=== PATIENT | male | born 1995 | race Caucasian/White ===

== ENCOUNTER 2019-12-04 11:54 | Emergency (ER) | payer SELFPAY ==
[2019-12-04 12:32] VITALS: BP 135/92; PULSE 61; RESP 14; TEMP 36.7; O2SAT 99; BMI 18.8
--- NOTE | 2019-12-04 12:38 | XR_ITS ---
WS: [id number] Portable AP upright chest, 12/04/2019 Clinical Data: chest pain Comparison: Orbital chest, 12/12/2018. Findings: No nodules, masses or effusions are seen. The heart is normal. The pulmonary vascularity is not increased. No pneumonia or pneumothorax is seen. XR/XR chest 1V portable [id number] Impression: Negative chest.
--- NOTE | 2019-12-04 12:38 | ECG_ITS ---
Measurements Intervals [place] Rate: 60 P: 56 NH: 132 QRS: 81 QRSD: 103 T: 43 QT: 386 QTc: 388 SINUS RHYTHM WITH MARKED SINUS ARRHYTHMIA POSSIBLE RIGHT VENTRICULAR CONDUCTION DELAY [RSR (QR) IN V1/V2] Compared to ECG 01/07/2019 17:39:39 No significant changes Electronically Signed On 12-04-2019 21:02:09 CDT by Jason Gregory M.D. [email or web address]
[2019-12-04 15:01] LABS: Basophils % 0.2 %; Eosinophils % 0.2 %; Hematocrit 40.4 % (42.0-52.0); Hemoglobin 13.3 g/dL (11.7-16.6); Lymphocytes # 1.8 10^3/uL (0.8-4.8); Lymphocytes % 16.1 %; Mean Corpuscular HGB Conc 32.9 g/dL (30.0-36.0); Mean Corpuscular Hemoglobin 30.2 pg (28.0-34.0); Mean Corpuscular Volume 91.8 fL (80-94); Mean Platelet Volume 9.6 fL (7.4-10.4); Monocytes % 9.3 %; Neutrophils # 8.1 10^3/uL (1.8-7.7); Neutrophils % 73.8 %; Nucleated Red Blood Cells % 0 %; Platelet Count 287 10^3/cmm (130-400); Red Cell Distribution Width 13.4 % (12.1-15.1); White Blood Count 10.9 10^3/uL (4.0-10.0)
--- NOTE | 2019-12-04 16:07 | W.ED.SOB ---
HPI - SOB/Dyspnea General: Chief Complaint: Shortness of Breath/Dyspnea Stated Complaint: SOB CP DIZZY Time Seen by Provider: 12/04/19 15:47 Source: patient Mode of arrival: ambulatory Limitations: no limitations History of Present Illness: HPI Narrative: Patient is a 24-year-old male who presents to ED today with a complaint of nasal congestion that he states he woke up with as well as shortness of breath and chest pain with deep inhalation. Patient tells me has been having a productive cough since yesterday as well. He cannot think of any specific exposures he might have been around but states he was riding his bike outside a lot yesterday. He has not been running fevers. Chest pain is not positional or exertional. MD elicited complaint: shortness of breath, cough and anxiety (nasal congestion) Associated symptoms: Reports chest congestion and chest pain (with deep inhalation); Deny abdominal pain, fever(s), hemoptysis, lightheadedness, nausea, orthopnea, palpitations, syncope or vomiting Review of Systems Const: Denies: fever(s), chills, body aches, fatigue or malaise Eyes: Denies: change in vision, blurry vision, photophobia, floaters or seeing flashes ENMT: Reports: nasal discharge, nasal congestion and sinus pain; Denies: throat pain, enlarged tonsils, odynophagia, mouth pain, swelling of lips/tongue, oral sores, dental pain, ear or mastoid pain, ear discharge, change in hearing, tinnitus or nasal obstruction Card: Reports: chest pain (with deep inhalation); Denies: palpitations, irregular heart rhythm, edema, swelling of feet/ankles, lightheadedness, syncope, pre-syncope, dyspnea on exertion, orthopnea, leg pain with exertion or acrocyanosis Resp: Reports: dyspnea, productive cough, pain on inspiration and chest congestion; Denies: wheezing, stridor or hemoptysis GI: Denies: abdominal pain, nausea or vomiting Musc: Denies: neck pain or back pain Skin/Breast: Denies: rash Neuro: Denies: headache(s), numbness in extremities, weakness in extremities or sensory changes PFS ED PFSH: Medical History (Updated 12/04/19 @ 16:20 by IVETH Le) Alcoholism Depression GERD (gastroesophageal reflux disease) Hepatitis C Insomnia Family History Grandmother Cancer Mother Diabetes Heart disease Social History Smoking and tobacco status: current every day smoker cigarettes [ Other cigarette details: actively trying to quit ] Alcohol intake: current Alcohol intake frequency: few times a month Alcohol type: beer History of recent travel: No Physical Exam Const: COMMON NORMALS: no acute distress, average body habitus, patient oriented x3, no limitations, healthy appearing, alert and well nourished HENMT: COMMON NORMALS: normocephalic, atraumatic, external ears normal, EAC's normal, TM's normal bilaterally and Normal external nose present HEAD & SCALP: normal to inspection, normocephalic and atraumatic FACE & SINUS: sinus tenderness frontal and maxillary NOSE: Normal external nose present EXTERNAL EAR: Yes external ears normal EXTERNAL AUDITORY CANAL: EAC's normal TYMPANIC MEMBRANE: TM's normal bilaterally MOUTH: Normal oral and palatal mucosa present, lip normal and tongue normal THROAT: posterior oropharynx normal, tonsils normal and uvula midline OTHER: nasal congestion Eye: COMMON NORMALS: Equal, round and reactive pupils present and EOMs intact bilaterally PUPIL: Yes Equal, round and reactive pupils present Neck/C-Spine: COMMON NORMALS: no lymphadenopathy Resp: COMMON NORMALS: normal respiratory effort and clear to auscultation bilaterally AUSCULTATION: clear to auscultation bilaterally Cardio: COMMON NORMALS: regular rate and regular rhythm RATE: regular rate RHYTHM: regular rhythm Neuro: COMMON NORMALS: patient oriented x3 SENSORIUM/ORIENTATION: Yes alert Skin: COMMON NORMALS: no rashes or lesions noted GENERAL SKIN EXAM: no rashes or lesions noted Course Vital Signs: Vital signs: Vital Signs Temperature 98.1 F 12/04/19 12:32 Pulse Rate 61 12/04/19 12:32 Respiratory Rate 14 12/04/19 12:32 Blood Pressure 135/92 12/04/19 12:32 Pulse Oximetry 99 12/04/19 12:32 MDM - SOB/Dyspnea MDM Narrative: Medical decision making narrative: Patient is seated in his room comfortably in no acute distress. His vital signs are completely stable. Labs including CBC, CMP are normal. EKG without ischemic changes. CXR is normal. Given patient's nasal congestion, productive cough, and other symptoms he most likely has allergic rhinitis versus URI like symptoms. Will treat with oral and intranasal steroids. Recommend he follow-up with PCP in a week for continued symptoms. Return to ED precautions given. Lab Data: Labs: Lab Results 12/04/19 12/04/19 Range/Units 14:44 15:30 WBC 10.9 H (4.0-10.0) 10^3/ uL RBC 4.40 (4.1-5.3) 10^6/u L Hgb 13.3 (11.7-16.6) g/dL Hct 40.4 L (42.0-52.0) % MCV 91.8 (80-94) fL MCH 30.2 (28.0-34.0) pg MCHC 32.9 (30.0-36.0) g/dL RDW 13.4 (12.1-15.1) % Plt Count 287 (130-400) 10^3/c mm MPV 9.6 (7.4-10.4) fL Neut % (Auto) 73.8 % Lymph % (Auto) 16.1 % [place] % (Auto) 9.3 % Eos % (Auto) 0.2 % Baso % (Auto) 0.2 % Neut # (Auto) 8.1 H (1.8-7.7) 10^3/u L Lymph # (Auto) 1.8 (0.8-4.8) 10^3/u L [place] # (Auto) 1.0 H (0.2-0.9) 10^3/u L Eos # (Auto) 0.0 (0.0-0.8) 10^3/u L Baso # (Auto) 0.0 (0.0-0.1) 10^3/u L Nucleated RBC % (a uto) 0 % Nucleated RBCs # 0.0 /100WBC Sodium 142 (136-145) mmol/L Potassium 3.9 (3.5-5.1) mmol/L Chloride 102 (98-107) mmol/L Carbon Dioxide 26 (22-29) mmol/L Anion Gap 17.9 (5-19) BUN 7 (6-20) mg/dL Creatinine 0.8 (0.7-1.2) mg/dL GFR Calculation 116.9 (90-130) mL/min Glucose 96 (65-115) mg/dL Calculated Osmolal ity 290 (285-295) mOsm/k g Calcium 9.7 (8.5-10.5) mg/dL Total Bilirubin 0.6 (0.15-1.2) mg/dL AST 29 (0-40) U/L ALT 15 (0-41) U/L Alkaline Phosphata se 96 (40-130) IU/L Total Protein 7.9 (6.6-8.7) g/dL Albumin 5.0 (3.5-5.2) g/dL Globulin 2.9 (1.3-4.6) g/dL Imaging Data^: CXR: Radiologist's impression: [address] [address] XRay Report Signed Patient: Tyree Alvarez Unit #: [id number] : 1995 Age/Sex: 24 / M ADM Date: 12/04/19 Loc: ER Room/Bed: Attending Dr: Ordering Provider/Ordering MD: Ashley Lr Date of Service: 12/04/19 Procedure(s): XR chest 1V portable [id number] Accession Number(s): [id number] Report Number: [id number] WS: [id number] Portable AP upright chest, 12/04/2019 Clinical Data: chest pain Comparison: Orbital chest, 12/12/2018. Findings: No nodules, masses or effusions are seen. The heart is normal. The pulmonary vascularity is not increased. No pneumonia or pneumothorax is seen. XR/XR chest 1V portable [id number] Impression: Negative chest. Dictated By: Amie Sevilla MD Signed By: Amie Sevilla MD Signed Date/Time: 12/04/19 1327 DD/ 1326 EKG Data^: EKG 1: EKG Interpretation Date: 12/04/19 EKG interpretation time: 12:39 Interpretation: Sinus rhythm with sinus arrhythmia Rate [address] elevation or depression changes noted Discharge Plan Discharge Patient Disposition: Home, Self-Care Clinical Impression: URI with cough and congestion Condition: Stable Prescriptions: New Flonase Allergy Relief 50 mcg/actuation spray,suspension 2 spray INTRANASAL DAILY PRN (Reason: nasal congestion) Qty: 16 RF: 0 prednisone 10 mg tablet 60 mg PO DAILY 5 Days Qty: 30 RF: 0 Discharge Orders: Discharge Order (Routine); Ordered 12/04/19 Ordered By: Ahsley Lr Referrals: Otilia Medina MD [Primary Care Provider] - Activity Restrictions/Additional Instructions: Please follow up with primary care in 1 week for continued symptoms. May return to ED for any concerns you may have. Coding Level of Care Code ED Fiber Worker for Chg Fwd Exam Detailed
[2019-12-04 16:24] LABS: Alanine Aminotransferase 15 U/L (0-41); Alkaline Phosphatase 96 IU/L (40-130); Anion Gap 17.9 (5-19); Aspartate Amino Transferase 29 U/L (0-40); Blood Urea Nitrogen 7 mg/dL (6-20); Calcium 9.7 mg/dL (8.5-10.5); Carbon Dioxide 26 mmol/L (22-29); Chloride 102 mmol/L (98-107); Globulin 2.9 g/dL (1.3-4.6); Glomerular Filtration Rate 116.9 mL/min (90-130); Glucose 96 mg/dL (65-115); Osmolality Calculated 290 mOsm/kg (285-295); Potassium 3.9 mmol/L (3.5-5.1); Sodium 142 mmol/L (136-145); Total Bilirubin 0.6 mg/dL (0.15-1.2); Total Protein 7.9 g/dL (6.6-8.7)
[2019-12-04 16:57] VITALS: BP 140/82; PULSE 68; RESP 18; O2SAT 97
== END 2019-12-04 16:57 | disposition home or self-care (01) ==
PROVIDERS: Emergency Provider Physician Assistant; PCP Family Medicine
DX: J06.9 Acute upper respiratory infection, unspecified (principal); Z86.19 Personal history of other infectious and parasitic diseases; F17.210 Nicotine dependence, cigarettes, uncomplicated
CPT/HCPCS: 12345; 36415; 71045; 80053; 85025; 93005; 99281; 99283

== ENCOUNTER 2019-12-13 00:04 | Emergency (ER) | payer SELFPAY ==
[2019-12-13] VITALS (46 sets, daily range): BP systolic 106–126; BP diastolic 57–74; PULSE 76; RESP 16; TEMP 36.7; O2SAT 96–100; BMI 20.2
--- NOTE | 2019-12-13 00:36 | XRR_ITS ---
PROCEDURE INFORMATION: Exam: XR Chest, 1 View Exam date and time: 12/13/2019 12:39 AM Age: 24 years old Clinical indication: Shortness of breath; Patient HX: Sudden onset of chest pain with SOB this a. M. PT had left knee surgery five days ago. TECHNIQUE: Imaging protocol: XR of the chest Views: 1 view. COMPARISON: No relevant prior studies available. FINDINGS: Lungs: Unremarkable. No consolidation. Pleural space: Unremarkable. No pleural effusion. No pneumothorax. Heart/Mediastinum: Unremarkable. No cardiomegaly. Bones/joints: No emergent findings identified. XR/XR chest 1V portable [id number] IMPRESSION: 1. No radiographic findings of acute cardiopulmonary disease.
[2019-12-13 01:26] LABS: Hematocrit 28.4 % (42.0-52.0); Hemoglobin 9.2 g/dL (11.7-16.6); Mean Corpuscular HGB Conc 32.4 g/dL (30.0-36.0); Mean Corpuscular Hemoglobin 29.8 pg (28.0-34.0); Mean Corpuscular Volume 91.9 fL (80-94); Nucleated Red Blood Cells % 0 %; Platelet Count 408 10^3/cmm (130-400); Red Blood Count 3.09 10^6/uL (4.1-5.3); White Blood Count 13.4 10^3/uL (4.0-10.0)
--- NOTE | 2019-12-13 01:28 | CTR_ITS ---
PROCEDURE INFORMATION: Exam: CT Angiography Chest With Contrast Exam date and time: 12/13/2019 1:48 AM Age: 24 years old Clinical indication: Shortness of breath; Pleuordynia; Patient HX: Chest pain with SOB this AM Surgery to left knee five days ago. Additional info: Pleuritic chest pain, recent surgery TECHNIQUE: Imaging protocol: Computed tomographic angiography of the chest with intravenous contrast. 3D rendering: MIP and/or 3D reconstructed images were created by the technologist. Radiation optimization: All CT scans at this facility use at least one of these dose optimization techniques: automated exposure control; mA and/or kV adjustment per patient size (includes targeted exams where dose is matched to clinical indication); or iterative reconstruction. Contrast material: OMNI 350; Contrast volume: 66 ml; Contrast route: INTRAVENOUS (IV); COMPARISON: CR XR chest 1V portable [id number] 12/13/2019 1:14 AM RADIATION DOSE METRICS: Total DLP (mGy-cm): 471.2 FINDINGS: Pulmonary arteries: No pulmonary emboli identified. Aorta: No thoracic aortic aneurysm identified. Lungs: Mild patchy atelectasis at the periphery of both lungs. Pleural space: No pneumothorax or pleural effusion. Heart: Heart size within normal limits. Lymph nodes: No enlarged or abnormal appearing mediastinal/hilar lymph nodes identified. Bones/joints: Visualized bones are unremarkable. Soft tissues: Unremarkable. Other findings: Images of the upper abdomen were reviewed. Partially visualized hydronephrosis of the left kidney. CT/CT angio chest PE protcl [id number] IMPRESSION: 1. No pulmonary emboli identified. 2. Partially visualized hydronephrosis of the left kidney. Radiation Dose CTDIVOL = (mGy): DLP = 471.2 (mGy-cm)
[2019-12-13 01:29] LABS: D Dimer 2.31 ug/mIFEU (0-0.59)
[2019-12-13] MEDS: aspirin 325 mg Tablet PO (01:31)
--- NOTE | 2019-12-13 01:34 | ED_ITS ---
HPI - Chest Pain General: Chief Complaint: Chest Pain Stated Complaint: CP Time Seen by Provider: 12/13/19 01:16 Source: patient Mode of arrival: ambulatory Limitations: no limitations History of Present Illness: HPI narrative: Tyree is a nice 24-year-old male who comes in complaining of pleuritic chest pain. Patient states he had surgery 5 days ago at [facility] for failure for his bone to heal. He is not had any problem until tonight when he woke up feeling clammy, short of breath and pain made worse by taking a deep breath or coughing. He denies any fevers or c hills. Patient states that his pain is moderate when taking a deep breath. He denies any other complaints or concerns. Associated symptoms: Reports dyspnea; Deny abdominal pain, diaphoresis, fever(s), nausea, palpitations, syncope or vomiting Review of Systems Const: Denies: fever(s), chills, body aches, fatigue, malaise or diaphoresis Eyes: Denies: change in vision, blurry vision, blind spots, photophobia, eye discharge or eye redness ENMT: Denies: throat pain, odynophagia, hoarseness, swelling of lips/tongue, oral sores, ear or mastoid pain, ear discharge, change in hearing or nasal discharge Card: Reports: chest pain; Denies: palpitations, irregular heart rhythm, edema, lightheadedness, syncope, pre-syncope, dyspnea on exertion or orthopnea Resp: Reports: dyspnea; Denies: productive cough, non-productive cough, wheezing, hemoptysis or chest congestion GI: Denies: abdominal pain, nausea, vomiting, hematemesis, coffee ground emesis, heartburn, diarrhea, constipation, GI cramping, hematochezia or melena : Denies: flank pain, dysuria, urinary frequency, urinary urgency or hematuria Musc: Denies: neck pain, back pain, extremity pain, extremity swelling, joint pain, joint swelling, joint redness, joint warmth or joint stiffness Skin/Breast: Denies: rash, pruritus, erythema, skin tenderness or jaundice Neuro: Denies: headache(s), numbness in extremities, weakness in extremities, sensory changes, lack of coordination, difficulty walking, dizziness, vertigo, confusion, Slurred speech present or seizure-like activity Abe/Lymph: Denies: easy bruising, easy bleeding, petechiae, purpura or enla rged lymph nodes All/Imm: Denies: urticaria, throat swelling, tongue swelling, facial swelling or acute wheezing PFSH ED PFSH: Medical History Alcoholism Depression GERD (gastroesophageal reflux disease) Hepatitis C Insomnia Family History Grandmother Cancer Mother Diabetes Heart disease Social History Smoking and tobacco status: former smoker Alcohol intake: current Alcohol intake frequency: few times a month Alcohol type: beer History of recent travel: No Physical Exam Const: COMMON NORMALS: no acute distress, patient oriented x3, no limitations, healthy appearing and well nourished GENERAL APPEARANCE: cooperative, well kempt and well developed HENMT: COMMON NORMALS: normocephalic, atraumatic, external ears normal, EAC's normal and Normal external nose present HEAD & SCALP: normal to inspection, normocephalic and atraumatic FACE & SINUS: normal facial exam and face symmetric NOSE: Normal external nose present and Normal nares present EXTERNAL EAR: Yes external ears normal EXTERNAL AUDITORY CANAL: EAC's normal MOUTH: Normal oral and palatal mucosa present, lip normal and tongue normal Eye: COMMON NORMALS: Equal, round and reactive pupils present and conjunctivae normal GENERAL EYE: appearance normal, both eyes and all related structures ALIGNMENT: Yes alignment normal PERIORBITAL: periorbital findings normal EYELID: eyelids normal CONJUNCTIVA: Yes conjunctivae normal SCLERA: sclerae normal PUPIL: Yes Equal, round and reactive pupils present Neck/C-Spine: COMMON NORMALS: full ROM, no lymphadenopathy, supple, no meningeal signs and no JVD GENERAL: Yes normal visual inspection and Yes trachea midline Chest: COMMONS NORMALS: normal inspection of the chest and normal palpation of entire chest wall Resp: COMMON NORMALS: normal respiratory effort, No retractions and No use of accessory muscles EFFORT & INSPECTION: Yes able to speak in complete sentences and Yes symmetric chest movement AUSCULTATION: no crackles, no rales, no rhonchi and no wheezes Cardio: COMMON NORMALS: no JVD, regular rate, regular rhythm, S1 normal heart sound present and S2 normal heart sound present RATE: regular rate RHYTHM: regular rhythm HEART SOUNDS: S1 normal heart sound present, S2 normal heart sound present, no click, no gallops, no murmurs, no rubs and abnormal split S2 GI: COMMON NORMALS: Soft to palpation and No hepatosplenomegaly present PALPATION: Yes Soft to palpation, No Tenderness to palpation present (GI), No Guarding due to palpation present (GI), No Rigid due to palpation, Yes No hepatosplenomegaly present, No Hernia present, No Palpable mass present and No Pulsatile mass present : COMMON NORMALS: Yes no CVA tenderness BLADDER/KIDNEY EXAM: Yes no CVA tenderness Back/Pelvis: COMMON NORMALS: no CVA tenderness, thoracic and lumbar spine normal to inspection, no thoracic nor lumbar tenderness and thoraco-lumbar ROM normal Extremity: COMMON NORMALS: normal to inspection, full ROM, capillary refill normal, no joint enlargement, no clubbing, cyanosis or edema and no calf tenderness Neuro: COMMON NORMALS: patient oriented x3, CN's II-XII intact bilaterally, moves all extremities, no focal motor deficits and no sensory deficits noted MENINGEAL SIGNS: Yes no meningeal signs SPEECH: speech normal Psych: COMMON NORMALS: mental status grossly normal, Normal thought process present, cooperative, normal affect, speech normal and activity/motor behavior normal APPEARANCE: Yes well kempt SPEECH: Yes normal speech THOUGHT PROCESS: Normal thought process present Skin: COMMON NORMALS: no rashes or lesions noted, turgor normal, no jaundice, no petechiae and no mottling GENERAL SKIN EXAM: no rashes or lesions noted and turgor normal Course Vital Signs: Vital signs: Vital Signs Temperature 98.1 F 12/13/19 00:13 Pulse Rate 76 12/13/19 00:13 Respiratory Rate 16 12/13/19 00:13 Blood Pressure 111/63 12/13/19 03:30 Pulse Oximetry 97 12/13/19 03:30 MDM - Chest Pain MDM Narrative: Medical decision making narrative: Patient had positive d-dimer but ultrasound of his left lower extremity is negative and there is no sign of PE on his CAT scan. Incidentally a left hydronephrosis was noted. 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 Patient's kidney function is good and there is no sign of UTI. I reviewed the findings of the CT with Dr. Long who thinks this is likely a congenital issue and we did get a ultrasound of the bladder which showed good ureteral jets. Knowing that his left kidney is secreting urine Dr. Long felt he was safe for discharge and the patient can follow-up with him in the office. I reviewed all this with the patient he is in agreement. In regards to his anemia he refused a rectal exam and it is possible that some of this blood loss is from surgery but he would not allow any further work-up to be done here and wanted to be discharged to follow-up with Dr. Medina in regards to his anemia. Lab Data: Labs: Lab Results 12/13/19 12/13/19 12/13/19 Range/Units 00:45 00:45 00:45 WBC 13.4 H (4.0-10.0) 10^3/ uL RBC 3.09 L (4.1-5.3) 10^6/u L Hgb 9.2 L (11.7-16.6) g/dL Hct 28.4 L (42.0-52.0) % MCV 91.9 (80-94) fL MCH 29.8 (28.0-34.0) pg MCHC 32.4 (30.0-36.0) g/dL RDW 13.0 (12.1-15.1) % Plt Count 408 H (130-400) 10^3/c mm MPV 9.0 (7.4-10.4) fL Nucleated RBC % (a uto) 0 % Total Counted 100 (0-100) Absolute Neutrophi ls 7.6 H (1.4-6.5) 10^3/c mm Segmented Neutroph ils 53 % Abs Segm Neuts (Ma n) 7.1 (1.6-7.1) 10/cmm Band Neutrophils 4.0 % Abs Band Neuts (Ma n) 0.5 (0.0-1.2) 10^3/c mm Lymphocytes (Manua l) 31 % Monocytes (Manual) 2.0 % Absolute Monocytes 0.3 (0.1-0.6) 10^3/c mm Eosinophils (Manua l) 2 % Absolute Eosinophi ls 0.2 (0.0-0.7) 10^3/c mm Metamyelocytes 6.0 % Myelocytes 2.0 % Nucleated RBCs # 0.0 /100WBC Platelet Estimate Increased (Normal) PT (10.5-13.3) SECO NDS INR (0.8-1.2) APTT (23.9-36.7) SECO NDS D-Dimer 2.31 H (0-0.59) ug/mIFE U Sodium 139 (136-145) mmol/L Potassium 4.1 (3.5-5.1) mmol/L Chloride 102 (98-107) mmol/L Carbon Dioxide 26 (22-29) mmol/L Anion Gap 15.1 (5-19) BUN 17 (6-20) mg/dL Creatinine 0.8 (0.7-1.2) mg/dL GFR Calculation 116.9 (90-130) mL/min Glucose 96 (65-115) mg/dL Calculated Osmolal ity 284 L (285-295) mOsm/k g Calcium 9.0 (8.5-10.5) mg/dL Magnesium 2.2 (1.7-2.3) mg/dL Total Bilirubin 0.3 (0.15-1.2) mg/dL AST 16 (0-40) U/L ALT 10 (0-41) U/L Alkaline Phosphata se 69 (40-130) IU/L Troponin T Baselin e (0-15) ng/L Troponin T 120 Min king salmon (0-15) ng/L Delta Troponin T (0-10) ABS# NT-Pro-B Natriuret Pep (0-125) pg/mL Total Protein 6.6 (6.6-8.7) g/dL Albumin 3.8 (3.5-5.2) g/dL Globulin 2.8 (1.3-4.6) g/dL Lipase 17 (13-60) U/L Urine Color (Yellow) Urine Appearance (CLEAR) Urine pH (5-7) Ur Specific Gravit y (1.005-1.030) Urine Protein (Negative) Urine Glucose (UA) (Normal) Urine Ketones (Negative) Urine Blood (Negative) Urine Nitrate (Negative) Urine Bilirubin (NEGATIVE) Urine Urobilinogen (Negative) mg/dL Ur Leukocyte Basia ase (Negative) Urine RBC (0-2) /hpf Urine WBC (0-5) /hpf Ur Squamous Epith Cells (0-5) Urine Bacteria (NONE) Urine Mucus Urine Opiates Scre en (Negative) ng/mL Ur Barbiturates Sc reen (Negative) ng/mL Ur Phencyclidine S crn (Negative) ng/mL Ur Amphetamines Sc reen (Negative) ng/mL U Benzodiazepines Scrn (Negative) ng/mL Urine Cocaine Scre en (Negative) ng/mL U Marijuana (THC) Screen (Negative) ng/mL 12/13/19 12/13/19 12/13/19 Range/Units 00:45 00:45 00:45 WBC (4.0-10.0) 10^3/ uL RBC (4.1-5.3) 10^6/u L Hgb (11.7-16.6) g/dL Hct (42.0-52.0) % MCV (80-94) fL MCH (28.0-34.0) pg MCHC (30.0-36.0) g/dL RDW (12.1-15.1) % Plt Count (130-400) 10^3/c mm MPV (7.4-10.4) fL Nucleated RBC % (a uto) % Total Counted (0-100) Absolute Neutrophi ls (1.4-6.5) 10^3/c mm Segmented Neutroph ils % Abs Segm Neuts (Ma n) (1.6-7.1) 10/cmm Band Neutrophils % Abs Band Neuts (Ma n) (0.0-1.2) 10^3/c mm Lymphocytes (Manua l) % Monocytes (Manual) % Absolute Monocytes (0.1-0.6) 10^3/c mm Eosinophils (Manua l) % Absolute Eosinophi ls (0.0-0.7) 10^3/c mm Metamyelocytes % Myelocytes % Nucleated RBCs # /100WBC Platelet Estimate (Normal) PT 12.50 (10.5-13.3) SECO NDS INR 0.91 (0.8-1.2) APTT 27.3 (23.9-36.7) SECO NDS D-Dimer (0-0.59) ug/mIFE U Sodium (136-145) mmol/L Potassium (3.5-5.1) mmol/L Chloride (98-107) mmol/L Carbon Dioxide (22-29) mmol/L Anion Gap (5-19) BUN (6-20) mg/dL Creatinine (0.7-1.2) mg/dL GFR Calculation (90-130) mL/min Glucose (65-115) mg/dL Calculated Osmolal ity (285-295) mOsm/k g Calcium (8.5-10.5) mg/dL Magnesium (1.7-2.3) mg/dL Total Bilirubin (0.15-1.2) mg/dL AST (0-40) U/L ALT (0-41) U/L Alkaline Phosphata se (40-130) IU/L Troponin T Baselin e 6 (0-15) ng/L Troponin T 120 Min king salmon (0-15) ng/L Delta Troponin T (0-10) ABS# NT-Pro-B Natriuret Pep 92 (0-125) pg/mL Total Protein (6.6-8.7) g/dL Albumin (3.5-5.2) g/dL Globulin (1.3-4.6) g/dL Lipase (13-60) U/L Urine Color (Yellow) Urine Appearance (CLEAR) Urine pH (5-7) Ur Specific Gravit y (1.005-1.030) Urine Protein (Negative) Urine Glucose (UA) (Normal) Urine Ketones (Negative) Urine Blood (Negative) Urine Nitrate (Negative) Urine Bilirubin (NEGATIVE) Urine Urobilinogen (Negative) mg/dL Ur Leukocyte Basia ase (Negative) Urine RBC (0-2) /hpf Urine WBC (0-5) /hpf Ur Squamous Epith Cells (0-5) Urine Bacteria (NONE) Urine Mucus Urine Opiates Scre en (Negative) ng/mL Ur Barbiturates Sc reen (Negative) ng/mL Ur Phencyclidine S crn (Negative) ng/mL Ur Amphetamines Sc reen (Negative) ng/mL U Benzodiazepines Scrn (Negative) ng/mL Urine Cocaine Scre en (Negative) ng/mL U Marijuana (THC) Screen (Negative) ng/mL 12/13/19 12/13/19 12/13/19 Range/Units 02:50 03:00 03:00 WBC (4.0-10.0) 10^3/ uL RBC (4.1-5.3) 10^6/u L Hgb (11.7-16.6) g/dL Hct (42.0-52.0) % MCV (80-94) fL MCH (28.0-34.0) pg MCHC (30.0-36.0) g/dL RDW (12.1-15.1) % Plt Count (130-400) 10^3/c mm MPV (7.4-10.4) fL Nucleated RBC % (a uto) % Total Counted (0-100) Absolute Neutrophi ls (1.4-6.5) 10^3/c mm Segmented Neutroph ils % Abs Segm Neuts (Ma n) (1.6-7.1) 10/cmm Band Neutrophils % Abs Band Neuts (Ma n) (0.0-1.2) 10^3/c mm Lymphocytes (Manua l) % Monocytes (Manual) % Absolute Monocytes (0.1-0.6) 10^3/c mm Eosinophils (Manua l) % Absolute Eosinophi ls (0.0-0.7) 10^3/c mm Metamyelocytes % Myelocytes % Nucleated RBCs # /100WBC Platelet Estimate (Normal) PT (10.5-13.3) SECO NDS INR (0.8-1.2) APTT (23.9-36.7) SECO NDS D-Dimer (0-0.59) ug/mIFE U Sodium (136-145) mmol/L Potassium (3.5-5.1) mmol/L Chloride (98-107) mmol/L Carbon Dioxide (22-29) mmol/L Anion Gap (5-19) BUN (6-20) mg/dL Creatinine (0.7-1.2) mg/dL GFR Calculation (90-130) mL/min Glucose (65-115) mg/dL Calculated Osmolal ity (285-295) mOsm/k g Calcium (8.5-10.5) mg/dL Magnesium (1.7-2.3) mg/dL Total Bilirubin (0.15-1.2) mg/dL AST (0-40) U/L ALT (0-41) U/L Alkaline Phosphata se (40-130) IU/L Troponin T Baselin e (0-15) ng/L Troponin T 120 Min king salmon 6.00 (0-15) ng/L Delta Troponin T 0 (0-10) ABS# NT-Pro-B Natriuret Pep (0-125) pg/mL Total Protein (6.6-8.7) g/dL Albumin (3.5-5.2) g/dL Globulin (1.3-4.6) g/dL Lipase (13-60) U/L Urine Color Yellow (Yellow) Urine Appearance Clear (CLEAR) Urine pH 5 (5-7) Ur Specific Gravit y 1.015 (1.005-1.030) Urine Protein Neg (Negative) Urine Glucose (UA) Norm (Normal) Urine Ketones Negative (Negative) Urine Blood Neg (Negative) Urine Nitrate Negative (Negative) Urine Bilirubin Neg (NEGATIVE) Urine Urobilinogen Norm (Negative) mg/dL Ur Leukocyte Basia ase Negative (Negative) Urine RBC 0-4 H (0-2) /hpf Urine WBC 0-4 H (0-5) /hpf Ur Squamous Epith Cells 0-4 H (0-5) Urine Bacteria 1+ H (NONE) Urine Mucus 1+ Urine Opiates Scre en Negative (Negative) ng/mL Ur Barbiturates Sc reen Negative (Negative) ng/mL Ur Phencyclidine S crn Negative (Negative) ng/mL Ur Amphetamines Sc reen Negative (Negative) ng/mL U Benzodiazepines Scrn Positive H (Negative) ng/mL Urine Cocaine Scre en Negative (Negative) ng/mL U Marijuana (THC) Screen Negative (Negative) ng/mL Imaging Data^: CXR: Attestation: I personally reviewed and interpreted this imaging study as follows: My impression: No acute cardiopulmonary findings. CTA Chest: Radiologist's impression: [address] [address] [address] Scan Report Signed Patient: Tyree Alvarez Unit #: [id number] : 1995 Age/Sex: 24 / M ADM Date: 12/13/19 Loc: ER Room/Bed: Attending Dr: Ordering Provider/Ordering MD: Sara Henriquez DO Date of Service: 12/13/19 Procedure(s): CT angio chest PE protcl [id number] Accession Number(s): [id number] Report Number: [id number] PROCEDURE INFORMATION: Exam: CT Angiography Chest With Contrast Exam date and time: 12/13/2019 1:48 AM Age: 24 years old Clinical indication: Shortness of breath; Pleuordynia; Patient HX: Chest pain with SOB this AM Surgery to left knee five days ago. Additional info: Pleuritic chest pain, recent surgery TECHNIQUE: Imaging protocol: Computed tomographic angiography of the chest with intravenous contrast. 3D rendering: MIP and/or 3D reconstructed images were created by the technologist. Radiation optimization: All CT scans at this facility use at least one of these dose optimization techniques: automated exposure control; mA and/or kV adjustment per patient size (includes targeted exams where dose is matched to clinical indication); or iterative reconstruction. Contrast material: OMNI 350; Contrast volume: 66 ml; Contrast route: INTRAVENOUS (IV); COMPARISON: CR XR chest 1V portable [id number] 12/13/2019 1:14 AM RADIATION DOSE METRICS: Total DLP (mGy-cm): 471.2 FINDINGS: Pulmonary arteries: No pulmonary emboli identified. Aorta: No thoracic aortic aneurysm identified. Lungs: Mild patchy atelectasis at the periphery of both lungs. Pleural space: No pneumothorax or pleural effusion. Heart: Heart size within normal limits. Lymph nodes: No enlarged or abnormal appearing mediastinal/hilar lymph nodes identified. Bones/joints: Visualized bones are unremarkable. Soft tissues: Unremarkable. Other findings: Images of the upper abdomen were reviewed. Partially visualized hydronephrosis of the left kidney. CT/CT angio chest PE protcl [id number] IMPRESSION: 1. No pulmonary emboli identified. 2. Partially visualized hydronephrosis of the left kidney. Radiation Dose CTDIVOL = (mGy): DLP = 471.2 (mGy-cm) Dictated By: Panfilo Bagley MD Signed By: Panfilo Bagley MD Signed Date/Time: 12/13/19225 DD/ 4 CT Abd/Pel: Radiologist's impression: [address] [address] [address] Scan Report Signed Patient: Tyree Alvarez Unit #: [id number] : 1995 Age/Sex: 24 / M ADM Date: 12/13/19 Loc: ER Room/Bed: Attending Dr: Ordering Provider/Ordering MD: Sara Henriquez DO Date of Service: 12/13/19 Procedure(s): CT kidney stone [id number] Accession Number(s): [id number] Report Number: [id number] PROCEDURE INFORMATION: Exam: CT Abdomen And Pelvis Without Contrast Exam date and time: 12/13/2019 3:09 AM Age: 24 years old Clinical indication: Patient HX: Partial hydronephrosis seen on chest cta; Additional info: Flank/abdominal pain TECHNIQUE: Imaging protocol: Computed tomography of the abdomen and pelvis without contrast. Radiation optimization: All CT scans at this facility use at least one of these dose optimization techniques: automated exposure control; mA and/or kV adjustment per patient size (includes targeted exams where dose is matched to clinical indication); or iterative reconstruction. COMPARISON: No relevant prior studies available. RADIATION DOSE METRICS: Total DLP (mGy-cm): 450.68 FINDINGS: Limitations: Examinations performed without intravenous contrast have limited ability to detect many conditions. Lungs: Minimal atelectasis at the left lung base. Liver: Unremarkable. Gallbladder and bile ducts: Unremarkable. Pancreas: Unremarkable. Spleen: Unremarkable. Adrenals: Unremarkable. Kidneys and ureters: Contrast is noted in the renal excretory systems bilaterally. Moderate left hydronephrosis. The left ureter is not dilated. This pattern suggests ureteropelvic junction obstruction (likely congenital/developmental). Stomach and bowel: No bowel obstruction identified. No diverticulitis identified. Appendix: A normal-appearing appendix is seen in the right lower quadrant. Intraperitoneal space: No free intraperitoneal air identified. No free intraperitoneal fluid identified. Vasculature: No abdominal aortic aneurysm. Lymph nodes: Unremarkable. Bladder: The bladder is filled with contrast (otherwise unremarkable). Reproductive: Unremarkable as visualized. Bones/joints: No emergent findings identified. Soft tissues: Unremarkable. CT/CT kidney stone [id number] IMPRESSION: 1. Moderate left hydronephrosis. Pattern suggests ureteropelvic junction obstruction (likely congenital/developmental). Radiation Dose CTDIVOL = (mGy): DLP = 450.68 (mGy-cm) Dictated By: Panfilo Bagley MD Signed By: Panfilo Bagley MD Signed Date/Time: 12/13/19414 DD/ 2 Ultrasound bladder: My impression: Ultrasound bladder, tech interpretation -bilateral ureteral jets present. Ultrasound Left Lower Extremity Venous Doppler: My impression: Ultrasound venous Doppler, tech interpretation left lower extremity -negative for DVT EKG Data^: EKG 1: Attestation: I personally reviewed and interpreted this EKG as follows: EKG interpretation date: 12/13/19 Interpretation: Normal sinus rhythm at 83 beats a minute, incomplete right bundle branch block, benign early repolarization, otherwise no acute ST or T wave changes. EKG 2: Attestation: I personally reviewed and interpreted this EKG as follows: EKG interpretation date: 12/13/19 EKG interpretation time: 03:03 Interpretation: Normal sinus rhythm at 64 beats a minute, incomplete right bundle branch block, benign early repolarization, unchanged from previous. Discharge Plan Discharge Patient Disposition: Home, Self-Care Clinical Impression: Chest pain Qualifiers: Chest pain type: unspecified Qualified Code(s): R07.9 - Chest pain, unspecified Hydronephrosis Qualifiers: Hydronephrosis type: unspecified Qualified Code(s): N13.30 - Unspecified hydronephrosis Anemia Qualifiers: Anemia type: unspecified type Qualified Code(s): D64.9 - Anemia, unspecified Condition: Stable Discharge Orders: Discharge Order (Routine); Ordered 12/13/19 Ordered By: Sara Henriquez Referrals: Otilia Medina MD [Primary Care Provider] - 1-3 days Evert Long MD [Physician] - 7-10 days Discharge Diet: Advance as tolerated Discharge Activity: Use walker/crutches as instructed Patient Instructions: Chest Pain (ED), Hydronephrosis (ED), Anemia (ED) Activity Restrictions/Additional Instructions: Please return to the ER immediately for any of the signs or symptoms listed on your discharge instruction sheets, worsening/changing of your symptoms, you are not getting better as quickly as expected, or for ANY other cause or concerns. Be certain to follow-up with Dr. Medina as soon as possible for recheck of your anemia. This needs to be worked up more definitively and followed to be certain there is not a serious cause for your anemia. Follow-up with Dr. Long as an outpatient to further evaluate your hydronephrosis of your left kidney. It is important you follow-up with him to definitively rule out a serious even life-threatening cause for this. Return to the ER for any of the symptoms listed under chest pain discharge instruction sheets or for any other cause for concern. Coding Level of Care Code ED Java Software Engineer for Sunita Fwmaria teresa Exam Comprehensive
[2019-12-13 01:35] LABS: Alanine Aminotransferase 10 U/L (0-41); Albumin Level 3.8 g/dL (3.5-5.2); Alkaline Phosphatase 69 IU/L (40-130); Anion Gap 15.1 (5-19); Aspartate Amino Transferase 16 U/L (0-40); Blood Urea Nitrogen 17 mg/dL (6-20); Carbon Dioxide 26 mmol/L (22-29); Chloride 102 mmol/L (98-107); Globulin 2.8 g/dL (1.3-4.6); Glomerular Filtration Rate 116.9 mL/min (90-130); Glucose 96 mg/dL (65-115); Lipase 17 U/L (13-60); Magnesium 2.2 mg/dL (1.7-2.3); Osmolality Calculated 284 mOsm/kg (285-295); Potassium 4.1 mmol/L (3.5-5.1); Sodium 139 mmol/L (136-145); Total Bilirubin 0.3 mg/dL (0.15-1.2); Total Protein 6.6 g/dL (6.6-8.7)
[2019-12-13 01:37] LABS: Troponin(5th) Baseline 6 ng/L (0-15)
[2019-12-13 01:46] LABS: Absolute Eosinophils 0.2 10^3/cmm (0.0-0.7); Absolute Segmented Neutrophil 7.1 10/cmm (1.6-7.1); Band Neutrophils Absolute 0.5 10^3/cmm (0.0-1.2); Eosinophils 2 %; Lymphocytes 31 %; Monocytes Absolute 0.3 10^3/cmm (0.1-0.6); Segmented Neutrophils 53 %; Slide Review Slide Review Perform; Total Cells Counted 100 (0-100)
[2019-12-13 01:47] LABS: Absolute Neutrophil 7.6 10^3/cmm (1.4-6.5); Platelet Estimate Increased (Normal)
[2019-12-13 01:55] LABS: INR 0.91 (0.8-1.2)
[2019-12-13 01:56] LABS: Partial Thromboplastin Time 27.3 SECONDS (23.9-36.7)
[2019-12-13] MEDS: iohexol 350 mg/mL 100 mL Btl IV (02:01)
[2019-12-13 02:13] LABS: NT Pro B Type Natriuretic Pept 92 pg/mL (0-125)
--- NOTE | 2019-12-13 03:08 | CTR_ITS ---
PROCEDURE INFORMATION: Exam: CT Abdomen And Pelvis Without Contrast Exam date and time: 12/13/2019 3:09 AM Age: 24 years old Clinical indication: Patient HX: Partial hydronephrosis seen on chest cta; Additional info: Flank/abdominal pain TECHNIQUE: Imaging protocol: Computed tomography of the abdomen and pelvis without contrast. Radiation optimization: All CT scans at this facility use at least one of these dose optimization techniques: automated exposure control; mA and/or kV adjustment per patient size (includes targeted exams where dose is matched to clinical indication); or iterative reconstruction. COMPARISON: No relevant prior studies available. RADIATION DOSE METRICS: Total DLP (mGy-cm): 450.68 FINDINGS: Limitations: Examinations performed without intravenous contrast have limited ability to detect many conditions. Lungs: Minimal atelectasis at the left lung base. Liver: Unremarkable. Gallbladder and bile ducts: Unremarkable. Pancreas: Unremarkable. Spleen: Unremarkable. Adrenals: Unremarkable. Kidneys and ureters: Contrast is noted in the renal excretory systems bilaterally. Moderate left hydronephrosis. The left ureter is not dilated. This pattern suggests ureteropelvic junction obstruction (likely congenital/developmental). Stomach and bowel: No bowel obstruction identified. No diverticulitis identified. Appendix: A normal-appearing appendix is seen in the right lower quadrant. Intraperitoneal space: No free intraperitoneal air identified. No free intraperitoneal fluid identified. Vasculature: No abdominal aortic aneurysm. Lymph nodes: Unremarkable. Bladder: The bladder is filled with contrast (otherwise unremarkable). Reproductive: Unremarkable as visualized. Bones/joints: No emergent findings identified. Soft tissues: Unremarkable. CT/CT kidney stone [id number] IMPRESSION: 1. Moderate left hydronephrosis. Pattern suggests ureteropelvic junction obstruction (likely congenital/developmental). Radiation Dose CTDIVOL = (mGy): DLP = 450.68 (mGy-cm)
[2019-12-13 03:40] LABS: Troponin 5 2HR Delta 0 ABS# (0-10)
--- NOTE | 2019-12-13 03:43 | USCV_ITS ---
Antonio Tyree Age: 24 Gender: M : 1995 Exam Date: 12/13/2019 04:00 Ordering Phys: Sara Henriquez DO Technologist: Theodore Muniz Exam Location: [facility] [place]_ Indication: LT LEG PAIN AND SWELLING HISTORY: Lower extremity swelling. PROCEDURES: Venous duplex imaging was performed in only the left lower extremity. The following venous structures were evaluated: common femoral vein, profunda vein, proximal portion of the greater saphenous vein, superficial femoral vein, and the popliteal vein. In addition, the posterior tibial and peroneal trunk were evaluated. On the left side, the common femoral, superficial femoral, profunda femoral, popliteal, posterior tibial, greater saphenous veins, and the peroneal trunk were identified and interrogated in the standard fashion. These veins were found to be easily compressible with spontaneous blood flow. No evidence of insufficiency or thrombus noted. FINDINGS: Normal 2-D Doppler and augmentation and compressibility throughout the lower extremity venous structures. Additional imaging through the proximal calf veins also reveals no thrombus. Limited evaluation of the greater saphenous vein is patent with no thrombus.. The veins were found to be easily compressible with spontaneous blood flow. Non pulsatile flow pattern. CONCLUSIONS No evidence of DVT in the above-mentioned identifiable veins. Dr Jason Gregory MD [facility] (Electronically Signed) Final Date: 15 December 2019 08:23 S
[2019-12-13 03:44] LABS: Amphetamines Screen Urine Negative (Negative); Bacteria Urine 1+; Barbiturates Screen Urine Negative (Negative); Benzodiazepines Screen Urine Positive (Negative); Bilirubin Urine Neg (NEGATIVE); Blood Urine Neg (Negative); Cocaine Screen Urine Negative (Negative); Glucose Urine UA Norm (Normal); Ketones Urine Negative (Negative); Leukocyte Esterase Urine Negative (Negative); Mucus Urine 1+; Nitrate Urine Negative (Negative); Opiate Screen Urine Negative (Negative); PCP Screen Urine Negative (Negative); Protein Urine Neg (Negative); RBC Urine 0-4 /hpf (0-2); Specific Gravity, Urine 1.015 (1.005-1.030); Squamous Epithelial Cell Urine 0-4 (0-5); THC Screen Urine Negative (Negative); Urine Appearance Clear (CLEAR); Urine Color Yellow (Yellow); Urobilinogen Urine Norm (Negative); WBC Urine 0-4 /hpf (0-5); pH Urine 5 (5-7)
--- NOTE | 2019-12-13 04:06 | USR_ITS ---
PROCEDURE INFORMATION: Exam: US Abdomen Limited, Other. Exam date and time: 12/13/2019 4:23 AM Age: 24 years old Clinical indication: Other: On pain meds check for distention TECHNIQUE: Imaging protocol: Real-time ultrasound of the abdomen with image documentation. Examination is focused on the region of clinical interest. COMPARISON: CT kidney stone [id number] 12/13/2019 3:29 AM FINDINGS: The bladder measures 7.3 cm x 5.3 cm x 6.1 cm. Bladder volume is 124 mL. Bilateral ureteral jets observed. US/US bladder [id number] IMPRESSION: 1. The bladder is sonographically unremarkable.
--- NOTE | 2019-12-15 11:05 | DCPLANNER ---
manager technical support had message to schedule a follow up appointment for patient with Dr. Long. manager technical support called the office of Dr. Long, spoke with Steffi, gave clinic patients information. manager technical support was told that patients information would be printed and reviewed. Clinic will call patient with appointment information.
--- NOTE | 2019-12-22 15:19 | DCPLANNER ---
brand development manager called the office of Dr. Long, to confirm that an appointment had been scheduled for patient. brand development manager spoke with Marleny, was told that the clinic was unable to reach patient to schedule appointment. brand development manager called patient and was unable to speak with patient at this time.
== END 2019-12-13 05:41 | disposition home or self-care (01) ==
PROVIDERS: Emergency Provider Emergency Medicine; PCP Family Medicine
DX: R07.9 Chest pain, unspecified (principal); N13.30 Unspecified hydronephrosis; D64.9 Anemia, unspecified; Z86.19 Personal history of other infectious and parasitic diseases; Z87.891 Personal history of nicotine dependence
CPT/HCPCS: 12345; 71045; 71275; 74176; 76857; 80053; 80306; 81001; 83690; 83735; 83880; 84484; 85007; 85025; 85378; 85610; 85730; 93971; 99284; Q9967

== ENCOUNTER 2020-01-21 13:15 | Emergency (ER) | payer SELFPAY ==
[2020-01-21 13:16] VITALS: BMI 18.8
[2020-01-21 13:22] VITALS: BP 144/80; PULSE 77; RESP 16; TEMP 36.7; O2SAT 100
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
[2020-01-21 14:00] VITALS: BP 120/68; PULSE 91; RESP 18; O2SAT 96
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
[2020-01-21 14:18] VITALS: RESP 18; O2SAT 99
[2020-01-21] MEDS: ondansetron 2 mg/ML SDV 2 mL 4 MG IVP (14:18)
[2020-01-21] MEDS: morphine 4 mg/mL SDV 1 mL IVP ×2 (14:18→15:47)
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
[2020-01-21 15:00] VITALS: BP 131/98; PULSE 81; RESP 18; O2SAT 97
[2020-01-21 15:47] VITALS: RESP 16; O2SAT 97
[2020-01-21 16:21] VITALS: BP 131/98; PULSE 84; RESP 16; O2SAT 100
== END 2020-01-21 16:05 | disposition home or self-care (01) ==
PROVIDERS: Emergency Provider Nurse Practitioner Family; PCP Family Medicine
DX: S02.2XXA Fracture of nasal bones, initial encounter for closed fracture (principal); S92.322A Displaced fracture of second metatarsal bone, left foot, initial encounter for closed fracture; S92.332A Displaced fracture of third metatarsal bone, left foot, initial encounter for closed fracture; S92.342A Displaced fracture of fourth metatarsal bone, left foot, initial encounter for closed fracture; S92.352A Displaced fracture of fifth metatarsal bone, left foot, initial encounter for closed fracture; Z86.19 Personal history of other infectious and parasitic diseases; Z87.891 Personal history of nicotine dependence; V23.4XXA Motorcycle driver injured in collision with car, pick-up truck or van in traffic accident, initial encounter
CPT/HCPCS: 12345; 70450; 70486; 72125; 73590; 73630; 96374; 96375; 96376; 99282; 99284; E0114; J2270; J2405

== ENCOUNTER 2020-02-02 11:08 | Outpatient (CLI) | payer SELFPAY ==
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
== END 2020-02-02 11:09 | disposition home or self-care (01) ==
LOC: RADWPI 11:11
PROVIDERS: PCP Family Medicine; Visit Provider Podiatrist Foot & Ankle Surgery
DX: S92.325A Nondisplaced fracture of second metatarsal bone, left foot, initial encounter for closed fracture (principal); S92.335A Nondisplaced fracture of third metatarsal bone, left foot, initial encounter for closed fracture; S92.345A Nondisplaced fracture of fourth metatarsal bone, left foot, initial encounter for closed fracture; S92.355A Nondisplaced fracture of fifth metatarsal bone, left foot, initial encounter for closed fracture; X58.XXXA Exposure to other specified factors, initial encounter
CPT/HCPCS: 73630

== ENCOUNTER 2020-12-04 08:18 | Emergency (ER) | payer SELFPAY ==
[2020-12-04] VITALS (11 sets, daily range): BP systolic 109–149; BP diastolic 70–99; PULSE 8–106; RESP 13–22; TEMP 36.5; O2SAT 97–100; BMI 21.5
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
--- NOTE | 2020-12-04 08:30 | ECG_ITS ---
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 Measurements Intervals [place] Rate: 110 P: 70 OR: 137 QRS: 81 QRSD: 103 T: 34 QT: 340 QTc: 461 Interpretive Statements SINUS TACHYCARDIA INCOMPLETE RIGHT BUNDLE BRANCH BLOCK [90+ ms QRS DURATION, TERMINAL R IN V1/V2, 40+ ms S IN I/aVL/V4/V5/V6] ABNORMAL RHYTHM ECG WARNING: DATA QUALITY MAY AFFECT INTERPRETATION INTERPRETATION BASED ON A DEFAULT AGE OF 40 YEARS Compared to ECG 12/04/2019 12:39:36 Incomplete right bundle-branch block now present Sinus rhythm no longer present Sinus arrhythmia no longer present Electronically Signed On 12-04-2020 22:55:11 CDT by Nadya Reddy M.D. [id number]
[2020-12-04 08:34] LABS: ABG PCO2 36.5 mmHg (35-45); ABG PH Result 7.44 (7.35-7.45); Alveolar-Arterial Oxygen Gradi 12.5 mmHg (5-10); Arterial Blood Gas Hematocrit 43.2 % (42-52); Base Excess ABG 1.1 mmol/L (-2.0-2.0); Blood Gas Operator Identificat glc; Blood Gas Sample Site Brachial, right; Blood Gas Sample Type Arterial; Carboxyhemoglobin 2.1 %THgb (0.4-20.1); HGB O2 Sat 97.1 % (95-100); Ionized Calcium Level - ABG 1.1 mmol/L (1.1-1.4); Methemoglobin 1.2 % (0.4-1.5); Oxygen Device VENT; Oxygen Saturation ABG > 100.0; Potassium Level - ABG 3.2 mmol/L (3.5-5.0); Total Hemoglobin 14.1 g/dL (14-18)
[2020-12-04] MEDS: naloxone 0.4 mg/ml SDV (08:36)
[2020-12-04 08:41] LABS: Basophils % 0.1 %; Eosinophils % 0.1 %; Hematocrit 39.6 % (42.0-52.0); Hemoglobin 13.3 g/dL (11.7-16.6); Lymphocytes # 2.3 10^3/uL (0.8-4.8); Lymphocytes % 26.6 %; Mean Corpuscular HGB Conc 33.6 g/dL (30.0-36.0); Mean Corpuscular Hemoglobin 29.5 pg (28.0-34.0); Mean Corpuscular Volume 87.8 fL (80-94); Mean Platelet Volume 9.1 fL (7.4-10.4); Monocytes # 0.7 10^3/uL (0.2-0.9); Neutrophils # 5.51 10^3/uL (1.8-7.7); Neutrophils % 64.5 %; Nucleated Red Blood Cells % 0 %; Platelet Count 228 10^3/cmm (130-400); Red Blood Count 4.51 10^6/uL (4.1-5.3); Red Cell Distribution Width 13.4 % (12.1-15.1); White Blood Count 8.5 10^3/uL (4.0-10.0)
[2020-12-04 08:43] LABS: Add Urine Microscopic? NO; Charge for UA Resulting for Rev
--- NOTE | 2020-12-04 08:43 | PC.NURSE ---
patient extubated with [place]stman and RT at bedside, patient is alert however continues to be altered at this time.
[2020-12-04 08:46] LABS: Bilirubin Urine Neg (Negative); Blood Urine Neg (Negative); Glucose Urine UA Norm (Normal); Ketones Urine Negative (Negative); Leukocyte Esterase Urine Negative (Negative); Nitrate Urine Negative (Negative); Protein Urine Neg (Negative); Urine Appearance Clear (CLEAR); Urine Color Straw (Yellow); Urobilinogen Urine Norm (Negative); pH Urine 6 (5-7)
[2020-12-04 08:55] LABS: Amphetamines Screen Urine Positive (Negative); Barbiturates Screen Urine Negative (Negative); Benzodiazepines Screen Urine Negative (Negative); Cocaine Screen Urine Negative (Negative); Opiate Screen Urine Negative (Negative); PCP Screen Urine Negative (Negative); THC Screen Urine Negative (Negative)
[2020-12-04 08:56] LABS: Alanine Aminotransferase 9 U/L (0-41); Albumin Level 4.8 g/dL (3.5-5.2); Alkaline Phosphatase 127 IU/L (40-130); Anion Gap 16.3 (5-19); Aspartate Amino Transferase 25 U/L (0-40); Blood Urea Nitrogen 7 mg/dL (6-20); Calcium 8.2 mg/dL (8.5-10.5); Carbon Dioxide 25 mmol/L (22-29); Chloride 107 mmol/L (98-107); Globulin 2.4 g/dL (1.3-4.6); Glomerular Filtration Rate 135.3 mL/min (90-130); Glucose 99 mg/dL (65-115); Magnesium 2.3 mg/dL (1.7-2.3); Osmolality Calculated 298 mOsm/kg (285-295); Potassium 3.3 mmol/L (3.5-5.1); Sodium 145 mmol/L (136-145); Total Bilirubin 0.3 mg/dL (0.15-1.2); Total Protein 7.2 g/dL (6.6-8.7)
[2020-12-04] MEDS: piperacillin-tazobactam 3.375 GM in sodium chloride 0.9% (plus) 50 ML IV (08:56)
[2020-12-04] MEDS: sodium chloride 0.9% 1,000 ML 999 ML IV ×2 (08:57→10:43)
[2020-12-04 09:01] LABS: Acetaminophen < 5.0 ug/mL (10-30); Salicylate < 0.3 mg/dL (3-10)
[2020-12-04 09:02] LABS: Alcohol Level 333 mg/dL (0-10); Creatine Phosphokinase 561 U/L (39-308)
[2020-12-04] MEDS: naloxone 0.4 mg/ml SDV 0.2 MG IVP (09:07)
--- NOTE | 2020-12-04 09:11 | PC.NURSE ---
railroad police officer here to talk to pt
--- NOTE | 2020-12-04 09:11 | PC.NURSE ---
extubated, patient is awake and alert, able to answer questions. c/o pain everywhere. no acute distress noted
--- NOTE | 2020-12-04 09:39 | PC.NURSE ---
patient denied any thoughts of harm self or others at this time
--- NOTE | 2020-12-04 10:45 | PC.NURSE ---
patient is resting. father here at bedside. spoke to family.
--- NOTE | 2020-12-04 12:00 | PC.NURSE ---
patient is sleeping, arousable easily. no acute distress noted at this time.
--- NOTE | 2020-12-04 12:14 | XRR_ITS ---
PROCEDURE INFORMATION: Exam: XR Left Foot Exam date and time: 12/04/2020 12:14 PM Age: 25 years old Clinical indication: Pain; Foot; Left; Prior surgery TECHNIQUE: Imaging protocol: XR Left foot. Views: 3 or more views. COMPARISON: No relevant prior studies available. FINDINGS: Bones/joints: Intramedullary tara in the distal tibial shaft. Chronic appearing deformity of the head and neck of the 5th metatarsus suggesting healed fracture versus postoperative deformity versus osteochondroma. Soft tissues: Normal. XR/XR foot LT min 3V* [id number] IMPRESSION: Chronic appearing deformity of the head and neck of the 5th metatarsus suggesting healed fracture versus postoperative deformity versus osteochondroma.
--- NOTE | 2020-12-04 12:14 | XRR_ITS ---
PROCEDURE INFORMATION: Exam: XR Left Knee Exam date and time: 12/04/2020 12:14 PM Age: 25 years old Clinical indication: Pain; Knee; Left; Additional info: Pain, PT found unresponsive TECHNIQUE: Imaging protocol: XR Left knee. Views: Frontal, lateral, and oblique, 3 views. COMPARISON: CR XR tibia fibula LT 2V [id number] 01/21/2020 1:35 PM FINDINGS: Bones/joints: Partially imaged tibial interlocking intramedullary oneyda. No acute bony abnormality identified. Soft tissues: Normal. XR/XR knee LT 3V* [id number] IMPRESSION: 1. Postoperative changes as above. 2. No acute bony or hardware abnormality identified.
--- NOTE | 2020-12-04 12:14 | XRR_ITS ---
PROCEDURE INFORMATION: Exam: XR Left Ankle Exam date and time: 12/04/2020 12:14 PM Age: 25 years old Clinical indication: Pain; Ankle; Left; Prior surgery; Surgery type: Tib/fib TECHNIQUE: Imaging protocol: XR Left ankle. Views: 3 or more views. COMPARISON: No relevant prior studies available. FINDINGS: Bones/joints: Intramedullary tara in the tibial shaft with healed tibial shaft fracture. Healed fibular shaft fracture. Chronic healed avulsion fracture and/or ununited accessory ossification center and/or chronic posttraumatic arthritis over the inferior tip of the medial malleolus. Soft tissues: Normal. XR/XR ankle LT min 3V* [id number] IMPRESSION: No acute findings.
--- NOTE | 2020-12-04 12:15 | PC.NURSE ---
assisted patient up to ambulate. patient c/o left foot hurt, unable to bear the weight. MD awared
== END 2020-12-04 14:53 | disposition home or self-care (01) ==
PROVIDERS: Emergency Provider Family Medicine; PCP Family Medicine
DX: R41.82 Altered mental status, unspecified (principal); F10.129 Alcohol abuse with intoxication, unspecified; F15.90 Other stimulant use, unspecified, uncomplicated; Z86.19 Personal history of other infectious and parasitic diseases; F17.210 Nicotine dependence, cigarettes, uncomplicated; Y90.8 Blood alcohol level of 240 mg/100 ml or more
CPT/HCPCS: 36415; 36600; 51702; 70450; 71045; 73562; 73610; 73630; 80051; 80053; 80306; 80307; 81003; 82330; 82550; 82805; 83735; 85025; 87040; 93005; 94002; 94799; 96361; 96365; 96375; 99285; J2310; J2543; J7030

== ENCOUNTER 2021-03-11 22:09 | Emergency (ER) | payer SELFPAY ==
[2021-03-11 22:13] VITALS: BP 93/62; PULSE 84; RESP 16; TEMP 36.4; O2SAT 95; BMI 22.3
--- NOTE | 2021-03-11 22:39 | CTR_ITS ---
PROCEDURE INFORMATION: Exam: CT Head Without Contrast Exam date and time: 03/11/2021 10:39 PM Age: 26 years old Clinical indication: Altered mental status/memory loss; Confusion or disorientation; Patient HX: AMS. ETOH and possible drug overdose. Lethargy. TECHNIQUE: Imaging protocol: Computed tomography of the head without contrast. Radiation optimization: All CT scans at this facility use at least one of these dose optimization techniques: automated exposure control; mA and/or kV adjustment per patient size (includes targeted exams where dose is matched to clinical indication); or iterative reconstruction. COMPARISON: CT head wo con* [id number] 12/04/2020 9:17 AM RADIATION DOSE METRICS: Total DLP (mGy-cm): 827.21 FINDINGS: Brain: Normal. No hemorrhage or evidence of acute infarction is seen. No mass effect. Cerebral ventricles: No ventriculomegaly. Paranasal sinuses: Visualized sinuses are unremarkable. No fluid levels. Mastoid air cells: Visualized mastoid air cells are well aerated. Bones/joints: Unremarkable. No acute fracture. Soft tissues: Unremarkable. CT/CT head wo con* [id number] IMPRESSION: No acute intracranial abnormality. Radiation Dose CTDIVOL = (mGy): DLP = 827.21 (mGy-cm)
[2021-03-11 22:45] LABS: Basophils % 0.3 %; Eosinophils % 0.2 %; Hematocrit 38.2 % (42.0-52.0); Hemoglobin 12.8 g/dL (11.7-16.6); Lymphocytes # 4.2 10^3/uL (0.8-4.8); Lymphocytes % 32.8 %; Mean Corpuscular HGB Conc 33.5 g/dL (30.0-36.0); Mean Corpuscular Hemoglobin 29.2 pg (28.0-34.0); Mean Platelet Volume 9.2 fL (7.4-10.4); Monocytes # 1.2 10^3/uL (0.2-0.9); Monocytes % 9.2 %; Neutrophils # 7.11 10^3/uL (1.8-7.7); Nucleated Red Blood Cells % 0 %; Platelet Count 341 10^3/cmm (130-400); Red Blood Count 4.39 10^6/uL (4.1-5.3); Red Cell Distribution Width 12.9 % (12.1-15.1); White Blood Count 12.7 10^3/uL (4.0-10.0)
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
[2021-03-11 22:59] LABS: Alanine Aminotransferase 7 U/L (0-41); Albumin Level 4.8 g/dL (3.5-5.2); Alcohol Level 190 mg/dL (0-10); Alkaline Phosphatase 119 IU/L (40-130); Anion Gap 18.4 (5-19); Aspartate Amino Transferase 20 U/L (0-40); Blood Urea Nitrogen 5 mg/dL (6-20); Calcium 8.8 mg/dL (8.5-10.5); Carbon Dioxide 21 mmol/L (22-29); Chloride 105 mmol/L (98-107); Globulin 2.4 g/dL (1.3-4.6); Glomerular Filtration Rate 115.1 mL/min (90-130); Glucose 111 mg/dL (65-115); Osmolality Calculated 290 mOsm/kg (285-295); Potassium 3.4 mmol/L (3.5-5.1); Sodium 141 mmol/L (136-145); Total Bilirubin 0.2 mg/dL (0.15-1.2); Total Protein 7.2 g/dL (6.6-8.7)
[2021-03-11 23:04] LABS: Acetaminophen < 5.0 ug/mL (10-30); Salicylate < 0.3 mg/dL (3-10)
[2021-03-11] MEDS: sodium chloride 0.9% 1,000 ML 999 ML IV (23:06)
[2021-03-11] MEDS: ondansetron 2 mg/ML SDV 2 mL 4 MG IVP (23:06)
[2021-03-12 00:30] VITALS: BP 89/51; PULSE 72; RESP 18; O2SAT 96
[2021-03-12 01:05] VITALS: BP 101/58; PULSE 66; RESP 18; O2SAT 97
[2021-03-12 03:34] VITALS: BP 102/55; PULSE 74; RESP 18; O2SAT 93
== END 2021-03-12 03:35 | disposition home or self-care (01) ==
PROVIDERS: Emergency Provider Emergency Medicine; PCP Family Medicine
DX: F10.920 Alcohol use, unspecified with intoxication, uncomplicated (principal); Y90.6 Blood alcohol level of 120-199 mg/100 ml; Z86.19 Personal history of other infectious and parasitic diseases; F17.210 Nicotine dependence, cigarettes, uncomplicated
CPT/HCPCS: 70450; 80053; 80307; 85025; 96361; 96374; 96375; 99284; J2405; J3411; J7030

== ENCOUNTER → 2021-05-02 14:00 | Outpatient (BNVA) | payer SELFPAY | PROVIDERS: PCP Family Medicine; Visit Provider Internal Medicine | DX: B19.20 Unspecified viral hepatitis C without hepatic coma (principal); R76.8 Other specified abnormal immunological findings in serum | CPT/HCPCS: 82105; 87522 ==

== ENCOUNTER 2021-05-06 17:18 | Emergency (ER) | payer SELFPAY ==
[2021-05-06 17:36] VITALS: BP 157/80; PULSE 70; RESP 20; TEMP 37.1; O2SAT 100; BMI 20.2
--- NOTE | 2021-05-06 17:42 | XRR_ITS ---
PROCEDURE INFORMATION: Exam: XR Abdomen Exam date and time: 05/06/2021 5:42 PM Age: 26 years old Clinical indication: Constipation TECHNIQUE: Imaging protocol: XR of the abdomen. Views: Frontal supine view of the abdomen. 1 View. COMPARISON: CT kidney stone [id number] 12/13/2019 3:29 AM FINDINGS: Gastrointestinal tract: Stool scattered throughout the colon with gas in the rectum. Intraperitoneal space: No pneumoperitoneum. Vasculature: Calcifications in the right and left pelvis are most likely phleboliths. Bones/joints: Unremarkable. Other findings: 8 mm calcification projects over the right kidney. 4 mm and 2 mm calcifications project over the left kidney. XR/XR KUB portable [id number] IMPRESSION: 1. Calcifications projecting over the bilateral kidneys could represent renal calculi. No definite ureteral calculus visualized. Radiation Dose CTDIVOL = (mGy): DLP = (mGy-cm)
--- NOTE | 2021-05-06 17:46 | ED_ITS ---
Documented by User: Nino Fontaine DO 05/07/21 11:46 HPI - General Adult General: Chief complaint: General Medical Stated complaint: Stomach Pains Time Seen by Provider: 05/06/21 17:37 History of Present Illness: HPI narrative: 26-year-old male presents emergency room complaining of abdominal discomfort. Is a lot of nausea today has not been vomiting at all he is also had constipation he is unable to have bowel movement for 3 days. He denies any medic easy melena hematemesis coffee-ground emesis he has had a tooth infection for which he is on Augmentin. He has only other medications of methadone he takes 30 mg daily. Denies any other significant past medical problems no previous past surgical history he did previously test positive for hepatitis C but does not have any ongoing issues with that as far as he is aware. He is complaining of some mild dysuria denies any penile drainage. Onset (ago): day(s) Location: abdomen Severity: moderate Quality: aching Pain Consistency: constant Relieving factors: none Exacerbating factors: none Associated symptoms: Reports decreased appetite, malaise and nausea; Deny chest pain, confusion, cough, diaphoresis, dyspnea, fevers/chills, headache(s), rash, palpitations, seizures, short of breath, syncope, vomiting or weakness Treatments prior to arrival: none Review of Systems Const: Reports: malaise; Denies: diaphoresis ENMT: Denies: throat pain, ear or mastoid pain, nasal discharge or nasal congestion Card: Denies: chest pain, palpitations or syncope Resp: Denies: dyspnea GI: Reports: nausea; Denies: vomiting : Denies: flank pain, dysuria, urinary frequency or urinary urgency Skin/Breast: Denies: rash Neuro: Denies: headache(s) or confusion PFSH ED PFSH: Medical History Depression GERD (gastroesophageal reflux disease) Hepatitis C History of lower leg fracture Insomnia Family History Grandmother Cancer Mother Diabetes Heart disease Social History Smoking and tobacco status: former smoker (chew) Alcohol intake: current Alcohol intake frequency: few times a month Alcohol type: beer Marital status: Single Number of children: 1 Current occupational status: employed History of recent travel: No Physical Exam Const: COMMON NORMALS: no acute distress GENERAL APPEARANCE: cooperative and comfortable ORIENTATION/CONSCIOUSNESS: Yes awake, Yes oriented to person, Yes oriented to place and Yes oriented to time HENMT: COMMON NORMALS: normocephalic, atraumatic and hearing grossly normal bilaterally HEAD & SCALP: normocephalic and atraumatic Neck/C-Spine: COMMON NORMALS: no JVD Resp: COMMON NORMALS: normal respiratory effort, No retractions, No use of accessory muscles and clear to auscultation bilaterally AUSCULTATION: clear to auscultation bilaterally Cardio: COMMON NORMALS: no JVD, regular rate, regular rhythm and No murmurs present (Cardio) RATE: regular rate RHYTHM: regular rhythm GI: COMMON NORMALS: Soft to palpation and No hepatosplenomegaly present AUSCULTATION: Yes normoactive bowel sounds PALPATION: Yes Soft to palpation, No Tenderness to palpation present (GI), No Guarding due to palpation present (GI) and Yes No hepatosplenomegaly present Extremity: COMMON NORMALS: normal to inspection, capillary refill normal, no clubbing, cyanosis or edema, no calf tenderness and no pedal edema Neuro: SENSORIUM/ORIENTATION: Yes oriented to person, Yes oriented to place and Yes oriented to time Skin: COMMON NORMALS: no rashes or lesions noted GENERAL SKIN EXAM: no rashes or lesions noted Course Vital Signs: Vital signs: Vital Signs Temperature 98.8 F 05/06/21 17:36 Pulse Rate 60 05/06/21 20:24 Respiratory Rate 16 05/06/21 20:24 Blood Pressure 112/63 05/06/21 20:24 Pulse Oximetry 96 05/06/21 20:24 MDM - General Adult MDM Narrative: Medical decision making narrative: Care turned over to Dr. Lemus at change of shift please see his notes for final diagnosis and disposition. Lab Data: Labs: Lab Results 05/06/21 05/06/21 05/06/21 18:08 18:08 18:08 WBC 6.8 10^3/uL 10^3/ uL (4.0-10.0) RBC 4.45 10^6/uL 10^6 /uL (4.1-5.3) Hgb 13.0 g/dL g/dL (11.7-16.6) Hct 37.9 % L % (42.0-52.0) MCV 85.2 fl fl (80-94) MCH 29.2 pg pg (28.0-34.0) MCHC 34.3 g/dL g/dL (30.0-36.0) RDW 12.3 % % (12.1-15.1) Plt Count 265 10^3/cmm 10^3 /cmm (130-400) MPV 9.5 fL fL (7.4-10.4) Neut % (Auto) 51.3 % % Lymph % (Auto) 36.3 % % [place] % (Auto) 11.4 % % Eos % (Auto) 0.6 % % Baso % (Auto) 0.1 % % Neut # (Auto) 3.46 10^3/uL 10^3 /uL (1.8-7.7) Lymph # (Auto) 2.5 10^3/uL 10^3/ uL (0.8-4.8) [place] # (Auto) 0.8 10^3/uL 10^3/ uL (0.2-0.9) Eos # (Auto) 0.0 10^3/uL 10^3/ uL (0.0-0.8) Baso # (Auto) 0.0 10^3/uL 10^3/ uL (0.0-0.1) Nucleated RBC % (a uto) 0 % % Nucleated RBCs # 0.0 /100WBC /100W BC Sodium 136 mmol/L mmol/L (136-145) Potassium 5.6 mmol/L H mmol /L (3.5-5.1) Chloride 99 mmol/L mmol/L (98-107) Carbon Dioxide 25 mmol/L mmol/L (22-29) Anion Gap 17.6 (5-19) BUN 9 mg/dL mg/dL (6-20) Creatinine 0.7 mg/dL mg/dL (0.7-1.2) GFR Calculation 134.3 mL/min H mL /min (90-130) Glucose 83 mg/dL mg/dL (65-115) Calculated Osmolal ity 280 mOsm/kg L mOs m/kg (285-295) Calcium 9.5 mg/dL mg/dL (8.5-10.5) Total Bilirubin 0.3 mg/dL mg/dL (0.15-1.2) AST 21 U/L U/L (0-40) ALT 9 U/L U/L (0-41) Alkaline Phosphata se 104 IU/L IU/L (40-130) Total Protein 7.3 g/dL g/dL (6.6-8.7) Albumin 4.9 g/dL g/dL (3.5-5.2) Globulin 2.4 g/dL g/dL (1.3-4.6) Lipase 18 U/L U/L (13-60) Urine Color Yellow (Yellow) Urine Appearance Clear (CLEAR) Urine pH 7 (5-7) Ur Specific Gravit y 1.005 (1.005-1.030) Urine Protein Neg (Negative) Urine Glucose (UA) Norm (Normal) Urine Ketones Negative (Negative) Urine Blood Neg (Negative) Urine Nitrate Negative (Negative) Urine Bilirubin Neg (Negative) Urine Urobilinogen Norm mg/dL mg/dL (Negative) Ur Leukocyte Basia ase Negative (Negative) Discharge Plan Discharge Patient Disposition: Home Clinical Impression: Constipation Qualifiers: Constipation type: drug induced constipation Qualified Code(s): K59.03 - Drug induced constipation Condition: Stable Prescriptions: New Gavilax 17 gram/dose powder 17 g PO DAILY Qty: 119 RF: 0 Zofran 4 mg tablet 4 mg PO Q6H PRN (Reason: nausea and vomiting) Qty: 10 RF: 0 No Action methadone 40 mg tablet,soluble 30 mg PO DAILY RF: 0 amoxicillin-pot clavulanate [Augmentin] 875-125 mg tablet 1 tab PO Q12H 7 Days Qty: 14 RF: 0 Discharge Orders: Discharge ED (Routine); Ordered 05/06/21 Ordered By: Dc Lemus Referrals: Mike Sherman MD [Primary Care Provider] - 4-7 days Patient Instructions: Constipation (ED), Opioid Safety Activity Restrictions/Additional Instructions: Monitor temperatures closely. Return for fever greater than 100. Return for vomiting liquids or medications despite treatment. Return for worsening pain despite treatment. Return for significant blood in the stool, or blood in the vomitus. Coding Level of Care Code ED Naturopathic Oncology Provider for Chg 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 Documented by User: Dc Lemus DO 05/07/21 00:02 HPI - General Adult General: Chief complaint: General Medical Stated complaint: Stomach Pains Time Seen by Provider: 05/06/21 17:37 PFSH ED PFSH: Medical History Depression GERD (gastroesophageal reflux disease) Hepatitis C History of lower leg fracture Insomnia Family History Grandmother Cancer Mother Diabetes Heart disease Social History Smoking and tobacco status: former smoker (chew) Alcohol intake: current Alcohol intake frequency: few times a month Alcohol type: beer Marital status: Single Number of children: 1 Current occupational status: employed History of recent travel: No Course Vital Signs: Vital signs: Vital Signs Temperature 98.8 F 05/06/21 17:36 Pulse Rate 60 05/06/21 20:24 Respiratory Rate 16 05/06/21 20:24 Blood Pressure 112/63 05/06/21 20:24 Pulse Oximetry 96 05/06/21 20:24 MDM - General Adult MDM Narrative: Medical decision making narrative: 6-year-old male checked out to me at shift change by Dr. Fontaine. This gentleman has been constipated for a couple of days. He has belly pain. His potassium is mildly elevated. His other laboratory is normal. His KUB shows a significant stool burden. No obstructive pattern. He will be allowed discharge with laxative. Lab Data: Labs: Lab Results 05/06/21 05/06/21 05/06/21 18:08 18:08 18:08 WBC 6.8 10^3/uL 10^3/ uL (4.0-10.0) RBC 4.45 10^6/uL 10^6 /uL (4.1-5.3) Hgb 13.0 g/dL g/dL (11.7-16.6) Hct 37.9 % L % (42.0-52.0) MCV 85.2 fl fl (80-94) MCH 29.2 pg pg (28.0-34.0) MCHC 34.3 g/dL g/dL (30.0-36.0) RDW 12.3 % % (12.1-15.1) Plt Count 265 10^3/cmm 10^3 /cmm (130-400) MPV 9.5 fL fL (7.4-10.4) Neut % (Auto) 51.3 % % Lymph % (Auto) 36.3 % % [place] % (Auto) 11.4 % % Eos % (Auto) 0.6 % % Baso % (Auto) 0.1 % % Neut # (Auto) 3.46 10^3/uL 10^3 /uL (1.8-7.7) Lymph # (Auto) 2.5 10^3/uL 10^3/ uL (0.8-4.8) [place] # (Auto) 0.8 10^3/uL 10^3/ uL (0.2-0.9) Eos # (Auto) 0.0 10^3/uL 10^3/ uL (0.0-0.8) Baso # (Auto) 0.0 10^3/uL 10^3/ uL (0.0-0.1) Nucleated RBC % (a uto) 0 % % Nucleated RBCs # 0.0 /100WBC /100W BC Sodium 136 mmol/L mmol/L (136-145) Potassium 5.6 mmol/L H mmol /L (3.5-5.1) Chloride 99 mmol/L mmol/L (98-107) Carbon Dioxide 25 mmol/L mmol/L (22-29) Anion Gap 17.6 (5-19) BUN 9 mg/dL mg/dL (6-20) Creatinine 0.7 mg/dL mg/dL (0.7-1.2) GFR Calculation 134.3 mL/min H mL /min (90-130) Glucose 83 mg/dL mg/dL (65-115) Calculated Osmolal ity 280 mOsm/kg L mOs m/kg (285-295) Calcium 9.5 mg/dL mg/dL (8.5-10.5) Total Bilirubin 0.3 mg/dL mg/dL (0.15-1.2) AST 21 U/L U/L (0-40) ALT 9 U/L U/L (0-41) Alkaline Phosphata se 104 IU/L IU/L (40-130) Total Protein 7.3 g/dL g/dL (6.6-8.7) Albumin 4.9 g/dL g/dL (3.5-5.2) Globulin 2.4 g/dL g/dL (1.3-4.6) Lipase 18 U/L U/L (13-60) Urine Color Yellow (Yellow) Urine Appearance Clear (CLEAR) Urine pH 7 (5-7) Ur Specific Gravit y 1.005 (1.005-1.030) Urine Protein Neg (Negative) Urine Glucose (UA) Norm (Normal) Urine Ketones Negative (Negative) Urine Blood Neg (Negative) Urine Nitrate Negative (Negative) Urine Bilirubin Neg (Negative) Urine Urobilinogen Norm mg/dL mg/dL (Negative) Ur Leukocyte Basia ase Negative (Negative) Discharge Plan Discharge Patient Disposition: Home Clinical Impression: Constipation Qualifiers: Constipation type: drug induced constipation Qualified Code(s): K59.03 - Drug induced constipation Condition: Stable Prescriptions: New Gavilax 17 gram/dose powder 17 g PO DAILY Qty: 119 RF: 0 Zofran 4 mg tablet 4 mg PO Q6H PRN (Reason: nausea and vomiting) Qty: 10 RF: 0 No Action methadone 40 mg tablet,soluble 30 mg PO DAILY RF: 0 amoxicillin-pot clavulanate [Augmentin] 875-125 mg tablet 1 tab PO Q12H 7 Days Qty: 14 RF: 0 Discharge Orders: Discharge ED (Routine); Ordered 05/06/21 Ordered By: Dc Lemus Referrals: Mike Sherman MD [Primary Care Provider] - 4-7 days Patient Instructions: Constipation (ED), Opioid Safety Activity Restrictions/Additional Instructions: Monitor temperatures closely. Return for fever greater than 100. Return for vomiting liquids or medications despite treatment. Return for worsening pain despite treatment. Return for significant blood in the stool, or blood in the vomitus. Coding Level of Care Code ED Naturopathic Oncology Provider for Chg 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
[2021-05-06 18:00] VITALS: BP 137/75; PULSE 64; RESP 16; O2SAT 99
[2021-05-06] MEDS: sodium chloride 0.9% 1,000 ML 999 ML IV (18:15)
[2021-05-06] MEDS: ondansetron 2 mg/ML SDV 2 mL 4 MG IVP (18:15)
[2021-05-06 18:24] LABS: Add Urine Microscopic? NO; Charge for UA Resulting for Rev
[2021-05-06 18:25] LABS: Basophils % 0.1 %; Bilirubin Urine Neg (Negative); Blood Urine Neg (Negative); Eosinophils % 0.6 %; Glucose Urine UA Norm (Normal); Hematocrit 37.9 % (42.0-52.0); Ketones Urine Negative (Negative); Leukocyte Esterase Urine Negative (Negative); Lymphocytes # 2.5 10^3/uL (0.8-4.8); Lymphocytes % 36.3 %; Mean Corpuscular HGB Conc 34.3 g/dL (30.0-36.0); Mean Corpuscular Hemoglobin 29.2 pg (28.0-34.0); Mean Corpuscular Volume 85.2 fl (80-94); Mean Platelet Volume 9.5 fL (7.4-10.4); Monocytes # 0.8 10^3/uL (0.2-0.9); Monocytes % 11.4 %; Neutrophils # 3.46 10^3/uL (1.8-7.7); Neutrophils % 51.3 %; Nitrate Urine Negative (Negative); Nucleated Red Blood Cells % 0 %; Platelet Count 265 10^3/cmm (130-400); Protein Urine Neg (Negative); Red Blood Count 4.45 10^6/uL (4.1-5.3); Red Cell Distribution Width 12.3 % (12.1-15.1); Specific Gravity, Urine 1.005 (1.005-1.030); Urine Appearance Clear (CLEAR); Urine Color Yellow (Yellow); Urobilinogen Urine Norm (Negative); White Blood Count 6.8 10^3/uL (4.0-10.0); pH Urine 7 (5-7)
[2021-05-06 18:49] LABS: Albumin Level 4.9 g/dL (3.5-5.2); Alkaline Phosphatase 104 IU/L (40-130); Blood Urea Nitrogen 9 mg/dL (6-20); Calcium 9.5 mg/dL (8.5-10.5); Carbon Dioxide 25 mmol/L (22-29); Chloride 99 mmol/L (98-107); Globulin 2.4 g/dL (1.3-4.6); Glomerular Filtration Rate 134.3 mL/min (90-130); Glucose 83 mg/dL (65-115); Lipase 18 U/L (13-60); Osmolality Calculated 280 mOsm/kg (285-295); Sodium 136 mmol/L (136-145); Total Bilirubin 0.3 mg/dL (0.15-1.2); Total Protein 7.3 g/dL (6.6-8.7)
[2021-05-06 18:55] LABS: Alanine Aminotransferase 9 U/L (0-41); Anion Gap 17.6 (5-19); Aspartate Amino Transferase 21 U/L (0-40); Potassium 5.6 mmol/L (3.5-5.1)
--- NOTE | 2021-05-06 19:05 | PC.NURSE ---
report given to eva dai assumed care.
[2021-05-06 20:24] VITALS: BP 112/63; PULSE 60; RESP 16; O2SAT 96
== END 2021-05-06 20:33 | disposition home or self-care (01) ==
PROVIDERS: Family Medicine; Emergency Provider Emergency Medicine; PCP Family Medicine Adult Medicine
DX: K59.03 Drug induced constipation (principal); Z86.19 Personal history of other infectious and parasitic diseases; Z87.891 Personal history of nicotine dependence
CPT/HCPCS: 74018; 80053; 81003; 83690; 85025; 96361; 96374; 99283; J2405; J7030

== ENCOUNTER 2021-05-13 12:20 | Emergency (ER) | payer SELFPAY ==
[2021-05-13 12:36] VITALS: BP 122/75; PULSE 72; RESP 16; TEMP 36.7; O2SAT 97
--- NOTE | 2021-05-13 14:21 | ECG_ITS ---
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 Measurements Intervals [place] Rate: 69 P: 51 CT: 132 QRS: 67 QRSD: 93 T: 37 QT: 400 QTc: 431 Interpretive Statements SINUS RHYTHM POSSIBLE RIGHT VENTRICULAR CONDUCTION DELAY [RSR (QR) IN V1/V2] Compared to ECG 12/04/2020 08:32:30 Sinus tachycardia no longer present Incomplete right bundle-branch block no longer present Electronically Signed On 05-14-2021 21:49:05 RODEO PERFORMER by Jason Gregory M.D. [id number]
--- NOTE | 2021-05-13 14:22 | XR_ITS ---
WS: [id number] Exam: XR chest 1V portable [id number] Date/Time of Exam: 05/13/2021 2:22 PM Reason For Exam: dyspnea/cough Comparison 12/04/2020. Findings: The lungs are clear and fully expanded. Costophrenic angles are sharp. No infiltrates. Bronchovascula r relief appears normal. Cardiac silhouette is unremarkable. Bony elements are intact. XR/XR chest 1V portable [id number] IMPRESSION: Unremarkable chest radiograph.
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
--- NOTE | 2021-05-13 19:04 | PC.NURSE ---
Eliot Guerrero RN took over care of this patient at 1900.
[2021-05-13 19:05] VITALS: BP 130/81; PULSE 75; RESP 15; TEMP 36.7; O2SAT 98
[2021-05-13 19:06] VITALS: BP 130/81; PULSE 75; RESP 15; TEMP 36.7; O2SAT 98
== END 2021-05-13 19:10 | disposition home or self-care (01) ==
PROVIDERS: Emergency Provider Family Medicine; PCP Family Medicine Adult Medicine
DX: R07.82 Intercostal pain (principal); Z86.19 Personal history of other infectious and parasitic diseases; F17.210 Nicotine dependence, cigarettes, uncomplicated
CPT/HCPCS: 71045; 93005; 99283

== ENCOUNTER 2021-05-19 17:07 | Emergency (ER) | payer SELFPAY ==
[2021-05-19 17:16] VITALS: BP 148/82; PULSE 79; RESP 16; TEMP 36.2; O2SAT 98; BMI 19.3
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
[2021-05-19] MEDS: HYDROcodone-acetaminophen 5-325 mg Tablet 1 TAB PO (17:54)
--- NOTE | 2021-05-19 19:15 | CTR_ITS ---
PROCEDURE INFORMATION: Exam: CT Abdomen And Pelvis Without Contrast Exam date and time: 05/19/2021 7:15 PM Age: 26 years old Clinical indication: Pain; Other: Back; Additional info: Back pain, CT thoracic noted left side stones TECHNIQUE: Imaging protocol: Computed tomography of the abdomen and pelvis without contrast. Radiation optimization: All CT scans at this facility use at least one of these dose optimization techniques: automated exposure control; mA and/or kV adjustment per patient size (includes targeted exams where dose is matched to clinical indication); or iterative reconstruction. COMPARISON: CT kidney stone [id number] 12/13/2019 3:29 AM RADIATION DOSE METRICS: Total DLP (mGy-cm): 502.13 FINDINGS: Liver: Normal. No mass. Gallbladder and bile ducts: Normal. No calcified stones. No ductal dilation. Pancreas: Normal. No ductal dilation. Spleen: Normal. No splenomegaly. Adrenal glands: Normal. No mass. Kidneys and ureters: Redemonstrated moderate left-sided hydronephrosis. The punctate nonobstructing stones seen within both kidneys on CT thoracic spine are less conspicuous on this exam, likely due to technical differences between exams. The does appear to be a punctate nonobstructing stone in the inferior aspect of the left kidney as best seen on series 2, image 66. There is no obstructing stones seen within the urinary collecting system. Given the lack of left-sided hydroureter, this likely relates to chronic UPJ obstruction given similar appearance on prior CT. Stomach and bowel: Unremarkable. No obstruction. No mucosal thickening. Appendix: No evidence of appendicitis. Intraperitoneal space: Unremarkable. No free air. No significant fluid collection. Vasculature: Unremarkable. No abdominal aortic aneurysm. Lymph nodes: Unremarkable. No enlarged lymph nodes. Urinary bladder: Unremarkable as visualized. Reproductive: Unremarkable as visualized. Bones/joints: No acute fracture. Soft tissues: Unremarkable. CT/CT kidney stone [id number] IMPRESSION: 1. Persistent moderate left-sided hydronephrosis without hydroureter or obstructing stone. Given similar findings on prior CT 12/13/2019 this likely relates to chronic UPJ obstruction. 2. Punctate nonobstructing nephrolithiasis, still present on current exam but better depicted on corresponding thoracic spine CT. Radiation Dose CTDIVOL = (mGy): DLP = 502.13 (mGy-cm)
[2021-05-19 20:38] LABS: Add Urine Microscopic? NO; Charge for UA Resulting for Rev
[2021-05-19 20:41] LABS: Bilirubin Urine Neg (Negative); Blood Urine Neg (Negative); Glucose Urine UA Norm (Normal); Ketones Urine Negative (Negative); Leukocyte Esterase Urine Negative (Negative); Nitrate Urine Negative (Negative); Protein Urine Neg (Negative); Urine Appearance Clear (CLEAR); Urine Color Yellow (Yellow); Urobilinogen Urine Norm (Negative); pH Urine 7 (5-7)
[2021-05-19 20:54] VITALS: PULSE 71; RESP 16; O2SAT 98
--- NOTE | 2021-05-24 05:34 | DCPLANNER ---
associate manager affiliate marketing had message to schedule a follow up appointment for patient with Dr. Long. associate manager affiliate marketing emailed patients information to Neil Kapadia and Julie in Dr. Harper office. Patients information will be printed and reviewed. Clinic will call patient with appointment information.
--- NOTE | 2021-05-25 08:12 | DCPLANNER ---
Patient had a follow up appointment scheduled for 05.24.[address] Long - patient did attend appointment.
== END 2021-05-19 20:55 | disposition home or self-care (01) ==
PROVIDERS: Emergency Provider Physician Assistant; PCP Family Medicine Adult Medicine
DX: N13.30 Unspecified hydronephrosis (principal); N20.0 Calculus of kidney; F17.210 Nicotine dependence, cigarettes, uncomplicated; M54.6 Pain in thoracic spine
CPT/HCPCS: 72125; 72128; 74176; 81003; 99283

== ENCOUNTER 2021-05-24 14:31 | Outpatient (CLI) | payer SELFPAY ==
--- NOTE | 2021-05-24 14:40 | XR_ITS ---
WS: [id number] KUB, AP view, 05/24/2021 Clinical Data: BILATERAL NEPHROLITHIASIS Comparison: KUB, 05/06/2021 Findings: No abnormal intraabdominal masses or calcifications are seen. There is no dilatated small bowel or ev idence of obstruction. The calcifications that were overlying both kidneys are not seen on this exam. There is a large amoun t of fecal material throughout the colon. There are phleboliths in the true pelvis. XR/XR KUB [id number] Impression: Negative KUB.
== END 2021-05-24 14:32 | disposition home or self-care (01) ==
LOC: RAD 14:32
PROVIDERS: PCP Family Medicine Adult Medicine; Visit Provider Nurse Practitioner Family
DX: N20.0 Calculus of kidney (principal)
CPT/HCPCS: 74018; 81003

== ENCOUNTER 2021-05-26 20:37 | Emergency (ER) | payer SELFPAY ==
--- NOTE | 2021-05-26 20:59 | ECG_ITS ---
[facility] Test Date: 2021-05-26 Pat Name: Tyree Alvarez Department: Room: Gender: Male Oncology Social Worker: : 1995 Requested By: Mimi Bailon Order Number: [id number] Conor MD: Nadya Reddy M.D. Measurements Intervals [place] Rate: 74 P: 44 GA: 160 QRS: 71 QRSD: 95 T: 41 QT: 387 QTc: 432 Interpretive Statements SINUS RHYTHM WITH SINUS ARRHYTHMIA POSSIBLE RIGHT VENTRICULAR CONDUCTION DELAY [RSR (QR) IN V1/V2] Compared to ECG 05/13/2021 12:34:51 No significant changes Electronically Signed On 05-27-2021 6:34:21 MECHANICAL SERVICE SPECIALIST by Nadya Reddy M.D. [email or web address]
--- NOTE | 2021-05-26 20:59 | XRR_ITS ---
PROCEDURE INFORMATION: Exam: XR Chest Exam date and time: 05/26/2021 8:59 PM Age: 26 years old Clinical indication: Angina; Additional info: Cp, feels like his throat is tight TECHNIQUE: Imaging protocol: XR of the chest. Views: 1 view. COMPARISON: CR XR chest 1V portable [id number] 05/13/2021 2:46 PM FINDINGS: Lungs: Unremarkable. No consolidation. Pleural spaces: Unremarkable. No pleural effusion. No pneumothorax. Heart/Mediastinum: Unremarkable. No cardiomegaly. Bones/joints: Unremarkable. XR/XR chest 1V portable [id number] IMPRESSION: No acute disease. Radiation Dose CTDIVOL = (mGy): DLP = (mGy-cm)
== END 2021-05-26 22:45 | disposition left against medical advice (07) ==
LOC: ER 20:43
PROVIDERS: PCP Family Medicine Adult Medicine
DX: Z53.21 Procedure and treatment not carried out due to patient leaving prior to being seen by health care provider (principal)
CPT/HCPCS: 71045; 93005

== ENCOUNTER 2021-05-28 13:27 | Emergency (ER) | payer SELFPAY ==
[2021-05-28 13:44] VITALS: BP 121/67; PULSE 83; RESP 16; TEMP 36.5; O2SAT 99
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
== END 2021-05-28 14:17 | disposition home or self-care (01) ==
PROVIDERS: Emergency Provider Physician Assistant; PCP Family Medicine Adult Medicine
DX: R07.89 Other chest pain (principal); Z86.19 Personal history of other infectious and parasitic diseases
CPT/HCPCS: 99283

== ENCOUNTER 2021-05-28 22:16 | Emergency (ER) | payer SELFPAY ==
[2021-05-28 22:26] VITALS: BP 158/91; PULSE 90; RESP 16; TEMP 36.6; O2SAT 97
--- NOTE | 2021-05-28 23:07 | XRR_ITS ---
PROCEDURE INFORMATION: Exam: XR Chest Exam date and time: 05/28/2021 11:07 PM Age: 26 years old Clinical indication: Pain; Left-sided; Additional info: Cp TECHNIQUE: Imaging protocol: XR of the chest. Views: 1 view. COMPARISON: CR XR chest 1V portable [id number] 05/26/2021 9:21 PM FINDINGS: Lungs: Hyperaerated lungs consistent with deep inspiratory effort vs mild moderate reactive airway disease. Pleural spaces: Unremarkable. No pleural effusion. No pneumothorax. Heart/Mediastinum: Unremarkable. No cardiomegaly. Bones/joints: Unremarkable. XR/XR chest 1V portable [id number] IMPRESSION: Hyperaerated lungs consistent with deep inspiratory effort vs mild moderate reactive airway disease. Radiation Dose CTDIVOL = (mGy): DLP = (mGy-cm)
--- NOTE | 2021-05-28 23:08 | ECG_ITS ---
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 Measurements Intervals [place] Rate: 85 P: 60 IA: 138 QRS: 83 QRSD: 98 T: 73 QT: 373 QTc: 444 Interpretive Statements SINUS RHYTHM INCOMPLETE RIGHT BUNDLE BRANCH BLOCK [90+ ms QRS DURATION, TERMINAL R IN V1/V2, 40+ ms S IN I/aVL/V4/V5/V6] Compared to ECG 05/26/2021 20:58:46 Incomplete right bundle-branch block now present Sinus arrhythmia no longer present Electronically Signed On 05-29-2021 13:16:53 WAREHOUSE GENERAL LABORER by Jaquan Abbasi M.D. [id number]
--- NOTE | 2021-05-28 23:17 | ED_ITS ---
HPI - Chest Pain General: Chief Complaint: Chest Pain Stated Complaint: Chest pain Time Seen by Provider: 05/28/21 23:07 History of Present Illness: HPI narrative: Patient is a 26-year-old male comes to the ED with chest pain. Patient said he has been having this chest pain on and off for the past 2 weeks. He says the pain starts in the left side of his chest and radiates up into his jaw and into his left shoulder and upper arm. Pain is described as mild. Says it does seem to get worse after he eats some foods. He reports having a history of anxiety and panic attacks. Denies any shortness of breath, diaphoresis, fevers, chills, abdominal pain, dorcas sea/vomiting, bladder or bowel symptoms. Associated symptoms: Deny abdominal pain, dyspnea, fever(s), nausea, palpitations or vomiting Review of Systems Const: Denies: fever(s), chills or fatigue Eyes: Denies: change in vision or eye discomfort ENMT: Denies: throat pain, odynophagia, nasal discharge or nasal congestion Card: Reports: chest pain; Denies: palpitations, edema, swelling of feet/ankles, dyspnea on exertion or orthopnea Resp: Denies: dyspnea, productive cough or non-productive cough GI: Denies: abdominal pain, nausea, vomiting, diarrhea, constipation or hematochezia : Denies: flank pain, difficulty urinating, dysuria or hematuria Musc: Denies: neck pain, back pain or extremity swelling Skin/Breast: Denies: rash or new lesions Neuro: Denies: headache(s), numbness in extremities or weakness in extremities PFS ED PFSH: Medical History Depression GERD (gastroesophageal reflux disease) Hepatitis C History of lower leg fracture Insomnia Kidney stone Positive hepatitis C antibody test Severe dental caries Family History Grandmother Cancer Mother Diabetes Heart disease Social History Alcohol intake: current Alcohol intake frequency: few times a month Alcohol type: beer Marital status: Single Number of children: 1 Current occupational status: employed History of recent travel: No Physical Exam Narrative: EXAM NARRATIVE: Patient was resting comfortably on exam bed running in the room. He was showing no signs of any acute distress or pain. Const: COMMON NORMALS: no acute distress, patient oriented x3, healthy a ppearing and alert GENERAL APPEARANCE: cooperative and comfortable HENMT: COMMON NORMALS: normocephalic HEAD & SCALP: normocephalic MOUTH: Normal oral and palatal mucosa present THROAT: posterior oropharynx normal and uvula midline Eye: COMMON NORMALS: Equal, round and reactive pupils present PUPIL: Yes Equal, round and reactive pupils present Neck/C-Spine: COMMON NORMALS: supple GENERAL: Yes normal visual inspection Resp: COMMON NORMALS: normal respiratory effort, No retractions, No use of accessory muscles and clear to auscultation bilaterally AUSCULTATION: clear to auscultation bilaterally Cardio: COMMON NORMALS: regular rate, regular rhythm, S1 normal heart sound present, S2 normal heart sound present, No gallops present (Cardio), No clicks present (Cardio), No murmurs present (Cardio) and Peripheral pulses 2+ throughout RATE: regular rate RHYTHM: regular rhythm HEART SOUNDS: S1 normal heart sound present and S2 normal heart sound present PERIPHERAL PULSES: Peripheral pulses 2+ throughout GI: COMMON NORMALS: Normal to inspection, nondistended, normoactive bowel sounds present, Soft to palpation, non-tender and no masses PALPATION: Yes Soft to palpation : COMMON NORMALS: Yes no CVA tenderness BLADDER/KIDNEY EXAM: Yes no CVA tenderness Back/Pelvis: COMMON NORMALS: no CVA tenderness Extremity: COMMON NORMALS: normal to inspection Neuro: COMMON NORMALS: patient oriented x3 and moves all extremities SENSORIUM/ORIENTATION: Yes alert Skin: GENERAL SKIN EXAM: dry skin Course Vital Signs: Vital signs: Vital Signs Temperature 97.9 F 05/29/21 00:44 Pulse Rate 81 05/29/21 00:44 Respiratory Rate 16 05/29/21 00:44 Blood Pressure 142/75 05/29/21 00:44 Pulse Oximetry 97 05/29/21 00:44 MDM - Chest Pain MDM Narrative: Medical decision making narrative: Patient is a 26-year-old male comes to the ED with chest pain. He has been having chest pain now for 2 weeks. Vitals stable. Exam is benign. CBC and CMP were unremarkable. Troponin negative and EKG showed normal sinus rhythm with no ST segment elevation depression seen. Chest x-ray showed no acute findings. Patient was diagnosed with noncardiac chest pain and discharged home. He was told to follow-up with his PCP in 7 to 10 days for reevaluation. Return to ED precautions given. Patient understood agree with plan. Lab Data: Attestation: I reviewed the patient's lab results. Labs: Lab Results 05/28/21 05/28/21 05/28/21 23:38 23:38 23:38 WBC 7.2 10^3/uL 10^3/ uL (4.0-10.0) RBC 3.86 10^6/uL L 10 ^6/uL (4.1-5.3) Hgb 11.5 g/dL L g/dL (11.7-16.6) Hct 33.9 % L % (42.0-52.0) MCV 87.8 fl fl (80-94) MCH 29.8 pg pg (28.0-34.0) MCHC 33.9 g/dL g/dL (30.0-36.0) RDW 12.8 % % (12.1-15.1) Plt Count 224 10^3/cmm 10^3 /cmm (130-400) MPV 9.0 fL fL (7.4-10.4) Neut % (Auto) 52.2 % % Lymph % (Auto) 29.1 % % [place] % (Auto) 17.0 % % Eos % (Auto) 1.1 % % Baso % (Auto) 0.3 % % Neut # (Auto) 3.74 10^3/uL 10^3 /uL (1.8-7.7) Lymph # (Auto) 2.1 10^3/uL 10^3/ uL (0.8-4.8) [place] # (Auto) 1.2 10^3/uL H 10^ 3/uL (0.2-0.9) Eos # (Auto) 0.1 10^3/uL 10^3/ uL (0.0-0.8) Baso # (Auto) 0.0 10^3/uL 10^3/ uL (0.0-0.1) Nucleated RBC % (a uto) 0 % % Nucleated RBCs # 0.0 /100WBC /100W BC Sodium 138 mmol/L mmol/L (136-145) Potassium 4.0 mmol/L mmol/L (3.5-5.1) Chloride 103 mmol/L mmol/L (98-107) Carbon Dioxide 22 mmol/L mmol/L (22-29) Anion Gap 17.0 (5-19) BUN 17 mg/dL mg/dL (6-20) Creatinine 0.8 mg/dL mg/dL (0.7-1.2) GFR Calculation 115.1 mL/min mL/m in (90-130) Glucose 88 mg/dL mg/dL (65-115) Calculated Osmolal ity 287 mOsm/kg mOsm/ kg (285-295) Calcium 8.8 mg/dL mg/dL (8.5-10.5) Total Bilirubin 0.2 mg/dL mg/dL (0.15-1.2) AST 16 U/L U/L (0-40) ALT 7 U/L U/L (0-41) Alkaline Phosphata se 99 IU/L IU/L (40-130) Troponin T Baselin e 6 ng/L ng/L (0-15) Total Protein 6.5 g/dL L g/dL (6.6-8.7) Albumin 4.4 g/dL g/dL (3.5-5.2) Globulin 2.1 g/dL g/dL (1.3-4.6) Imaging Data^: CXR: Attestation: I personally reviewed and interpreted this imaging study as follows: My impression: Chest x-ray showed no acute findings. EKG Data^: EKG 1: Attestation: I personally reviewed and interpreted this EKG as follows: EKG interpretation date: 05/28/21 Interpretation: Normal sinus rhythm, no ST segment elevation or depression seen, 85 bpm Discharge Plan Discharge Patient Disposition: Home Clinical Impression: Non-cardiac chest pain Condition: Stable Prescriptions: No Action amoxicillin 500 mg capsule 500 mg PO BID Qty: 20 RF: 0 methadone 40 mg tablet,soluble 30 mg PO DAILY RF: 0 Gavilax 17 gram/dose powder 17 g PO DAILY Qty: 119 RF: 0 tamsulosin 0.4 mg capsule 0.4 mg PO DAILY Qty: 20 RF: 0 cyclobenzaprine 10 mg tablet 10 mg PO BID PRN (Reason: muscle spasm) Qty: 20 RF: 0 naproxen 500 mg tablet,delayed release (DR/EC) 500 mg PO BID PRN (Reason: pain) Qty: 10 RF: 0 Discharge Orders: Discharge ED (Routine); Ordered 05/29/21 Ordered By: Elmer Forbes Referrals: Mike Sherman MD [Primary Care Provider] - Discharge Diet: Regular Discharge Activity: Resume usual activity Patient Instructions: Noncardiac Chest Pain (ED) Activity Restrictions/Additional Instructions: Follow-up with medical provider as directed in 5-7 days for reevaluation. Take medications as prescribed. Return to the ER or your medical provider if condition worsens. Please read and understand discharge instructions. Thank you for choosing [facility] for your healthcare needs today. Please realize this is an emergency room and that we are providing you with a medical screening exam and this may not be complete and all inclusive of all the testing and or work up that you may need to determine your ailment or severity of your illness. It is very important that you follow up as instructed or that you return to the Emergency Department should you have concerns or if your condition changes or worsens in any way. Coding Level of Care Code ED Analog Ic Design Engineer for Sunita 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
[2021-05-28 23:43] LABS: Basophils % 0.3 %; Eosinophils # 0.1 10^3/uL (0.0-0.8); Eosinophils % 1.1 %; Hematocrit 33.9 % (42.0-52.0); Hemoglobin 11.5 g/dL (11.7-16.6); Lymphocytes # 2.1 10^3/uL (0.8-4.8); Lymphocytes % 29.1 %; Mean Corpuscular HGB Conc 33.9 g/dL (30.0-36.0); Mean Corpuscular Hemoglobin 29.8 pg (28.0-34.0); Mean Corpuscular Volume 87.8 fl (80-94); Monocytes # 1.2 10^3/uL (0.2-0.9); Neutrophils # 3.74 10^3/uL (1.8-7.7); Neutrophils % 52.2 %; Nucleated Red Blood Cells % 0 %; Platelet Count 224 10^3/cmm (130-400); Red Blood Count 3.86 10^6/uL (4.1-5.3); Red Cell Distribution Width 12.8 % (12.1-15.1); White Blood Count 7.2 10^3/uL (4.0-10.0)
[2021-05-29] LABS: Troponin(5th) Baseline 6 ng/L (0-15)
[2021-05-29 00:03] LABS: Alanine Aminotransferase 7 U/L (0-41); Albumin Level 4.4 g/dL (3.5-5.2); Alkaline Phosphatase 99 IU/L (40-130); Aspartate Amino Transferase 16 U/L (0-40); Blood Urea Nitrogen 17 mg/dL (6-20); Calcium 8.8 mg/dL (8.5-10.5); Carbon Dioxide 22 mmol/L (22-29); Chloride 103 mmol/L (98-107); Globulin 2.1 g/dL (1.3-4.6); Glomerular Filtration Rate 115.1 mL/min (90-130); Glucose 88 mg/dL (65-115); Osmolality Calculated 287 mOsm/kg (285-295); Sodium 138 mmol/L (136-145); Total Bilirubin 0.2 mg/dL (0.15-1.2); Total Protein 6.5 g/dL (6.6-8.7)
[2021-05-29 00:43] VITALS: BP 142/75; PULSE 81; RESP 16; TEMP 36.6; O2SAT 97
[2021-05-29] MEDS: LORazepam 1 mg Tablet PO (00:43)
[2021-05-29 00:44] VITALS: BP 142/75; PULSE 81; RESP 16; TEMP 36.6; O2SAT 97
== END 2021-05-29 00:29 | disposition home or self-care (01) ==
PROVIDERS: Emergency Provider Physician Assistant; PCP Family Medicine Adult Medicine
DX: R07.89 Other chest pain (principal); Z79.891 Long term (current) use of opiate analgesic; Z86.19 Personal history of other infectious and parasitic diseases
CPT/HCPCS: 71045; 80053; 84484; 85025; 93005; 99283

== ENCOUNTER 2021-05-29 21:14 | Emergency (ER) | payer SELFPAY ==
[2021-05-29 21:18] VITALS: BP 119/81; PULSE 77; RESP 16; TEMP 36.9; O2SAT 98
--- NOTE | 2021-05-29 21:38 | W.ED.ANXIETY ---
HPI - Anxiety General: Chief Complaint: Anxiety Stated Complaint: Possible anxiety Time Seen by Provider: 05/29/21 21:37 History of Present Illness: HPI narrative: 26-year-old male patient comes in today with complaints of anxiety. [facility] to [facility] and he is just really uneasy. Patient appears well. Patient appears no acute distress. Patient is cooperative. Review of Systems General: Reports: 10 or more systems reviewed and unremarkable except in HPI and below Psych: Reports: anxiety PFSH ED PFSH: Medical History Depression GERD (gastroesophageal reflux disease) Hepatitis C History of lower leg fracture Insomnia Kidney stone Positive hepatitis C antibody test Severe dental caries Family History Grandmother Cancer Mother Diabetes Heart disease Social History Alcohol intake: current Alcohol intake frequency: few times a month Alcohol type: beer Marital status: Single Number of children: 1 Current occupational status: employed History of recent travel: No Physical Exam Const: COMMON NORMALS: no acute distress and patient oriented x3 GENERAL APPEARANCE: cooperative and well kempt HENMT: COMMON NORMALS: normocephalic HEAD & SCALP: normal to inspection and normocephalic Eye: GENERAL EYE: appearance normal, both eyes and all related structures Neck/C-Spine: COMMON NORMALS: full ROM Chest: COMMONS NORMALS: normal inspection of the chest Resp: COMMON NORMALS: normal respiratory effort EFFORT & INSPECTION: Yes able to speak in complete sentences Cardio: COMMON NORMALS: regular rate and regular rhythm RATE: regular rate RHYTHM: regular rhythm GI: COMMON NORMALS: non-tender Back/Pelvis: COMMON NORMALS: thoracic and lumbar spine normal to inspection Extremity: COMMON NORMALS: normal to inspection Neuro: COMMON NORMALS: patient oriented x3 and moves all extremities Psych: COMMON NORMALS: mental status grossly normal, Normal thought process present, cooperative and speech normal APPEARANCE: Yes well kempt ATTITUDE: Yes engaged ACTIVITY/MOTOR BEHAVIOR: Yes appropriate eye contact SPEECH: Yes normal speech MOOD & AFFECT: Yes depressed mood THOUGHT PROCESS: Normal thought process present Skin: COMMON NORMALS: no rashes or lesions noted GENERAL SKIN EXAM: no rashes or lesions noted Course Vital Signs: Vital signs: Vital Signs Temperature 98.4 F 05/29/21 21:18 Pulse Rate 77 05/29/21 21:18 Respiratory Rate 16 05/29/21 21:18 Blood Pressure 119/81 05/29/21 21:18 Pulse Oximetry 98 05/29/21 21:18 MDM - Anxiety MDM Narrative: Medical decision making narrative: Is beenPatient comes in today for complaints of anxiety. [facility] reports [facility]. They seem to stare at him all the time. Patient denies any suicidal or homicidal thoughts. Patient feels somewhat threatened by the [facility] of [facility]. On exam patient is alert oriented cooperative. Patient denies acute hearing or seeing any hallucinations. Differential diagnosis includes acute anxiety, depression, drug use. We will give the patient some hydroxyzine to use as needed for anxiety. Recommended follow-up with primary care for further instruction and treatment. Patient reported understanding and agreed to plan. Discharge Plan Discharge Patient Disposition: Home Clinical Impression: Acute anxiety Condition: Stable Prescriptions: New hydroxyzine HCl 25 mg tablet 25 mg PO BID PRN (Reason: anxiety) Qty: 20 RF: 0 No Action amoxicillin 500 mg capsule 500 mg PO BID Qty: 20 RF: 0 methadone 40 mg tablet,soluble 30 mg PO DAILY RF: 0 Gavilax 17 gram/dose powder 17 g PO DAILY Qty: 119 RF: 0 tamsulosin 0.4 mg capsule 0.4 mg PO DAILY Qty: 20 RF: 0 cyclobenzaprine 10 mg tablet 10 mg PO BID PRN (Reason: muscle spasm) Qty: 20 RF: 0 naproxen 500 mg tablet,delayed release (DR/EC) 500 mg PO BID PRN (Reason: pain) Qty: 10 RF: 0 Discharge Orders: Discharge ED (Routine); Ordered 05/29/21 Ordered By: Hugo Green Referrals: Mike Sherman MD [Primary Care Provider] - Discharge Diet: Usual diet Discharge Activity: Increase activity as tolerated Patient Instructions: Anxiety (ED), Opioid Safety Activity Restrictions/Additional Instructions: Home and rest. Activity as tolerated. Drink plenty of fluids with medication. Follow-up with primary care for further instruction. Return to the ER for new concerns. Coding Level of Care Code ED Nail Making Machine Tender for Chg 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
[2021-05-29] MEDS: hyDROXYzine 25 mg Capsule PO (22:07)
== END 2021-05-29 22:10 | disposition home or self-care (01) ==
PROVIDERS: Emergency Provider Nurse Practitioner Family; PCP Family Medicine Adult Medicine
DX: F41.9 Anxiety disorder, unspecified (principal); Z79.891 Long term (current) use of opiate analgesic; Z86.19 Personal history of other infectious and parasitic diseases
CPT/HCPCS: 99283

== ENCOUNTER 2021-09-26 20:38 | Inpatient (IN) | payer MEDICAID, SELFPAY ==
[2021-09-26 20:41] VITALS: BP 128/85; PULSE 96; RESP 16; TEMP 36.6; O2SAT 99; BMI 23.0
--- NOTE | 2021-09-26 20:50 | ECG_ITS ---
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 Measurements Intervals [place] Rate: 86 P: 49 GA: 125 QRS: 80 QRSD: 107 T: 59 QT: 348 QTc: 418 Interpretive Statements SINUS RHYTHM NONSPECIFIC ST & T-WAVE ABNORMALITY Compared to ECG 05/28/2021 22:25:32 T-wave abnormality now present Incomplete right bundle-branch block no longer present Electronically Signed On 09-27-2021 9:19:13 CDT by Tony Crenshaw M.D. [id number]
--- NOTE | 2021-09-26 20:54 | W.ED.PSYCHS ---
HPI - Psych General: Chief Complaint: Psychiatric Symptoms Stated Complaint: SI, CP Time Seen by Provider: 09/26/21 20:42 [facility] ED PFSH: Medical History (Updated 06/06/21 @ 00:00 by ) GERD (gastroesophageal reflux disease) Hepatitis C History of hepatitis C Treated with only one month of Epclusa. Despite that, he seems to have SVR. Recheck in one year History of lower leg fracture Insomnia Kidney stone Positive hepatitis C antibody test Severe dental caries Family History Grandmother Cancer Mother Diabetes Heart disease Social History Alcohol intake: current Alcohol intake frequency: few times a month Alcohol type: beer Marital status: Single Number of children: 1 Current occupational status: employed History of recent travel: No Course Vital Signs: Vital signs: Vital Signs Temperature 97.8 F 09/26/21 20:41 Pulse Rate 96 09/26/21 20:41 Respiratory Rate 16 09/26/21 20:41 Blood Pressure 128/85 09/26/21 20:41 Pulse Oximetry 99 09/26/21 20:41 MDM - Psych Lab Data : 09/26/21 20:45 09/26/21 20:45 Laboratory Results WBC 10.6 10^3/uL (4.0-10.0) H 09/26/21 20:45 RBC 4.94 10^6/uL (4.1-5.3) 09/26/21 20:45 Hgb 14.5 g/dL (11.7-16.6) 09/26/21 20:45 Hct 42.9 % (42.0-52.0) 09/26/21 20:45 MCV 86.8 fl (80-94) 09/26/21 20:45 MCH 29.4 pg (28.0-34.0) 09/26/21 20:45 MCHC 33.8 g/dL (30.0-36.0) 09/26/21 20:45 RDW 13.1 % (12.1-15.1) 09/26/21 20:45 Plt Count 350 10^3/cmm (130-400) 09/26/21 20:45 MPV 10.1 fL (7.4-10.4) 09/26/21 20:45 Neut % (Auto) 64.6 % 09/26/21 20:45 Lymph % (Auto) 27.3 % 09/26/21 20:45 [place] % (Auto) 6.4 % 09/26/21 20:45 Eos % (Auto) 1.0 % 09/26/21 20:45 Baso % (Auto) 0.2 % 09/26/21 20:45 Neut # (Auto) 6.87 10^3/uL (1.8-7.7) 09/26/21 20:45 Lymph # (Auto) 2.9 10^3/uL (0.8-4.8) 09/26/21 20:45 [place] # (Auto) 0.7 10^3/uL (0.2-0.9) 09/26/21 20:45 Eos # (Auto) 0.1 10^3/uL (0.0-0.8) 09/26/21 20:45 Baso # (Auto) 0.0 10^3/uL (0.0-0.1) 09/26/21 20:45 Nucleated RBC % (auto) 0 % 09/26/21 20:45 Nucleated RBCs # 0.0 /100WBC 09/26/21 20:45 Discharge Plan Discharge Condition: Stable Prescriptions: No Action hydroxyzine HCl 25 mg tablet 25 mg PO Q6H PRN (Reason: anxiety attacks) Qty: 60 3RF sertraline 50 mg tablet 50 mg PO DAILY Qty: 30 1RF Gavilax 17 gram/dose powder 17 g PO DAILY Qty: 119 0RF tamsulosin 0.4 mg capsule 0.4 mg PO DAILY Qty: 20 0RF cyclobenzaprine 10 mg tablet 10 mg PO BID PRN (Reason: muscle spasm) Qty: 20 0RF naproxen 500 mg tablet,delayed release (DR/EC) 500 mg PO BID PRN (Reason: pain) Qty: 10 0RF Referrals: Mike Sherman MD [Primary Care Provider] - Coding Level of Care Code ED 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
[2021-09-26 20:55] LABS: Basophils % 0.2 %; Eosinophils # 0.1 10^3/uL (0.0-0.8); Hematocrit 42.9 % (42.0-52.0); Hemoglobin 14.5 g/dL (11.7-16.6); Lymphocytes # 2.9 10^3/uL (0.8-4.8); Lymphocytes % 27.3 %; Mean Corpuscular HGB Conc 33.8 g/dL (30.0-36.0); Mean Corpuscular Hemoglobin 29.4 pg (28.0-34.0); Mean Corpuscular Volume 86.8 fl (80-94); Mean Platelet Volume 10.1 fL (7.4-10.4); Monocytes # 0.7 10^3/uL (0.2-0.9); Monocytes % 6.4 %; Neutrophils # 6.87 10^3/uL (1.8-7.7); Neutrophils % 64.6 %; Nucleated Red Blood Cells % 0 %; Platelet Count 350 10^3/cmm (130-400); Red Blood Count 4.94 10^6/uL (4.1-5.3); Red Cell Distribution Width 13.1 % (12.1-15.1); White Blood Count 10.6 10^3/uL (4.0-10.0)
--- NOTE | 2021-09-26 20:55 | XRR_ITS ---
PROCEDURE INFORMATION: Exam: XR Chest Exam date and time: 09/26/2021 9:14 PM Age: 26 years old Clinical indication: Pain; Chest pressure; Additional info: Chest pain TECHNIQUE: Imaging protocol: XR of the chest. Views: 1 view. COMPARISON: CR XR chest 1V portable [id number] 05/29/2021 12:07 AM FINDINGS: Lungs: Unremarkable. No consolidation. Pleural spaces: Unremarkable. No pleural effusion. No pneumothorax. Heart/Mediastinum: Unremarkable. No cardiomegaly. Bones/joints: Unremarkable. XR/XR chest 1V portable [id number] IMPRESSION: No acute findings.
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
[2021-09-26 21:19] LABS: Amphetamines Screen Urine Negative (Negative); Barbiturates Screen Urine Negative (Negative); Benzodiazepines Screen Urine Negative (Negative); Cocaine Screen Urine Negative (Negative); Opiate Screen Urine Negative (Negative); PCP Screen Urine Negative (Negative); THC Screen Urine Negative (Negative)
[2021-09-26 21:31] LABS: Troponin(5th) Baseline 6 ng/L (0-15)
[2021-09-26 21:32] LABS: Alanine Aminotransferase 8 U/L (0-41); Albumin Level 5.4 g/dL (3.5-5.2); Alkaline Phosphatase 154 IU/L (40-130); Anion Gap 17.1 (5-19); Aspartate Amino Transferase 14 U/L (0-40); Blood Urea Nitrogen 8 mg/dL (6-20); Calcium 10.3 mg/dL (8.5-10.5); Carbon Dioxide 27 mmol/L (22-29); Chloride 101 mmol/L (98-107); Creatinine Clr Calc Pharmacy 146.0612; Globulin 2.6 g/dL (1.3-4.6); Glomerular Filtration Rate 115.1 mL/min (90-130); Glucose 100 mg/dL (65-115); Osmolality Calculated 290 mOsm/kg (285-295); Potassium 4.1 mmol/L (3.5-5.1); Sodium 141 mmol/L (136-145); Total Bilirubin 0.3 mg/dL (0.15-1.2)
[2021-09-26 21:32] LABS: Add Urine Culture? No; Add Urine Microscopic? YES; Amorphous Sediment Urine 1+ /hpf; Bacteria Urine TRACE /hpf; Bilirubin Urine Neg (Negative); Blood Urine Neg (Negative); Glucose Urine UA Norm (Normal); Ketones Urine Negative (Negative); Leukocyte Esterase Urine Negative (Negative); Mucus Urine 1+ /hpf; Nitrate Urine Negative (Negative); Protein Urine Neg (Negative); RBC Urine 0-4 /hpf (0-2); Squamous Epithelial Cell Urine 0-4 /hpf (0-5); Urine Appearance Clear (CLEAR); Urine Color Yellow (Yellow); Urobilinogen Urine Norm (Negative); WBC Urine 0-4 /hpf (0-5); pH Urine 7 (5-7)
[2021-09-26 21:41] LABS: Acetaminophen < 5.0 ug/mL (10-30); Salicylate < 0.3 mg/dL (3-10)
[2021-09-26 23:00] VITALS: BP 130/87; PULSE 89; RESP 17; TEMP 36.6; O2SAT 99
[2021-09-27 00:30] VITALS: BP 134/79; PULSE 85; RESP 17; TEMP 36.6; O2SAT 99
[2021-09-27 00:43] VITALS: BP 134/79; PULSE 85; RESP 17; TEMP 36.6; O2SAT 99
[2021-09-27 01:07] VITALS: BP 129/86; PULSE 77; RESP 19; TEMP 36.7; O2SAT 100
[2021-09-27 06:00] VITALS: BP 96/57; PULSE 72; RESP 18; TEMP 36.5; O2SAT 99
[2021-09-27] MEDS: diphenhydrAMINE 50 mg/mL SDV 1mL IM (08:58)
[2021-09-27] MEDS: LORazepam 2 mg/mL INJ 1 mL IM (08:58)
[2021-09-27] MEDS: haloperidol inj 5 mg/mL INJ 1 mL IM (08:58)
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
--- NOTE | 2021-09-27 11:16 | PC.SOCIAL ---
Patient did not attend group.
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
--- NOTE | 2021-09-27 12:07 | PC.NURSE ---
PATIENT OVERHEARD ROOMMATE COMPLAINING, CAME OUT OF ROOM AND STATED YOU TALKING ABOUT ME? AND PROCEEDED TO SWING TO PUNCH OTHER PATIENT. PATIENT MADE CONTACT WITH OTHER PATIENT'S LEFT CHEEK, SECURITY HAD BEEN CALLED WHILE THESE PATIENTS WERE YELLING AT EACH OTHER AND APPROACHED PATIENTS TO REDIRECT TO BACK AWAY FROM ONE ANOTHER, WHILE THIS NURSE WAS ATTEMPTING TO VERBALLY DE-ESCALATE. PATIENTS CALMED AND WERE RE-DIRECTED AWAY FROM EACH OTHER. OTHER PATIENT MOVED TO OTHER SIDE. NO INJURIES NOTED. PHYSICIAN AND DIRECTOR AWARE OF SITUATION. PATIENT AGREED TO TAKE MEDICATIONS FOR ANXIETY AND AGITATION. MEDICATIONS GIVEN TO B/L DELTOIDS WITHOUT ISSUE NOTED. PATIENT HAS BEEN RESTING WITH EYES CLOSED IN ROOM SINCE BEING MOVED TO [facility] TO [facility].
--- NOTE | 2021-09-27 12:41 | DCPLANNER ---
manager product management had message to speak with patient about services at [facility]. Patient was admitted to hospital, to the NPU. manager product management will inform manager of case management in the NPU about getting follow up for patient when discharged from NPU.
[2021-09-27 14:00] VITALS: BP 84/44; PULSE 66; RESP 16; TEMP 36.3; O2SAT 98
[2021-09-27 20:40] VITALS: RESP 18
[2021-09-28 06:00] VITALS: RESP 16
--- NOTE | 2021-09-28 09:41 | PC.NURSE ---
0820 Attempted to complete assessment this AM and became very agitated and angry. Yells, I want a shower, I just shit and need to clean my ass. Informed he can take a shower. Patient rolls eyes. Informed this RN would give him a few minutes an be back to complete assessment. 0850 Back to room after earlier episode. Patient still does not want to talk until he gets my methadone. Informed patient I can not help him unless he is willing to complete assessment and provide information where he gets medications filled. States he receives his methadone at [facility]. Reassured that we would check and verify last refill and dose. Appears to be somewhat relieved but still angry regarding shower. Informed again he can take a shower. HEAT CURER notified of wishes. Denies SI/HI and AVH at this time. Easily annoyed and temperamental. Currently resting in bed in with eyes closed.
--- NOTE | 2021-09-28 12:24 | PC.NURSE ---
PT FRUSTRATED ABOUT BEING HERE. REQUESTING TO LEAVE AT THIS TIME. NOTIFIED OF PT'S DESIRE TO LEAVE AMA. PT EDUCATED ON STAFF'S DESIRE FOR PT TO STAY BUT PT DECLINED. PT COMPLETED AMA RISK ASSESSMENT AND SIGNED AMA PAPERWORK. EDUCATION PROVIDED TO PT ON SUICIDE PREVENTION WELL GIVEN THE MOCARS NUMBER. PT DENIES ANY SI/HI OR AVH AT THIS TIME. ALL BELONGINGS RETURNED TO PT UPON DISCHARGE.
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
== END 2021-09-28 12:30 | disposition left against medical advice (07) | DRG 881 ==
LOC: ER 22:49 → NP 23:57
PROVIDERS: Admitting Provider Psychiatry & Neurology Psychiatry; Emergency Provider Emergency Medicine; PCP Family Medicine Adult Medicine; Visit Provider Psychiatry & Neurology Psychiatry
DX: F32.A Depression, unspecified (principal); R45.851 Suicidal ideations; F15.20 Other stimulant dependence, uncomplicated; R07.9 Chest pain, unspecified; K02.9 Dental caries, unspecified; F43.12 Post-traumatic stress disorder, chronic; F10.20 Alcohol dependence, uncomplicated; Z53.29 Procedure and treatment not carried out because of patient's decision for other reasons
CPT/HCPCS: 71045; 80053; 80306; 80307; 81001; 84484; 85025; 93005; 96372; 97165; 99285; J1200; J1630; J2060

== ENCOUNTER 2021-10-01 19:23 | Emergency (ER) | payer MEDICAID, SELFPAY ==
[2021-10-01 19:22] VITALS: BP 121/84; PULSE 94; RESP 16; TEMP 36.8; O2SAT 100; BMI 17.4
--- NOTE | 2021-10-01 19:30 | XRR_ITS ---
PROCEDURE INFORMATION: Exam: XR Chest Exam date and time: 10/01/2021 7:41 PM Age: 26 years old Clinical indication: Pain; On breathing; Additional info: Cp TECHNIQUE: Imaging protocol: XR of the chest. Views: 1 view. COMPARISON: CR (CHEST, ) 09/26/2021 9:14 PM FINDINGS: Lungs: Mildly hyperaerated lungs consistent with deep inspiratory effort vs reactive airway disease vs mild COPD . Pleural spaces: Unremarkable. No pleural effusion. No pneumothorax. Heart/Mediastinum: Unremarkable. No cardiomegaly. Bones/joints: Idiopathic S-shaped scoliosis. XR/XR chest 1V portable [id number] IMPRESSION: Mildly hyperaerated lungs consistent with deep inspiratory effort vs reactive airway disease vs mild COPD .
--- NOTE | 2021-10-01 19:30 | ECG_ITS ---
[facility] Test Date: 2021-10-01 Pat Name: Tyree Alvarez Department: Room: Gender: Male Media Reconciliation Specialist: : 1995 Requested By: Mimi Bailon Order Number: [id number] Conor MD: Jason Gregory M.D. Measurements Intervals [place] Rate: 78 P: 59 DE: 128 QRS: 87 QRSD: 94 T: 52 QT: 373 QTc: 427 Interpretive Statements SINUS RHYTHM POSSIBLE RIGHT VENTRICULAR CONDUCTION DELAY [RSR (QR) IN V1/V2] NONSPECIFIC ST ELEVATION [0.05+ mV ST ELEVATION] Compared to ECG 09/26/2021 21:01:28 ST (T wave) deviation now present T-wave abnormality no longer present Electronically Signed On 10-02-2021 21:59:00 CDT by Jason Gregory M.D. [id number]
--- NOTE | 2021-10-01 19:32 | W.ED.CHESTPA ---
HPI - Chest Pain General: Chief Complaint: Chest Pain Stated Complaint: cp Time Seen by Provider: 10/01/21 19:30 Source: patient and EMS Mode of arrival: EMS Limitations: no limitations History of Present Illness: 26-year-old male who is very well-known to the ER has a history of methamphetamine abuse along with alcohol use. He is currently on methadone states that he has not refilled his prescription because he has not had a ride. He comes in by EMS because he states has been having some anxiety because he has not had his methadone. He is having some slight chest pain but states it is from his anxiety denies any worsening improving factors. He has no signs of withdrawal here. No vomiting Associated symptoms: Deny abdominal pain, dyspnea, fever(s), nausea or vomiting Review of Systems Const: Denies: fever(s), chills, body aches or change in appetite Eyes: Denies: blurry vision or eye discomfort ENMT: Denies: throat pain or dental pain Card: Reports: chest pain Resp: Denies: dyspnea GI: Denies: abdominal pain, nausea, vomiting or diarrhea : Denies: dysuria Musc: Denies: neck pain or back pain Skin/Breast: Denies: rash Neuro: Denies: headache(s) Psych: Reports: anxiety Abe/Lymph: Denies: easy bruising All/Imm: Denies: urticaria PFSH ED PFSH: Medical History GERD (gastroesophageal reflux disease) Hepatitis C History of hepatitis C Treated with only one month of Epclusa. Despite that, he seems to have SVR. Recheck in one year History of lower leg fracture Insomnia Kidney stone Positive hepatitis C antibody test Severe dental caries Family History Grandmother Cancer Mother Diabetes Heart disease Social History Alcohol intake: current Alcohol intake frequency: few times a month Alcohol type: beer Marital status: Single Number of children: 1 Current occupational status: employed History of recent travel: No Physical Exam Const: COMMON NORMALS: no acute distress, patient oriented x3 and healthy appearing HENMT: COMMON NORMALS: normocephalic and atraumatic HEAD & SCALP: normocephalic and atraumatic Eye: COMMON NORMALS: Equal, round and reactive pupils present and EOMs intact bilaterally PUPIL: Yes Equal, round and reactive pupils present Neck/C-Spine: COMMON NORMALS: full ROM and supple Chest: COMMONS NORMALS: normal inspection of the chest and normal palpation of entire chest wall Resp: COMMON NORMALS: normal respiratory effort, No retractions, No use of accessory muscles and clear to auscultation bilaterally AUSCULTATION: clear to auscultation bilaterally Cardio: COMMON NORMALS: regular rate, regular rhythm and No murmurs present (Cardio) RATE: regular rate RHYTHM: regular rhythm GI: COMMON NORMALS: Normal to inspection, nondistended, normoactive bowel sounds present, Soft to palpation, non-tender and no masses PALPATION: Yes Soft to palpation Extremity: COMMON NORMALS: normal to inspection and full ROM Neuro: COMMON NORMALS: patient oriented x3, moves all extremities and no focal motor deficits Psych: COMMON NORMALS: mental status grossly normal, Normal thought process present and cooperative THOUGHT PROCESS: Normal thought process present Skin: COMMON NORMALS: no rashes or lesions noted and no wounds GENERAL SKIN EXAM: no rashes or lesions noted Course Vital Signs: Vital signs: Vital Signs Temperature 98.2 F 10/01/21 19:22 Pulse Rate 94 10/01/21 19:22 Respiratory Rate 18 10/01/21 19:41 Blood Pressure 132/79 10/01/21 19:41 Pulse Oximetry 100 10/01/21 19:22 MDM - Chest Pain Medical Decision Making Patient presents here with anxiety he is well-appearing here EKG and x-ray are normal informed him I cannot give him methadone here he has to fill his prescription he feels improved after Ativan will write him some Vistaril at home for anxiety. EKG Data EKG 1: I personally reviewed and interpreted this EKG as follows: EKG interpretation date: 10/01/21 EKG interpretation time: 19:36 Interpretation: nsr hr [address] or t wave abnormalities qrs 94 qtc 407 Discharge Plan Discharge Patient Disposition: Home Clinical Impression: Anxiety Condition: Stable Prescriptions: New hydroxyzine HCl 25 mg tablet 25 mg PO Q8H PRN (Reason: anxiety) Qty: 20 0RF Discharge Orders: Discharge ED (Routine); Ordered 10/01/21 Ordered By: Mimi Bailon Referrals: Mike Sherman MD [Primary Care Provider] - 1-3 days Discharge Diet: Advance as tolerated Discharge Activity: Resume usual activity Patient Instructions: Anxiety (ED) Coding Level of Care Code ED Hot Dip Plating Supervisor for Chg 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
[2021-10-01] MEDS: LORazepam 2 mg/mL INJ 1 mL 1 MG IVP (19:37)
[2021-10-01 19:41] VITALS: BP 132/79; RESP 18
[2021-10-01 19:50] VITALS: BP 115/76; PULSE 90; RESP 18
== END 2021-10-01 19:52 | disposition home or self-care (01) ==
PROVIDERS: Emergency Provider Emergency Medicine; PCP Family Medicine Adult Medicine
DX: F41.9 Anxiety disorder, unspecified (principal); Z79.891 Long term (current) use of opiate analgesic; Z86.59 Personal history of other mental and behavioral disorders
CPT/HCPCS: 71045; 93005; 96374; 99284; J2060

== ENCOUNTER 2021-10-01 21:00 | Emergency (ER) | payer MEDICAID, SELFPAY ==
[2021-10-01 21:19] VITALS: BP 127/80; PULSE 92; RESP 18; TEMP 36.6; O2SAT 93; BMI 16.0
[2021-10-01 21:29] VITALS: BP 127/80; PULSE 92; RESP 18; TEMP 36.6; O2SAT 93
--- NOTE | 2021-10-01 21:29 | W.ED.EXTPRO ---
HPI - Extremity Problem General: Chief complaint: Extremity Problem,Nontraumatic Stated complaint: Pain in R arm Time Seen by Provider: 10/01/21 21:06 Source: patient Mode of arrival: ambulatory Limitations: no limitations History of Present Illness: 18-year-old male states he was without the waiting room he started having some dental pain. He has chronic dental caries has been told he needs to have teeth removed he has not. He states pain is on both lower molars rates today 5 out of 10. Denies any worsening proving factors he has no trismus no difficulty speaking no difficulty swallowing. Associated symptoms: Deny chest pain, fever(s) or rash Review of Systems Const: Denies: fever(s), chills, body aches or change in appetite Eyes: Denies: blurry vision or eye discomfort ENMT: Reports: mouth pain Card: Denies: chest pain Resp: Denies: dyspnea GI: Denies: abdominal pain, nausea, vomiting or diarrhea : Denies: dysuria Musc: Denies: neck pain or back pain Skin/Breast: Denies: rash Neuro: Denies: headache(s) Psych: Denies: depression Abe/Lymph: Denies: easy bruising All/Imm: Denies: urticaria PFSH ED PFSH: Medical History GERD (gastroesophageal reflux disease) Hepatitis C History of hepatitis C Treated with only one month of Epclusa. Despite that, he seems to have SVR. Recheck in one year History of lower leg fracture Insomnia Kidney stone Positive hepatitis C antibody test Severe dental caries Family History Grandmother Cancer Mother Diabetes Heart disease Social History Alcohol intake: current Alcohol intake frequency: few times a month Alcohol type: beer Marital status: Single Number of children: 1 Current occupational status: employed History of recent travel: No Physical Exam Const: COMMON NORMALS: no acute distress, patient oriented x3 and healthy appearing HENMT: COMMON NORMALS: normocephalic and atraumatic HEAD & SCALP: normocephalic and atraumatic OTHER: Poor dentition no abscess or trismus Eye: COMMON NORMALS: Equal, round and reactive pupils present and EOMs intact bilaterally PUPIL: Yes Equal, round and reactive pupils present Neck/C-Spine: COMMON NORMALS: full ROM and supple Chest: COMMONS NORMALS: normal inspection of the chest and normal palpation of entire chest wall Resp: COMMON NORMALS: normal respiratory effort, No retractions, No use of accessory muscles and clear to auscultation bilaterally AUSCULTATION: clear to auscultation bilaterally Cardio: COMMON NORMALS: regular rate, regular rhythm and No murmurs present (Cardio) RATE: regular rate RHYTHM: regular rhythm GI: COMMON NORMALS: Normal to inspection, nondistended, normoactive bowel sounds present, Soft to palpation, non-tender and no masses PALPATION: Yes Soft to palpation Extremity: COMMON NORMALS: normal to inspection and full ROM Neuro: COMMON NORMALS: patient oriented x3, moves all extremities and no focal motor deficits Psych: COMMON NORMALS: mental status grossly normal, Normal thought process present and cooperative THOUGHT PROCESS: Normal thought process present Skin: COMMON NORMALS: no rashes or lesions noted and no wounds GENERAL SKIN EXAM: no rashes or lesions noted Course Vital Signs: Vital signs: Vital Signs Temperature 97.8 F 10/01/21 21:35 Pulse Rate 92 10/01/21 21:35 Respiratory Rate 18 10/01/21 21:35 Blood Pressure 127/80 10/01/21 21:35 Pulse Oximetry 93 10/01/21 21:35 MDM - Extremity (Nontraumatic) Medical Decision Making Patient presents with bilateral lower molar dental pain he is requesting hydrocodone's I informed him he is not going to get hydrocodone's he is chewing gum wine excessively he does have poor dentition we will place him on Naprosyn he is to follow-up with a dentist. Discharge Plan Discharge Patient Disposition: Home Clinical Impression: Pain, dental Condition: Stable Prescriptions: New cephalexin 500 mg capsule 500 mg PO TID 7 Days Qty: 21 0RF Naprosyn 500 mg tablet 500 mg PO BID PRN (Reason: pain) Qty: 20 0RF No Action hydroxyzine HCl 25 mg tablet 25 mg PO Q8H PRN (Reason: anxiety) Qty: 20 0RF Discharge Orders: Discharge ED (Routine); Ordered 10/01/21 Ordered By: Mimi Bailon Referrals: Mike Sherman MD [Primary Care Provider] - 1-3 days Discharge Diet: Advance as tolerated Discharge Activity: Resume usual activity Patient Instructions: Toothache (ED) Coding Level of Care Code ED Sustainability Officer for Sunita 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
[2021-10-01 21:35] VITALS: BP 127/80; PULSE 92; RESP 18; TEMP 36.6; O2SAT 93
[2021-10-01] MEDS: naproxen 500 mg Tablet PO (21:35)
== END 2021-10-01 21:36 | disposition home or self-care (01) ==
PROVIDERS: Emergency Provider Emergency Medicine; PCP Family Medicine Adult Medicine
DX: K08.89 Other specified disorders of teeth and supporting structures (principal); K02.9 Dental caries, unspecified
CPT/HCPCS: 99283

== ENCOUNTER 2021-10-03 19:46 | Inpatient (IN) | payer MEDICAID, SELFPAY ==
[2021-10-03 19:48] VITALS: RESP 18; TEMP 36.7; BMI 18.1
--- NOTE | 2021-10-03 19:50 | W.ED.GENADLT ---
HPI - General Adult General: Stated complaint: SI Time Seen by Provider: 10/03/21 19:48 History of Present Illness: HPI: [26]yo patient w/ hx of depression BIBA for suicidal ideation and multiple suicid attempts throughout the day. Patient reports plans to hang himself today. for On arrival, the patient is AAOx3 and cooperative with my evaluation. No focal complaints of chest pain, shortness of breath, palpitations, N/V, focal GI/ complaints. Currently denies HI. No complaints of hallucinations. Onset: acute Duration: ongoing Location: home Severity: severe Associated symptoms: Deny chest pain, dyspnea, nausea, rash, palpitations or vomiting Review of Systems Const: Denies: fever(s) or chills Eyes: Denies: change in vision ENMT: Denies: mouth pain Card: Denies: chest pain or palpitations Resp: Denies: dyspnea or non-productive cough GI: Denies: abdominal pain, nausea, vomiting or diarrhea : Denies: dysuria Musc: Denies: extremity pain Skin/Breast: Denies: rash or new lesions Neuro: Denies: weakness in extremities Psych: Reports: depression, suicidal ideation and other Abe/Lymph: Denies: easy bruising PFSH ED PFSH: Medical History GERD (gastroesophageal reflux disease) Hepatitis C History of hepatitis C Treated with only one month of Epclusa. Despite that, he seems to have SVR. Recheck in one year History of lower leg fracture Insomnia Kidney stone Positive hepatitis C antibody test Severe dental caries Family History Grandmother Cancer Mother Diabetes Heart disease Social History Alcohol intake: current Alcohol intake frequency: few times a month Alcohol type: beer Marital status: Single Number of children: 1 Current occupational status: employed History of recent travel: No Physical Exam Const: COMMON NORMALS: alert HENMT: COMMON NORMALS: atraumatic HEAD & SCALP: atraumatic MOUTH: moist mucous membranes not abnormal Eye: COMMON NORMALS: EOMs intact bilaterally and conjunctivae normal CONJUNCTIVA: Yes conjunctivae normal Neck/C-Spine: COMMON NORMALS: full ROM and supple Resp: COMMON NORMALS: normal respiratory effort and clear to auscultation bilaterally AUSCULTATION: clear to auscultation bilaterally Cardio: COMMON NORMALS: regular rate RATE: regular rate GI: COMMON NORMALS: Soft to palpation and non-tender PALPATION: Yes Soft to palpation Extremity: COMMON NORMALS: full ROM Neuro: SENSORIUM/ORIENTATION: Yes alert MOTOR EXAM: No Abnormal motor strength present and Other motor observations present (no focal motor deficits) Psych: COMMON NORMALS: speech normal SPEECH: Yes normal speech MOOD & AFFECT: Yes depressed mood MDM - General Adult Medical Decision Making [26]yo patient w/ hx of depression presenting for SI with plan. HDS, exam within normal limit Thoughts are linear and organized, and the patient has no AH/VH, or HI. Clinically the patient displays no overt toxidrome; they are well appearing, with low suspicion for toxic ingestion given history and exam. Symptoms unlikely 2/2 anemia, hypothyroidism, infection, or ICH. Workup: CBC, CMP, Lipase, salicylate/tylenol, UDS Lab findings: wnl [9:00pm] On reassessment, labs and workup wnl. Patient is hemodynamically stable with no acute medical complaints. Case discussed with psychiatric provider Dr. Jackson at [facility] psych inpatient with recommendation for admission Disposition: Psych Discharge Plan Discharge Condition: Stable Prescriptions: No Action hydroxyzine HCl 25 mg tablet 25 mg PO Q8H PRN (Reason: anxiety) Qty: 20 0RF cephalexin 500 mg capsule 500 mg PO TID 7 Days Qty: 21 0RF Naprosyn 500 mg tablet 500 mg PO BID PRN (Reason: pain) Qty: 20 0RF Referrals: Mike Sherman MD [Primary Care Provider] - Coding Level of Care Code ED Spindle Plumber for Chg Terrell
[2021-10-03 19:58] VITALS: BP 105/68; PULSE 93; RESP 20; O2SAT 99
[2021-10-03 20:04] LABS: Basophils % 0.2 %; Eosinophils # 0.1 10^3/uL (0.0-0.8); Hematocrit 36.4 % (42.0-52.0); Lymphocytes # 2.4 10^3/uL (0.8-4.8); Lymphocytes % 25.6 %; Mean Corpuscular Hemoglobin 29.3 pg (28.0-34.0); Mean Corpuscular Volume 88.8 fl (80-94); Monocytes # 0.9 10^3/uL (0.2-0.9); Monocytes % 9.9 %; Neutrophils # 5.77 10^3/uL (1.8-7.7); Neutrophils % 62.9 %; Nucleated Red Blood Cells % 0 %; Platelet Count 254 10^3/cmm (130-400); Red Cell Distribution Width 13.5 % (12.1-15.1); White Blood Count 9.2 10^3/uL (4.0-10.0)
--- NOTE | 2021-10-03 20:07 | PC.NURSE ---
Patient in bed, belongings placed in bag and put in cabinet outside patient room. Door open sitter at bedside, paper scrubs on patient, blanket on patient, he states he is cold. Patient reports bilateral foot pain. Patient states he has been having suicidal ideation for a long time. Patient states he hears and sees things other don't. Patient states he hears voices in languages, these voices tell him to hurt himself and others. Patient states he is supposed to be taking methadone but has not in over a month. Patient states he drinks alcohol, smokes cigarettes. Patient states he wants to get his mind right. Patient states he has not slept, eaten or had any fluids in several days. Patient vitals stable at this time, breathing even and non-labored. Patient states when he sleeps his heart stops.
--- NOTE | 2021-10-03 20:10 | PC.NURSE ---
Patient unable to urinate at this time.
[2021-10-03 20:28] LABS: Alanine Aminotransferase 12 U/L (0-41); Albumin Level 4.3 g/dL (3.5-5.2); Alkaline Phosphatase 107 IU/L (40-130); Anion Gap 13.1 (5-19); Aspartate Amino Transferase 20 U/L (0-40); Blood Urea Nitrogen 11 mg/dL (6-20); Calcium 9.3 mg/dL (8.5-10.5); Carbon Dioxide 26 mmol/L (22-29); Chloride 107 mmol/L (98-107); Globulin 2.6 g/dL (1.3-4.6); Glomerular Filtration Rate 160.4 mL/min (90-130); Glucose 74 mg/dL (65-115); Lipase 28 U/L (13-60); Osmolality Calculated 292 mOsm/kg (285-295); Potassium 4.1 mmol/L (3.5-5.1); Salicylate 1.1 mg/dL (3-10); Sodium 142 mmol/L (136-145); Total Bilirubin 0.3 mg/dL (0.15-1.2); Total Protein 6.9 g/dL (6.6-8.7)
[2021-10-03 20:30] LABS: Acetaminophen < 5.0 ug/mL (10-30)
--- NOTE | 2021-10-03 20:58 | PC.NURSE ---
Report given to Gabino DUMONT.
[2021-10-03 21:11] VITALS: BP 125/75; PULSE 75; RESP 14; TEMP 36.8; O2SAT 98
[2021-10-03] MEDS: hyDROXYzine 25 mg Capsule 50 MG PO (21:38)
[2021-10-03] MEDS: acetaminophen 325 mg Tablet 650 MG PO (21:38)
[2021-10-03] MEDS: trazodone 50 mg Tablet PO (21:38)
[2021-10-03 21:54] VITALS: BP 125/75; PULSE 75; RESP 14; TEMP 36.8; O2SAT 98
[2021-10-03 22:00] VITALS: BP 125/75; PULSE 75; RESP 14; TEMP 36.8; O2SAT 98
[2021-10-04 06:00] VITALS: BP 115/68; PULSE 77; RESP 16; TEMP 36.9; O2SAT 97
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
[2021-10-04 13:37] VITALS: BP 109/65; PULSE 96; RESP 17; TEMP 36.8; O2SAT 95
[2021-10-04] MEDS: ibuprofen 800 mg tablet PO (17:23)
[2021-10-04] MEDS: hyDROXYzine 25 mg Capsule 50 MG PO (17:23)
[2021-10-04] MEDS: fluoxetine 20 mg Capsule PO (17:23)
--- NOTE | 2021-10-04 17:49 | PC.NURSE ---
Pt complained about the medications that he took and requested to take, saying it's not really what I need, they aren't going to work. Pt is looking for Methadone. Pt doesn't have current script for said med.
[2021-10-04 19:57] VITALS: RESP 16
[2021-10-05 06:00] VITALS: RESP 17
[2021-10-05] MEDS: fluoxetine 20 mg Capsule PO (08:54)
[2021-10-05 09:49] VITALS: O2SAT 95
[2021-10-05] MEDS: methadone 10 mg Tablet 20 MG PO (09:49)
--- NOTE | 2021-10-05 10:33 | PC.NURSE ---
New Order Patient very agitated this AM due to not having his Methadone ordered. Notified Dr. Jackson at 0930 regarding behavior, increased anxiety and demanding his methadone 40 mg. This RN called [facility] and spoke to Jude regarding patients dosing. She does verify that patient does dose there and his dose is currently 20mg of methadone daily. Informed Dr. Jackson and new orders received for Methadone 20 MG Daily. Informed patient of new order and he is very happy. First dose administered as ordered see MAR for details.
[2021-10-05 11:09] LABS: Amphetamines Screen Urine Positive (Negative); Barbiturates Screen Urine Negative (Negative); Benzodiazepines Screen Urine Negative (Negative); Cocaine Screen Urine Negative (Negative); Opiate Screen Urine Negative (Negative); PCP Screen Urine Negative (Negative); THC Screen Urine Negative (Negative)
[2021-10-05] MEDS: benzocaine 20% 7 gm 1 APPLIC MUCOUS MEM (11:19)
--- NOTE | 2021-10-05 12:12 | W.PM.NPUPNS ---
Subjective NPU Subjective: He is doing better today. He is up walking around although his feet still hurt. He said that his calves are locking up and hurting from all the walking that he did a few days ago. When asked why he did that he said it was because his mind was free. Early in the conversation he said he had nightmares every night. When I asked later if he wanted them treated he said no because that is all I have . He said that he cannot tolerate people talking bad about him and calling him names. He said that he feels like everybody wants to kill him. When asked about voices he said that he can hear whoever he wants to talk to. He later said that the voices talk a bunch of BS. He did not like them and he wanted to take something to help them. He says methadone and Xanax and marijuana are all that really helped him. He says methamphetamine also helps him. Mental Status Exam MSE Comments: This is a 26-year-old thin male who appears approximately his stated age and is in no acute distress. He is found in bed at in the day room at 12 PM. He was generally pleasant and cooperative. He made some eye contact. psychomotor activity d normal Speech is at a regular rate and rhythm, normal volume, good articulation, not pressured. Alert, oriented X3 Attention and concentration possibly diminished. Memory is intact Mood is depressed. Affect is moderately dysphoric. Thought process is logical and goal-directed. Thought content: He admits to auditory hallucinations as described above. When asked about seeing things he said Everybody see what ever they want to see?. He said that he did not think that he ever saw things that were not really there but he did not want to. He describes some paranoia saying that many people want to kill him and they mess with his head. No current suicidal ideation, and no homicidal ideation. Fund of knowledge is possibly diminished. Insight and judgment appear to be poor. Impulse control is very poor. Cognition: Level of Consciousness: Awake and Alert Patient Cognition Impaired: Yes Ability to Follow Directions: Fair Patient Orientation (long list): Person, Place and Name Comprehension Ability: No Impairment Hallucination Type: Auditory and Visual Delusion Description: Paranoid Ideation Thought Process: Blocking and Disorganized Affect: Affect Description: Anxious and Elated Depressive Symptoms: Changes in Appetite and Difficulty Sleeping Behavior: Patient Behavior: Impulsive and Irritable Speech Pattern: Clear Vitals/I&O/Wt Last Vital Signs Temp 98.2 F 10/04/21 13:37 Pulse 96 10/04/21 13:37 Resp 17 10/05/21 06:00 BP 109/65 10/04/21 13:37 Pulse Ox 95 10/05/21 09:49 Weight last 48 hrs Weight 58.967 kg Data NPU : 10/03/21 19:55 10/03/21 19:55 A&P Assessment and plan (1) Anxiety: Status: Acute (2) Suicidal ideation: Status: Acute (3) Depression: Status: Acute (4) Amphetamine use disorder, severe: Status: Acute (5) Alcohol use disorder, severe, dependence: Status: Acute (6) Post-traumatic stress disorder, chronic: Status: Acute (7) Schizophrenia: Status: Acute Plan This is a 26-year old male with a long history of anxiety depression and drug abuse. He was brought in by ambulance reporting multiple suicide attempts yesterday and a plan to hang himself. Today describes symptoms of schizophrenia. Plan: 1. Continue current medication. Start Prozac 20 mg daily. Add risperidone 2 mg at bedtime 2. Continue every 15 minute checks for safety. 3. Encourage individual, group and milieu therapies. 4. Encourage sober living treatment after discharge at the highest level of care to which he is willing to commit. 5. We will monitor for safety for himself in the community prior to discharge. Involuntary Hold Information 96 Hour Hold: 96 Hour Involuntary Admission: Yes 96 Hour Hold Ending Date: 10/07/21 96 Hour Hold Ending Time: 20:05 Attestations NPU Medical Necessity Statement*: Inpatient hospitalization is medically necessary and the clinically appropriate intervention at this time. We will initiate medications and make changes as indicated. Coding Level of Care Code Acute Casual Shoe Inspector for [facility] Diagnoses Anxiety F41.9 Suicidal ideation R45.851 Depression F32.A Amphetamine use disorder, severe F15.20 Alcohol use disorder, severe, dependence F10.20 Post-traumatic stress disorder, chronic F43.12 Schizophrenia F20.9
[2021-10-05] MEDS: OLANZapine 5 mg ODT PO (12:38)
--- NOTE | 2021-10-05 12:45 | PC.NURSE ---
PRN MED PT GIVEN 5MG ZYPREXA FOR MANIC MOOD, WILL CONTINUE TO MONITOR.
[2021-10-05] MEDS: haloperidol 5 mg Tablet PO (13:19)
--- NOTE | 2021-10-05 13:30 | PC.NURSE ---
PRN Medication and Behavior Patient continues to get worked up and agitated. Asked nurse if he could have some marijuana. Nurse reported this RN what patient had said. This RN asked patient if he would like something else for his anxiety and he is agreeable at this time. While RN was getting medication yelling and screaming was heard in the day area. This RN and other staff went to intervene, patient was standing closely to another patient yelling, I'm going to kick your ass bro, come on. This RN went towards patient and informed him I had his medication. The other patient then began telling staff what happened, patient then proceeded to run back towards patient yelling, i am going to kick your ass, you don't think I can cause I will. Several staff present and patient was verbally redirected. Decision was made to place on the acute side of NPU. Patient went without incidence. This RN then went over and gave Haldol 5 mg at 1319 with no issue.
[2021-10-05] MEDS: nicotine 21 mg Patch 1 PATCH TRANSDERMA (13:43)
[2021-10-05 14:00] VITALS: BP 159/112; PULSE 79; RESP 20; TEMP 36.7; O2SAT 97
[2021-10-05] MEDS: diphenhydrAMINE 50 mg/mL SDV 1mL IM (14:09)
[2021-10-05] MEDS: LORazepam 2 mg/mL INJ 1 mL IM (14:09)
[2021-10-05] MEDS: haloperidol inj 5 mg/mL INJ 1 mL IM (14:09)
[2021-10-05 21:11] VITALS: RESP 17
[2021-10-05] MEDS: risperiDONE 2 mg Tablet PO (21:16)
[2021-10-05] MEDS: trazodone 50 mg Tablet PO (21:16)
[2021-10-06 06:00] VITALS: RESP 18
[2021-10-06 08:32] VITALS: RESP 16; O2SAT 98
[2021-10-06] MEDS: methadone 10 mg Tablet 20 MG PO (08:32)
[2021-10-06] MEDS: nicotine 21 mg Patch 1 PATCH TRANSDERMA (08:32)
[2021-10-06] MEDS: fluoxetine 20 mg Capsule PO (08:32)
[2021-10-06] MEDS: OLANZapine 5 mg ODT PO (12:11)
[2021-10-06] MEDS: ibuprofen 800 mg tablet PO (12:50)
[2021-10-06] MEDS: benzocaine 20% 7 gm 1 APPLIC MUCOUS MEM (12:50)
--- NOTE | 2021-10-06 12:57 | PM.CONSULT ---
Providers/Reason For Consult Consulting Physician/Specialty*: Psychiatry Reason for Consult*: Redness and swelling of hand at IV site. Requesting Physician: Dr. Roca Attending Physician: Kapil Jackson MD Primary Care Provider: Mike Sherman MD History of Present Illness History of Present Illness Tyree Alvarez is a 26 year old male with past medical history of GERD, hepatitis C, lower leg fracture, insomnia, kidney stone and PTSD, anxiety, depression, suicidal ideation, alcohol abuse, amphetamine abuse is being currently managed for depression and multiple suicide attempts and plans to hang himself. He is admitted to the n.p.o. under Dr. Jackson's care. Patient had an IV placed in his hand which is now hurting and red. Hospitalist was consulted for evaluation and management. Patient states his arm has been itching and is red. He feels it is one of the veins going from his wrist all the way up to his shoulder. He does complain of pain in his right leg for previous fracture he had long time ago. Review of systems negative except noted in HPI. Medications/Allergies Home Medications Medication Instructions Recorded Confirmed Last Taken Type methadone 40 mg soluble tablet 40 mg PO DAILY 10/07/21 10/07/21 6 Days Ago History ~10/01/21 Allergies Allergy/AdvReac Type Severity Reaction Status Date / Time No Known Allergies Allergy Verified 10/07/21 14:54 Current Medications Generic Name Dose Route Start Last Admin Trade Name Freq PRN Reason Stop Dose Admin Acetaminophen 650 mg 10/03/21 21:23 10/03/21 21:38 Acetaminophen 325 Mg Tablet PO 650 mg Q4H PRN Administration MILD PAIN Benzocaine 1 applic 10/05/21 11:07 10/06/21 12:50 Benzocaine 20% 7 Gm MUCOUS MEM 1 applic PRN PRN Administration PAIN Diphenhydramine HCl 50 mg 10/03/21 21:23 10/05/21 14:09 Diphenhydramine 50 Mg/Ml Sdv 1ml IM 50 mg Q4H PRN Administration Severe Aggression Fluoxetine HCl 20 mg 10/04/21 17:30 10/06/21 08:32 Fluoxetine 20 Mg Capsule PO 20 mg DAILY ZHEN Administration Haloperidol 5 mg 10/03/21 21:23 10/05/21 13:19 Haloperidol 5 Mg Tablet PO 5 mg Q4H PRN Administration AGITATION Haloperidol Lactate 5 mg 10/03/21 21:23 10/05/21 14:09 Haloperidol Inj 5 Mg/Ml Inj 1 Ml IM 5 mg Q4H PRN Administration Severe Aggression Hydroxyzine Pamoate 50 mg 10/03/21 21:23 10/04/21 17:23 Hydroxyzine 25 Mg Capsule PO 50 mg Q6H PRN Administration ANXIETY Ibuprofen 800 mg 10/04/21 11:17 10/06/21 12:50 Ibuprofen 800 Mg Tablet PO 800 mg Q8H PRN Administration PAIN Lorazepam 2 mg 10/03/21 21:23 10/05/21 14:09 Lorazepam 2 Mg/Ml Inj 1 Ml IM 2 mg Q4H PRN Administration Severe Aggression Methadone HCl 20 mg 10/05/21 09:40 10/06/21 08:32 Methadone 10 Mg Tablet PO 20 mg DAILY ZHEN Administration Nicotine 1 patch 10/03/21 21:23 10/06/21 08:32 Nicotine 21 Mg Patch TRANSDERMA 1 patch DAILY PRN Administration NICOTINE WITHDRAWAL Olanzapine 5 mg 10/03/21 21:23 10/06/21 12:11 Olanzapine 5 Mg Odt PO 5 mg Q4H PRN Administration Agitation/Psychosis Risperidone 2 mg 10/05/21 21:00 10/05/21 21:16 Risperidone 2 Mg Tablet PO 2 mg BEDTIME ZHEN Administration PFSH Acute PFSH: Medical History GERD (gastroesophageal reflux disease) Hepatitis C History of hepatitis C Treated with only one month of Epclusa. Despite that, he seems to have SVR. Recheck in one year History of lower leg fracture Insomnia Kidney stone Positive hepatitis C antibody test Severe dental caries Family History Grandmother Cancer Mother Diabetes Heart disease Social History Alcohol intake: current Alcohol intake frequency: few times a month Alcohol type: beer Marital status: Single Number of children: 1 Current occupational status: employed History of recent travel: No Vitals/I&O/Wt Last Vital Signs Temp 98.0 F 10/05/21 14:00 Pulse 79 10/05/21 14:00 Resp 16 10/06/21 08:32 BP 159/112 10/05/21 14:00 Pulse Ox 98 10/06/21 08:32 Physical Exam Narrative: General: Alert oriented x3, patient seen today. HEENT: Normocephalic, atraumatic, EOMI, normal respiratory effort. Cardio: Regular rate rhythm, normal S1-S2, no murmurs rubs gallops Respiratory: Good bilateral air entry, no wheezes no rhonchi appreciated GI: Abdomen soft, nontender, nondistended, bowel sounds + Behavior: Appropriate and cooperative Extremities: No edema, no cyanosis. Bony protuberance at right mauricio due to previous fracture. Data : 10/03/21 19:55 10/03/21 19:55 A&P Assessment and plan (1) Skin irritation: Status: Acute Plan 26-year-old male currently admitted to the n.p.o. for management of suicidal attempts, depression, anxiety has redness around IV site. Hospitalist was consulted for further management. #Skin irritation on left arm. ? Prescribed Benadryl 25 mg p.o. x1 ? Warm compress on the area to soothe the skin. ? Medicine will sign off. Recall if needed. Full code Consult Attestations Medical Necessity Statement: As per primary medical team. Coding Level of Care Code Acute Bonding And Composite Fabricator for [facility] Tejada Diagnoses Skin irritation R23.8
[2021-10-06 14:00] VITALS: BP 140/82; PULSE 92; RESP 18; TEMP 36.8; O2SAT 98
[2021-10-06] MEDS: haloperidol 5 mg Tablet PO (15:43)
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
--- NOTE | 2021-10-06 16:15 | PC.SOCIAL ---
Patient did not attend group.
[2021-10-06] MEDS: diphenhydrAMINE 25 mg Capsule PO (16:30)
[2021-10-06] MEDS: acetaminophen 325 mg Tablet 650 MG PO (16:30)
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
--- NOTE | 2021-10-06 18:14 | PC.NURSE ---
PT C/O PAIN IN LEFT ARM ALONG VEINS. VEIN PATHWAY NOTED TO BE PINK COLORED. STATES THAT IT LOWRY AND HAS SOME ITCHING. INITIALLY REPORTED THIS STARTED AFTER RECEIVING IV MEDICATIONS PRIOR TO COMING TO UNIT. DR RAE GAVE ORDER TO PLACE CONSULT TO HOSPITALIST. HOSPITAIST CONSULTED WITH ER DR TO CLARIFY THAT NO IV MEDS WERE GIVEN IN ER. PT REPORTED TO HOSPITALIST THAT HE WOKE UP WITH ARM FEELING THIS WAY THIS MORNING. DENIES INJECTING ANYTHING PRIOR TO ADMISSION TO HOSPITAL. NEW ORDERS GIVEN TO APPLY HOT COMPRESS, GIVE ONE TIME BENADRYL, CONTINUE TO MONITOR AND EVALUATE AGAIN TOMORROW. NO FURTHER C/O VOICED.
[2021-10-06 20:40] VITALS: BP 124/76; PULSE 82; RESP 16; TEMP 36.7; O2SAT 94
[2021-10-06] MEDS: risperiDONE 2 mg Tablet PO (21:05)
[2021-10-06] MEDS: trazodone 50 mg Tablet PO (21:21)
--- NOTE | 2021-10-06 21:52 | PC.NURSE ---
PRN Patient requested Trazadone to help him sleep
[2021-10-07 06:00] VITALS: RESP 18
[2021-10-07 08:36] VITALS: RESP 18; O2SAT 94
[2021-10-07] MEDS: methadone 10 mg Tablet 20 MG PO (08:36)
[2021-10-07] MEDS: fluoxetine 20 mg Capsule PO (08:36)
[2021-10-07] MEDS: nicotine 2 mg Gum BUCCAL ×2 (10:53→13:10)
--- NOTE | 2021-10-07 11:04 | P.NPUPN_ITS ---
Subjective NPU Subjective: AuditoryHe says that he is getting better. His auditory hallucinations have decreased. He says that he would stay longer until we can find him a place to go. Social work will work on finding him a intermediate. Mental Status Exam MSE Comments: This is a 26-year-old thin male who appears deshawn roximately his stated age and is in no acute distress. He is found awake in his room laying on the bed but eating some peanuts. He was generally pleasant and cooperative. He made some eye contact. psychomotor activity d normal Speech is at a regular rate and rhythm, normal volume, good articulation, not pressured. Alert, oriented X3 Attention and concentration possibly diminished. Memory is intact Mood is depressed but better Affect is mildly dysphoric. Thought process is logical and goal-directed. Thought content: He admits to auditory hallucinations but says they are better. He describes some paranoia saying that many people want to kill him and they mess with his head. No current suicidal ideation, and no homicidal ideation. Fund of knowledge is possibly diminished. Insight and judgment appear to be poor. Impulse control is very poor. Cognition: Patient Appearance: Disheveled/Poor Hygiene Level of Consciousness: Awake and Alert Patient Cognition Impaired: Yes Ability to Follow Directions: Fair Patient Orientation (long list): Person, Place and Name Comprehension Ability: No Impairment Hallucination Type: None Delusion Description: Paranoid Ideation Thought Process: Blocking and Disorganized Affect: Affect Description: Appropriate Depressive Symptoms: Changes in Appetite and Difficulty Sleeping Behavior: Patient Behavior: Appropriate Speech Pattern: Appropriate Vitals/I&O/Wt Last Vital Signs Temp 98.0 F 10/06/21 20:40 Pulse 82 10/06/21 20:40 Resp 18 10/07/21 08:36 BP 124/76 10/06/21 20:40 Pulse Ox 94 10/07/21 08:36 Data NPU : 10/03/21 19:55 10/03/21 19:55 A&P Assessment and plan (1) Anxiety: Status: Acute (2) Suicidal ideation: Status: Acute (3) Depression: Status: Acute (4) Amphetamine use disorder, severe: Status: Acute (5) Alcohol use disorder, severe, dependence: Status: Acute (6) Post-traumatic stress disorder, chronic: Status: Acute (7) Schizophrenia: Status: Acute Plan This is a 26-year old male with a long history of anxiety depression and drug abuse. He was brought in by ambulance reporting multiple suicide attempts yesterday and a plan to hang himself. Today describes symptoms of schizophrenia. Plan: 1. Continue current medication. Prozac 20 mg daily. Increase risperidone 3 mg at bedtime 2. Continue every 15 minute checks for safety. 3. Encourage individual, group and milieu therapies. 4. Encourage sober living treatment after discharge at the highest level of care to which he is willing to commit. 5. We will monitor for safety for himself in the community prior to discharge. Involuntary Hold Information 96 Hour Hold: 96 Hour Involuntary Admission: Yes 96 Hour Hold Ending Date: 10/07/21 96 Hour Hold Ending Time: 20:05 Attestations U Medical Necessity Statement*: Inpatient hospitalization is medically necessary and the clinically appropriate intervention at this time. We will initiate medications and make changes as indicated. Coding Level of Care Code Acute Youth Specialist for [facility] Diagnoses Anxiety F41.9 Suicidal ideation R45.851 Depression F32.A Amphetamine use disorder, severe F15.20 Alcohol use disorder, severe, dependence F10.20 Post-traumatic stress disorder, chronic F43.12 Schizophrenia F20.9
[2021-10-07] MEDS: OLANZapine 5 mg ODT PO (13:10)
--- NOTE | 2021-10-07 13:19 | PC.NURSE ---
PT SIGNED IN TO HOSPITAL [facility] 96 HOUR HOLD IS ENDING TODAY. PT CAME TO NURSES STATION STATING THAT HE CHANGED HIS MIND AND IS LEAVING AMA NOW. PT AGITATED AT THAT TIME. STAFF GAVE PRN MEDICATIONS TO PT TO HELP CALM. STAFF ADVISED PT OF BENEFITS TO STAYING AND STAFFS PLAN TO ASSIST PT WITH STABLE DC PLAN WITH PRISON PLACEMENT. PT CONTINUED TP DECLINE AND STATING HE WANTS TO LEAVE RIGHT NOW. PT FILLED OUT RISK ASSESSMENT FORM AND SIGNED AMA PAPERS. NOTIFIED. PT DISCHARGING WITH ALL PERSONAL BELONGING AND [facility] NUMBERS.
[2021-10-07 13:35] VITALS: BP 124/76; PULSE 82; RESP 18; TEMP 36.7; O2SAT 94
--- NOTE | 2021-10-11 08:37 | W.PM.NPUDCS ---
Diagnoses at Discharge Discharge Diagnosis (1) Skin irritation: Status: Acute Reason for Visit Reason for Visit: SI Brief History: History of Present Illness Tyree Alvarez is a 26 year old male admitted through our emergency department with the following report: HPI: [26]yo patient w/ hx of depression BIBA for suicidal ideation and multiple suicide attempts throughout the day. Patient reports plans to hang himself today. for On arrival, the patient is AAOx3 and cooperative with my evaluation. No focal complaints of chest pain, shortness of breath, palpitations, N/V, focal GI/ complaints. Currently denies HI. No complaints of hallucinations. He was admitted to the neuropsychiatry unit for definitive treatment of these issues.? He admitted to multiple suicide attempts yesterday.? He is not sure why.? He also ran barefoot on the pavement yesterday and has blisters on his feet.? He remembers doing that but does not know why.? He says that he cannot stand up.? He has not urinated since he has been here because he cannot stand up. He says that he has been depressed for a long time.? He has been on many medications before but he does not know the names of them other than Risperdal.? None of them work except for Xanax, Percocet and marijuana.? He says that he has been on methadone and taken it consistently for the last 2 years.? He says he gets it from [facility] [place].? He came to the emergency room recently saying that he had not been able to get his Suboxone because of transportation issues.? He says anxiety and depression are equally prominent and problematic.? He is currently unemployed.? 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 He said he quit that because he was tired of people talking about him and getting into his business.? He wanted to change his life.? He is tried working for [employer] but quit after 1 day because he could not tolerate their shit .? He said that his childhood was okay.? He did not have any friends as a teenager.? He was generally by himself.? He does not know why know why he wanted to hang out with him.? He did graduate from high school and took some college but did not finish.? He does not know why. 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 Hospital Course Hospital Course He slowly acclimated to the individual, group and milieu therapies provided. He was started on some Risperdal 2 mg which he said initially helped. He tolerated these doses and showed steady improvement during his stay. He was able to contract for safety outside hospital prior to discharge. During the hospitalization, patient had routine laboratory studies which were within normal limits except for few outliers. Additionally there was a general medical evaluation which was also within normal limits and revealed no new acute processes. Discharge Summary: At the time of discharge, lethality was denied and psychosis was resolving. Mood and anxiety were well managed. He suddenly insisted on leaving AGAINST MEDICAL ADVICE. Patient endorsed a plan to follow-up with the aftercare recommendations of the treatment team. Patient was evaluated and deemed to be absent credible lethality, and had achieved the maximum benefit from an inpatient hospitalization, so was discharged. Involuntary Hold Information 96 Hour Hold: 96 Hour Involuntary Admission: Yes 96 Hour Hold Ending Date: 10/07/21 96 Hour Hold Ending Time: 20:05 Mental Status Exam MSE Comments: This is a 26-year-old thin male who appears approximately his stated age and is in no acute distress. He is found awake in his room laying on the bed but eating some peanuts. He was generally pleasant and cooperative. He made some eye contact. psychomotor activity d normal Speech is at a regular rate and rhythm, normal volume, good articulation, not pressured. Alert, oriented X3 Attention and concentration possibly diminished. Memory is intact Mood is depressed but better Affect is mildly dysphoric. Thought process is logical and goal-directed. Thought content: He admits to auditory hallucinations but says they are better. He describes some paranoia saying that many people want to kill him and they mess with his head. No current suicidal ideation, and no homicidal ideation. Fund of knowledge is possibly diminished. Insight and judgment appear to be poor. Impulse control is very poor. Cognition: Patient Appearance: Disheveled/Poor Hygiene Level of Consciousness: Awake, Alert, Appropriate and Follows Commands Patient Cognition Impaired: Yes Ability to Follow Directions: Fair Patient Orientation (long list): Person, Place and Name Comprehension Ability: No Impairment Hallucination Type: None Delusion Description: Paranoid Ideation Thought Process: Blocking and Disorganized Affect: Affect Description: Flat Depressive Symptoms: Changes in Appetite and Difficulty Sleeping Behavior: Patient Behavior: Appropriate Speech Pattern: Appropriate Discharge Data Studies Completed and Pending: Laboratory Results WBC 9.2 10^3/uL (4.0- 10.0) 10/03/21 19:55 RBC 4.10 10^6/uL (4.1 -5.3) 10/03/21 19:55 Hgb 12.0 g/dL (11.7-1 6.6) 10/03/21 19:55 Hct 36.4 % (42.0-52.0 ) L 10/03/21 19:55 MCV 88.8 fl (80-94) 10/03/21 19:55 MCH 29.3 pg (28.0-34. 0) 10/03/21 19:55 MCHC 33.0 g/dL (30.0-3 6.0) 10/03/21 19:55 RDW 13.5 % (12.1-15.1 ) 10/03/21 19:55 Plt Count 254 10^3/cmm (130 -400) 10/03/21 19:55 MPV 9.0 fL (7.4-10.4) 10/03/21 19:55 Neut % (Auto) 62.9 % 10/03/21 19:55 Lymph % (Auto) 25.6 % 10/03/21 19:55 Cotton % (Auto) 9.9 % 10/03/21 19:55 Eos % (Auto) 1.0 % 10/03/21 19:55 Baso % (Auto) 0.2 % 10/03/21 19:55 Neut # (Auto) 5.77 10^3/uL (1.8 -7.7) 10/03/21 19:55 Lymph # (Auto) 2.4 10^3/uL (0.8- 4.8) 10/03/21 19:55 Cotton # (Auto) 0.9 10^3/uL (0.2- 0.9) 10/03/21 19:55 Eos # (Auto) 0.1 10^3/uL (0.0- 0.8) 10/03/21 19:55 Baso # (Auto) 0.0 10^3/uL (0.0- 0.1) 10/03/21 19:55 Nucleated RBC % (a uto) 0 % 10/03/21 19:55 Nucleated RBCs # 0.0 /100WBC 10/03/21 19:55 Sodium 142 mmol/L (136-1 45) 10/03/21 19:55 Potassium 4.1 mmol/L (3.5-5 .1) 10/03/21 19:55 Chloride 107 mmol/L (98-10 7) 10/03/21 19:55 Carbon Dioxide 26 mmol/L (22-29) 10/03/21 19:55 Anion Gap 13.1 (5-19) 10/03/21 19:55 BUN 11 mg/dL (6-20) 10/03/21 19:55 Creatinine 0.6 mg/dL (0.7-1. 2) L 10/03/21 19:55 GFR Calculation 160.4 mL/min (90- 130) H 10/03/21 19:55 Glucose 74 mg/dL (65-115) 10/03/21 19:55 Calculated Osmolal ity 292 mOsm/kg (285- 295) 10/03/21 19:55 Calcium 9.3 mg/dL (8.5-10 .5) 10/03/21 19:55 Total Bilirubin 0.3 mg/dL (0.15-1 .2) 10/03/21 19:55 AST 20 U/L (0-40) 10/03/21 19:55 ALT 12 U/L (0-41) 10/03/21 19:55 Alkaline Phosphata se 107 IU/L (40-130) 10/03/21 19:55 Total Protein 6.9 g/dL (6.6-8.7 ) 10/03/21 19:55 Albumin 4.3 g/dL (3.5-5.2 ) 10/03/21 19:55 Globulin 2.6 g/dL (1.3-4.6 ) 10/03/21 19:55 Lipase 28 U/L (13-60) 10/03/21 19:55 Salicylates 1.1 mg/dL (3-10) L 10/03/21 19:55 Urine Opiates Scre en Negative ng/mL (N egative) 10/05/21 07:30 Acetaminophen < 5.0 ug/mL (10-3 0) L 10/03/21 19:55 Ur Barbiturates Sc reen Negative ng/mL (N egative) 10/05/21 07:30 Ur Phencyclidine S crn Negative ng/mL (N egative) 10/05/21 07:30 Ur Amphetamines Sc reen Positive ng/mL (N egative) H 10/05/21 07:30 U Benzodiazepines Scrn Negative ng/mL (N egative) 10/05/21 07:30 Urine Cocaine Scre en Negative ng/mL (N egative) 10/05/21 07:30 U Marijuana (THC) Screen Negative ng/mL (N egative) 10/05/21 07:30 Vitals: Last Vital Signs Temp 98.0 F 10/07/21 13:35 Pulse 82 10/07/21 13:35 Resp 18 10/07/21 13:35 BP 124/76 10/07/21 13:35 Pulse Ox 94 10/07/21 13:35 Discharge Plan Discharge Patient Disposition: Home Condition: Stable Prescriptions: Continued methadone 40 mg Tablet,Soluble 40 mg PO DAILY 0RF Label Comments: pt states he gets this medication from [facility] [phone] called fluoxetine [Prozac] 20 mg capsule 20 mg PO DAILY Qty: 30 0RF risperidone 3 mg tablet 3 mg PO DAILY Qty: 30 0RF Discharge Orders: Discharge Order (Routine); Ordered 10/11/21 Ordered By: Kapil Jackson Referrals: [facility] [Other] [facility] [Outside] Mike Sherman MD [Primary Care Provider] - Patient Instructions: Depression, Suicide Prevention (GEN), Opioid Safety Discharge Attestations NPU Time Spent in Discharge Care*: less than 30 min Specific Discharge Activities: Specific discharge activities: discussing with lining caser/social workers/dc planners, documenting/other paperwork and evaluating patient/reviewing data Coding Level of Care Code Acute Chg FW DC note Diagnoses Skin irritation R23.8
== END 2021-10-07 13:37 | disposition home or self-care (01) | DRG 885 ==
LOC: ER 19:54 → NP 20:28
PROVIDERS: Admitting Provider Psychiatry & Neurology Psychiatry; Emergency Provider Emergency Medicine; PCP Family Medicine Adult Medicine; Visit Provider Psychiatry & Neurology Psychiatry
DX: F20.9 Schizophrenia, unspecified (principal); R45.851 Suicidal ideations; F41.9 Anxiety disorder, unspecified; F15.10 Other stimulant abuse, uncomplicated; F10.20 Alcohol dependence, uncomplicated; F43.12 Post-traumatic stress disorder, chronic; K21.9 Gastro-esophageal reflux disease without esophagitis; B19.20 Unspecified viral hepatitis C without hepatic coma; G47.00 Insomnia, unspecified; Z87.442 Personal history of urinary calculi; R23.8 Other skin changes
CPT/HCPCS: 80053; 80306; 80307; 83690; 85025; 96372; 97165; 99285; J1200; J1630; J2060

== ENCOUNTER 2021-10-07 14:25 | Emergency (ER) | payer MEDICAID, SELFPAY ==
[2021-10-07 14:36] VITALS: BP 145/81; PULSE 87; RESP 16; TEMP 36.1; O2SAT 98; BMI 18.8
--- NOTE | 2021-10-07 15:12 | W.ED.PSYCHS ---
HPI - Psych General: Chief Complaint: Psychiatric Symptoms Stated Complaint: Phys Eval Time Seen by Provider: 10/07/21 15:02 History of Present Illness: Patient comes in stating he is suicidal. The patient just left the Neuropsych Unit AMA. In the waiting room he told them that he was suicidal still and wanted to sleep himself to . Back here the patient states he does not remember what is going on. He states that he is suicidal and just crazy . Review of Systems Const: Denies: fever(s) or body aches Eyes: Denies: change in vision or blurry vision ENMT: Denies: throat pain or odynophagia Card: Denies: chest pain or palpitations Resp: Denies: dyspnea or productive cough GI: Denies: abdominal pain, nausea or vomiting : Denies: flank pain or dysuria Musc: Denies: neck pain or back pain Skin/Breast: Denies: rash or pruritus Neuro: Denies: headache(s) or numbness in extremities Psych: Denies: anxiety or change in appetite Endo: Denies: polyuria or excessive sweating PFSH ED PFSH: Medical History GERD (gastroesophageal reflux disease) Hepatitis C History of hepatitis C Treated with only one month of Epclusa. Despite that, he seems to have SVR. Recheck in one year History of lower leg fracture Insomnia Kidney stone Positive hepatitis C antibody test Severe dental caries Family History Grandmother Cancer Mother Diabetes Heart disease Social History Alcohol intake: current Alcohol intake frequency: few times a month Alcohol type: beer Marital status: Single Number of children: 1 Current occupational status: employed History of recent travel: No Physical Exam Const: COMMON NORMALS: no acute distress, patient oriented x3, healthy appearing and alert HENMT: COMMON NORMALS: normocephalic and atraumatic HEAD & SCALP: normocephalic and atraumatic Eye: COMMON NORMALS: Equal, round and reactive pupils present and EOMs intact bilaterally PUPIL: Yes Equal, round and reactive pupils present Neck/C-Spine: COMMON NORMALS: full ROM and supple Resp: COMMON NORMALS: normal respiratory effort, No retractions and No use of accessory muscles Cardio: COMMON NORMALS: regular rate and regular rhythm RATE: regular rate RHYTHM: regular rhythm GI: COMMON NORMALS: Normal to inspection, nondistended, normoactive bowel sounds present, Soft to palpation and non-tender PALPATION: Yes Soft to palpation Back/Pelvis: COMMON NORMALS: thoracic and lumbar spine normal to inspection and no thoracic nor lumbar tenderness Extremity: COMMON NORMALS: normal to inspection and full ROM Neuro: COMMON NORMALS: patient oriented x3 SENSORIUM/ORIENTATION: Yes alert Psych: COMMON NORMALS: mental status grossly normal OTHER: Sleeping throughout exam but awakens to voice and answers questions. Skin: COMMON NORMALS: no rashes or lesions noted and no wounds GENERAL SKIN EXAM: no rashes or lesions noted Course Vital Signs: Vital signs: Vital Signs Temperature 97.0 F L 10/07/21 14:36 Pulse Rate 87 10/07/21 14:36 Respiratory Rate 16 10/07/21 14:36 Blood Pressure 145/81 10/07/21 14:36 Pulse Oximetry 98 10/07/21 14:36 MDM - Psych Medical Decision Making Patient comes in stating he is suicidal. The patient just left the Neuropsych Unit AMA. In the waiting room he told them that he was suicidal still and wanted to sleep himself to . Back here the patient states he does not remember what is going on. He states that he is suicidal and just crazy . Throughout the exam the patient is trying to sleep, however he awakens to voice and will cooperate somewhat. I discussed the case with the psychiatrist on-call who states that the patient is stable from their standpoint to be discharged from the emergency department. Will discharge at this time. Discharge Plan Discharge Patient Disposition: Home Clinical Impression: Encounter for psychiatric assessment Condition: Stable Prescriptions: No Action methadone 40 mg Tablet,Soluble 40 mg PO DAILY 0RF Label Comments: pt states he gets this medication from [facility] [phone] called Discharge Orders: Discharge ED (Routine); Ordered 10/07/21 Ordered By: Donell Rincon Referrals: Mike Sherman MD [Primary Care Provider] - Coding Level of Care Code ED Perioperative Manager for [facility] 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
== END 2021-10-07 15:23 | disposition home or self-care (01) ==
PROVIDERS: Emergency Provider Emergency Medicine; PCP Family Medicine Adult Medicine
DX: R45.851 Suicidal ideations (principal)
CPT/HCPCS: 99283

== ENCOUNTER 2021-10-07 20:06 | Emergency (ER) | payer MEDICAID, SELFPAY ==
[2021-10-07 20:10] VITALS: BP 129/68; PULSE 87; RESP 16; TEMP 36.6; O2SAT 98; BMI 19.5
--- NOTE | 2021-10-07 20:13 | ED.C_ITS ---
HPI - Psych General: Chief Complaint: Psychiatric Symptoms Stated Complaint: MHE Time Seen by Provider: 10/07/21 20:07 Source: EMS Mode of arrival: EMS Limitations: no limitations History of Present Illness: 26-year-old male he is very well-known to the ER he is homeless has been seen here multiple times. Patient had just had a stay in the psych unit and was discharged today he has been seen here twice since being discharged. He states that he is homeless and it is raining and is causing increased depression. He denies any suicidal plan. Associated symptoms: Reports depression Review of Systems Const: Denies: fever(s), chills, body aches or change in appetite Eyes: Denies: blurry vision or eye discomfort ENMT: Denies: throat pain or dental pain Card: Denies: chest pain Resp: Denies: dyspnea GI: Denies: abdominal pain, nausea, vomiting or diarrhea : Denies: dysuria Musc: Denies: neck pain or back pain Skin/Breast: Denies: rash Neuro: Denies: headache(s) Psych: Reports: depression Abe/Lymph: Denies: easy bruising All/Imm: Denies: urticaria PFSH ED PFSH: Medical History GERD (gastroesophageal reflux disease) Hepatitis C History of hepatitis C Treated with only one month of Epclusa. Despite that, he seems to have SVR. Recheck in one year History of lower leg fracture Insomnia Kidney stone Positive hepatitis C antibody test Severe dental caries Family History Grandmother Cancer Mother Diabetes Heart disease Social History Alcohol intake: current Alcohol intake frequency: few times a month Alcohol type: beer Marital status: Single Number of children: 1 Current occupational status: employed History of recent travel: No Physical Exam Const: COMMON NORMALS: no acute distress, patient oriented x3 and healthy appearing HENMT: COMMON NORMALS: normocephalic and atraumatic HEAD & SCALP: normocephalic and atraumatic Eye: COMMON NORMALS: Equal, round and reactive pupils present and EOMs intact bilaterally PUPIL: Yes Equal, round and reactive pupils present Neck/C-Spine: COMMON NORMALS: full ROM and supple Chest: COMMONS NORMALS: normal inspection of the chest and normal palpation of entire chest wall Resp: COMMON NORMALS: normal respiratory effort, No retractions, No use of accessory muscles and clear to auscultation bilaterally AUSCULTATION: clear to auscultation bilaterally Cardio: COMMON NORMALS: regular rate, regular rhythm and No murmurs present (Cardio) RATE: regular rate RHYTHM: regular rhythm GI: COMMON NORMALS: Normal to inspection, nondistended, normoactive bowel sounds present, Soft to palpation, non-tender and no masses PALPATION: Yes Soft to palpation Extremity: COMMON NORMALS: normal to inspection and full ROM Neuro: COMMON NORMALS: patient oriented x3, moves all extremities and no focal motor deficits Psych: COMMON NORMALS: mental status grossly normal, Normal thought process present and cooperative THOUGHT PROCESS: Normal thought process present Skin: COMMON NORMALS: no rashes or lesions noted and no wounds GENERAL SKIN EXAM: no rashes or lesions noted Course Vital Signs: Vital signs: Vital Signs Temperature 97.8 F 10/07/21 20:10 Pulse Rate 70 10/07/21 21:07 Respiratory Rate 20 H 10/07/21 21:07 Blood Pressure 149/87 10/07/21 21:07 Pulse Oximetry 99 10/07/21 21:07 [facility] - Psych Medical Decision Making Patient presents here with depression. Patient's been seen here multiple times and has a history of malingering due to homelessness. Patient was discharged from our psych unit today. Spoke to the physician who would take care of him today and also had patient reevaluated by Dr. Carpenter through telepsych. Dr. Carpenter does not believe that he is actively a threat to himself or others feels that he is stable for discharge timing to grandson as well patient's discharge at this time. He states he did not fill his meds from when he is discharged I gave him his doses here and we wrote his prescription as he states he lost them. Discharge Plan Discharge Patient Disposition: Home Clinical Impression: Homelessness, Depression Condition: Stable Prescriptions: New Prozac 20 mg capsule 20 mg PO DAILY Qty: 30 0RF risperidone 3 mg tablet 3 mg PO DAILY Qty: 30 0RF No Action methadone 40 mg Tablet,Soluble 40 mg PO DAILY 0RF Label Comments: pt states he gets this medication from [facility] [phone] called Discharge Orders: Discharge ED (Routine); Ordered 10/07/21 Ordered By: Mimi Bailon Referrals: Mike Sherman MD [Primary Care Provider] - 1-3 days Discharge Diet: Advance as tolerated Discharge Activity: Resume usual activity Patient Instructions: Depression (ED) Coding Level of Care Code ED Globe Mounter for Chg 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
--- NOTE | 2021-10-07 20:52 | PC.NURSE ---
pt reports that if we discharge he is going to kill himself, Dr Bailon talked to patient giving medications and then discharging patient
[2021-10-07] MEDS: fluoxetine 20 mg Capsule PO (20:58)
--- NOTE | 2021-10-07 21:02 | PC.NURSE ---
pt refused to sign discharge papers and refused the respiradol. Dr Bailon notified that pt continues to say, Im going to kill myself pt has been evaulated x 2 today
[2021-10-07 21:07] VITALS: BP 149/87; PULSE 70; RESP 20; O2SAT 99
== END 2021-10-07 21:09 | disposition home or self-care (01) ==
PROVIDERS: Emergency Provider Emergency Medicine; PCP Family Medicine Adult Medicine
DX: F32.A Depression, unspecified (principal); Z59.00 Homelessness unspecified
CPT/HCPCS: 99283; Q3014

== ENCOUNTER 2021-10-08 03:44 | Emergency (ER) | payer MEDICAID, SELFPAY ==
--- NOTE | 2021-10-08 03:46 | XRR_ITS ---
PROCEDURE INFORMATION: Exam: XR Chest Exam date and time: 10/08/2021 4:20 AM Age: 26 years old Clinical indication: Chest pressure; Patient HX: C/O chest pain. ; Additional info: Cp TECHNIQUE: Imaging protocol: XR of the chest. Views: 1 view. COMPARISON: CR (CHEST, ) 10/01/2021 7:41 PM FINDINGS: Lungs: Unremarkable. No consolidation. Pleural spaces: Unremarkable. No pleural effusion. No pneumothorax. Heart/Mediastinum: Unremarkable. No cardiomegaly. Bones/joints: Unremarkable. XR/XR chest 1V portable [id number] IMPRESSION: No acute findings.
--- NOTE | 2021-10-08 03:46 | ECG_ITS ---
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 Measurements Intervals [place] Rate: 80 P: 42 WA: 131 QRS: 76 QRSD: 84 T: 30 QT: 383 QTc: 444 Interpretive Statements SINUS RHYTHM POSSIBLE RIGHT VENTRICULAR CONDUCTION DELAY [RSR (QR) IN V1/V2] Compared to ECG 10/01/2021 19:36:14 ST (T wave) deviation no longer present Electronically Signed On 10-08-2021 15:00:49 CDT by Nadya Reddy M.D. [id number]
[2021-10-08 04:05] VITALS: BP 143/81; PULSE 96; RESP 16; TEMP 36.6; O2SAT 96; BMI 18.8
--- NOTE | 2021-10-08 04:12 | ED_ITS ---
HPI - Chest Pain General: Chief Complaint: Chest Pain Stated Complaint: Chest Pain Time Seen by Provider: 10/08/21 03:47 Source: patient Mode of arrival: ambulatory Limitations: no limitations History of Present Illness: 26-year-old male who is very well-known to the ER states he has been having chest pain for little over a month. He states that its been a sharp pain in the center of his chest that comes and goes states that he has been having pain since he was discharged from here earlier. Denies any worsening proving factors denies any shortness of breath denies any fever cough. Associated symptoms: Deny abdominal pain, dyspnea, fever(s), nausea or vomiting Review of Systems Const: Denies: fever(s), chills, body aches or change in appetite Eyes: Denies: blurry vision or eye discomfort ENMT: Denies: throat pain or dental pain Card: Reports: chest pain Resp: Denies: dyspnea GI: Denies: abdominal pain, nausea, vomiting or diarrhea : Denies: dysuria Musc: Denies: neck pain or back pain Skin/Breast: Denies: rash Neuro: Denies: headache(s) Psych: Denies: depression Abe/Lymph: Denies: easy bruising All/Imm: Denies: urticaria PFSH ED PFSH: Medical History Alcohol use disorder, severe, dependence Amphetamine use disorder, severe GERD (gastroesophageal reflux disease) Hepatitis C History of hepatitis C Treated with only one month of Epclusa. Despite that, he seems to have SVR. Recheck in one year History of lower leg fracture Insomnia Kidney stone Positive hepatitis C antibody test Severe dental caries Family History Grandmother Cancer Mother Diabetes Heart disease Social History Alcohol intake: current Alcohol intake frequency: few times a month Alcohol type: beer Marital status: Single Number of children: 1 Current occupational status: employed History of recent travel: No Physical Exam Const: COMMON NORMALS: no acute distress, patient oriented x3 and healthy appearing HENMT: COMMON NORMALS: normocephalic and atraumatic HEAD & SCALP: normocephalic and atraumatic Eye: COMMON NORMALS: Equal, round and reactive pupils present and EOMs intact bilaterally PUPIL: Yes Equal, round and reactive pupils present Neck/C-Spine: COMMON NORMALS: full ROM and supple Chest: COMMONS NORMALS: normal inspection of the chest and normal palpation of entire chest wall Resp: COMMON NORMALS: normal respiratory effort, No retractions, No use of accessory muscles and clear to auscultation bilaterally AUSCULTATION: clear to auscultation bilaterally Cardio: COMMON NORMALS: regular rate, regular rhythm and No murmurs present (Cardio) RATE: regular rate RHYTHM: regular rhythm GI: COMMON NORMALS: Normal to inspection, nondistended, normoactive bowel sounds present, Soft to palpation, non-tender and no masses PALPATION: Yes Soft to palpation Extremity: COMMON NORMALS: normal to inspection and full ROM Neuro: COMMON NORMALS: patient oriented x3, moves all extremities and no focal motor deficits Psych: COMMON NORMALS: mental status grossly normal, Normal thought process present and cooperative THOUGHT PROCESS: Normal thought process present Skin: COMMON NORMALS: no rashes or lesions noted and no wounds GENERAL SKIN EXAM: no rashes or lesions noted Course Vital Signs: Vital signs: Vital Signs Temperature 97.9 F 10/08/21 04:05 Pulse Rate 79 10/08/21 04:21 Respiratory Rate 17 10/08/21 04:21 Blood Pressure 129/81 10/08/21 04:21 Pulse Oximetry 97 10/08/21 04:21 MDM - Chest Pain Medical Decision Making Patient presents here with chest pain is atypical in nature EKG and x-ray here are both normal he is well-appearing here and is stable for discharge. EKG Data EKG 1: I personally reviewed and interpreted this EKG as follows: EKG interpretation date: 10/08/21 EKG interpretation time: 04:18 Interpretation: nsr hr [address] or t wave abnormalities qrs 84 qtc 419 Discharge Plan Discharge Patient Disposition: Home Clinical Impression: Chest pain Condition: Stable Prescriptions: No Action methadone 40 mg Tablet,Soluble 40 mg PO DAILY 0RF Label Comments: pt states he gets this medication from [facility] [phone] called Prozac 20 mg capsule 20 mg PO DAILY Qty: 30 0RF risperidone 3 mg tablet 3 mg PO DAILY Qty: 30 0RF Discharge Orders: Discharge ED (Routine); Ordered 10/08/21 Ordered By: Mimi Bailon Referrals: Mike Sherman MD [Primary Care Provider] - 1-3 days Discharge Diet: Advance as tolerated Discharge Activity: Resume usual activity Patient Instructions: Chest Pain (ED) Coding Level of Care Code ED Cardboard Cutter for Chg 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
[2021-10-08 04:21] VITALS: BP 129/81; PULSE 79; RESP 17; O2SAT 97
[2021-10-08 04:47] VITALS: BP 128/76; PULSE 88; RESP 12; O2SAT 95
== END 2021-10-08 04:42 | disposition home or self-care (01) ==
PROVIDERS: Emergency Provider Emergency Medicine; PCP Family Medicine Adult Medicine
DX: R07.9 Chest pain, unspecified (principal)
CPT/HCPCS: 71045; 93005; 99283

== ENCOUNTER 2021-10-08 12:39 | Emergency (ER) | payer MEDICAID, SELFPAY ==
[2021-10-08 12:41] VITALS: BP 145/73; PULSE 84; RESP 14; TEMP 37; O2SAT 96; BMI 18.1
--- NOTE | 2021-10-08 13:02 | W.ED.PSYCHS ---
HPI - Psych General: Chief Complaint: Psychiatric Symptoms Stated Complaint: MHE Time Seen by Provider: 10/08/21 12:41 PFSH ED PFSH: Medical History Alcohol use disorder, severe, dependence Amphetamine use disorder, severe GERD (gastroesophageal reflux disease) Hepatitis C History of hepatitis C Treated with only one month of Epclusa. Despite that, he seems to have SVR. Recheck in one year History of lower leg fracture Insomnia Kidney stone Positive hepatitis C antibody test Severe dental caries Family History Grandmother Cancer Mother Diabetes Heart disease Social History Alcohol intake: current Alcohol intake frequency: few times a month Alcohol type: beer Marital status: Single Number of children: 1 Current occupational status: employed History of recent travel: No Course Vital Signs: Vital signs: Vital Signs Temperature 98.6 F 10/08/21 12:41 Pulse Rate 84 10/08/21 12:41 Respiratory Rate 14 10/08/21 12:41 Blood Pressure 145/73 10/08/21 12:41 Pulse Oximetry 96 10/08/21 12:41 Discharge Plan Discharge Condition: Stable Prescriptions: No Action methadone 40 mg Tablet,Soluble 40 mg PO DAILY 0RF Label Comments: pt states he gets this medication from [facility] [phone] called fluoxetine [Prozac] 20 mg capsule 20 mg PO DAILY Qty: 30 0RF risperidone 3 mg tablet 3 mg PO DAILY Qty: 30 0RF Referrals: Mike Sherman MD [Primary Care Provider] - Coding Level of Care Code ED Cafeteria Worker for [facility] [place]
--- NOTE | 2021-10-08 13:12 | ED_ITS ---
HPI - General Adult General: Chief complaint: Psychiatric Symptoms Stated complaint: MHE Time Seen by Provider: 10/08/21 12:41 History of Present Illness: HPI: [26]yo patient w/ hx of hep C, alcohol dependence, ampthamine use BIBA for concerns of suicidal ideation. Patient has been seen multiple times in the last 2 days. Patient tells me today that he was feeling suicidal again but currently does not have a plan. When prompted further, patient tells me that he may use a rope or get a call. Patient does not currently have access to firearm. On arrival, the patient is AAOx3 and cooperative with my evaluation. No focal complaints of chest pain, shortness of breath, palpitations, N/V, focal GI/ complaints. Currently denies HI. No complaints of hallucinations. Onset: chronic Duration: ongoing Location: home Severity: severe Associated symptoms: Deny chest pain, dyspnea, nausea, rash, palpitations or vomiting Review of Systems Const: Denies: fever(s) or chills Eyes: Denies: change in vision ENMT: Denies: mouth pain Card: Denies: chest pain or palpitations Resp: Denies: dyspnea or non-productive cough GI: Denies: abdominal pain, nausea, vomiting or diarrhea : Denies: dysuria Musc: Denies: extremity pain Skin/Breast: Denies: rash or new lesions Neuro: Denies: weakness in extremities Psych: Reports: other (Normal mood) Abe/Lymph: Denies: easy bruising PFSH ED PFSH: Medical History (Updated 10/09/21 @ 00:01 by ) Alcohol use disorder, severe, dependence Amphetamine use disorder, severe GERD (gastroesophageal reflux disease) Hepatitis C History of hepatitis C Treated with only one month of Epclusa. Despite that, he seems to have SVR. Recheck in one year History of lower leg fracture Insomnia Kidney stone Positive hepatitis C antibody test Severe dental caries Family History Grandmother Cancer Mother Diabetes Heart disease Social History Alcohol intake: current Alcohol intake frequency: few times a month Alcohol type: beer Marital status: Single Number of children: 1 Current occupational status: employed History of recent travel: No Physical Exam Const: COMMON NORMALS: alert HENMT: COMMON NORMALS: atraumatic HEAD & SCALP: atraumatic MOUTH: moist mucous membranes not abnormal Eye: COMMON NORMALS: EOMs intact bilaterally and conjunctivae normal CONJUNCTIVA: Yes conjunctivae normal Neck/C-Spine: COMMON NORMALS: full ROM and supple Resp: COMMON NORMALS: normal respiratory effort and clear to auscultation bilaterally AUSCULTATION: clear to auscultation bilaterally Cardio: COMMON NORMALS: regular rate RATE: regular rate GI: COMMON NORMALS: Soft to palpation and non-tender PALPATION: Yes Soft to palpation Extremity: COMMON NORMALS: full ROM Neuro: SENSORIUM/ORIENTATION: Yes alert MOTOR EXAM: No Abnormal motor strength present and Other motor observations present (no focal motor deficits) Psych: COMMON NORMALS: speech normal SPEECH: Yes normal speech MOOD & AFFECT: Yes euthymic mood Course Vital Signs: Vital signs: Vital Signs Temperature 98.6 F 10/08/21 12:41 Pulse Rate 84 10/08/21 12:41 Respiratory Rate 17 10/08/21 13:49 Blood Pressure 145/73 10/08/21 12:41 Pulse Oximetry 96 10/08/21 12:41 MDM - General Adult Medical Decision Making [26]yo patient w/ hx of hep C, amphetamine use presenting for SI. HDS, exam within normal limit Thoughts are linear and organized, and the patient has no AH/VH, or HI. Clinically the patient displays no overt toxidrome; they are well appearing, with low suspicion for toxic ingestion given history and exam. Symptoms unlikely 2/2 anemia, hypothyroidism, infection, or ICH. [1:17pm] On reassessment, labs and workup wnl. Patient is hemodynamically stable with no acute medical complaints. Case discussed with psychiatric provider Dr. Jackson at [facility] psych inpatient who evaluated patient via telepsych and recommended discharge with close follow-up. I have given patient follow up with our social work case manager to be seen by our outpatient [facility] for close followup. Patient aware of a call from our social work case manager to schedule for appointment(s) and verbalizes understanding of the importance of following up. Disposition: Discharge Discharge Plan Discharge Patient Disposition: Home Clinical Impression: Adult general medical exam Condition: Stable Prescriptions: No Action methadone 40 mg Tablet,Soluble 40 mg PO DAILY 0RF Label Comments: pt states he gets this medication from [facility] [phone] called fluoxetine [Prozac] 20 mg capsule 20 mg PO DAILY Qty: 30 0RF risperidone 3 mg tablet 3 mg PO DAILY Qty: 30 0RF Discharge Orders: Discharge ED (Routine); Ordered 10/08/21 Ordered By: Jessee Salgado Referrals: Mike Sherman MD [Primary Care Provider] - Discharge Diet: Advance as tolerated Discharge Activity: Increase activity as tolerated Activity Restrictions/Additional Instructions: Please come back to the emergency room if you need help, have any hallucinations, or you have any depression or have thoughts about hurting yourself or other people. Coding Level of Care Code ED Motel Operator for Chg 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
--- NOTE | 2021-10-08 13:18 | P.NPUCON_ITS ---
Providers/Reason for Consult Consulting Physican/Specialty*: Kapil Jackson MD, psychiatry Reason for Consult*: Suicidal statements Primary Care Provider: Mike Sherman MD Psych Consult HPI History of Present Illness Tyree Alvarez is a 26 year old male well known to the neuropsychiatry unit. He recently signed out AGAINST MEDICAL ADVICE. He had nowhere to go and just was going to go out and be homeless. We were trying to look for him a place to stay. He was on methamphetamine when he was admitted. He says that he is going to kill himself if he leaves. Last night he said he was going to sleep himself to . He says he has a bunch of pictures in his head that he cannot get rid of. He says that he has not used methamphetamine but that is doubtful. We have tried to help him several times and then PU and he is uncooperative with treatment. He is obviously saying things so that he can come back into the hospital. He obviously does not want treatment. Meds Home Medications and Allergies Home Medications Medication Instructions Recorded Confirmed Last Taken Type fluoxetine 20 mg capsule (Prozac) 20 mg PO DAILY #30 cap 10/07/21 10/08/21 Unknown Rx methadone 40 mg soluble tablet 40 mg PO DAILY 10/07/21 10/08/21 6 Days Ago History ~10/01/21 risperidone 3 mg tablet 3 mg PO DAILY #30 tab 10/07/21 10/08/21 Unknown Rx Allergies Allergy/AdvReac Type Severity Reaction Status Date / Time No Known Allergies Allergy Verified 10/07/21 14:54 PFSH NPU PFS: Medical History (Updated 10/08/21 @ 13:22 by Kapil Jackson MD) Alcohol use disorder, severe, dependence Amphetamine use disorder, severe GERD (gastroesophageal reflux disease) Hepatitis C History of hepatitis C Treated with only one month of Epclusa. Despite that, he seems to have SVR. Recheck in one year History of lower leg fracture Insomnia Kidney stone Positive hepatitis C antibody test Severe dental caries Family History Grandmother Cancer Mother Diabetes Heart disease Social History Alcohol intake: current Alcohol intake frequency: few times a month Alcohol type: beer Marital status: Single Number of children: 1 Current occupational status: employed History of recent travel: No Vitals/I&O/Wt Last Vital Signs Temp 98.6 F 10/08/21 12:41 Pulse 84 10/08/21 12:41 Resp 14 10/08/21 12:41 BP 145/73 10/08/21 12:41 Pulse Ox 96 10/08/21 12:41 Weight last 48 hrs Weight 58.967 kg A&P Assessment and plan (1) Homelessness: Status: Acute (2) Post-traumatic stress disorder, chronic: Status: Acute (3) Amphetamine use disorder, severe: Status: Acute Plan This is a 26-year-old male with heavy methamphetamine use who has been admitted to the interview and is uncooperative and resistant to treatment. His suicidal threats are not credible. He is cleared to be released from the emergency department from a psychiatric standpoint. Involuntary Hold Information 96 Hour Hold: 96 Hour Involuntary Admission: Yes 96 Hour Hold Ending Date: 10/07/21 96 Hour Hold Ending Time: 20:05 Attestations NPU Medical Necessity Statement*: Hospitalization is not justified at this time. Coding Level of Care Code Acute Wire Products Inspector for Sunita Tejada Diagnoses Homelessness Z59.00 Post-traumatic stress disorder, chronic F43.12 Amphetamine use disorder, severe F15.20
[2021-10-08 13:49] VITALS: RESP 17
== END 2021-10-08 13:49 | disposition home or self-care (01) ==
PROVIDERS: Emergency Provider Emergency Medicine; PCP Family Medicine Adult Medicine
DX: R45.851 Suicidal ideations (principal); F10.20 Alcohol dependence, uncomplicated; F43.12 Post-traumatic stress disorder, chronic; F15.20 Other stimulant dependence, uncomplicated; Z59.00 Homelessness unspecified; Z86.19 Personal history of other infectious and parasitic diseases; Z91.19 Patient's noncompliance with other medical treatment and regimen
CPT/HCPCS: 99281; Q3014

== ENCOUNTER 2021-10-08 17:37 | Emergency (ER) | payer MEDICAID, SELFPAY ==
[2021-10-08 18:05] VITALS: BP 143/80; PULSE 129; RESP 20; TEMP 36.8; O2SAT 95; BMI 18.6
--- NOTE | 2021-10-08 18:14 | XRR_ITS ---
PROCEDURE INFORMATION: Exam: XR Right Foot Exam date and time: 10/08/2021 6:24 PM Age: 26 years old Clinical indication: Right; Patient HX: Pain in RT foot from walking TECHNIQUE: Imaging protocol: XR Right foot. Views: 3 or more views. COMPARISON: No relevant prior studies available. FINDINGS: Bones/joints: Normal. Soft tissues: Normal. XR/XR foot RT min 3V* [id number] IMPRESSION: No acute findings.
--- NOTE | 2021-10-08 18:16 | ED_ITS ---
HPI - Extremity Problem General: Chief complaint: Extremity Injury, Lower Stated complaint: thinks bones are broke in feet Time Seen by Provider: 10/08/21 17:44 Source: patient Mode of arrival: ambulatory Limitations: no limitations History of Present Illness: 26-year-old male who has been seen here multiple times this week. He states he is now having right foot pain as he is homeless and has been walking a lot. He states it is to the sole of his right foot denies any injury states pain is a 5 out of 10 denies any worsening improving factors. Associated symptoms: Deny chest pain, fever(s) or rash Review of Systems Const: Denies: fever(s), chills, body aches or change in appetite Eyes: Denies: blurry vision or eye discomfort ENMT: Denies: throat pain or dental pain Card: Denies: chest pain Resp: Denies: dyspnea GI: Denies: abdominal pain, nausea, vomiting or diarrhea : Denies: dysuria Musc: Reports: extremity pain; Denies: neck pain or back pain Skin/Breast: Denies: rash Neuro: Denies: headache(s) Psych: Denies: depression Abe/Lymph: Denies: easy bruising All/Imm: Denies: urticaria PFSH ED PFSH: Medical History (Updated 10/08/21 @ 18:35 by Mimi Bailon MD) Alcohol use disorder, severe, dependence Amphetamine use disorder, severe GERD (gastroesophageal reflux disease) Hepatitis C History of hepatitis C Treated with only one month of Epclusa. Despite that, he seems to have SVR. Recheck in one year History of lower leg fracture Insomnia Kidney stone Positive hepatitis C antibody test Severe dental caries Family History Grandmother Cancer Mother Diabetes Heart disease Social History Alcohol intake: current Alcohol intake frequency: few times a month Alcohol type: beer Marital status: Single Number of children: 1 Current occupational status: employed History of recent travel: No Physical Exam Const: COMMON NORMALS: no acute distress, patient oriented x3 and healthy appearing HENMT: COMMON NORMALS: normocephalic and atraumatic HEAD & SCALP: normocephalic and atraumatic Eye: COMMON NORMALS: Equal, round and reactive pupils present and EOMs intact bilaterally PUPIL: Yes Equal, round and reactive pupils present Neck/C-Spine: COMMON NORMALS: full ROM and supple Chest: COMMONS NORMALS: normal inspection of the chest and normal palpation of entire chest wall Resp: COMMON NORMALS: normal respiratory effort, No retractions, No use of accessory muscles and clear to auscultation bilaterally AUSCULTATION: clear to auscultation bilaterally Cardio: COMMON NORMALS: regular rate, regular rhythm and No murmurs present (Cardio) RATE: regular rate RHYTHM: regular rhythm GI: COMMON NORMALS: Normal to inspection, nondistended, normoactive bowel sounds present, Soft to palpation, non-tender and no masses PALPATION: Yes Soft to palpation Extremity: COMMON NORMALS: normal to inspection and full ROM OTHER: No deformities to right foot Neuro: COMMON NORMALS: patient oriented x3, moves all extremities and no focal motor deficits Psych: COMMON NORMALS: mental status grossly normal, Normal thought process present and cooperative THOUGHT PROCESS: Normal thought process present Skin: COMMON NORMALS: no rashes or lesions noted and no wounds GENERAL SKIN EXAM: no rashes or lesions noted Course 2 Vital Signs: Vital signs: Vital Signs Temperature 98.2 F 10/08/21 18:05 Pulse Rate 129 H 10/08/21 18:05 Respiratory Rate 20 H 10/08/21 18:05 Blood Pressure 143/80 10/08/21 18:05 Pulse Oximetry 95 10/08/21 18:05 MDM - Extremity (Nontraumatic) Medical Decision Making Patient presents here with right foot pain x-ray here is normal he is well- appearing here and stable for discharge he is to follow-up with PCP and return if worsening. Lab Data Radiology Impressions Foot X-Ray 10/08/21 18:14 IMPRESSION: No acute findings. Discharge Plan Discharge Patient Disposition: Home Clinical Impression: Foot pain, right Condition: Stable Prescriptions: No Action methadone 40 mg Tablet,Soluble 40 mg PO DAILY 0RF Label Comments: pt states he gets this medication from [facility] [phone] called fluoxetine [Prozac] 20 mg capsule 20 mg PO DAILY Qty: 30 0RF risperidone 3 mg tablet 3 mg PO DAILY Qty: 30 0RF Discharge Orders: Discharge ED (Routine); Ordered 10/08/21 Ordered By: Korby Uvaldo Referrals: Mike Sherman MD [Primary Care Provider] - 1-3 days Discharge Diet: Advance as tolerated Discharge Activity: Resume usual activity Patient Instructions: Arthralgia (ED) Coding Level of Care Code ED Boiler Room Operator for Chg 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
[2021-10-08] MEDS: naproxen 500 mg Tablet PO (18:21)
--- NOTE | 2021-10-08 18:32 | PC.NURSE ---
Right ankle clean with soap and water. Site dressed with telfa and kerlix.
== END 2021-10-08 18:40 | disposition home or self-care (01) ==
PROVIDERS: Emergency Provider Emergency Medicine; PCP Family Medicine Adult Medicine
DX: M79.671 Pain in right foot (principal); Z87.81 Personal history of (healed) traumatic fracture; Z59.00 Homelessness unspecified
CPT/HCPCS: 73630; 99283

== ENCOUNTER 2021-10-12 08:25 | Emergency (ER) | payer MEDICAID, SELFPAY ==
[2021-10-12 08:29] VITALS: BP 130/74; PULSE 76; RESP 16; TEMP 36.6; O2SAT 100
[2021-10-12 08:44] VITALS: BP 130/74; PULSE 76; RESP 16; TEMP 36.6; O2SAT 100
--- NOTE | 2021-10-12 08:44 | ED_ITS ---
Documented by User: IVETH Waldron 10/12/21 14:59 HPI - General Adult General: Chief complaint: Psychiatric Symptoms Stated complaint: SYNCOPE/ SI Time Seen by Provider: 10/12/21 08:27 History of Present Illness: Patient is a 26-year-old male comes to the ED with back pain and suicidal ideation. Patient was brought in via EMS and they said that he was found asleep in a bathroom of [facility]. Patient is currently homeless. He is unsure of how he got his back pain and says its in his mid back region. He will not give me any more details on back pain. He also says he has suicidal ideation. Patient has been here in the ED over 10 times in the last month and has been in the NPU multiple times in the last month as well. Patient will not give any other details on SI complaint. Associated symptoms: Deny chest pain, dyspnea, headache(s), nausea, rash, palpitations or vomiting Review of Systems Const: Denies: fever(s), chills or fatigue Eyes: Denies: change in vision or eye discomfort ENMT: Denies: throat pain, odynophagia, nasal discharge or nasal congestion Card: Denies: chest pain, palpitations, edema, swelling of feet/ankles, dyspnea on exertion or orthopnea Resp: Denies: dyspnea, productive cough or non-productive cough GI: Denies: abdominal pain, nausea, vomiting, diarrhea, constipation or hematochezia : Denies: flank pain, difficulty urinating, dysuria or hematuria Musc: Reports: back pain; Denies: neck pain or extremity swelling Skin/Breast: Denies: rash or new lesions Neuro: Denies: headache(s), numbness in extremities or weakness in extremities Psych: Reports: suicidal ideation [facility] ED PFSH: Medical History Alcohol use disorder, severe, dependence Amphetamine use disorder, severe GERD (gastroesophageal reflux disease) Hepatitis C History of hepatitis C Treated with only one month of Epclusa. Despite that, he seems to have SVR. Recheck in one year History of lower leg fracture Insomnia Kidney stone Positive hepatitis C antibody test Severe dental caries Family History Grandmother Cancer Mother Diabetes Heart disease Social History Alcohol intake: current Alcohol intake frequency: few times a month Alcohol type: beer Marital status: Single Number of children: 1 Current occupational status: employed History of recent travel: No Physical Exam Const: COMMON NORMALS: no acute distress, patient oriented x3 and alert GENERAL APPEARANCE: cooperative and comfortable HENMT: COMMON NORMALS: normocephalic HEAD & SCALP: normocephalic MOUTH: Normal oral and palatal mucosa present THROAT: posterior oropharynx normal and uvula midline Neck/C-Spine: COMMON NORMALS: supple GENERAL: Yes normal visual inspection Resp: COMMON NORMALS: normal respiratory effort, No retractions, No use of accessory muscles and clear to auscultation bilaterally AUSCULTATION: clear to auscultation bilaterally Cardio: COMMON NORMALS: regular rate, regular rhythm, S1 normal heart sound p resent, S2 normal heart sound present, No gallops present (Cardio), No clicks present (Cardio), No murmurs present (Cardio) and Peripheral pulses 2+ throughout RATE: regular rate RHYTHM: regular rhythm HEART SOUNDS: S1 normal heart sound present and S2 normal heart sound present PERIPHERAL PULSES: Peripheral pulses 2+ throughout GI: COMMON NORMALS: Normal to inspection, nondistended, normoactive bowel sounds present, Soft to palpation, non-tender and no masses PALPATION: Yes Soft to palpation : COMMON NORMALS: Yes no CVA tenderness BLADDER/KIDNEY EXAM: Yes no CVA tenderness Back/Pelvis: COMMON NORMALS: no CVA tenderness Extremity: COMMON NORMALS: normal to inspection Neuro: COMMON NORMALS: patient oriented x3 and moves all extremities SENSOR IUM/ORIENTATION: Yes alert Skin: GENERAL SKIN EXAM: dry skin Course Consultations: Consultation #1: I contacted Dr. Roca the psych aviation technician aircraft doc and he did a televisit with patient. He cleared him for discharge home from the ED. Time: 10:30 Vital Signs: Vital signs: Vital Signs Temperature 97.9 F 10/12/21 08:44 Pulse Rate 76 10/12/21 08:44 Respiratory Rate 16 10/12/21 08:44 Blood Pressure 130/74 10/12/21 08:44 Pulse Oximetry 100 10/12/21 08:44 [facility] - General Adult Medical Decision Making Patient is a 26-year-old male comes to the ED complaining of SI. Patient has been here in the ED over 10 times in the last month and has had multiple admissions to the Neuropsych Unit in the past month as well. I contacted Dr. Roca the psych aviation technician aircraft doc and he did a televisit with patient. He cleared him for discharge home from the ED. Lab Data I reviewed the patient's lab results. : 10/12/21 09:30 10/12/21 09:30 Radiology Impressions Thoracic Spine X-Ray 10/12/21 08:53 IMPRESSION: 1. No fracture or malalignment. 2. Mild dextroscoliosis. Laboratory Results WBC 7.7 10^3/uL (4.0-10.0) 10/12/21 09:30 RBC 4.15 10^6/uL (4.1-5.3) 10/12/21 09:30 Hgb 12.0 g/dL (11.7-16.6) 10/12/21 09:30 Hct 36.6 % (42.0-52.0) L 10/12/21 09:30 MCV 88.2 fl (80-94) 10/12/21 09:30 MCH 28.9 pg (28.0-34.0) 10/12/21 09:30 MCHC 32.8 g/dL (30.0-36.0) 10/12/21 09:30 RDW 13.4 % (12.1-15.1) 10/12/21 09:30 Plt Count 329 10^3/cmm (130-400) 10/12/21 09:30 MPV 8.8 fL (7.4-10.4) 10/12/21 09:30 Neut % (Auto) 72.6 % 10/12/21 09:30 Lymph % (Auto) 16.7 % 10/12/21 09:30 Teller % (Auto) 9.7 % 10/12/21 09:30 Eos % (Auto) 0.5 % 10/12/21 09:30 Baso % (Auto) 0.1 % 10/12/21 09:30 Neut # (Auto) 5.60 10^3/uL (1.8-7.7) 10/12/21 09:30 Lymph # (Auto) 1.3 10^3/uL (0.8-4.8) 04/20/22 09:30 Teller # (Auto) 0.8 10^3/uL (0.2-0.9) 10/12/21 09:30 Eos # (Auto) 0.0 10^3/uL (0.0-0.8) 10/12/21 09:30 Baso # (Auto) 0.0 10^3/uL (0.0-0.1) 10/12/21 09:30 Nucleated RBC % (auto) 0 % 10/12/21:30 Nucleated RBCs # 0.0 /100WBC 10/12/21 09:30 Sodium 137 mmol/L (136-145) 10/12/21 09:30 Potassium 4.0 mmol/L (3.5-5.1) 10/12/21 09:30 Chloride 104 mmol/L (98-107) 10/12/21 09:30 Carbon Dioxide 24 mmol/L (22-29) 10/12/21 09:30 Anion Gap 13.0 (5-19) 10/12/21 09:30 BUN 13 mg/dL (6-20) 10/12/21 09:30 Creatinine 0.4 mg/dL (0.7-1.2) L 10/12/21 09:30 GFR Calculation 256.1 mL/min (90-130) H 10/12/21 09:30 Glucose 101 mg/dL (65-115) 10/12/21 09:30 Calculated Osmolality 284 mOsm/kg (285-295) L 10/12/21 09:30 Calcium 9.2 mg/dL (8.5-10.5) 10/12/21 09:30 Total Bilirubin 0.3 mg/dL (0.15-1.2) 10/12/21 09:30 AST 33 U/L (0-40) 10/12/21 09:30 ALT 22 U/L (0-41) 10/12/21 09:30 Alkaline Phosphatase 92 IU/L (40-130) 10/12/21 09:30 Total Protein 6.4 g/dL (6.6-8.7) L 10/12/21 09:30 Albumin 4.1 g/dL (3.5-5.2) 10/12/21 09:30 Globulin 2.3 g/dL (1.3-4.6) 10/12/21 09:30 Salicylates < 0.3 mg/dL (3-10) L 10/12/21 09:30 Acetaminophen < 5.0 ug/mL (10-30) L 10/12/21 09:30 Ethyl Alcohol < 10 mg/dL (0-10) 10/12/21 09:30 Discharge Plan Discharge Patient Disposition: Home Clinical Impression: Encounter for psychiatric assessment Condition: Stable Prescriptions: No Action methadone 40 mg Tablet,Soluble 40 mg PO DAILY 0RF Label Comments: pt states he gets this medication from [facility] [phone] called fluoxetine [Prozac] 20 mg capsule 20 mg PO DAILY Qty: 30 0RF risperidone 3 mg tablet 3 mg PO DAILY Qty: 30 0RF diclofenac sodium 75 mg tablet,delayed release (DR/EC) 75 mg PO Q12H PRN (Reason: pain) Qty: 20 0RF Discharge Orders: Discharge ED (Routine); Ordered 10/12/21 Ordered By: Elmer Forbes Referrals: Mike Sherman MD [Primary Care Provider] - Discharge Diet: Regular Discharge Activity: Resume usual activity Activity Restrictions/Additional Instructions: Follow-up with medical provider as directed. Take home medications as previously prescribed. Return to the ER or your medical provider if condition worsens. Please read and understand discharge instructions. Thank you for choosing [facility] for your healthcare needs today. Please realize this is an emergency room and that we are providing you with a medical screening exam and this may not be complete and all inclusive of all the testing and or work up that you may need to determine your ailment or severity of your illness. It is very important that you follow up as instructed or that you return to the Emergency Department should you have concerns or if your condition changes or worsens in any way. Coding Level of Care Code ED Senior Rd Engineer for g 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 Documented by User: Nino Fontaine DO 10/14/21 07:13 HPI - General Adult General: Chief complaint: Psychiatric Symptoms Stated complaint: SYNCOPE/ SI Time Seen by Provider: 10/12/21 08:27 [facility] ED PFSH: Medical History Alcohol use disorder, severe, dependence Amphetamine use disorder, severe GERD (gastroesophageal reflux disease) Hepatitis C History of hepatitis C Treated with only one month of Epclusa. Despite that, he seems to have SVR. Recheck in one year History of lower leg fracture Insomnia Kidney stone Positive hepatitis C antibody test Severe dental caries Family History Grandmother Cancer Mother Diabetes Heart disease Social History Alcohol intake: current Alcohol intake frequency: few times a month Alcohol type: beer Marital status: Single Number of children: 1 Current occupational status: employed History of recent travel: No Course Vital Signs: Vital signs: Vital Signs Temperature 97.9 F 10/12/21 08:44 Pulse Rate 76 10/12/21 08:44 Respiratory Rate 16 10/12/21 08:44 Blood Pressure 130/74 10/12/21 08:44 Pulse Oximetry 100 10/12/21 08:44 [facility] - General Adult Medical Decision Making Patient is a 26-year-old male comes to the ED complaining of SI. Patient has been here in the ED over 10 times in the last month and has had multiple admissions to the Neuropsych Unit in the past month as well. I contacted Dr. Roca the psych aviation technician aircraft doc and he did a televisit with patient. He cleared him for discharge home from the ED. Chart reviewed and patient discussed with midlevel. Agree with assessment and plan. Medical Records I reviewed the patient's medical records. Lab Data I reviewed the patient's lab results. : 10/12/21 09:30 10/12/21 09:30 Radiology Impressions Thoracic Spine X-Ray 10/12/21 08:53 IMPRESSION: 1. No fracture or malalignment. 2. Mild dextroscoliosis. Laboratory Results WBC 7.7 10^3/uL (4.0-10.0) 10/12/21 09:30 RBC 4.15 10^6/uL (4.1-5.3) 10/12/21 09:30 Hgb 12.0 g/dL (11.7-16.6) 10/12/21 09:30 Hct 36.6 % (42.0-52.0) L 10/12/21: MCV 88.2 fl (80-94) 10/12/21 09:30 MCH 28.9 pg (28.0-34.0) 10/12/21: MCHC 32.8 g/dL (30.0-36.0) 10/12/21: RDW 13.4 % (12.1-15.1) 10/12/21:30 Plt Count 329 10^3/cmm (130-400) 10/12/21: MPV 8.8 fL (7.4-10.4) 10/12/21: Neut % (Auto) 72.6 % 10/12/21:30 Lymph % (Auto) 16.7 % 10/12/21:30 Teller % (Auto) 9.7 % 10/12/21:30 Eos % (Auto) 0.5 % 10/12/21:30 Baso % (Auto) 0.1 % 10/12/21:30 Neut # (Auto) 5.60 10^3/uL (1.8-7.7) 10/12/21: Lymph # (Auto) 1.3 10^3/uL (0.8-4.8) 10/12/21:30 Teller # (Auto) 0.8 10^3/uL (0.2-0.9) 10/12/21:30 Eos # (Auto) 0.0 10^3/uL (0.0-0.8) 10/12/21:30 Baso # (Auto) 0.0 10^3/uL (0.0-0.1) 10/12/21:30 Nucleated RBC % (auto) 0 % 10/12/21: Nucleated RBCs # 0.0 /100WBC 10/12/21:30 Sodium 137 mmol/L (136-145) 10/12/21:30 Potassium 4.0 mmol/L (3.5-5.1) 10/12/21: Chloride 104 mmol/L (98-107) 04/20/22 09:30 Carbon Dioxide 24 mmol/L (22-29) 10/12/21 09:30 Anion Gap 13.0 (5-19) 10/12/21 09:30 BUN 13 mg/dL (6-20) 10/12/21 09:30 Creatinine 0.4 mg/dL (0.7-1.2) L 10/12/21 09:30 GFR Calculation 256.1 mL/min (90-130) H 10/12/21 09:30 Glucose 101 mg/dL (65-115) 10/12/21 09:30 Calculated Osmolality 284 mOsm/kg (285-295) L 10/12/21 09:30 Calcium 9.2 mg/dL (8.5-10.5) 10/12/21 09:30 Total Bilirubin 0.3 mg/dL (0.15-1.2) 10/12/21 09:30 AST 33 U/L (0-40) 10/12/21 09:30 ALT 22 U/L (0-41) 10/12/21 09:30 Alkaline Phosphatase 92 IU/L (40-130) 10/12/21 09:30 Total Protein 6.4 g/dL (6.6-8.7) L 10/12/21 09:30 Albumin 4.1 g/dL (3.5-5.2) 10/12/21 09:30 Globulin 2.3 g/dL (1.3-4.6) 10/12/21 09:30 Salicylates < 0.3 mg/dL (3-10) L 10/12/21 09:30 Acetaminophen < 5.0 ug/mL (10-30) L 10/12/21 09:30 Ethyl Alcohol < 10 mg/dL (0-10) 10/12/21 09:30 Discharge Plan Discharge Patient Disposition: Home Clinical Impression: Encounter for psychiatric assessment Condition: Stable Prescriptions: No Action methadone 40 mg Tablet,Soluble 40 mg PO DAILY 0RF Label Comments: pt states he gets this medication from [facility] [phone] called fluoxetine [Prozac] 20 mg capsule 20 mg PO DAILY Qty: 30 0RF risperidone 3 mg tablet 3 mg PO DAILY Qty: 30 0RF diclofenac sodium 75 mg tablet,delayed release (DR/EC) 75 mg PO Q12H PRN (Reason: pain) Qty: 20 0RF Discharge Orders: Discharge ED (Routine); Ordered 10/12/21 Ordered By: Elmer Forbes Referrals: Mike Sherman MD [Primary Care Provider] - Discharge Diet: Regular Discharge Activity: Resume usual activity Activity Restrictions/Additional Instructions: Follow-up with medical provider as directed. Take home medications as previously prescribed. Return to the ER or your medical provider if condition worsens. Please read and understand discharge instructions. Thank you for choosing [facility] for your healthcare needs today. Please realize this is an emergency room and that we are providing you with a medical screening exam and this may not be complete and all inclusive of all the testing and or work up that you may need to determine your ailment or severity of your illness. It is very important that you follow up as instructed or that you return to the Emergency Department should you have concerns or if your condition changes or worsens in any way. Coding Level of Care Code ED Senior Rd Engineer for [place] 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
--- NOTE | 2021-10-12 08:53 | XR_ITS ---
WS: [id number] Exam: XR thoracic spine 3V* [id number] Date/Time of Exam: 10/12/2021 8:57 AM Reason For Exam: mid back pain, unknown cause or injury No acute fracture or dislocation. Mild dextroscoliosis. Normal paraspinal soft tissues. XR/XR thoracic spine 3V* [id number] IMPRESSION: 1. No fracture or malalignment. 2. Mild dextroscoliosis.
[2021-10-12 09:35] LABS: Basophils % 0.1 %; Eosinophils % 0.5 %; Hematocrit 36.6 % (42.0-52.0); Lymphocytes # 1.3 10^3/uL (0.8-4.8); Lymphocytes % 16.7 %; Mean Corpuscular HGB Conc 32.8 g/dL (30.0-36.0); Mean Corpuscular Hemoglobin 28.9 pg (28.0-34.0); Mean Corpuscular Volume 88.2 fl (80-94); Mean Platelet Volume 8.8 fL (7.4-10.4); Monocytes # 0.8 10^3/uL (0.2-0.9); Monocytes % 9.7 %; Neutrophils % 72.6 %; Nucleated Red Blood Cells % 0 %; Platelet Count 329 10^3/cmm (130-400); Red Blood Count 4.15 10^6/uL (4.1-5.3); Red Cell Distribution Width 13.4 % (12.1-15.1); White Blood Count 7.7 10^3/uL (4.0-10.0)
[2021-10-12 09:56] LABS: Alanine Aminotransferase 22 U/L (0-41); Albumin Level 4.1 g/dL (3.5-5.2); Alkaline Phosphatase 92 IU/L (40-130); Aspartate Amino Transferase 33 U/L (0-40); Blood Urea Nitrogen 13 mg/dL (6-20); Calcium 9.2 mg/dL (8.5-10.5); Carbon Dioxide 24 mmol/L (22-29); Chloride 104 mmol/L (98-107); Globulin 2.3 g/dL (1.3-4.6); Glomerular Filtration Rate 256.1 mL/min (90-130); Glucose 101 mg/dL (65-115); Osmolality Calculated 284 mOsm/kg (285-295); Sodium 137 mmol/L (136-145); Total Bilirubin 0.3 mg/dL (0.15-1.2); Total Protein 6.4 g/dL (6.6-8.7)
[2021-10-12 10:00] LABS: Acetaminophen < 5.0 ug/mL (10-30); Alcohol Level < 10 mg/dL (0-10); Salicylate < 0.3 mg/dL (3-10)
--- NOTE | 2021-10-12 10:29 | P.NPUCON_ITS ---
Providers/Reason for Consult Consulting Physican/Specialty*: Kapil Jackson MD, psychiatrist Reason for Consult*: Homeless and suicidal ideation Primary Care Provider: Mike Sherman MD Psych Consult HPI History of Present Illness Tyree Alvarez is a 26 year old male who is in the emergency department again with the following report: Patient is a 26-year-old male comes to the ED with back pain and suicidal ideation.? Patient was brought in via EMS and they said that he was found asleep in a bathroom of [facility] Patient is currently homeless.? He is unsure of how he got his back pain and says its in his mid back region.? He will? not give me any more details on back pain.? He also says he has suicidal ideation.? Patient has been here in the ED over 10 times in the last month and has been in the NPU multiple times in the last month as well.? Patient will not give any other details on SI complaint. He is well known to us at the neuropsychiatry unit and to the emergency department. He has been admitted several times and is uncooperative and we have done what we have been able to do for him but he does not allow us to help him. He says he is homeless and having a difficult time. He talked about suicide but now says that he is not suicidal. Meds Home Medications and Allergies Home Medications Medication Instructions Recorded Confirmed Last Taken Type fluoxetine 20 mg capsule (Prozac) 20 mg PO DAILY #30 cap 10/07/21 10/08/21 Unknown Rx methadone 40 mg soluble tablet 40 mg PO DAILY 10/07/21 10/08/21 6 Days Ago History ~10/01/21 risperidone 3 mg tablet 3 mg PO DAILY #30 tab 10/07/21 10/08/21 Unknown Rx Allergies Allergy/AdvReac Type Severity Reaction Status Date / Time No Known Allergies Allergy Verified 10/08/21 18:06 PFS NPU PFSH: Medical History Alcohol use disorder, severe, dependence Amphetamine use disorder, severe GERD (gastroesophageal reflux disease) Hepatitis C History of hepatitis C Treated with only one month of Epclusa. Despite that, he seems to have SVR. Recheck in one year History of lower leg fracture Insomnia Kidney stone Positive hepatitis C antibody test Severe dental caries Family History Grandmother Cancer Mother Diabetes Heart disease Social History Alcohol intake: current Alcohol intake frequency: few times a month Alcohol type: beer Marital status: Single Number of children: 1 Current occupational status: employed History of recent travel: No Vitals/I&O/Wt Last Vital Signs Temp 97.9 F 10/12/21 08:44 Pulse 76 10/12/21 08:44 Resp 16 10/12/21 08:44 BP 130/74 10/12/21 08:44 Pulse Ox 100 10/12/21 08:44 Data NPU : 10/12/21 09:30 10/12/21 09:30 A&P Assessment and plan (1) Amphetamine use disorder, severe: Status: Acute (2) Encounter for psychiatric assessment: Status: Acute Plan He makes frequent complaints about being suicidal so that he can get back in the hospital. He made the same complaint today but now says he is no longer suicidal. He is cleared for discharge from the emergency department. He has received as much help from the neuropsychiatry unit as he will accept. Involuntary Hold Information 96 Hour Hold: 96 Hour Involuntary Admission: Yes 96 Hour Hold Ending Date: 10/07/21 96 Hour Hold Ending Time: 20:05 Attestations NPU Medical Necessity Statement*: Patient does not need to be in the hospital. Coding Level of Care Code Acute Printed Circuit Board Pcb Designer for Sunita Fwmaria teresa Diagnoses Amphetamine use disorder, severe F15.20 Encounter for psychiatric assessment Z76.89
--- NOTE | 2021-10-12 10:55 | PC.NURSE ---
Pt was discharged by Dr Roca - pt refused to leave. When asked to leave, pt became hostile and threatened to physically harm this nurse. Security was called. When security asked pt to leave, pt again refused and became hostile with security. Police were called.
== END 2021-10-12 11:11 | disposition home or self-care (01) ==
PROVIDERS: Emergency Provider Physician Assistant; PCP Family Medicine Adult Medicine
DX: Z76.89 Persons encountering health services in other specified circumstances (principal); Z59.02 Unsheltered homelessness; R45.851 Suicidal ideations
CPT/HCPCS: 72072; 80053; 80307; 85025; 99283

== ENCOUNTER 2021-10-12 14:33 | Emergency (ER) | payer MEDICAID, SELFPAY ==
[2021-10-12 14:39] VITALS: BP 137/87; PULSE 85; RESP 18; TEMP 36.4; O2SAT 99; BMI 18.8
--- NOTE | 2021-10-12 14:56 | ED.C_ITS ---
HPI - Psych General: Chief Complaint: Psychiatric Symptoms Stated Complaint: back and rib pain Time Seen by Provider: 10/12/21 14:48 Source: patient Mode of arrival: ambulatory Limitations: no limitations History of Present Illness: 26-year-old male presents emergency room with complaint of pain all over. He was seen earlier today evaluated Dr. Roca and discharged home he is returning again wanting to be admitted. He was seen earlier he was to suicidal and homicidal Dr. Roca did a consult on him and recommended to be discharged home. He became quite verbally abusive and angry even posturing physically as if he would fight police were called and he eventually back down was able to be redirected and discharged. History of same: Yes Relieving factors: none Exacerbating factors: none Review of Systems Const: Reports: fatigue and malaise; Denies: fever(s), chills, body aches or change in appetite ENMT: Denies: throat pain, ear or mastoid pain, nasal discharge or nasal congestion Card: Denies: chest pain, edema, dyspnea on exertion or orthopnea Resp: Denies: dyspnea, productive cough or non-productive cough GI: Denies: abdominal pain, nausea, vomiting, diarrhea or constipation : Denies: dysuria, urinary frequency or urinary urgency Skin/Breast: Denies: rash or pruritus PFSH ED PFSH: Medical History Alcohol use disorder, severe, dependence Amphetamine use disorder, severe GERD (gastroesophageal reflux disease) Hepatitis C History of hepatitis C Treated with only one month of Epclusa. Despite that, he seems to have SVR. Recheck in one year History of lower leg fracture Insomnia Kidney stone Positive hepatitis C antibody test Severe dental caries Family History Grandmother Cancer Mother Diabetes Heart disease Social History Alcohol intake: current Alcohol intake frequency: few times a month Alcohol type: beer Marital status: Single Number of children: 1 Current occupational status: employed History of recent travel: No Physical Exam Const: COMMON NORMALS: no acute distress GENERAL APPEARANCE: cooperative ORIENTATION/CONSCIOUSNESS: Yes awake, Yes oriented to person, Yes oriented to place and Yes oriented to time HENMT: COMMON NORMALS: normocephalic, atraumatic and hearing grossly normal bilaterally HEAD & SCALP: normocephalic and atraumatic Neck/C-Spine: COMMON NORMALS: no JVD Resp: COMMON NORMALS: normal respiratory effort, No retractions, No use of accessory muscles and clear to auscultation bilaterally AUSCULTATION: clear to auscultation bilaterally Cardio: COMMON NORMALS: no JVD, regular rate, regular rhythm and No murmurs present (Cardio) RATE: regular rate RHYTHM: regular rhythm GI: COMMON NORMALS: Soft to palpation and No hepatosplenomegaly present AUSCULTATION: Yes normoactive bowel sounds PALPATION: Yes Soft to palpation, No Tenderness to palpation present (GI), No Guarding due to palpation present (GI) and Yes No hepatosplenomegaly present Back/Pelvis: OTHER: Patient sitting in a recliner in the hallway he will lean back, slumped leaning back he will sit forward with no evidence of pain or hesitation or difficulty. Straight leg raising negative sensation lower extremities normal Extremity: COMMON NORMALS: normal to inspection, capillary refill normal, no clubbing, cyanosis or edema, no calf tenderness and no pedal edema Neuro: SENSORIUM/ORIENTATION: Yes oriented to person, Yes oriented to place and Yes oriented to time Skin: COMMON NORMALS: no rashes or lesions noted GENERAL SKIN EXAM: no rashes or lesions noted Course Vital Signs: Vital signs: Vital Signs Temperature 97.6 F 10/12/21 14:39 Pulse Rate 85 10/12/21 14:39 Respiratory Rate 18 10/12/21 14:39 Blood Pressure 137/87 10/12/21 14:39 Pulse Oximetry 99 10/12/21 14:39 [facility] - Psych Medical Decision Making In addition to his complaint of pain all over and back pain patient is also now complaining again of suicidal and homicidal ideation is complained of the same as it was previously. He has had multiple consultations with Dr. Roca this week Dr. Roca is still on-call I called and reviewed the case with him he seen him just a few hours ago and he does not consultation did not recommend admission at that time. His complaint now is unchanged from previously for the most part and Dr. Roca still does not recommend hospitalization feels that he can be discharged at this point based on the consultation earlier today. Medical Records I reviewed the patient's medical records. Lab Data I reviewed the patient's lab results. Discharge Plan Discharge Patient Disposition: Home Clinical Impression: Back pain Condition: Stable Prescriptions: New diclofenac sodium 75 mg tablet,delayed release (DR/EC) 75 mg PO Q12H PRN (Reason: pain) Qty: 20 0RF No Action methadone 40 mg Tablet,Soluble 40 mg PO DAILY 0RF Label Comments: pt states he gets this medication from [facility] [phone] called fluoxetine [Prozac] 20 mg capsule 20 mg PO DAILY Qty: 30 0RF risperidone 3 mg tablet 3 mg PO DAILY Qty: 30 0RF Discharge Orders: Discharge ED (Routine); Ordered 10/12/21 Ordered By: Nino Fontaine Referrals: Mike Sherman MD [Primary Care Provider] - Discharge Diet: Usual diet Discharge Activity: Increase activity as tolerated Patient Instructions: Opioid Safety Coding Level of Care Code ED Valet Attendant for Sunita Tejada
== END 2021-10-12 15:12 | disposition home or self-care (01) ==
PROVIDERS: Emergency Provider Family Medicine; PCP Family Medicine Adult Medicine
DX: M54.9 Dorsalgia, unspecified (principal); F10.20 Alcohol dependence, uncomplicated
CPT/HCPCS: 99281

== ENCOUNTER 2021-10-16 18:00 | Emergency (ER) | payer MEDICAID, SELFPAY ==
--- NOTE | 2021-10-16 18:10 | PC.NURSE ---
Pt arrives via EMS d/t call for pt walking down street. Pt hasn't ate since yesterday. Pt states walking for 16 days straight and c/o left leg pain. EMS denies administering medications.
[2021-10-16 19:24] VITALS: BP 152/101; PULSE 90; RESP 18; TEMP 37.4; O2SAT 99; BMI 16.7
--- NOTE | 2021-10-16 22:00 | ED_ITS ---
HPI - General Adult General: Chief complaint: General Medical Stated complaint: LEFT ANKLE PAIN Time Seen by Provider: 10/16/21 21:46 History of Present Illness: Complains about left foot heel pain. Said he has been walking a lot and rubbed a blister on it and now is bothering him. Patient says he does have a job and he is not homeless presently denies any mental health problems. Denies methamphetamine disorder presently. Associated symptoms: Deny chest pain, dyspnea, headache(s), nausea, rash or vomiting Review of Systems Const: Denies: fever(s), chills or body aches Eyes: Denies: eye discomfort ENMT: Denies: throat pain Card: Denies: chest pain Resp: Denies: dyspnea GI: Denies: abdominal pain, nausea or vomiting Musc: Reports: other (Left foot pain.) Skin/Breast: Denies: rash Neuro: Denies: headache(s) Psych: Denies: depression or suicidal ideation PFSH ED PFSH: Medical History Alcohol use disorder, severe, dependence Amphetamine use disorder, severe GERD (gastroesophageal reflux disease) Hepatitis C History of hepatitis C Treated with only one month of Epclusa. Despite that, he seems to have SVR. Recheck in one year History of lower leg fracture Insomnia Kidney stone Positive hepatitis C antibody test Severe dental caries Family History Grandmother Cancer Mother Diabetes Heart disease Social History Alcohol intake: current Alcohol intake frequency: few times a month Alcohol type: beer Marital status: Single Number of children: 1 Current occupational status: employed History of recent travel: No Physical Exam Const: COMMON NORMALS: no acute distress, patient oriented x3 and alert HENMT: COMMON NORMALS: normocephalic and external ears normal HEAD & SCALP: normocephalic EXTERNAL EAR: Yes external ears normal Eye: COMMON NORMALS: EOMs intact bilaterally Neck/C-Spine: COMMON NORMALS: no JVD Resp: COMMON NORMALS: normal respiratory effort and No use of accessory muscles Cardio: COMMON NORMALS: no JVD GI: INSPECTION: Yes normal to inspection Extremity: COMMON NORMALS: normal to inspection and full ROM Neuro: COMMON NORMALS: patient oriented x3 SENSORIUM/ORIENTATION: Yes alert Psych: COMMON NORMALS: mental status grossly normal Skin: OTHER: Left heel has a blister that is about 1 inch x 2 inch that had pus in it which I drained and got a wound culture. Has redness to the left heel area. Also has a healing ulcer to the forefoot underneath mid toe. Also to his toenails appear to be possibly coming off. No swelling to his ankle no redness to his ankle. Course Vital Signs: Vital signs: Vital Signs Temperature 99.4 F 10/16/21 19:24 Pulse Rate 90 10/16/21 19:24 Respiratory Rate 18 10/16/21 19:24 Blood Pressure 152/101 10/16/21 19:24 Pulse Oximetry 99 10/16/21 19:24 MDM - General Adult Medical Decision Making Cellulitis left heel. Patient treated with antibiotics given extra dose patient declined Rocephin injection. Celebrex prescription provided for discomfort. Also postop shoe to wear. Instructed patient follow-up primary care provider this week and get rechecked. Discharge Plan Discharge Patient Disposition: Home Clinical Impression: Infected blister Condition: Stable Prescriptions: New cephalexin 500 mg capsule 500 mg PO Q8H 7 Days Qty: 21 0RF Celebrex 100 mg capsule 100 mg PO BID Qty: 20 0RF Discontinued diclofenac sodium 75 mg tablet,delayed release (DR/EC) 75 mg PO Q12H PRN (Reason: pain) Qty: 20 0RF No Action methadone 40 mg Tablet,Soluble 40 mg PO DAILY 0RF Label Comments: pt states he gets this medication from [facility] [phone] called fluoxetine [Prozac] 20 mg capsule 20 mg PO DAILY Qty: 30 0RF risperidone 3 mg tablet 3 mg PO DAILY Qty: 30 0RF Discharge Orders: Discharge ED (Routine); Ordered 10/16/21 Ordered By: Candido Ledezma Referrals: Mike Sherman MD [Primary Care Provider] - Discharge Diet: Usual diet Discharge Activity: Increase activity as tolerated Patient Instructions: Cellulitis (ED) Activity Restrictions/Additional Instructions: Follow-up with medical provider as directed. Take medications as prescribed. Return to the ER or your medical provider if condition worsens. Please read and understand discharge instructions. If any questions ask please. , Wear postop shoe and do not wear your hightop shoe presently. Coding Level of Care Code ED Leather Parts Matcher for Sunita Tejada
[2021-10-16] MEDS: CELEcoxib 200 mg Capsule 400 MG PO (22:02)
[2021-10-16] MEDS: cephALEXin 500 mg Capsule 1000 MG PO (22:02)
== END 2021-10-16 22:13 | disposition home or self-care (01) ==
PROVIDERS: Emergency Provider Nurse Practitioner Family; PCP Family Medicine Adult Medicine
DX: S90.822A Blister (nonthermal), left foot, initial encounter (principal); L03.116 Cellulitis of left lower limb; X50.9XXA Other and unspecified overexertion or strenuous movements or postures, initial encounter
CPT/HCPCS: 87070; 87077; 87186; 99283

== ENCOUNTER 2021-10-17 12:34 | Emergency (ER) | payer MEDICAID, SELFPAY ==
[2021-10-17 12:36] VITALS: BP 126/77; PULSE 96; RESP 16; TEMP 36.4; O2SAT 100
--- NOTE | 2021-10-17 14:54 | ED_ITS ---
Documented by User: IVETH Waldron 10/18/21 07:12 HPI - Extremity Problem General: Chief complaint: Extremity Injury, Lower Stated complaint: lft foot infection Time Seen by Provider: 10/17/21 14:41 History of Present Illness: Patient is a 26-year-old male comes to the ED with left foot infection. Patient reports that over 2 weeks ago he started developing a blister on bottom of left foot heel. Blister started after he has been homeless and having to walk around a lot. He reports having some pain and redness in his left foot. Denies any other injury or trauma to cause left foot symptoms. Associated symptoms: Deny chest pain, fever(s) or rash Review of Systems Const: Denies: fever(s), chills or fatigue Eyes: Denies: change in vision or eye discomfort ENMT: Denies: throat pain, odynophagia, nasal discharge or nasal congestion Card: Denies: chest pain, palpitations, edema, swelling of feet/ankles, dyspnea on exertion or orthopnea Resp: Denies: dyspnea, productive cough or non-productive cough GI: Denies: abdominal pain, nausea, vomiting, diarrhea, constipation or hematochezia : Denies: flank pain, difficulty urinating, dysuria or hematuria Musc: Denies: neck pain, back pain or extremity swelling Skin/Breast: Reports: new lesions (Blister left foot with foot pain and erythema); Denies: rash Neuro: Denies: headache(s), numbness in extremities or weakness in extremities PFSH ED PFSH: Medical History Alcohol use disorder, severe, dependence Amphetamine use disorder, severe GERD (gastroesophageal reflux disease) Hepatitis C History of hepatitis C Treated with only one month of Epclusa. Despite that, he seems to have SVR. Recheck in one year History of lower leg fracture Insomnia Kidney stone Positive hepatitis C antibody test Severe dental caries Family History Grandmother Cancer Mother Diabetes Heart disease Social History Alcohol intake: current Alcohol intake frequency: few times a month Alcohol type: beer Marital status: Single Number of children: 1 Current occupational status: employed History of recent travel: No Physical Exam 2 Const: COMMON NORMALS: no acute distress, patient oriented x3 and alert GENERAL APPEARANCE: cooperative and comfortable HENMT: COMMON NORMALS: normocephalic HEAD & SCALP: normocephalic MOUTH: Normal oral and palatal mucosa present THROAT: posterior oropharynx normal and uvula midline Neck/C-Spine: COMMON NORMALS: supple GENERAL: Yes normal visual inspection Resp: COMMON NORMALS: normal respiratory effort, No retractions, No use of accessory muscles and clear to auscultation bilaterally AUSCULTATION: clear to auscultation bilaterally Cardio: COMMON NORMALS: regular rate, regular rhythm, S1 normal heart sound present, S2 normal heart sound present, No gallops present (Cardio), No clicks present (Cardio), No murmurs present (Cardio) and Peripheral pulses 2+ thro ughout RATE: regular rate RHYTHM: regular rhythm HEART SOUNDS: S1 normal heart sound present and S2 normal heart sound present PERIPHERAL PULSES: Peripheral pulses 2+ throughout GI: COMMON NORMALS: Normal to inspection, nondistended, normoactive bowel sounds present, Soft to palpation, non-tender and no masses PALPATION: Yes Soft to palpation : COMMON NORMALS: Yes no CVA tenderness BLADDER/KIDNEY EXAM: Yes no CVA tenderness Back/Pelvis: COMMON NORMALS: no CVA tenderness Extremity: NARRATIVE EXTREMITY EXAM: Patient has blister on bottom of left foot with some surrounding erythema and warmth. GENERAL: Yes normal exam except as noted Neuro: COMMON NORMALS: patient oriented x3 and moves all extremities SENSORIUM/ORIENTATION: Yes alert Skin: NARRATIVE SKIN EXAM: Patient has blister on bottom of left foot with some surrounding erythema and warmth. GENERAL SKIN EXAM: dry skin Course ED course: Patient was getting his paperwork to be discharged home and then told the nurse that he is suicidal. The nurse came and talked with me before giving him the discharge paperwork's to tell me about his comment. Consultations: Consultation #1: I contacted Dr. Carpenter to tell him about patient case. He said he will either come down to the ED to talk to patient or call and and have a televisit with patient before discharge. Time: 15:48 Consultation #2: Dr. Carpenter came down and performed the psych eval. Dr. Carpenter cleared patient for discharge home. Time: 16:45 Vital Signs: Vital signs: Vital Signs Temperature 97.6 F 10/17/21 17:10 Pulse Rate 81 10/17/21 17:10 Respiratory Rate 16 10/17/21 17:10 Blood Pressure 125/71 10/17/21 17:10 Pulse Oximetry 100 10/17/21 17:10 MDM - Extremity (Nontraumatic) Medical Decision Making Patient is a 26-year-old male comes to the ED with blister on left foot. Patient was seen here in the ED for same reason yesterday and discharged with cephalexin. Patient did not get the cephalexin prescription filled. Patient was given dose of IM Rocephin while here in the ED. I told him to get his previously prescribed cephalexin prescription filled and start taking medicine to help with infected blister. Nurse was getting ready to give patient his discharge paperwork and stated that he is suicidal. I then contacted Dr. Carpenter and told him about patient case. Dr. Carpenter came to the ED and performed an evaluation on patient and cleared him for discharge home. Discharge Plan Discharge Patient Disposition: Home Clinical Impression: Infected blister Condition: Stable Prescriptions: No Action methadone 40 mg Tablet,Soluble 40 mg PO DAILY 0RF Label Comments: pt states he gets this medication from [facility] [phone] called fluoxetine [Prozac] 20 mg capsule 20 mg PO DAILY Qty: 30 0RF risperidone 3 mg tablet 3 mg PO DAILY Qty: 30 0RF cephalexin 500 mg capsule 500 mg PO Q8H 7 Days Qty: 21 0RF Celebrex 100 mg capsule 100 mg PO BID Qty: 20 0RF Discharge Orders: Discharge ED (Routine); Ordered 10/17/21 Ordered By: Elmer Forbes Referrals: Mike Sherman MD [Primary Care Provider] - Discharge Diet: Regular Discharge Activity: Increase activity as tolerated Activity Restrictions/Additional Instructions: Follow-up with medical provider as directed. Get your previously prescribed cephalexin prescription from yesterday filled and start taking. Return to the ER or your medical provider if condition worsens. Please read and understand discharge instructions. Thank you for choosing [facility] for your healthcare needs today. Please realize this is an emergency room and that we are providing you with a medical screening exam and this may not be complete and all inclusive of all the testing and or work up that you may need to determine your ailment or severity of your illness. It is very important that you follow up as instructed or that you return to the Emergency Department should you have concerns or if your condition changes or worsens in any way. 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 Despite that, he seems to have SVR. Recheck in one year History of lower leg fracture Insomnia Kidney stone Positive hepatitis C antibody test Severe dental caries Family History Grandmother Cancer Mother Diabetes Heart disease Social History Alcohol intake: current Alcohol intake frequency: few times a month Alcohol type: beer Marital status: Single Number of children: 1 Current occupational status: employed History of recent travel: No Course Vital Signs: Vital signs: Vital Signs Temperature 97.6 F 10/17/21 17:10 Pulse Rate 81 10/17/21 17:10 Respiratory Rate 16 10/17/21 17:10 Blood Pressure 125/71 10/17/21 17:10 Pulse Oximetry 100 10/17/21 17:10 MDM - Extremity (Nontraumatic) Medical Decision Making Patient is a 26-year-old male comes to the ED with blister on left foot. Patient was seen here in the ED for same reason yesterday and discharged with cephalexin. Patient did not get the cephalexin prescription filled. Patient was given dose of IM Rocephin while here in the ED. I told him to get his previously prescribed cephalexin prescription filled and start taking medicine to help with infected blister. Nurse was getting ready to give patient his discharge paperwork and stated that he is suicidal. I then contacted Dr. Carpenter and told him about patient case. Dr. Carpenter came to the ED and performed an evaluation on patient and cleared him for discharge home. Chart reviewed and patient discussed with midlevel. Agree with assessment and plan. Discharge Plan Discharge Patient Disposition: Home Clinical Impression: Infected blister Condition: Stable Prescriptions: No Action methadone 40 mg Tablet,Soluble 40 mg PO DAILY 0RF Label Comments: pt states he gets this medication from [facility] [phone] called fluoxetine [Prozac] 20 mg capsule 20 mg PO DAILY Qty: 30 0RF risperidone 3 mg tablet 3 mg PO DAILY Qty: 30 0RF cephalexin 500 mg capsule 500 mg PO Q8H 7 Days Qty: 21 0RF Celebrex 100 mg capsule 100 mg PO BID Qty: 20 0RF Discharge Orders: Discharge ED (Routine); Ordered 10/17/21 Ordered By: Elmer Forbes Referrals: Mike Sherman MD [Primary Care Provider] - Discharge Diet: Regular Discharge Activity: Increase activity as tolerated Activity Restrictions/Additional Instructions: Follow-up with medical provider as directed. Get your previously prescribed cephalexin prescription from yesterday filled and start taking. Return to the ER or your medical provider if condition worsens. Please read and understand discharge instructions. Thank you for choosing [facility] for your healthcare needs today. Please realize this is an emergency room and that we are providing you with a medical screening exam and this may not be complete and all inclusive of all the testing and or work up that you may need to determine your ailment or severity of your illness. It is very important that you follow up as instructed or that you return to the Emergency Department should you have concerns or if your condition changes or worsens in any way. Coding Level of Care Code ED Assembler Trim for Sunita Tejada Exam Comprehensive
[2021-10-17 15:27] VITALS: BP 132/75; PULSE 89; RESP 16; TEMP 36.4; O2SAT 100
--- NOTE | 2021-10-17 15:40 | PC.NURSE ---
I went into give pt his antibiotic shot, and pt stated that he did not want it. I educated the patient about the importance of the antibiotic but he still refused the immunization. Mr. Forbes was notified.
[2021-10-17] MEDS: cefTRIAXone 1,000 MG in lidocaine 1% 2.1 ML 2.1 MG IM (17:07)
--- NOTE | 2021-10-17 17:08 | PC.NURSE ---
After a discussion with Dr. Carpenter, pt agreed to the antibiotic IM shot. Medication was given. 1ml in each arm. Pt stated that he did not want the shot because he did not want the nurse to touch his butt .
[2021-10-17 17:10] VITALS: BP 125/71; PULSE 81; RESP 16; TEMP 36.4; O2SAT 100
== END 2021-10-17 17:11 | disposition home or self-care (01) ==
PROVIDERS: Emergency Provider Physician Assistant; PCP Family Medicine Adult Medicine
DX: L08.9 Local infection of the skin and subcutaneous tissue, unspecified (principal); S90.822A Blister (nonthermal), left foot, initial encounter; X58.XXXA Exposure to other specified factors, initial encounter; Z59.00 Homelessness unspecified
CPT/HCPCS: 99282; J0696

== ENCOUNTER 2021-10-17 23:06 | Emergency (ER) | payer MEDICAID, SELFPAY ==
[2021-10-17 23:17] VITALS: BP 127/80; PULSE 81; RESP 17; TEMP 36.7; O2SAT 100; BMI 18.6
--- NOTE | 2021-10-17 23:23 | ED.C_ITS ---
HPI - Psych General: Chief Complaint: Psychiatric Symptoms Stated Complaint: SI Time Seen by Provider: 10/17/21 23:09 Source: patient Mode of arrival: ambulatory Limitations: no limitations History of Present Illness: 18-year-old male who is very well-known to the ER and is homeless states that he has been having increased depression. Patient was actually found wandering in the hospital trying to break into the GI lab. He states that he just feels hopeless he has no specific suicidal plan denies any worsening proving factors. Associated symptoms: Reports depression Review of Systems Const: Denies: fever(s), chills, body aches or change in appetite Eyes: Denies: blurry vision or eye discomfort ENMT: Denies: throat pain or dental pain Card: Denies: chest pain Resp: Denies: dyspnea GI: Denies: abdominal pain, nausea, vomiting or diarrhea : Denies: dysuria Musc: Denies: neck pain or back pain Skin/Breast: Denies: rash Neuro: Denies: headache(s) Psych: Reports: depression Abe/Lymph: Denies: easy bruising All/Imm: Denies: urticaria PFSH ED PFSH: Medical History Alcohol use disorder, severe, dependence Amphetamine use disorder, severe GERD (gastroesophageal reflux disease) Hepatitis C History of hepatitis C Treated with only one month of Epclusa. Despite that, he seems to have SVR. Recheck in one year History of lower leg fracture Insomnia Kidney stone Positive hepatitis C antibody test Severe dental caries Family History Grandmother Cancer Mother Diabetes Heart disease Social History Alcohol intake: current Alcohol intake frequency: few times a month Alcohol type: beer Marital status: Single Number of children: 1 Current occupational status: employed History of recent travel: No Physical Exam Const: COMMON NORMALS: no acute distress, patient oriented x3 and healthy appearing HENMT: COMMON NORMALS: normocephalic and atraumatic HEAD & SCALP: normocephalic and atraumatic Eye: COMMON NORMALS: Equal, round and reactive pupils present and EOMs intact bilaterally PUPIL: Yes Equal, round and reactive pupils present Neck/C-Spine: COMMON NORMALS: full ROM and supple Chest: COMMONS NORMALS: normal inspection of the chest and normal palpation of entire chest wall Resp: COMMON NORMALS: normal respiratory effort, No retractions, No use of accessory muscles and clear to auscultation bilaterally AUSCULTATION: clear to auscultation bilaterally Cardio: COMMON NORMALS: regular rate, regular rhythm and No murmurs present (Cardio) RATE: regular rate RHYTHM: regular rhythm GI: COMMON NORMALS: Normal to inspection, nondistended, normoactive bowel sounds present, Soft to palpation, non-tender and no masses PALPATION: Yes Soft to palpation Extremity: COMMON NORMALS: normal to inspection and full ROM Neuro: COMMON NORMALS: patient oriented x3, moves all extremities and no focal motor deficits Psych: COMMON NORMALS: mental status grossly normal, Normal thought process present and cooperative THOUGHT PROCESS: Normal thought process present Skin: COMMON NORMALS: no rashes or lesions noted and no wounds GENERAL SKIN EXAM: no rashes or lesions noted Course Vital Signs: Vital signs: Vital Signs Temperature 98.1 F 10/17/21 23:17 Pulse Rate 81 10/17/21 23:17 Respiratory Rate 17 10/17/21 23:17 Blood Pressure 127/80 10/17/21 23:17 Pulse Oximetry 100 10/17/21 23:17 MDM - Psych Medical Decision Making Patient presents with depression psych complaint. Patient has been seen here multiple x15 times in the last month. Patient was found trying to break into the GI Lab before he checked in. I spoke to Dr. Carpenter who knows patient well discussed patient both believe he is not truly suicidal he is stable for dis charge at this time. Discharge Plan Discharge Patient Disposition: Home Clinical Impression: Depression, Malingering Condition: Stable Prescriptions: No Action methadone 40 mg Tablet,Soluble 40 mg PO DAILY 0RF Label Comments: pt states he gets this medication from [facility] [phone] called fluoxetine [Prozac] 20 mg capsule 20 mg PO DAILY Qty: 30 0RF risperidone 3 mg tablet 3 mg PO DAILY Qty: 30 0RF cephalexin 500 mg capsule 500 mg PO Q8H 7 Days Qty: 21 0RF Celebrex 100 mg capsule 100 mg PO BID Qty: 20 0RF Discharge Orders: Discharge ED (Routine); Ordered 10/17/21 Ordered By: Mimi Bailon Referrals: Mike Sherman MD [Primary Care Provider] - Discharge Diet: Advance as tolerated Discharge Activity: Resume usual activity Patient Instructions: Depression (ED) Coding Level of Care Code ED Senior Bi Developer for Sunita Tejada
== END 2021-10-17 23:31 | disposition home or self-care (01) ==
PROVIDERS: Emergency Provider Emergency Medicine; PCP Family Medicine Adult Medicine
DX: F32.A Depression, unspecified (principal); Z76.5 Malingerer [conscious simulation]; Z59.00 Homelessness unspecified
CPT/HCPCS: 99281

== ENCOUNTER 2021-12-18 01:30 | Emergency (ER) | payer MEDICAID, SELFPAY ==
[2021-12-18 01:34] VITALS: BP 144/91; PULSE 88; RESP 16; TEMP 36.8; O2SAT 99; BMI 18.8
--- NOTE | 2021-12-18 01:41 | ECG_ITS ---
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 Measurements Intervals [place] Rate: 84 P: 52 AK: 139 QRS: 78 QRSD: 98 T: 41 QT: 368 QTc: 435 Interpretive Statements SINUS RHYTHM POSSIBLE RIGHT VENTRICULAR CONDUCTION DELAY [RSR (QR) IN V1/V2] Compared to ECG 10/08/2021 04:18:47 No significant changes Electronically Signed On 12-18-2021 12:28:23 CDT by Jaquan Abbasi M.D. [id number]
--- NOTE | 2021-12-18 01:41 | XRR_ITS ---
PROCEDURE INFORMATION: Exam: XR Chest Exam date and time: 12/18/2021 1:47 AM Age: 26 years old Clinical indication: Pain; Chest pressure; Patient HX: C/O chest discomfort. ; Additional info: Cp TECHNIQUE: Imaging protocol: Radiologic exam of the chest. Views: 1 view. COMPARISON: CR XR chest 1V portable [id number] 10/08/2021 4:20 AM FINDINGS: Lungs: Unremarkable. No consolidation. Pleural spaces: Unremarkable. No pleural effusion. No pneumothorax. Heart/Mediastinum: Unremarkable. No cardiomegaly. Bones/joints: Unremarkable. XR/XR chest 1V portable [id number] IMPRESSION: No acute findings.
--- NOTE | 2021-12-18 01:41 | W.ED.ANXIETY ---
HPI - Anxiety General: Chief Complaint: Anxiety Stated Complaint: ANXIETY Time Seen by Provider: 12/18/21 01:40 History of Present Illness: Patient is a 26-year-old male comes to the ED with chest pain. Patient has a history of anxiety and depression. He denies any SI. For the past week he has been having increased anxiety and chest pain. Tonight his anxiety got worse along with his chest pain. He said his chest pain and anxiety usually correlate with the people he is around and says he has been around some people that have caused more stress lately. Chest pain is an achy pain that is located on the left side of chest. he called EMS and they brought him here to the ED for evaluation. EMS gave patient 2 mg of Ativan while in route. Patient says his chest pain and anxiety have completely resolved since getting Ativan. Associated symptoms: Reports chest pain (Resolved after given Ativan while in route.); Deny chills, fever(s), headache(s), nausea, palpitations or vomiting Review of Systems Const: Denies: fever(s), chills or fatigue Eyes: Denies: change in vision or eye discomfort ENMT: Denies: throat pain, odynophagia, nasal discharge or nasal congestion Card: Reports: chest pain (Resolved after given Ativan while in route.); Denies: palpitations, edema, swelling of feet/ankles, dyspnea on exertion or orthopnea Resp: Denies: dyspnea, productive cough or non-productive cough GI: Denies: abdominal pain, nausea, vomiting, diarrhea, constipation or hematochezia : Denies: flank pain, difficulty urinating, dysuria or hematuria Musc: Denies: neck pain, back pain or extremity swelling Skin/Breast: Denies: rash or new lesions Neuro: Denies: headache(s), numbness in extremities or weakness in extremities Psych: Reports: anxiety (Resolved after getting Ativan while in route.); Denies: suicidal ideation [facility] ED PFSH: Medical History Alcohol use disorder, severe, dependence Amphetamine use disorder, severe GERD (gastroesophageal reflux disease) Hepatitis C History of hepatitis C Treated with only one month of Epclusa. Despite that, he seems to have SVR. Recheck in one year History of lower leg fracture Insomnia Kidney stone Positive hepatitis C antibody test Severe dental caries Family History Grandmother Cancer Mother Diabetes Heart disease Social History Alcohol intake: current Alcohol intake frequency: few times a month Alcohol type: beer Marital status: Single Number of children: 1 Current occupational status: employed History of recent travel: No Physical Exam Const: COMMON NORMALS: no acute distress, patient oriented x3 and alert GENERAL APPEARANCE: cooperative and comfortable HENMT: COMMON NORMALS: normocephalic HEAD & SCALP: normocephalic MOUTH: Normal oral and palatal mucosa present THROAT: posterior oropharynx normal and uvula midline Eye: COMMON NORMALS: Equal, round and reactive pupils present and conjunctivae normal CONJUNCTIVA: Yes conjunctivae normal PUPIL: Yes Equal, round and reactive pupils present Neck/C-Spine: COMMON NORMALS: supple GENERAL: Yes normal visual inspection Resp: COMMON NORMALS: normal respiratory effort, No retractions, No use of accessory muscles and clear to auscultation bilaterally AUSCULTATION: clear to auscultation bilaterally Cardio: COMMON NORMALS: regular rate, regular rhythm, S1 normal heart sound present, S2 normal heart sound present, No gallops present (Cardio), No clicks present (Cardio), No murmurs present (Cardio) and Peripheral pulses 2+ throughout RATE: regular rate RHYTHM: regular rhythm HEART SOUNDS: S1 normal heart sound present and S2 normal heart sound present PERIPHERAL PULSES: Peripheral pulses 2+ throughout GI: COMMON NORMALS: Normal to inspection, nondistended, normoactive bowel sounds present, Soft to palpation, non-tender and no masses PALPATION: Yes Soft to palpation : COMMON NORMALS: Yes no CVA tenderness BLADDER/KIDNEY EXAM: Yes no CVA tenderness Back/Pelvis: COMMON NORMALS: no CVA tenderness Extremity: COMMON NORMALS: normal to inspection Neuro: COMMON NORMALS: patient oriented x3 and moves all extremities SENSORIUM/ORIENTATION: Yes alert Skin: COMMON NORMALS: no rashes or lesions noted GENERAL SKIN EXAM: no rashes or lesions noted Course Vital Signs: Vital signs: Vital Signs Temperature 98.2 F 12/18/21 01:34 Pulse Rate 88 12/18/21 01:34 Respiratory Rate 16 12/18/21 01:34 Blood Pressure 144/91 12/18/21 01:34 Pulse Oximetry 99 12/18/21 01:34 MDM - Anxiety Medical Decision Making Patient is a 26-year-old male comes to the ED with chest pain. Patient has a history of anxiety and depression. He denies any SI. For the past week he has been having increased anxiety and chest pain. Chest pain anxiety worsens depending on the stressful people he is around. Tonight his anxiety got worse along with his chest pain. Patient was given 2 mg of Ativan by EMS while in route and upon arrival here in the ED his chest pain and anxiety had resolved. Vitals are stable. Patient peers nontoxic in no acute distress or pain. Rest of exam is benign. Potassium of 2.8. But the rest of the labs including troponin were negative. EKG showed normal sinus rhythm with no ST segment elevation or depression seen. Chest x-ray showed no acute findings. He was given a dose of p.o. potassium here in the ED. Patient's chest pain likely due to anxiety. He was diagnosed with acute anxiety and hypokalemia and was discharged home. Told to follow-up with his PCP within the next week for reevaluation. Return ED precautions given. Patient understood and agreed with plan. Lab Data I reviewed the patient's lab results. : 12/18/21 01:48 12/18/21 01:48 Laboratory Results WBC 13.8 10^3/uL (4.0-10.0) H 12/18/21 01:48 RBC 4.10 10^6/uL (4.1-5.3) 12/18/21 01:48 Hgb 11.9 g/dL (11.7-16.6) 12/18/21 01:48 Hct 33.7 % (42.0-52.0) L 12/18/21 01:48 MCV 82.2 fl (80-94) 12/18/21 01:48 MCH 29.0 pg (28.0-34.0) 12/18/21 01:48 MCHC 35.3 g/dL (30.0-36.0) 12/18/21 01:48 RDW 12.9 % (12.1-15.1) 12/18/21 01:48 Plt Count 292 10^3/cmm (130-400) 12/18/21 01:48 MPV 9.0 fL (7.4-10.4) 12/18/21 01:48 Neut % (Auto) 74.5 % 12/18/21 01:48 Lymph % (Auto) 16.1 % 12/18/21 01:48 Mcdonald % (Auto) 8.4 % 12/18/21 01:48 Eos % (Auto) 0.1 % 12/18/21 01:48 Baso % (Auto) 0.2 % 12/18/21 01:48 Neut # (Auto) 10.27 10^3/uL (1.8-7.7) H 12/18/21 01:48 Lymph # (Auto) 2.2 10^3/uL (0.8-4.8) 12/18/21 01:48 Mcdonald # (Auto) 1.2 10^3/uL (0.2-0.9) H 12/18/21 01:48 Eos # (Auto) 0.0 10^3/uL (0.0-0.8) 12/18/21 01:48 Baso # (Auto) 0.0 10^3/uL (0.0-0.1) 12/18/21 01:48 Nucleated RBC % (auto) 0 % 12/18/21 01:48 Nucleated RBCs # 0.0 /100WBC 12/18/21 01:48 Sodium 142 mmol/L (136-145) 12/18/21 01:48 Potassium 2.8 mmol/L (3.5-5.1) L* 12/18/21 01:48 Chloride 104 mmol/L (98-107) 12/18/21 01:48 Carbon Dioxide 23 mmol/L (22-29) 12/18/21 01:48 Anion Gap 17.8 (5-19) 12/18/21 01:48 BUN 8 mg/dL (6-20) 12/18/21 01:48 Creatinine 0.8 mg/dL (0.7-1.2) 12/18/21 01:48 GFR Calculation 115.1 mL/min (90-130) 12/18/21 01:48 Glucose 89 mg/dL (65-115) 12/18/21 01:48 Calculated Osmolality 292 mOsm/kg (285-295) 12/18/21 01:48 Calcium 8.6 mg/dL (8.5-10.5) 12/18/21 01:48 Total Bilirubin 0.3 mg/dL (0.15-1.2) 12/18/21 01:48 AST 15 U/L (0-40) 12/18/21 01:48 ALT 8 U/L (0-41) 12/18/21 01:48 Alkaline Phosphatase 106 IU/L (40-130) 12/18/21 01:48 Troponin T Baseline 7 ng/L (0-15) 12/18/21 01:48 Total Protein 7.2 g/dL (6.6-8.7) 12/18/21 01:48 Albumin 4.6 g/dL (3.5-5.2) 12/18/21 01:48 Globulin 2.6 g/dL (1.3-4.6) 12/18/21 01:48 EKG Data EKG 1: EKG interpretation date: 12/18/21 Interpretation: Normal sinus rhythm, 84 bpm, no ST segment elevation or depression seen. Discharge Plan Discharge Patient Disposition: Home Clinical Impression: Acute anxiety, Hypokalemia Condition: Stable Prescriptions: New Vistaril 50 mg capsule 50 mg PO Q8H PRN (Reason: acute anxiety) Qty: 10 0RF No Action methadone 40 mg Tablet,Soluble 40 mg PO DAILY 0RF Label Comments: pt states he gets this medication from [facility] [phone] called fluoxetine [Prozac] 20 mg capsule 20 mg PO DAILY Qty: 30 0RF risperidone 3 mg tablet 3 mg PO DAILY Qty: 30 0RF Celebrex 100 mg capsule 100 mg PO BID Qty: 20 0RF Discharge Orders: Discharge ED (Routine); Ordered 12/18/21 Ordered By: Elmer Forbes Referrals: Mike Sherman MD [Primary Care Provider] - Discharge Diet: Regular Discharge Activity: Increase activity as tolerated Patient Instructions: Anxiety (ED) Activity Restrictions/Additional Instructions: Follow-up with medical provider as directed in the next 5 to 7 days reevaluation.Take medications as prescribed. Return to the ER or your medical provider if condition worsens. Please read and understand discharge instructions. Thank you for choosing [facility] for your healthcare needs today. Please realize this is an emergency room and that we are providing you with a medical screening exam and this may not be complete and all inclusive of all the testing and or work up that you may need to determine your ailment or severity of your illness. It is very important that you follow up as instructed or that you return to the Emergency Department should you have concerns or if your condition changes or worsens in any way. Coding Level of Care Code ED Cloth Finishing Range Tender for Sunita Fwmaria teresa Exam Comprehensive
[2021-12-18 01:52] LABS: Basophils % 0.2 %; Eosinophils % 0.1 %; Hematocrit 33.7 % (42.0-52.0); Hemoglobin 11.9 g/dL (11.7-16.6); Lymphocytes # 2.2 10^3/uL (0.8-4.8); Lymphocytes % 16.1 %; Mean Corpuscular HGB Conc 35.3 g/dL (30.0-36.0); Mean Corpuscular Volume 82.2 fl (80-94); Monocytes # 1.2 10^3/uL (0.2-0.9); Monocytes % 8.4 %; Neutrophils # 10.27 10^3/uL (1.8-7.7); Neutrophils % 74.5 %; Nucleated Red Blood Cells % 0 %; Platelet Count 292 10^3/cmm (130-400); Red Cell Distribution Width 12.9 % (12.1-15.1); White Blood Count 13.8 10^3/uL (4.0-10.0)
[2021-12-18 02:09] LABS: Alanine Aminotransferase 8 U/L (0-41); Albumin Level 4.6 g/dL (3.5-5.2); Alkaline Phosphatase 106 IU/L (40-130); Anion Gap 17.8 (5-19); Aspartate Amino Transferase 15 U/L (0-40); Blood Urea Nitrogen 8 mg/dL (6-20); Calcium 8.6 mg/dL (8.5-10.5); Carbon Dioxide 23 mmol/L (22-29); Chloride 104 mmol/L (98-107); Globulin 2.6 g/dL (1.3-4.6); Glomerular Filtration Rate 115.1 mL/min (90-130); Glucose 89 mg/dL (65-115); Osmolality Calculated 292 mOsm/kg (285-295); Sodium 142 mmol/L (136-145); Total Bilirubin 0.3 mg/dL (0.15-1.2); Total Protein 7.2 g/dL (6.6-8.7); Troponin(5th) Baseline 7 ng/L (0-15)
[2021-12-18 02:16] LABS: Potassium 2.8 mmol/L (3.5-5.1)
[2021-12-18 02:31] VITALS: BP 149/91; PULSE 88; RESP 18; O2SAT 100
[2021-12-18] MEDS: potassium chloride ER 20 mEq Tablet PO (02:40)
== END 2021-12-18 02:45 | disposition home or self-care (01) ==
PROVIDERS: Emergency Provider Physician Assistant; PCP Family Medicine Adult Medicine
DX: F41.9 Anxiety disorder, unspecified (principal); E87.6 Hypokalemia; Z79.891 Long term (current) use of opiate analgesic; Z86.19 Personal history of other infectious and parasitic diseases
CPT/HCPCS: 71045; 80053; 84484; 85025; 93005; 99284

== ENCOUNTER 2021-12-18 04:05 | Emergency (ER) | payer MEDICAID, SELFPAY ==
[2021-12-18 04:30] VITALS: BP 159/101; PULSE 81; RESP 16; TEMP 36.9; O2SAT 98; BMI 18.8
--- NOTE | 2021-12-19 23:26 | W.ED.GENADLT ---
HPI - General Adult General: Chief complaint: General Medical Stated complaint: knot on lower left abdomen Time Seen by Provider: 12/18/21 04:30 Source: patient History of Present Illness: year old male patient here for the second time tonight. He notes that he has a skin lesion at the base of his penis, and his concerned about it. He states that it has not grown or changed in size or color or shape in over a month or two. It is not tender. It has not bled. He has no drainage or discharge from the meatus. No other rash. Onset (ago): month(s) Location: genitals Pain Consistency: other Relieving factors: other Exacerbating factors: other Associated symptoms: Deny fevers/chills, rash or vomiting Review of Systems Const: Denies: fever(s) GI: Denies: abdominal pain or vomiting : Denies: flank pain, difficulty urinating, dysuria, genital pain, testicular pain, testicular mass or scrotal swelling Skin/Breast: Denies: rash PFSH ED PFSH: Medical History Alcohol use disorder, severe, dependence Amphetamine use disorder, severe GERD (gastroesophageal reflux disease) Hepatitis C History of hepatitis C Treated with only one month of Epclusa. Despite that, he seems to have SVR. Recheck in one year History of lower leg fracture Insomnia Kidney stone Positive hepatitis C antibody test Severe dental caries Family History Grandmother Cancer Mother Diabetes Heart disease Social History Alcohol intake: current Alcohol intake frequency: few times a month Alcohol type: beer Marital status: Single Number of children: 1 Current occupational status: employed History of recent travel: No Physical Exam Const: COMMON NORMALS: no acute distress HENMT: COMMON NORMALS: normocephalic and Normal external nose present HEAD & SCALP: normocephalic NOSE: Normal external nose present Eye: COMMON NORMALS: Equal, round and reactive pupils present and EOMs intact bilaterally PUPIL: Yes Equal, round and reactive pupils present Chest: CHEST: Yes Symmetrical chest wall rise Resp: COMMON NORMALS: normal respiratory effort and No retractions Cardio: COMMON NORMALS: regular rate and regular rhythm RATE: regular rate RHYTHM: regular rhythm GI: INSPECTION: Yes normal to inspection : MALE GROIN/PERINEUM EXAM: Yes Genital lesions present (dermatofibroma, shaft base. ) PENIS: circumcised, no masses, no nodules, no pustules, no vesicles and Genital lesions present (dermatofibroma, shaft base. ) Course Vital Signs: Vital signs: Vital Signs Temperature 98.4 F 12/18/21 04:30 Pulse Rate 81 12/18/21 04:30 Respiratory Rate 16 12/18/21 04:30 Blood Pressure 159/101 12/18/21 04:30 Pulse Oximetry 98 12/18/21 04:30 MDM - General Adult Medical Decision Making Dermatofibroma. no evidence of condyloma. no treatment needed. Discharge Plan Discharge Patient Disposition: Home Clinical Impression: Dermatofibroma Condition: Stable Prescriptions: No Action methadone 40 mg Tablet,Soluble 40 mg PO DAILY 0RF Label Comments: pt states he gets this medication from [facility] [phone] called fluoxetine [Prozac] 20 mg capsule 20 mg PO DAILY Qty: 30 0RF risperidone 3 mg tablet 3 mg PO DAILY Qty: 30 0RF Vistaril 50 mg capsule 50 mg PO Q8H PRN (Reason: acute anxiety) Qty: 10 0RF Celebrex 100 mg capsule 100 mg PO BID Qty: 20 0RF Discharge Orders: Discharge ED (Routine); Ordered 12/18/21 Ordered By: cD Lemus Referrals: Mike Sherman MD [Primary Care Provider] - 2 weeks Activity Restrictions/Additional Instructions: Return for fever, drainage, redness or streaking. Watch for growth and see your doctor Coding Level of Care Code ED Production Officer for Sunita Tejada
== END 2021-12-18 05:09 | disposition home or self-care (01) ==
PROVIDERS: Emergency Provider Emergency Medicine; PCP Family Medicine Adult Medicine
DX: D29.0 Benign neoplasm of penis (principal); Z86.19 Personal history of other infectious and parasitic diseases
CPT/HCPCS: 99282

== ENCOUNTER 2021-12-20 23:42 | Inpatient (IN) | payer MEDICAID, SELFPAY ==
[2021-12-20 23:44] VITALS: BP 124/78; PULSE 76; RESP 16; TEMP 36.7; O2SAT 97; BMI 19.5
--- NOTE | 2021-12-20 23:49 | W.ED.PSYCHS ---
HPI - Psych General: Chief Complaint: Psychiatric Symptoms Stated Complaint: SI Time Seen by Provider: 12/20/21 23:43 Source: patient and EMS Mode of arrival: EMS Limitations: no limitations History of Present Illness: 26-year-old male who is well-known to ER has a history of homelessness with multiple psych issues. He states that tonight he has been hearing voices and having suicidal thoughts. He has no specific plan but he states he is had increasing depression with suicidality. He denies any worsening improving factors denies any current suicide attempts. Associated symptoms: Reports depression Review of Systems Const: Denies: fever(s), chills, body aches or change in appetite Eyes: Denies: blurry vision or eye discomfort ENMT: Denies: throat pain or dental pain Card: Denies: chest pain Resp: Denies: dyspnea GI: Denies: abdominal pain, nausea, vomiting or diarrhea : Denies: dysuria Musc: Denies: neck pain or back pain Skin/Breast: Denies: rash Neuro: Denies: headache(s) Psych: Reports: depression Abe/Lymph: Denies: easy bruising All/Imm: Denies: urticaria PFSH ED PFSH: Medical History Alcohol use disorder, severe, dependence Amphetamine use disorder, severe GERD (gastroesophageal reflux disease) Hepatitis C History of hepatitis C Treated with only one month of Epclusa. Despite that, he seems to have SVR. Recheck in one year History of lower leg fracture Insomnia Kidney stone Positive hepatitis C antibody test Severe dental caries Family History Grandmother Cancer Mother Diabetes Heart disease Social History Alcohol intake: current Alcohol intake frequency: few times a month Alcohol type: beer Marital status: Single Number of children: 1 Current occupational status: employed History of recent travel: No Physical Exam Const: COMMON NORMALS: no acute distress, patient oriented x3 and healthy appearing HENMT: COMMON NORMALS: normocephalic and atraumatic HEAD & SCALP: normocephalic and atraumatic Eye: COMMON NORMALS: Equal, round and reactive pupils present and EOMs intact bilaterally PUPIL: Yes Equal, round and reactive pupils present Neck/C-Spine: COMMON NORMALS: full ROM and supple Chest: COMMONS NORMALS: normal inspection of the chest and normal palpation of entire chest wall Resp: COMMON NORMALS: normal respiratory effort, No retractions, No use of accessory muscles and clear to auscultation bilaterally AUSCULTATION: clear to auscultation bilaterally Cardio: COMMON NORMALS: regular rate, regular rhythm and No murmurs present (Cardio) RATE: regular rate RHYTHM: regular rhythm GI: COMMON NORMALS: Normal to inspection, nondistended, normoactive bowel sounds present, Soft to palpation, non-tender and no masses PALPATION: Yes Soft to palpation Extremity: COMMON NORMALS: normal to inspection and full ROM Neuro: COMMON NORMALS: patient oriented x3, moves all extremities and no focal motor deficits Psych: COMMON NORMALS: mental status grossly normal and cooperative MOOD & AFFECT: Yes depressed mood Skin: COMMON NORMALS: no rashes or lesions noted and no wounds GENERAL SKIN EXAM: no rashes or lesions noted Course Vital Signs: Vital signs: Vital Signs Temperature 98.0 F 12/20/21 23:44 Pulse Rate 76 12/20/21 23:44 Respiratory Rate 16 12/20/21 23:44 Blood Pressure 124/78 12/20/21 23:44 Pulse Oximetry 97 12/20/21 23:44 [facility] - Psych Medical Decision Making Patient presents here with suicidal ideation patient is medically cleared I spoke to Dr. Carpenter and will admit Lab Data : 12/20/21 23:30 12/20/21 23:30 Laboratory Results WBC 8.3 10^3/uL (4.0-10.0) 12/20/21 23:30 RBC 4.36 10^6/uL (4.1-5.3) 12/20/21 23:30 Hgb 12.6 g/dL (11.7-16.6) 12/20/21 23:30 Hct 36.9 % (42.0-52.0) L 12/20/21 23:30 MCV 84.6 fl (80-94) 12/20/21 23:30 MCH 28.9 pg (28.0-34.0) 12/20/21 23:30 MCHC 34.1 g/dL (30.0-36.0) 12/20/21 23:30 RDW 13.2 % (12.1-15.1) 12/20/21 23: Plt Count 270 10^3/cmm (130-400) 12/20/21 23: MPV 9.2 fL (7.4-10.4) 12/20/21 23:30 Neut % (Auto) 64.5 % 12/20/21 23:30 Lymph % (Auto) 25.2 % 12/20/21 23:30 Cottle % (Auto) 9.3 % 12/20/21 23: Eos % (Auto) 0.4 % 12/20/21 23: Baso % (Auto) 0.2 % 12/20/21 23: Neut # (Auto) 5.37 10^3/uL (1.8-7.7) 12/20/21: Lymph # (Auto) 2.1 10^3/uL (0.8-4.8) 12/20/21: Cottle # (Auto) 0.8 10^3/uL (0.2-0.9) 12/20/21 23: Eos # (Auto) 0.0 10^3/uL (0.0-0.8) 12/20/21 23: Baso # (Auto) 0.0 10^3/uL (0.0-0.1) 12/20/21 23: Nucleated RBC % (auto) 0 % 12/20/21: Nucleated RBCs # 0.0 /100WBC 12/20/21 23: Sodium 140 mmol/L (136-145) 12/20/21 23: Potassium 4.4 mmol/L (3.5-5.1) 12/20/21 23: Chloride 104 mmol/L (98-107) 12/20/21 23: Carbon Dioxide 26 mmol/L (22-29) 12/20/21 23: Anion Gap 14.4 (5-19) 12/20/21 23: BUN 11 mg/dL (6-20) 12/20/21 23: Creatinine 0.8 mg/dL (0.7-1.2) 12/20/21 23: GFR Calculation 115.1 mL/min (90-130) 12/20/21 23: Glucose 98 mg/dL (65-115) 12/20/21 23:30 Calculated Osmolality 289 mOsm/kg (285-295) 12/20/21 23:30 Calcium 8.9 mg/dL (8.5-10.5) 12/20/21 23:30 Total Bilirubin 0.3 mg/dL (0.15-1.2) 12/20/21 23:30 AST 12 U/L (0-40) 12/20/21 23:30 ALT 9 U/L (0-41) 12/20/21 23:30 Alkaline Phosphatase 113 IU/L (40-130) 12/20/21 23:30 Total Protein 6.9 g/dL (6.6-8.7) 12/20/21 23:30 Albumin 4.8 g/dL (3.5-5.2) 12/20/21 23:30 Globulin 2.1 g/dL (1.3-4.6) 12/20/21 23:30 Salicylates < 0.3 mg/dL (3-10) L 12/20/21 23:30 Urine Opiates Screen Negative ng/mL (Negative) 12/21/21 00:06 Acetaminophen < 5.0 ug/mL (10-30) L 12/20/21 23:30 Ur Barbiturates Screen Negative ng/mL (Negative) 12/21/21 00:06 Ur Phencyclidine Scrn Negative ng/mL (Negative) 12/21/21 00:06 Ur Amphetamines Screen Negative ng/mL (Negative) 12/21/21 00:06 U Benzodiazepines Scrn Negative ng/mL (Negative) 12/21/21 00:06 Urine Cocaine Screen Negative ng/mL (Negative) 12/21/21 00:06 U Marijuana (THC) Screen Negative ng/mL (Negative) 12/21/21 00:06 Ethyl Alcohol < 10 mg/dL (0-10) 12/20/21 23:30 Discharge Plan Discharge Patient Disposition: Admitted As Inpatient Clinical Impression: Suicidal ideation Condition: Stable Coding Level of Care Code ED Steel Division Supervisor for Sunita Fwmaria teresa Exam Comprehensive
[2021-12-20 23:57] LABS: Basophils % 0.2 %; Eosinophils % 0.4 %; Hematocrit 36.9 % (42.0-52.0); Hemoglobin 12.6 g/dL (11.7-16.6); Lymphocytes # 2.1 10^3/uL (0.8-4.8); Lymphocytes % 25.2 %; Mean Corpuscular HGB Conc 34.1 g/dL (30.0-36.0); Mean Corpuscular Hemoglobin 28.9 pg (28.0-34.0); Mean Corpuscular Volume 84.6 fl (80-94); Mean Platelet Volume 9.2 fL (7.4-10.4); Monocytes # 0.8 10^3/uL (0.2-0.9); Monocytes % 9.3 %; Neutrophils # 5.37 10^3/uL (1.8-7.7); Neutrophils % 64.5 %; Nucleated Red Blood Cells % 0 %; Platelet Count 270 10^3/cmm (130-400); Red Blood Count 4.36 10^6/uL (4.1-5.3); Red Cell Distribution Width 13.2 % (12.1-15.1); White Blood Count 8.3 10^3/uL (4.0-10.0)
[2021-12-21 00:15] LABS: Acetaminophen < 5.0 ug/mL (10-30); Alanine Aminotransferase 9 U/L (0-41); Albumin Level 4.8 g/dL (3.5-5.2); Alcohol Level < 10 mg/dL (0-10); Alkaline Phosphatase 113 IU/L (40-130); Anion Gap 14.4 (5-19); Aspartate Amino Transferase 12 U/L (0-40); Blood Urea Nitrogen 11 mg/dL (6-20); Calcium 8.9 mg/dL (8.5-10.5); Carbon Dioxide 26 mmol/L (22-29); Chloride 104 mmol/L (98-107); Globulin 2.1 g/dL (1.3-4.6); Glomerular Filtration Rate 115.1 mL/min (90-130); Glucose 98 mg/dL (65-115); Osmolality Calculated 289 mOsm/kg (285-295); Potassium 4.4 mmol/L (3.5-5.1); Salicylate < 0.3 mg/dL (3-10); Sodium 140 mmol/L (136-145); Total Bilirubin 0.3 mg/dL (0.15-1.2); Total Protein 6.9 g/dL (6.6-8.7)
[2021-12-21 00:20] LABS: Amphetamines Screen Urine Negative (Negative); Barbiturates Screen Urine Negative (Negative); Benzodiazepines Screen Urine Negative (Negative); Cocaine Screen Urine Negative (Negative); Opiate Screen Urine Negative (Negative); PCP Screen Urine Negative (Negative); THC Screen Urine Negative (Negative)
[2021-12-21] MEDS: LORazepam 2 mg Tablet PO (01:19)
[2021-12-21 06:29] VITALS: BP 103/63; PULSE 56; RESP 18; O2SAT 96
--- NOTE | 2021-12-21 07:08 | PC.NURSE ---
PT RESTING IN BED WITH EYES CLOSED. RR AND O2 WNL.
[2021-12-21 11:00] VITALS: BP 109/64; PULSE 68; RESP 16; O2SAT 96
[2021-12-21 13:19] VITALS: BP 113/62; PULSE 67; RESP 17; O2SAT 96
[2021-12-21 14:46] VITALS: BP 106/55; PULSE 95; RESP 18; O2SAT 97
[2021-12-21 17:23] VITALS: BP 104/68; PULSE 72; RESP 16; TEMP 36.9; O2SAT 98
[2021-12-21 17:36] VITALS: BMI 18.8
[2021-12-21] MEDS: nicotine 21 mg Patch 1 PATCH TRANSDERMA (17:53)
--- NOTE | 2021-12-21 17:58 | PC.ADMIT ---
[facility] Admission Note: The patient,Tyree Alvarez,26 y/o, was given written information regarding hospital policies, unit procedures and contact persons. Patient's smoking status: . Vital Signs - 8 hr 12/21/21 11:00 12/21/21 13:19 12/21/21 14:46 Pulse Rate 68 67 95 Respiratory Rate 16 17 18 Blood Pressure 109/64 113/62 106/55 Pulse Oximetry 96 96 97 ADMITTED FROM ER VIA SECURITY AND ER STAFF AT 1715. PT HAS BEEN IN NPU 2-3 TIME THIS YEAR. PT STATES HE IS HERE DUE WANTING TO KILL HIMSELD AND HEARING VOICES/SEEING THINGS THAT ARE NOT THERE. NKDA AND TAKES NO HOME MEDS. STATES HE WOULD LIKE TO START TAKING HIS METHADONE AGAIN AND WOULD LIKE IT STARTED MYRNA. EDUCATED PT THAT WOULD BE THE DECISION WHEN HE SAW HIM. ASKED PT LAST TIME HE WENT TO [place] [facility] TO BE DOSED FOR METHADONE, PT STATED IT'S BEEN AWHILE BUT I NEED IT. UDS IS NEGATIVE. PT CURRENTLY DENIES SI/HI AND VH. DOES ENDORSE HEARING VOICES BUT STATES IT IS BETTER, ONLY HEARING CHATTERING NOW, NOTHING SPECIDIC. ORIENTATED TO UNIT. TRAY PROVIDED AND ATE DINNER. ALL QUESTIONS ANSWERED AND SUPPORT VOICED.
[2021-12-21 20:04] VITALS: BP 96/57; PULSE 72; RESP 16; TEMP 36.8; O2SAT 97
[2021-12-21] MEDS: trazodone 50 mg Tablet PO (20:57)
--- NOTE | 2021-12-21 21:48 | PC.NURSE ---
PRN PT REQUESTED MEDICATION TO HELP HIM SLEEP, TRAZADONE WAS GIVEN.
[2021-12-22 06:00] VITALS: RESP 17
[2021-12-22] MEDS: OLANZapine 5 mg ODT PO ×2 (08:08→20:25)
[2021-12-22] MEDS: hyDROXYzine 25 mg Capsule 50 MG PO (08:08)
--- NOTE | 2021-12-22 08:33 | PC.NURSE ---
UP AT [facility]URSES STATION THIS AM, REQUESTING VALIUM ALSO WANTED TO KNOW IF HE COULD GET HIS METHADONE. EDUCATED PT AGAIN THAT HE WOULD HAVE TO SPEAK TO DR. JIMENEZ THIS AM. PT TOOK HIS ANXIETY MEDICATION AND LAID BACK DOWN. PT DOES DENY SI/HI AND VH AT THIS TIME. DOES ENDORSE HEARING VOICES STATES THEY ARE NOT COMMANDING BUT CHATTERING IN NATURE. SUPPORT VOICED.
[2021-12-22 14:00] VITALS: BP 96/57; PULSE 72; RESP 17; TEMP 36.8; O2SAT 97
--- NOTE | 2021-12-22 14:14 | W.PM.NPUH&PS ---
Providers/Chief Complaint Admitting Physician: Darrian Carpenter MD Primary Care Provider: Mike Sherman MD Chief Complaint: SI HPI NPU History of Present Illness Tyree Alvarez is a 26 year old male who presented to the emergency department with the following report: Chief Complaint: Psychiatric Symptoms Stated Complaint: SI Time Seen by Provider: 12/20/21 23:43 Source: patient and EMS Mode of arrival: EMS Limitations: no limitations History of Present Illness: 26-year-old male who is well-known to ER has a history of homelessness with multiple psych issues. He states that tonight he has been hearing voices and having suicidal thoughts. He has no specific plan but he states he is had increasing depression with suicidality. He denies any worsening improving factors denies any current suicide attempts. Associated symptoms: Reports depression He presents to the hospital secondary to suicidal thoughts. The patient is a 26 year old single white male with a history of psychosis and methamphetamine abuse who reports that he has been feeling depressed and suicidal for years. He reports he has been homeless and has been unable to get a job due to active voices which distract him throughout the day. He reports hearing male and female voices making statements telling him to harm himself. He reports the voices have not ?shut off?. He reports he had not used methamphetamine in a few days. He reports he has been depressed with feelings of hopelessness as he states he has no family support. He endorses having problems with his anger. He was unable to answer questions regarding any history of manic symptoms. He denied any symptoms of anxiety. He reports a past history of opiate abuse and has not been on methadone for 3 to 4 months. He reports numerous psychiatric inpatient hospitalizations but was unable to recall the dates or lengths of stay. He reports having received outpatient treatment for many years and recalls being on a variety of antipsychotics including Risperdal, Abilify and Seroquel. He reports an extensive substance abuse history including having been treated at [facility] for methadone treatment approximately 3 to 4 months ago. He reports having engaged in intranasal opiate use at the age of 14 and reports having used methamphetamine for years beginning in high school. He also reports occasional alcohol use. Psychiatric History: As above. Substance Abuse History: As above Family History: He did not report on his family history for mental health, addiction or lethality issues. Developmental History: He did not report any issues with his or developmental delays and did not report receiving speech therapy, learning support, emotional support or special education classes. Psychosocial History: He reports he lives in [place] on some property that has no reasonable heat or electricity. He states he has been homeless effectively for 2 years. He reports he was abandoned by his family and states having a tumultuous childhood but did not report any emotional, physical or sexual abuse. He reports having 3 sisters but reports his parents have disowned him. He graduated high school and attended some college. He has never been and does not have any children. He did not report any zoroastrianism belief system. Legal History: He reports some legal issues. Medical History: Denied. Meds NPU Home Medications Medication Instructions Recorded Confirmed Last Taken Type fluoxetine 20 mg capsule (Prozac) 20 mg PO DAILY #30 cap 10/07/21 12/21/21 Unknown Rx methadone 40 mg soluble tablet 40 mg PO DAILY 10/07/21 12/21/21 6 Days Ago History ~10/01/21 risperidone 3 mg tablet 3 mg PO DAILY #30 tab 10/07/21 12/21/21 Unknown Rx celecoxib 100 mg capsule (Celebrex) 100 mg PO BID #20 cap 10/16/21 12/21/21 Unknown Rx hydroxyzine pamoate 50 mg capsule 50 mg PO Q8H PRN #10 cap 12/18/21 12/21/21 Unknown Rx (Vistaril) Allergies Allergy/AdvReac Type Severity Reaction Status Date / Time No Known Allergies Allergy Verified 10/17/21 12:41 PFSH NPU PFSH: Medical History Alcohol use disorder, severe, dependence Amphetamine use disorder, severe GERD (gastroesophageal reflux disease) Hepatitis C History of hepatitis C Treated with only one month of Epclusa. Despite that, he seems to have SVR. Recheck in one year History of lower leg fracture Insomnia Kidney stone Positive hepatitis C antibody test Severe dental caries Family History Grandmother Cancer Mother Diabetes Heart disease Social History Alcohol intake: current Alcohol intake frequency: few times a month Alcohol type: beer Marital status: Single Number of children: 1 Current occupational status: employed History of recent travel: No Mental Status Exam MSE Comments: This is a well nourished, well developed white male in hospital scrubs with limited grooming and eye contact. No abnormal movements except for mild psychomotor agitation. Cooperative with exam in mild to moderate distress. Speech was normal rate and volume though somewhat garbled at times with periods of thought blocking. Mood described as depressed, affect appeared irritable. Thought process, organized. Thought content: patient did not express current lethality, no delusions reported but did appear to have some overvalued ideas, and did not appear to be attending to internal stimuli. Attention and concentration appeared limited and memory appeared intact but none were formally tested. He is alert and oriented three times. Insight and judgment are limited. Impulse control is impaired. Vitals/I&O/Wt Last Vital Signs Temp 98.2 F 12/22/21 14:00 Pulse 72 12/22/21 14:00 Resp 17 12/22/21 14:00 BP 96/57 12/22/21 14:00 Pulse Ox 97 12/22/21 14:00 Weight last 48 hrs Weight 61.235 kg Data NPU : 12/20/21 23:30 12/20/21 23:30 A&P Assessment and plan (1) Acute anxiety: Status: Acute (2) Suicidal ideation: Status: Acute (3) Amphetamine use disorder, severe: Status: Acute (4) Depression with suicidal ideation: Status: Acute (5) Post-traumatic stress disorder, chronic: Status: Acute Plan This is a 26 year old white male who presents with psychotic features and suicidal ideation with a past history of methamphetamine and opiate use who is currently homesless with limited access to psychosocial supports. 1. Will attempt to obtain collateral information including previous records to determine any potential medications which may be helpful, likely to include an antipsychotic as the patient does appear to be actively psychotic at this time. 2. Encourage individual, group and milieu therapy 3. Continue q-15 minute check for safety 4. Recommend sober living treatment at the highest level of care to which the patient is willing to commit. Involuntary Hold Information 96 Hour Hold: 96 Hour Involuntary Admission: No 96 Hour Hold Ending Date: 10/07/21 96 Hour Hold Ending Time: 20:05 Attestations NPU Medical Necessity Statement*: Inpatient hospitalization is medically necessary and the clinically appropriate intervention at this time. We will monitor medications and make changes as indicated. Patient will be in the hospital for over two midnights. Likely length of stay is four to six days. Coding Level of Care Code Acute Client Services Manager for Sunita Tejada Diagnoses Acute anxiety F41.9 Suicidal ideation R45.851 Amphetamine use disorder, severe F15.20 Depression with suicidal ideation F32.A; R45.851 Post-traumatic stress disorder, chronic F43.12
[2021-12-22 20:17] VITALS: BP 109/75; PULSE 91; RESP 20; TEMP 36.8; O2SAT 98
[2021-12-22] MEDS: trazodone 50 mg Tablet PO (20:25)
--- NOTE | 2021-12-22 20:54 | PC.NURSE ---
PRN PT REQUESTED MEDICATION TO HELP HIM SLEEP AND FOR HIS ANXIETY/AUDITORY HALLUCINATIONS. TRAZADONE AND OLANZAPINE WAS GIVEN. PT IS RESTING IN BED
[2021-12-23 06:00] VITALS: BP 99/64; PULSE 63; RESP 18; TEMP 36.6; O2SAT 99
--- NOTE | 2021-12-23 08:37 | PC.NURSE ---
PT RESTING IN BED. AROUSES TO VOICE. PT STATES HE SLEPT WELL LAST NIGHT AND HIS SUICIDAL THOUGHTS ARE DECREASING. PT STATES THE VOICES ARE BARELY THERE ANYMORE. DENIES VH AND HI AT THIS TIME. CONTRACTED FOR SAFETY. DENIES PAIN. PT STATES ONCE HE IS BETTER HE WANTS TO GO TO TREATMENT. ALL QUESTIONS ANSWERED AND SUPPORT VOICED.
[2021-12-23 13:41] VITALS: BP 93/53; PULSE 67; RESP 15; TEMP 36.6; O2SAT 98
--- NOTE | 2021-12-23 16:01 | P.NPUPN_ITS ---
Subjective NPU Subjective: Patient presents today reporting that things have been difficult recently. He reports that he wants to work but that work has been unmanageable with his other hallucinations. Additionally he reports that everything is culminated in him being homeless and that he is struggling to function under the circumstances. He is working with the treatment team on viable discharge options. We discussed the risk benefits and alternatives of initiating Invega and he understood and agreed to proceed as is documented in this note. Mental Status Exam MSE Comments: This is a well nourished, well developed white male in hospital scrubs with limited grooming and eye contact looking disheveled this morning. No abnormal movements except for mild psychomotor agitation. Cooperative with exam in mild distress. Speech was normal rate and volume though somewhat garbled at times with periods of thought blocking. Mood described as depressed, affect appeared irritable and blunted. Thought process, mostly organized, but confused at times with some thought blocking. Thought content: patient did not express c urrent lethality, no delusions reported but did appear to have some overvalued ideas, and did not appear to be attending to internal stimuli. Attention and concentration appeared limited and memory appeared intact but none were formally tested. He is alert and oriented three times. Insight and judgment are limited. Impulse control is impaired. Vitals/I&O/Wt Last Vital Signs Temp 98.0 F 12/23/21 19:49 Pulse 86 12/23/21 19:49 Resp 17 12/23/21 19:49 BP 126/79 12/23/21 19:49 Pulse Ox 99 12/23/21 19:49 Data NPU : 12/20/21 23:30 12/20/21 23:30 A&P Assessment and plan (1) Acute anxiety: Status: Acute (2) Suicidal ideation: Status: Acute (3) Amphetamine use disorder, severe: Status: Acute (4) Depression: Status: Acute (5) Post-traumatic stress disorder, chronic: Status: Acute (6) Psychosis: Status: Acute Plan This is a 26 year old white male who presents with psychotic features and suicidal ideation with a past history of methamphetamine and opiate use who is currently homesless with limited access to psychosocial supports. 1.? Start Invega 3 mg p.o. daily. 2.? Encourage individual, group and milieu therapy 3.? Continue q-15 minute check for safety 4.? Recommend sober living treatment at the highest level of care to which the patient is willing to commit. Involuntary Hold Information 96 Hour Hold: 96 Hour Involuntary Admission: No 96 Hour Hold Ending Date: 10/07/21 96 Hour Hold Ending Time: 20:05 Attestations NPU Medical Necessity Statement*: Inpatient hospitalization is medically necessary and the clinically appropriate intervention at this time. We will monitor medications and make changes as indicated. Likely length of stay is 3-5 days. Coding Level of Care Code Acute Financial Report Service Sales Agent for Sunita Ramirezd Diagnoses Acute anxiety F41.9 Suicidal ideation R45.851 Amphetamine use disorder, severe F15.20 Depression F32.A Post-traumatic stress disorder, chronic F43.12 Psychosis F29
[2021-12-23] MEDS: OLANZapine 5 mg ODT PO (17:41)
[2021-12-23] MEDS: paliperidone ER 3 mg Tablet PO (18:36)
[2021-12-23 19:49] VITALS: BP 126/79; PULSE 86; RESP 17; TEMP 36.7; O2SAT 99
[2021-12-23] MEDS: trazodone 50 mg Tablet PO (20:15)
[2021-12-24 06:00] VITALS: RESP 18
[2021-12-24] MEDS: nicotine 21 mg Patch 1 PATCH TRANSDERMA (08:34)
[2021-12-24] MEDS: paliperidone ER 3 mg Tablet PO (08:35)
[2021-12-24] MEDS: OLANZapine 5 mg ODT PO ×3 (09:47→19:07)
[2021-12-24 14:00] VITALS: BP 105/74; PULSE 88; RESP 17; O2SAT 98
[2021-12-24] MEDS: nicotine 2 mg Gum BUCCAL ×2 (14:48→17:18)
--- NOTE | 2021-12-24 16:52 | P.NPUPN_ITS ---
Subjective NPU Subjective: Patient is a 26y.o. white male with methamphetamine dependence admitted with aud itory hallucinations. He continues to report homelessness. Patient reports that he has been having less frequent auditory hallucinations. He reports no side effects from medication. He has been tolerating the Invega with no side effects noted. He continues to isolate himself on the unit spending much of the day Mental Status Exam MSE Comments: This is a thin disheveled white male in hospital scrubs with limited grooming and eye contact. . No abnormal movements except for mild psychomotor agitation. Cooperative with exam in mild distress. Speech was normal rate and volume though somewhat garbled at times with continued periods of thought blocking. Mood described as depressed, affect was blunted.? Thought process, mostly organized, but confused at times with some thought blocking.? Thought content: patient did not express current lethality, no delusions reporte d but did appear to have some overvalued ideas, and did not appear to be attending to internal stimuli. Attention and concentration appeared limited and memory appeared intact but none were formally tested. He is alert and oriented three times. Insight and judgment are limited. Impulse control is impaired. Vitals/I&O/Wt Last Vital Signs Temp 98.0 F 12/23/21 19:49 Pulse 88 12/24/21 14:00 Resp 17 12/24/21 14:00 BP 105/74 12/24/21 14:00 Pulse Ox 98 12/24/21 14:00 Data NPU : 12/20/21 23:30 12/20/21 23:30 A&P Assessment and plan (1) Psychosis: Status: Acute (2) Acute anxiety: Status: Acute (3) Amphetamine use disorder, severe: Status: Acute (4) Post-traumatic stress disorder, chronic: Status: Acute Plan 1) Acute anxiety: (2) Suicidal ideation: (3) Amphetamine use disorder, severe: (4) Depression: (5) Post-traumatic stress disorder, chronic: (6) Psychosis: Plan This is a 26 year old white male who presents with psychotic features and suicidal ideation with a past history of methamphetamine and opiate use who is currently homesless with limited access to psychosocial supports. 1.? Continue Invega 3 mg p.o. daily. 2.? Encourage individual, group and milieu therapy 3.? Continue q-15 minute check for safety 4.? Recommend sober living treatment at the highest level of care to which the patient is willing to commit. Involuntary Hold Information 96 Hour Hold: 96 Hour Involuntary Admission: No 96 Hour Hold Ending Date: 10/07/21 96 Hour Hold Ending Time: 20:05 Attestations NPU Medical Necessity Statement*: Inpatient hospitalization is medically necessary and the clinically appropriate intervention at this time. We will monitor medications and make changes as indicated.? Likely length of stay is 2-3 days. 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
[2021-12-24] MEDS: acetaminophen 325 mg Tablet 650 MG PO (19:05)
[2021-12-24 20:07] VITALS: BP 135/74; PULSE 91; RESP 18; TEMP 36.8; O2SAT 98
[2021-12-24] MEDS: haloperidol 5 mg Tablet PO (20:09)
[2021-12-24] MEDS: trazodone 50 mg Tablet PO (20:09)
--- NOTE | 2021-12-24 20:50 | PC.NURSE ---
HALLUCINATIONS THIS NURSE ENTERED PTS ROOM TO COMPLETE ASSESSMENT AT THE BEGINNING OF THIS SHIFT. PT SAT UP IN BED AND BEGAN LAUGHING LOUDLY. WHEN PT WAS ASK WHAT WAS FUNNY HE CONTINUED TO LAUGH AND STATES, THE VOICES IN MY HEAD, THEY ARE SO FUNNY. PT CONTINUES TO LAUGH AND ASK IF HE COULD HAVE SOMETHING TO HELP WITH THE VOICES. PT WAS GIVEN HALDOL PO, HE WAS GIVEN OLANZAPINE EARLIER. PT DID GET UP AND GO TO THE DAY ROOM FOR A SNACK AND THEN RETURNED TO BED AND IS NOW RESTING.
[2021-12-25 06:00] VITALS: BP 115/69; PULSE 57; RESP 18; TEMP 36.4; O2SAT 97; BMI 19.3
[2021-12-25] MEDS: nicotine 2 mg Gum BUCCAL (07:55)
[2021-12-25] MEDS: paliperidone ER 3 mg Tablet PO (07:56)
[2021-12-25] MEDS: nicotine 21 mg Patch 1 PATCH TRANSDERMA (10:12)
[2021-12-25] MEDS: OLANZapine 5 mg ODT PO ×2 (10:16→15:49)
[2021-12-25] MEDS: acetaminophen 325 mg Tablet 650 MG PO (11:15)
--- NOTE | 2021-12-25 11:18 | P.NPUPN_ITS ---
Subjective NPU Subjective: Patient is a 26y.o. white male with methamphetamine dependence admitted with aud itory hallucinations.? He continues to report homelessness.? Patient reports that he has been having less frequent auditory hallucinations.? He reports no side effects from medication.? He has been tolerating the Invega with no side effects noted. Patient reports that the intensity of hallucinations have been improving but reports multiple voices Mental Status Exam MSE Comments: This is a thin disheveled white male in hospital scrubs with limited grooming and eye contact.? . No abnormal involuntary movements except for mild psychomotor agitation. Cooperative with exam in mild distress. Speech was diminished in rate and diminished volume though somewhat garbled at times with continued? periods of thought blocking. Mood described as depressed, affect was?blunted.? Thought process, mostly organized, but confused at times with some thought blocking.? Thought content: patient did not express current lethality, no delusions reported but did appear to have some overvalued ideas, and did not appear to be attending to internal stimuli. Attention and concentration appeared limited and memory appeared intact but none were formally tested. He is alert and oriented three times. Insight and judgment are limited. Impulse control is impaired. Vitals/I&O/Wt Last Vital Signs Temp 98.1 F 12/25/21 14:00 Pulse 72 12/25/21 14:00 Resp 15 12/25/21 14:00 BP 112/83 12/25/21 14:00 Pulse Ox 98 12/25/21 14:00 Weight last 48 hrs Weight 62.777 kg Weight 62.777 kg Data NPU : 12/20/21 23:30 12/20/21 23:30 A&P Assessment and plan (1) Psychosis: Status: Acute (2) Suicidal ideation: Status: Acute (3) Methamphetamine abuse: Status: Acute Plan This is a 26 year old white male who presents with psychotic features and suicidal ideation with a past history of methamphetamine and opiate use who is currently homesless with limited access to psychosocial supports. 1.? Continue Invega 3 mg p.o. daily. 2.? Encourage individual, group and milieu therapy 3.? Continue q-15 minute check for safety 4.? Recommend sober living treatment at the highest level of care to which the patient is willing to commit. 5. Refer to drug treatment and [facility] outpatient. Involuntary Hold Information 96 Hour Hold: 96 Hour Involuntary Admission: No 96 Hour Hold Ending Date: 10/07/21 96 Hour Hold Ending Time: 20:05 Attestations NPU Medical Necessity Statement*: Inpatient hospitalization is medically necessary and the clinically appropriate intervention at this time. We will monitor medications and make changes as indicated.? Likely length of stay is 2-3 days. 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
[2021-12-25 14:00] VITALS: BP 112/83; PULSE 72; RESP 15; TEMP 36.7; O2SAT 98
[2021-12-25] MEDS: haloperidol 5 mg Tablet PO (17:22)
[2021-12-25] MEDS: hyDROXYzine 25 mg Capsule 50 MG PO (17:22)
--- NOTE | 2021-12-25 17:24 | PC.NURSE ---
Administered Haldol 5mg and 50mg vistaril, for pt endorsing auditory hallucinations and voices.
[2021-12-25] MEDS: LORazepam 2 mg/mL INJ 1 mL IM (19:36)
[2021-12-25] MEDS: haloperidol inj 5 mg/mL INJ 1 mL IM (19:36)
[2021-12-25] MEDS: diphenhydrAMINE 50 mg/mL SDV 1mL IM (19:36)
--- NOTE | 2021-12-25 19:36 | PC.NURSE ---
Administered a B52 shot to pt experiencing ANxiety, aggression, and AH.
[2021-12-25 20:01] VITALS: BP 128/81; PULSE 88; RESP 20; O2SAT 99
[2021-12-26 06:00] VITALS: BP 104/66; PULSE 72; RESP 18; TEMP 36.6; O2SAT 99
[2021-12-26] MEDS: paliperidone ER 3 mg Tablet PO (08:44)
[2021-12-26] MEDS: nicotine 2 mg Gum BUCCAL (08:44)
--- NOTE | 2021-12-26 08:58 | PC.NURSE ---
UP THIS AM EATING BREAKFAST. MILD ANXIETY NOTED. REPORTS HE SLEPT WELL. DENIES PAIN. DENIES SI/HI AND VH AT THIS TIME. DOES ENDORSE AUDITORY HALLUCINATIONS. STATES VOICES ARE WORSE AT NIGHT, BUT THEY ARE BETTER NOW. PT STATES VOICES ARE CHATTERING, NON COMMANDING AT THIS POINT. PT IS ANXIOUS ABOUT DISCHARGE AND WANTS TO KNOW ABOUT GOING TO THE TRANSITIONAL HOUSE HE APPLIED FOR. INFORMED PT HE WOULD NEED TO SPEAK TO FAMILY LIVING EDUCATOR TOMORROW WHEN THEY ARE IN. PT AGREED. SUPPORT VOICED.
[2021-12-26] MEDS: hyDROXYzine 25 mg Capsule 50 MG PO (10:33)
[2021-12-26] MEDS: nicotine 21 mg Patch 1 PATCH TRANSDERMA (10:33)
--- NOTE | 2021-12-26 10:40 | P.NPUPN_ITS ---
Subjective NPU Subjective: Patient is a 26y.o. white male with methamphetamine dependence admitted with aud itory hallucinations, he spoke with psychiatric social worker supervisor today about possible placement at [facility] as a fdc to help him upon discharge. Patient reports feeling better today and reports auditory hallucinations have been quieter with reports hallucinations have decreased in intensity. He reports no side effects from medication.? He has been tolerating the Invega with no side effects noted. Patient reports that the intensity of hallucinations have been improving but reports multiple voices. He continues to isolate self. He reports no thoughts of hurting himself or others. He remains somewhat isolative on the unit with continued evidence of abulia. Mental Status Exam MSE Comments: This is a thin disheveled white male in hospital scrubs with limited grooming and eye contact.? No abnormal involuntary movements except for mild psychomotor retardation. Cooperative with exam in mild distress as he appeared annoyed at having to speak with the handbook writer. Speech was diminished in? rate and diminished? volume though far less garbled at times and decreased thought blocking. Mood described okay today. , affect remained blunted.? Thought process, mostly organized and goal oriented today. Thought content: patient did not express current lethality, no delusions thinking and did not appear to be attending to internal stimuli. Attention and concentration appeared limited. He is alert and oriented three times. Insight and judgment are limited. Impulse control appeared better. Vitals/I&O/Wt Last Vital Signs Temp 97.9 F 12/26/21 13:58 Pulse 79 12/26/21 13:58 Resp 16 12/26/21 13:58 BP 129/76 12/26/21 13:58 Pulse Ox 99 12/26/21 13:58 Weight last 48 hrs Weight 62.777 kg Weight 62.777 kg Data NPU : 12/20/21 23:30 12/20/21 23:30 A&P Assessment and plan (1) Methamphetamine abuse: Status: Acute (2) Psychosis: Status: Acute (3) Depression with suicidal ideation: Status: Acute Plan This is a 26 year old white male who presents with psychotic features and suicidal ideation with a recent history of methamphetamine and opiate use who is currently homesless with limited access to psychosocial supports. 1.? Continue Invega 3 mg p.o. daily. 2.? Encourage individual, group and milieu therapy 3.? Continue q-15 minute check for safety 4.? Recommend sober living treatment at the highest level of care to which the patient is willing to commit. 5. Refer to drug treatment and [facility] outpatient.?Referral for [facility] Involuntary Hold Information 96 Hour Hold: 96 Hour Involuntary Admission: No 96 Hour Hold Ending Date: 10/07/21 96 Hour Hold Ending Time: 20:05 Attestations NPU Medical Necessity Statement*: Inpatient hospitalization is medically necessary and the clinically appropriate intervention at this time. We will monitor medications and make changes as indicated.? Likely length of stay is 2-3 days. 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
--- NOTE | 2021-12-26 11:44 | PC.NURSE ---
PRN MED PT GIVEN 50MG VISTARIL FOR STATED ANXIETY, WILL CONTINUE TO MONITOR.
[2021-12-26 13:58] VITALS: BP 129/76; PULSE 79; RESP 16; TEMP 36.6; O2SAT 99
[2021-12-26] MEDS: acetaminophen 325 mg Tablet 650 MG PO (15:31)
[2021-12-26] MEDS: OLANZapine 5 mg ODT PO (15:50)
[2021-12-26] MEDS: calcium carbonate 500 mg Chew Tablet PO (15:54)
[2021-12-26] MEDS: diphenhydrAMINE 50 mg/mL SDV 1mL IM (17:38)
[2021-12-26] MEDS: LORazepam 2 mg/mL INJ 1 mL IM (17:39)
[2021-12-26] MEDS: haloperidol inj 5 mg/mL INJ 1 mL IM (17:39)
--- NOTE | 2021-12-26 17:44 | PC.NURSE ---
PRN MED PT GIVEN 5MG HALDOL IM, 2MG ATIVAN IM & 50mg BENADRYL IM FOR STATED AGITATION, ANXIETY, AND STATED IM ABOUT TO BLOW UP!, WILL CONTINUE TO MONITOR.
[2021-12-26 22:00] VITALS: RESP 17
[2021-12-27] MEDS: hyDROXYzine 25 mg Capsule 50 MG PO (04:10)
--- NOTE | 2021-12-27 04:11 | PC.NURSE ---
Pt came to desk stating... i didn't get my medicine last night! When asked what medicine he was talking about, pt stated my trazodone. no one gave me my sleeping medicine. Pt was advised that said medication is given as needed and has to asked for. Pt was asleep when this shift began at 1900 last evening, until just now. Pt requested med be given now and was educated that said med can not be given after 0200. Pt then requested a snack and coffee. again pt educated that coffee can not be given before 0600. Pt was given a snack and milk, and vistaril 50mg po for anxiety.
[2021-12-27 06:00] VITALS: BP 107/61; PULSE 76; RESP 17; TEMP 36.6; O2SAT 96
[2021-12-27] MEDS: OLANZapine 5 mg ODT PO ×2 (08:22→14:02)
[2021-12-27] MEDS: nicotine 21 mg Patch 1 PATCH TRANSDERMA (08:22)
[2021-12-27] MEDS: paliperidone ER 3 mg Tablet PO (08:22)
--- NOTE | 2021-12-27 08:44 | PC.NURSE ---
UP IN HALLWAY AMBULATING. REPORTS ANXIETY. MED NURSE TO ADMINISTER ANXIETY MEDICATION ORDERED. DENIES PAIN. DENIES SI/HI AND VH AT THIS TIME. CONTINUES TO ENDORSE AUDITORY HALLUCINATIONS BUT STATES THEY ARE GETTING BETTER, I'M HEARING THEM LESS NOW. SUPPORT VOICED.
--- NOTE | 2021-12-27 12:16 | W.PM.NPUDCS ---
Diagnoses at Discharge Discharge Diagnosis (1) Methamphetamine abuse: Status: Acute (2) Psychosis: Status: Acute (3) Depression with suicidal ideation: Status: Acute Reason for Visit Reason for Visit: SI Involuntary Hold Information 96 Hour Hold: 96 Hour Involuntary Admission: No 96 Hour Hold Ending Date: 10/07/21 96 Hour Hold Ending Time: 20:05 Discharge Data Studies Completed and Pending: Laboratory Results WBC 8.3 10^3/uL (4.0- 10.0) 12/20/21 23:30 RBC 4.36 10^6/uL (4.1 -5.3) 12/20/21 23:30 Hgb 12.6 g/dL (11.7-1 6.6) 12/20/21 23: Hct 36.9 % (42.0-52.0 ) L 12/20/21 23: MCV 84.6 fl (80-94) 12/20/21 23: MCH 28.9 pg (28.0-34. 0) 12/20/21 23: MCHC 34.1 g/dL (30.0-3 6.0) 12/20/21 23: RDW 13.2 % (12.1-15.1 ) 12/20/21 23: Plt Count 270 10^3/cmm (130 -400) 12/20/21 23:30 MPV 9.2 fL (7.4-10.4) 12/20/21 23:30 Neut % (Auto) 64.5 % 12/20/21 23:30 Lymph % (Auto) 25.2 % 12/20/21 23:30 Wood % (Auto) 9.3 % 12/20/21 23:30 Eos % (Auto) 0.4 % 12/20/21 23:30 Baso % (Auto) 0.2 % 12/20/21 23:30 Neut # (Auto) 5.37 10^3/uL (1.8 -7.7) 12/20/21 23: Lymph # (Auto) 2.1 10^3/uL (0.8- 4.8) 12/20/21 23:30 Wood # (Auto) 0.8 10^3/uL (0.2- 0.9) 12/20/21 23:30 Eos # (Auto) 0.0 10^3/uL (0.0- 0.8) 12/20/21 23:30 Baso # (Auto) 0.0 10^3/uL (0.0- 0.1) 12/20/21 23: Nucleated RBC % (a uto) 0 % 12/20/21 23: Nucleated RBCs # 0.0 /100WBC 12/20/21 23:30 Sodium 140 mmol/L (136-1 45) 12/20/21 23: Potassium 4.4 mmol/L (3.5-5 .1) 12/20/21: Chloride 104 mmol/L (98-10 7) 12/20/21: Carbon Dioxide 26 mmol/L (22-29) 12/20/21: Anion Gap 14.4 (5-19) 12/20/21: BUN 11 mg/dL (6-20) 12/20/21: Creatinine 0.8 mg/dL (0.7-1. 2) 12/20/21: GFR Calculation 115.1 mL/min (90- 130) 12/20/21: Glucose 98 mg/dL (65-115) 12/20/21 23:30 Calculated Osmolal ity 289 mOsm/kg (285- 295) 12/20/21: Calcium 8.9 mg/dL (8.5-10 .5) 12/20/21:30 Total Bilirubin 0.3 mg/dL (0.15-1 .2) 12/20/21: AST 12 U/L (0-40) 12/20/21: ALT 9 U/L (0-41) 12/20/21 23:30 Alkaline Phosphata se 113 IU/L (40-130) 12/20/21: Total Protein 6.9 g/dL (6.6-8.7 ) 12/20/21: Albumin 4.8 g/dL (3.5-5.2 ) 12/20/21: Globulin 2.1 g/dL (1.3-4.6 ) 12/20/21 23:30 Salicylates < 0.3 mg/dL (3-10 ) L 12/20/21 23: Urine Opiates Scre en Negative ng/mL (N egative) 12/21/21 00:06 Acetaminophen < 5.0 ug/mL (10-3 0) L 12/20/21 23:30 Ur Barbiturates Sc reen Negative ng/mL (N egative) 12/21/21 00:06 Ur Phencyclidine S crn Negative ng/mL (N egative) 12/21/21 00:06 Ur Amphetamines Sc reen Negative ng/mL (N egative) 12/21/21 00:06 U Benzodiazepines Scrn Negative ng/mL (N egative) 12/21/21 00:06 Urine Cocaine Scre en Negative ng/mL (N egative) 12/21/21 00:06 U Marijuana (THC) Screen Negative ng/mL (N egative) 12/21/21 00:06 Ethyl Alcohol < 10 mg/dL (0-10) 12/20/21 23:30 Vitals: Last Vital Signs Temp 98 F 12/27/21 06:00 Pulse 76 12/27/21 06:00 Resp 17 12/27/21 06:00 BP 107/61 12/27/21 06:00 Pulse Ox 96 12/27/21 06:00 Discharge Plan Discharge Patient Disposition: Home Condition: Stable Prescriptions: No Action methadone 40 mg Tablet,Soluble 40 mg PO DAILY 0RF Label Comments: pt states he gets this medication from [facility] [phone] called fluoxetine [Prozac] 20 mg capsule 20 mg PO DAILY Qty: 30 0RF risperidone 3 mg tablet 3 mg PO DAILY Qty: 30 0RF hydroxyzine pamoate [Vistaril] 50 mg capsule 50 mg PO Q8H PRN (Reason: acute anxiety) Qty: 10 0RF celecoxib [Celebrex] 100 mg capsule 100 mg PO BID Qty: 20 0RF [facility] [Other] [facility] [Other] [facility] [Other] - 12/27/21 Mike Sherman MD [Primary Care Provider] - Patient Instructions: Opioid Safety Coding Level of Care Code Acute g FW DC note Diagnoses Methamphetamine abuse F15.10 Psychosis F29 Depression with suicidal ideation F32.A; R45.851
--- NOTE | 2021-12-27 13:42 | W.PM.NPUDCS ---
Diagnoses at Discharge Discharge Diagnosis (1) Methamphetamine abuse: Status: Acute (2) Psychosis: Status: Acute (3) Depression with suicidal ideation: Status: Acute Reason for Visit Reason for Visit: SI Brief History: Tyree Alvarez is a 26 year old male who presented to the emergency department with the following report: Chief Complaint: Psychiatric Symptoms Stated Complaint: SI Time Seen by Provider: 12/20/21 23:43 Source: patient and EMS Mode of arrival: EMS Limitations: no limitations History of Present Illness:?? 26-year-old male who is well-known to ER has a history of homelessness with multiple psych issues.? He states that tonight he has been hearing voices and having suicidal thoughts.? He has no specific plan but he states he is had increasing depression with suicidality.? He denies any worsening improving factors denies any current suicide attempts. Associated symptoms: Reports depression He presents to the hospital secondary to suicidal thoughts. The patient is a 26 year old single white male with a history of psychosis and methamphetamine abuse who reports that he has been feeling depressed and suicidal for years. He reports he has been homeless and has been unable to get a job due to active voices which distract him throughout the day. He reports hearing male and female voices making statements telling him to harm himself. He reports the voices have not ?shut off?. He reports he had not used methamphetamine in a few days. He reports he has been depressed with feelings of hopelessness as he states he has no family support. He endorses having problems with his anger. He was unable to answer questions regarding any history of manic symptoms. He denied any symptoms of anxiety. He reports a past history of opiate abuse and has not been on methadone for 3 to 4 months. He reports numerous psychiatric inpatient hospitalizations but was unable to recall the dates or lengths of stay. He reports having received outpatient treatment for many years and recalls being on a variety of antipsychotics including Risperdal, Abilify and Seroquel. He reports an extensive substance abuse history including having been treated at [facility] for methadone treatment approximately 3 to 4 months ago. He reports having engaged in intranasal opiate use at the age of 14 and reports having used methamphetamine for years beginning in high school. He also reports occasional alcohol use. Psychiatric History: As above. Substance Abuse History: As above Family History: He did not report on his family history for mental health, addiction or lethality issues. Developmental History: He did not report any issues with his or developmental delays and did not report receiving speech therapy, learning support, emotional support or special education classes. Psychosocial History: He reports he lives in [place] on some property that has no reasonable heat or electricity. He states he has been homeless effectively for 2 years. He reports he was abandoned by his family and states having a tumultuous childhood but did not report any emotional, physical or sexual abuse. He reports having 3 sisters but reports his parents have disowned him. He graduated high school and attended some college. He has never been and does not have any children. He did not report any gnosticist belief system. Legal History: He reports some legal issues. Medical History: Denied. Meds NPU Home Medications ?Medication ?Instructions ?Recorded ?Confirmed ?Last Taken ?Type fluoxetine 20 mg c apsule (Prozac) 20 mg PO DAILY #3 0 cap 10/07/21 12/21/21 Unknown Rx methadone 40 mg so luble tablet 40 mg PO DAILY 10/07/21 12/21/21 6 Days Ago History ? ~10/01/21 ? risperidone 3 mg t ablet 3 mg PO DAILY #30 tab 10/07/21 12/21/21 Unknown Rx celecoxib 100 mg c apsule (Celebrex)D 100 mg PO BID #20 cap 10/16/21 12/21/21 Unknown Rx hydroxyzine pamoat e 50 mg capsule 50 mg PO Q8H PRN #10 cap 12/18/21 12/21/21 Unknown Rx (Vistaril) ? Allergies Allergy/AdvReac Type Severity Reaction Status Date / Time No Known Allergies Allergy ? ? Verified 10/17/21 12:41 PFSH NPU PFSH:?? Medical History?(R myron 12/20/21 @ 23:50 by Mimi ballard MD) Alcohol use disorder, andrea re, dependence Amp hetamine use disor sameer, severe GERD ( gastroesophageal r eflux disease) Hep atitis C History o f hepatitis C Rubi henri with only one month of Epclusa.? Despite that, he seems to have SVR. ? Recheck in one y earHistory of lowe r leg fracture Ins omnia Kidney stone Positive hepatiti s C antibody test Severe dental danny es ? Family Histo ry?(Reviewed 12/20 @ 23:50 by Rashmi Bailon MD) Gran dmother CancerMoth er DiabetesHeart d isease ? Social Hi story?(Reviewed @ 23:50 by Mimi Bailon MD) A lcohol intake:? cu rrent Alcohol inta ke frequency: few times a month Alco hol type: beer Mar ital status:? Sing le Number of child ajit:? 1 Current oc cupational status: ? employed History of recent travel: ? No ? Hospital Course Hospital Course Patient was admitted to the NPU voluntarily for further treatment. He had admitted to significant methamphetamine use and had reported that he was homeless while living in a situation that was less than optimal for following up with outpatient treatment. He had initially appeared isolative and stayed in his room for the initial few days of hospitalization. He was then started on Invega at 3 mg daily with significant improvement noted in regards to his psychotic symptoms. During the hospitalization the patient had routine laboratory studies which were within normal limits except for a few outliers additionally there was a general medical evaluation which was also within normal limits revealed no acute processes. At the time of discharge, lethality was denied and psychosis appear to be resolving. His mood and anxiety were now well managed. Patient had endorsed a plan to avoid all drugs of abuse and follow-up with the aftercare recommendations of the treatment team. Patient was evaluated and deemed to be absent of any credible lethality. He also achieved maximum benefit from inpatient hospitalization and thereby was discharged. Involuntary Hold Information 96 Hour Hold: 96 Hour Involuntary Admission: No 96 Hour Hold Ending Date: 10/07/21 96 Hour Hold Ending Time: 20:05 Mental Status Exam MSE Comments: This is a thin disheveled white male in hospital scrubs with limited grooming and eye contact.? No abnormal involuntary movements except for mild psychomotor retardation. Cooperative with exam in mild distress as he appeared annoyed at having to speak with the life underwriter.? Speech was normal in regards to rate and ? volume though far less? garbled at times with decreased thought blocking.? Mood described as better.?His affect remained restricted. ? Thought process, mostly organized and goal oriented today.? ? Thought content: patient did not express current lethality, no delusions thinking? and did not appear to be attending to internal stimuli. Attention and concentration appeared limited. He is alert and oriented three times. Insight and judgment are limited. Impulse control appeared better.? Discharge Data Studies Completed and Pending: Laboratory Results WBC 8.3 10^3/uL (4.0- 10.0) 12/20/21 23:30 RBC 4.36 10^6/uL (4.1 -5.3) 12/20/21 23:30 Hgb 12.6 g/dL (11.7-1 6.6) 12/20/21 23: Hct 36.9 % (42.0-52.0 ) L 12/20/21 23: MCV 84.6 fl (80-94) 12/20/21 23: MCH 28.9 pg (28.0-34. 0) 12/20/21: MCHC 34.1 g/dL (30.0-3 6.0) 12/20/21 23: RDW 13.2 % (12.1-15.1 ) 12/20/21: Plt Count 270 10^3/cmm (130 -400) 12/20/21 23: MPV 9.2 fL (7.4-10.4) 12/20/21 23:30 Neut % (Auto) 64.5 % 12/20/21 23:30 Lymph % (Auto) 25.2 % 12/20/21 23:30 [place] % (Auto) 9.3 % 12/20/21 23:30 Eos % (Auto) 0.4 % 12/20/21 23:30 Baso % (Auto) 0.2 % 12/20/21 23:30 Neut # (Auto) 5.37 10^3/uL (1.8 -7.7) 12/20/21 23:30 Lymph # (Auto) 2.1 10^3/uL (0.8- 4.8) 12/20/21 23:30 [place]oux # (Auto) 0.8 10^3/uL (0.2- 0.9) 12/20/21 23:30 Eos # (Auto) 0.0 10^3/uL (0.0- 0.8) 12/20/21 23:30 Baso # (Auto) 0.0 10^3/uL (0.0- 0.1) 12/20/21 23:30 Nucleated RBC % (a uto) 0 % 12/20/21 23:30 Nucleated RBCs # 0.0 /100WBC 12/20/21 23:30 Sodium 140 mmol/L (136-1 45) 12/20/21 23:30 Potassium 4.4 mmol/L (3.5-5 .1) 12/20/21 23:30 Chloride 104 mmol/L (98-10 7) 12/20/21 23:30 Carbon Dioxide 26 mmol/L (22-29) 12/20/21 23:30 Anion Gap 14.4 (5-19) 12/20/21 23:30 BUN 11 mg/dL (6-20) 12/20/21 23:30 Creatinine 0.8 mg/dL (0.7-1. 2) 12/20/21 23:30 GFR Calculation 115.1 mL/min (90- 130) 12/20/21 23:30 Glucose 98 mg/dL (65-115) 12/20/21 23:30 Calculated Osmolal ity 289 mOsm/kg (285- 295) 12/20/21 23:30 Calcium 8.9 mg/dL (8.5-10 .5) 12/20/21 23:30 Total Bilirubin 0.3 mg/dL (0.15-1 .2) 12/20/21 23:30 AST 12 U/L (0-40) 12/20/21 23:30 ALT 9 U/L (0-41) 12/20/21 23:30 Alkaline Phosphata se 113 IU/L (40-130) 12/20/21 23:30 Total Protein 6.9 g/dL (6.6-8.7 ) 12/20/21 23:30 Albumin 4.8 g/dL (3.5-5.2 ) 12/20/21 23:30 Globulin 2.1 g/dL (1.3-4.6 ) 12/20/21 23:30 Salicylates < 0.3 mg/dL (3-10 ) L 12/20/21 23:30 Urine Opiates Scre en Negative ng/mL (N egative) 12/21/21 00:06 Acetaminophen < 5.0 ug/mL (10-3 0) L 12/20/21 23:30 Ur Barbiturates Sc reen Negative ng/mL (N egative) 12/21/21 00:06 Ur Phencyclidine S crn Negative ng/mL (N egative) 12/21/21 00:06 Ur Amphetamines Sc reen Negative ng/mL (N egative) 12/21/21 00:06 U Benzodiazepines Scrn Negative ng/mL (N egative) 12/21/21 00:06 Urine Cocaine Scre en Negative ng/mL (N egative) 12/21/21 00:06 U Marijuana (THC) Screen Negative ng/mL (N egative) 12/21/21 00:06 Ethyl Alcohol < 10 mg/dL (0-10) 12/20/21 23:30 Vitals: Last Vital Signs Temp 98 F 12/27/21 15:48 Pulse 78 12/27/21 15:48 Resp 17 12/27/21 15:48 BP 129/82 12/27/21 15:48 Pulse Ox 96 12/27/21 15:48 Discharge Plan Discharge Patient Disposition: Home Condition: Stable Prescriptions: New paliperidone 3 mg Tablet Extended Release 24hr 3 mg PO DAILY 30 Days Qty: 30 1RF Continued methadone 40 mg Tablet,Soluble 40 mg PO DAILY 0RF Label Comments: pt states he gets this medication from [facility] [phone] called hydroxyzine pamoate [Vistaril] 50 mg capsule 50 mg PO Q8H PRN (Reason: acute anxiety) Qty: 10 0RF celecoxib [Celebrex] 100 mg capsule 100 mg PO BID Qty: 20 0RF Discontinued fluoxetine [Prozac] 20 mg capsule 20 mg PO DAILY Qty: 30 0RF risperidone 3 mg tablet 3 mg PO DAILY Qty: 30 0RF Discharge Orders: Discharge Order (Routine); Ordered 12/27/21 Ordered By: Jerod Vaughn [facility]errals: [facility] [Other] [facility] [Other] - 2 weeks (Daisy Linares will call to establish a shear setter. Call her within two weeks if you do not get a call.) [facility] [Other] [facility] [Other] [facility] [Other] Mike Sherman MD [Primary Care Provider] - Discharge Diet: Advance as tolerated Discharge Activity: Resume usual activity Patient Instructions: Depression (DC), Suicide Prevention (DC), Opioid Safety Activity Restrictions/Additional Instructions: Patient not deemed to be candidate for [facility] as they had denied the right for Tyree to remain on his psychotropic while residing there for treatment. The plan on discharge was for patient to consider [facility] instead. Discharge Attestations NPU Time Spent in Discharge Care*: less than 30 min Specific Discharge Activities: Specific discharge activities: educating patient, educating and/or supporting family/caregiver, discussing with supportive employment case manager/social workers/dc planners, documenting/other paperwork and evaluating patient/reviewing data Status at Discharge: Cognitive status at discharge: cognitively intact, Behavioral status at discharge: cooperative, Functional status at discharge: independent ambulation Coding Level of Care Code Established Pt Acute Chg FW DC note Patient Type Established History Problem Focused Exam Problem Focused Medical Decision Making Straight Forward Diagnoses Methamphetamine abuse F15.10 Psychosis F29 Depression with suicidal ideation F32.A; R45.852
[2021-12-27 14:00] VITALS: BP 129/82; PULSE 106; RESP 17; TEMP 36.6; O2SAT 96
--- NOTE | 2021-12-27 14:06 | PC.NURSE ---
PT IS UPSET DUE TO NOT BEING DISCHARGED. OUTPATIENT SCHEDULER ATTEMPTING TO COLLECT INFORMATION AND APPLICATIONS FOR SOBER LIVING HOUSES. PT HAS BEEN VERBALLY REDIRECTED SERVERAL TIMES WITH POSITIVE OUTCOMES.
[2021-12-27 15:48] VITALS: BP 129/82; PULSE 78; RESP 17; TEMP 36.6; O2SAT 96
--- NOTE | 2021-12-27 15:59 | PC.NURSE ---
DISCHARGE NOTE DISCHARGE COMPLETED AND EDUCATION ON INVEGA GIVEN TO PT. THIS RN GAVE PT NUMBERS TO [employer], [employer] AND [employer]. PT APPRECIATIVE OF INFORMATION. LEFT WITH DAD BY POV TO [facility]. ALL QUESTIONS ANSWERED AND SUPPORT VOICED. LEFT WITH ALL BELONGINGS AND CELL PHONE.
== END 2021-12-27 15:59 | disposition home or self-care (01) | DRG 885 ==
LOC: ER 12-21 00:28 → NP 12-21 23:21 → ER IP 12-22 07:57
PROVIDERS: Admitting Provider Psychiatry & Neurology Psychiatry; Emergency Provider Emergency Medicine; PCP Family Medicine Adult Medicine; Visit Provider Psychiatry & Neurology Psychiatry
DX: F29 Unspecified psychosis not due to a substance or known physiological condition (principal); R45.851 Suicidal ideations; F41.9 Anxiety disorder, unspecified; Z59.00 Homelessness unspecified; F32.A Depression, unspecified; F10.20 Alcohol dependence, uncomplicated; F15.10 Other stimulant abuse, uncomplicated; K21.9 Gastro-esophageal reflux disease without esophagitis; Z86.19 Personal history of other infectious and parasitic diseases; F43.12 Post-traumatic stress disorder, chronic
CPT/HCPCS: 80053; 80306; 80307; 85025; 96372; 97165; 99285; J1200; J1630; J2060

== ENCOUNTER 2021-12-28 07:33 | Emergency (ER) | payer MEDICAID, SELFPAY ==
[2021-12-28 08:15] VITALS: BP 148/72; PULSE 100; RESP 16; TEMP 36.3; O2SAT 99; BMI 18.6
--- NOTE | 2021-12-28 08:35 | W.ED.PSYCHS ---
HPI - Psych General: Chief Complaint: Psychiatric Symptoms Stated Complaint: GENERAL WEAKNESS X 3 HOURS Time Seen by Provider: 12/28/21 08:27 History of Present Illness: 26-year-old presents due to suicidal and homicidal ideation. States he plans to hang himself and also kill his parents but is not specific about how. Does report remote drug use but denies recent drug use. Reports small amount of low back pain since yesterday. Denies any recent IV drug use. Denies any fevers or chills. Denies any recent trauma. Denies any urinary or fecal incontinence or retention. States he is here mainly for the suicidal ideation. Review of Systems Narrative: - CONSTITUTIONAL: Denies weight loss, fever and chills. - HEENT: Denies changes in vision and hearing. - RESPIRATORY: Denies SOB and cough. - CV: Denies palpitations and CP. - GI: Denies abdominal pain, nausea, vomiting and diarrhea. - : Denies dysuria and urinary frequency. - MSK: Denies myalgia and joint pain. - SKIN: Denies rash and pruritus. - NEUROLOGICAL: Denies headache, weakness, numbness and syncope. - PSYCHIATRIC: As above PFS ED PFSH: Medical History Alcohol use disorder, severe, dependence Amphetamine use disorder, severe GERD (gastroesophageal reflux disease) Hepatitis C History of hepatitis C Treated with only one month of Epclusa. Despite that, he seems to have SVR. Recheck in one year History of lower leg fracture Insomnia Kidney stone Positive hepatitis C antibody test Severe dental caries Family History Grandmother Cancer Mother Diabetes Heart disease Social History Alcohol intake: current Alcohol intake frequency: few times a month Alcohol type: beer Marital status: Single Number of children: 1 Current occupational status: employed History of recent travel: No Physical Exam Narrative: EXAM NARRATIVE: - GENERAL: Alert and oriented x 3. No acute distress. Well-nourished. - EYES: EOMI. Anicteric. - HENT: Atraumatic, no C-spine tenderness. Moist mucous membranes. No scleral icterus. No cervical lymphadenopathy. - LUNGS: Clear to auscultation bilaterally. No accessory muscle use. Equal lung sounds bilaterally. No respiratory distress. - CARDIOVASCULAR: Regular rate and rhythm. No murmur. No JVD. - ABDOMEN: Soft, non-tender and non-distended. Negative CVA tenderness bilaterally, no rebound or guarding, negative Abbott sign. No palpable masses. - EXTREMITIES: No edema. Non-tender. - SKIN: No rashes or lesions. Warm. - NEUROLOGIC: No back tenderness to palpation. No saddle anesthesia, lower extremity strength sensation reflexes intact. No meningismus or focal neurological deficits. CN II-XII grossly intact. - PSYCHIATRIC: Suicidal and homicidal ideation Course Vital Signs: Vital signs: Vital Signs Temperature 97.8 F 12/28/21 15:15 Pulse Rate 90 12/28/21 15:15 Respiratory Rate 18 12/28/21 15:15 Blood Pressure 121/77 12/28/21 15:15 Pulse Oximetry 97 12/28/21 15:15 [facility] - Psych Medical Decision Making 26-year-old presents due to suicidal ideation. Also reports homicidal ideation. He was seen here recently for similar complaints. Lab work unremarkable. Does complain of some mild back pain with his nonfocal neurologic exam. No signs of recent trauma. Denies any recent IV drug use and does not have any fever. Do not see any sign of cord compression or spinal epidural abscess and do not believe MRI is required at this time. Discussed with psychiatry specifically and the psychiatrist who discharged him yesterday came to see him at bedside. Per psychiatry they will deliver his medications directly to him in the ER and following this he will be discharged. They do not believe to be danger to himself or others. They have already taken precautions based off of his identical previous complaints of suicidal ideation and homicidal ideation towards his parents. At this time I believe patient would be safe for discharge and outpatient follow-up. Return precautions provided. Plan was reviewed with the patient who expressed understanding. Questions answered. Patient will follow up with psychiatry and PCP. Patient discharged in stable condition. Lab Data : 12/28/21 08:53 12/28/21 08:53 Laboratory Results WBC 12.3 10^3/uL (4.0-10.0) H 12/28/21 08:53 RBC 4.36 10^6/uL (4.1-5.3) 12/28/21 08:53 Hgb 12.9 g/dL (11.7-16.6) 12/28/21 08:53 Hct 37.4 % (42.0-52.0) L 12/28/21 08:53 MCV 85.8 fl (80-94) 12/28/21 08:53 MCH 29.6 pg (28.0-34.0) 12/28/21 08:53 MCHC 34.5 g/dL (30.0-36.0) 12/28/21 08:53 RDW 13.6 % (12.1-15.1) 12/28/21 08:53 Plt Count 267 10^3/cmm (130-400) 12/28/21 08:53 MPV 9.2 fL (7.4-10.4) 12/28/21 08:53 Neut % (Auto) 65.1 % 12/28/21 08:53 Lymph % (Auto) 18.4 % 12/28/21 08:53 [place] % (Auto) 10.6 % 12/28/21 08:53 Eos % (Auto) 0.6 % 12/28/21 08:53 Baso % (Auto) 0.3 % 12/28/21 08:53 Neut # (Auto) 8.01 10^3/uL (1.8-7.7) H 12/28/21 08:53 Lymph # (Auto) 2.3 10^3/uL (0.8-4.8) 12/28/21 08:53 [place] # (Auto) 1.3 10^3/uL (0.2-0.9) H 12/28/21 08:53 Eos # (Auto) 0.1 10^3/uL (0.0-0.8) 12/28/21 08:53 Baso # (Auto) 0.0 10^3/uL (0.0-0.1) 12/28/21 08:53 Nucleated RBC % (auto) 0 % 12/28/21 08:53 Nucleated RBCs # 0.0 /100WBC 12/28/21 08:53 Sodium 135 mmol/L (136-145) L 12/28/21 08:53 Potassium 4.6 mmol/L (3.5-5.1) 12/28/21 08:53 Chloride 98 mmol/L (98-107) 12/28/21 08:53 Carbon Dioxide 26 mmol/L (22-29) 12/28/21 08:53 Anion Gap 15.6 (5-19) 12/28/21 08:53 BUN 15 mg/dL (6-20) 12/28/21 08:53 Creatinine 0.6 mg/dL (0.7-1.2) L 12/28/21 08:53 GFR Calculation 160.4 mL/min (90-130) H 12/28/21 08:53 Glucose 93 mg/dL (65-115) 12/28/21 08:53 Calculated Osmolality 281 mOsm/kg (285-295) L 12/28/21 08:53 Calcium 9.2 mg/dL (8.5-10.5) 12/28/21 08:53 Total Bilirubin 0.2 mg/dL (0.15-1.2) 12/28/21 08:53 AST 58 U/L (0-40) H 12/28/21 08:53 ALT 44 U/L (0-41) H 12/28/21 08:53 Alkaline Phosphatase 112 IU/L (40-130) 12/28/21 08:53 Total Protein 7.3 g/dL (6.6-8.7) 12/28/21 08:53 Albumin 4.7 g/dL (3.5-5.2) 12/28/21 08:53 Globulin 2.6 g/dL (1.3-4.6) 12/28/21 08:53 TSH 2.46 uIU/mL (0.27-4.20) 12/28/21 08:53 Urine Color Yellow (Yellow) 12/28/21 08:45 Urine Appearance Clear (CLEAR) 12/28/21 08:45 Urine pH 6 (5-7) 12/28/21 08:45 Ur Specific [place] 1.020 (1.005-1.030) 12/28/21 08:45 Urine Protein Neg (Negative) 12/28/21 08:45 Urine Glucose (UA) Norm (Normal) 12/28/21 08:45 Urine Ketones Negative (Negative) 12/28/21 08:45 Urine Blood Neg (Negative) 12/28/21 08:45 Urine Nitrate Negative (Negative) 12/28/21 08:45 Urine Bilirubin Neg (Negative) 12/28/21 08:45 Urine Urobilinogen Norm mg/dL (Negative) 12/28/21 08:45 Ur Leukocyte Esterase Negative (Negative) 12/28/21 08:45 Salicylates < 0.3 mg/dL (3-10) L 12/28/21 08:53 Urine Opiates Screen Negative ng/mL (Negative) 12/28/21 08:45 Acetaminophen < 5.0 ug/mL (10-30) L 12/28/21 08:53 Ur Barbiturates Screen Negative ng/mL (Negative) 12/28/21 08:45 Ur Phencyclidine Scrn Negative ng/mL (Negative) 12/28/21 08:45 Ur Amphetamines Screen Negative ng/mL (Negative) 12/28/21 08:45 U Benzodiazepines Scrn Positive ng/mL (Negative) H 12/28/21 08:45 Urine Cocaine Screen Negative ng/mL (Negative) 12/28/21 08:45 U Marijuana (THC) Screen Negative ng/mL (Negative) 12/28/21 08:45 Discharge Plan Discharge Condition: Stable Prescriptions: No Action methadone 40 mg Tablet,Soluble 40 mg PO DAILY 0RF Label Comments: pt states he gets this medication from [facility] [phone] called hydroxyzine pamoate [Vistaril] 50 mg capsule 50 mg PO Q8H PRN (Reason: acute anxiety) Qty: 10 0RF celecoxib [Celebrex] 100 mg capsule 100 mg PO BID Qty: 20 0RF paliperidone 3 mg Tablet Extended Release 24hr 3 mg PO DAILY 30 Days Qty: 30 1RF Referrals: Mike Sherman MD [Primary Care Provider] - Coding Level of Care Code ED Panel Instrument Repairer for [facility] [place]
[2021-12-28 08:55] LABS: Add Urine Microscopic? NO; Charge for UA Resulting for Rev
[2021-12-28 08:58] LABS: Bilirubin Urine Neg (Negative); Blood Urine Neg (Negative); Glucose Urine UA Norm (Normal); Ketones Urine Negative (Negative); Leukocyte Esterase Urine Negative (Negative); Nitrate Urine Negative (Negative); Protein Urine Neg (Negative); Urine Appearance Clear (CLEAR); Urine Color Yellow (Yellow); Urobilinogen Urine Norm (Negative); pH Urine 6 (5-7)
[2021-12-28 09:00] LABS: Basophils % 0.3 %; Eosinophils # 0.1 10^3/uL (0.0-0.8); Eosinophils % 0.6 %; Hematocrit 37.4 % (42.0-52.0); Hemoglobin 12.9 g/dL (11.7-16.6); Lymphocytes # 2.3 10^3/uL (0.8-4.8); Lymphocytes % 18.4 %; Mean Corpuscular HGB Conc 34.5 g/dL (30.0-36.0); Mean Corpuscular Hemoglobin 29.6 pg (28.0-34.0); Mean Corpuscular Volume 85.8 fl (80-94); Mean Platelet Volume 9.2 fL (7.4-10.4); Monocytes # 1.3 10^3/uL (0.2-0.9); Monocytes % 10.6 %; Neutrophils # 8.01 10^3/uL (1.8-7.7); Neutrophils % 65.1 %; Nucleated Red Blood Cells % 0 %; Platelet Count 267 10^3/cmm (130-400); Red Blood Count 4.36 10^6/uL (4.1-5.3); Red Cell Distribution Width 13.6 % (12.1-15.1); White Blood Count 12.3 10^3/uL (4.0-10.0)
[2021-12-28] MEDS: lidocaine 5% Patch 1 PATCH TOPICAL (09:06)
[2021-12-28 09:29] LABS: Amphetamines Screen Urine Negative (Negative); Barbiturates Screen Urine Negative (Negative); Benzodiazepines Screen Urine Positive (Negative); Cocaine Screen Urine Negative (Negative); Opiate Screen Urine Negative (Negative); PCP Screen Urine Negative (Negative); THC Screen Urine Negative (Negative)
[2021-12-28 09:33] LABS: Acetaminophen < 5.0 ug/mL (10-30); Alanine Aminotransferase 44 U/L (0-41); Albumin Level 4.7 g/dL (3.5-5.2); Alkaline Phosphatase 112 IU/L (40-130); Anion Gap 15.6 (5-19); Aspartate Amino Transferase 58 U/L (0-40); Blood Urea Nitrogen 15 mg/dL (6-20); Calcium 9.2 mg/dL (8.5-10.5); Carbon Dioxide 26 mmol/L (22-29); Chloride 98 mmol/L (98-107); Globulin 2.6 g/dL (1.3-4.6); Glomerular Filtration Rate 160.4 mL/min (90-130); Glucose 93 mg/dL (65-115); Osmolality Calculated 281 mOsm/kg (285-295); Potassium 4.6 mmol/L (3.5-5.1); Salicylate < 0.3 mg/dL (3-10); Sodium 135 mmol/L (136-145); Thyroid Stimulating Hormone 2.46 uIU/mL (0.27-4.20); Total Bilirubin 0.2 mg/dL (0.15-1.2); Total Protein 7.3 g/dL (6.6-8.7)
[2021-12-28] MEDS: acetaminophen 500 mg Tablet PO (13:34)
[2021-12-28 15:15] VITALS: BP 121/77; PULSE 90; RESP 18; TEMP 36.6; O2SAT 97
[2021-12-28] MEDS: hyDROXYzine 25 mg Capsule 50 MG PO (16:29)
== END 2021-12-28 17:11 | disposition home or self-care (01) ==
PROVIDERS: Emergency Provider Emergency Medicine; PCP Family Medicine Adult Medicine
DX: R45.850 Homicidal ideations (principal); R45.851 Suicidal ideations; M54.9 Dorsalgia, unspecified
CPT/HCPCS: 80053; 80306; 80307; 81003; 84443; 85025; 99284

== ENCOUNTER 2021-12-31 20:00 | Inpatient (IN) | payer MEDICAID, SELFPAY ==
[2021-12-31 20:03] VITALS: BP 146/94; PULSE 92; RESP 18; TEMP 36.3; O2SAT 97
--- NOTE | 2021-12-31 20:13 | PC.NURSE ---
poison control called. Mild toxic. peaks in 24 hours. watch for orthostatic hypotention and tachycardia.
[2021-12-31 20:27] LABS: Basophils % 0.2 %; Eosinophils % 0.3 %; Hematocrit 36.2 % (42.0-52.0); Lymphocytes # 1.9 10^3/uL (0.8-4.8); Lymphocytes % 19.9 %; Mean Corpuscular HGB Conc 33.1 g/dL (30.0-36.0); Mean Corpuscular Hemoglobin 28.8 pg (28.0-34.0); Monocytes # 0.8 10^3/uL (0.2-0.9); Monocytes % 8.4 %; Neutrophils # 6.72 10^3/uL (1.8-7.7); Neutrophils % 70.1 %; Nucleated Red Blood Cells % 0 %; Platelet Count 265 10^3/cmm (130-400); Red Blood Count 4.16 10^6/uL (4.1-5.3); Red Cell Distribution Width 13.5 % (12.1-15.1); White Blood Count 9.6 10^3/uL (4.0-10.0)
[2021-12-31 20:46] LABS: Alanine Aminotransferase 25 U/L (0-41); Albumin Level 4.8 g/dL (3.5-5.2); Alkaline Phosphatase 107 IU/L (40-130); Anion Gap 15.6 (5-19); Aspartate Amino Transferase 22 U/L (0-40); Blood Urea Nitrogen 13 mg/dL (6-20); Calcium 9.2 mg/dL (8.5-10.5); Carbon Dioxide 24 mmol/L (22-29); Chloride 102 mmol/L (98-107); Globulin 2.2 g/dL (1.3-4.6); Glomerular Filtration Rate 160.4 mL/min (90-130); Glucose 108 mg/dL (65-115); Lipase 20 U/L (13-60); Osmolality Calculated 287 mOsm/kg (285-295); Potassium 3.6 mmol/L (3.5-5.1); Sodium 138 mmol/L (136-145); Total Bilirubin 0.2 mg/dL (0.15-1.2)
[2021-12-31 20:48] LABS: Acetaminophen < 5.0 ug/mL (10-30); Salicylate < 0.3 mg/dL (3-10)
--- NOTE | 2021-12-31 20:51 | W.ED.GENADLT ---
HPI - General Adult General: Chief complaint: Overdose Stated complaint: possible overdose/MHE Time Seen by Provider: 12/31/21 20:07 History of Present Illness: HPI: [26]yo patient w/ hx of hep C, schizophrenia presenting to the emergency room after an acute ingestion of 15 tablets of 3 mg of Invega about 15 minutes ago. Patient tells me that this was a suicide attempt. Denies any coingestion. On arrival, the patient is AAOx3 and cooperative with my evaluation. No focal complaints of chest pain, shortness of breath, palpitations, N/V, focal GI/ complaints. Currently denies HI. No complaints of hallucinations. Onset: acute on chronic Duration: ongoing Location: home Severity: severe Associated symptoms: Deny chest pain, dyspnea, nausea, rash, palpitations or vomiting Review of Systems Const: Denies: fever(s) or chills Eyes: Denies: change in vision ENMT: Denies: mouth pain Card: Denies: chest pain or palpitations Resp: Denies: dyspnea or non-productive cough GI: Denies: abdominal pain, nausea, vomiting or diarrhea : Denies: dysuria Musc: Denies: extremity pain Skin/Breast: Denies: rash or new lesions Neuro: Denies: weakness in extremities Psych: Reports: depression and suicidal ideation Abe/Lymph: Denies: easy bruising PFSH ED PFSH: Medical History Alcohol use disorder, severe, dependence Amphetamine use disorder, severe GERD (gastroesophageal reflux disease) Hepatitis C History of hepatitis C Treated with only one month of Epclusa. Despite that, he seems to have SVR. Recheck in one year History of lower leg fracture Insomnia Kidney stone Positive hepatitis C antibody test Severe dental caries Family History Grandmother Cancer Mother Diabetes Heart disease Social History Alcohol intake: current Alcohol intake frequency: few times a month Alcohol type: beer Marital status: Single Number of children: 1 Current occupational status: employed History of recent travel: No Physical Exam Const: COMMON NORMALS: alert HENMT: COMMON NORMALS: atraumatic HEAD & SCALP: atraumatic MOUTH: moist mucous membranes not abnormal Eye: COMMON NORMALS: EOMs intact bilaterally and conjunctivae normal CONJUNCTIVA: Yes conjunctivae normal Neck/C-Spine: COMMON NORMALS: full ROM and supple Resp: COMMON NORMALS: normal respiratory effort and clear to auscultation bilaterally AUSCULTATION: clear to auscultation bilaterally Cardio: COMMON NORMALS: regular rate RATE: regular rate GI: COMMON NORMALS: Soft to palpation and non-tender PALPATION: Yes Soft to palpation Extremity: COMMON NORMALS: full ROM Neuro: SENSORIUM/ORIENTATION: Yes alert MOTOR EXAM: No Abnormal motor strength present and Other motor observations present (no focal motor deficits) Psych: COMMON NORMALS: speech normal SPEECH: Yes normal speech MOOD & AFFECT: Yes depressed mood Course Vital Signs: Vital signs: Vital Signs Temperature 97.4 F L 12/31/21 20:03 Pulse Rate 92 12/31/21 20:03 Respiratory Rate 18 12/31/21 20:03 Blood Pressure 146/94 12/31/21 20:03 Pulse Oximetry 97 12/31/21 20:03 MDM - General Adult Medical Decision Making [26]yo patient w/ hx of depression and schizophrenia presenting for depression with SI and acute intentional drug overdose. HDS, exam within normal limit Thoughts are linear and organized, and the patient has no AH/VH, or HI. Clinically the patient displays no overt toxidrome; they are well appearing, with low suspicion for toxic ingestion given history and exam. Symptoms unlikely 2/2 anemia, hypothyroidism, infection, or ICH. Workup: CBC, CMP, Lipase, salicylate/tylenol, UDS Lab findings: wnl Per [place] poison control, patient needs to be observed for 24 hours prior to be admitted to psych. Patient is placed under 96-hour hold. [9:00pm] On reassessment, labs and workup wnl. Patient is hemodynamically stable with no acute medical complaints. Case discussed with psychiatric provider Dr. Vaughn at [facility] psych inpatient with recommendation for admission after patient is cleared from a toxicological standpoint Disposition: observation for 24 hrs Lab Data : 12/31/21 20:23 12/31/21 20:23 Laboratory Results WBC 9.6 10^3/uL (4.0-10.0) 12/31/21 20: RBC 4.16 10^6/uL (4.1-5.3) 12/31/21 20:23 Hgb 12.0 g/dL (11.7-16.6) 12/31/21 20: Hct 36.2 % (42.0-52.0) L 12/31/21 20: MCV 87.0 fl (80-94) 12/31/21 20: MCH 28.8 pg (28.0-34.0) 12/31/21: MCHC 33.1 g/dL (30.0-36.0) 12/31/21: RDW 13.5 % (12.1-15.1) 12/31/21 20: Plt Count 265 10^3/cmm (130-400) 12/31/21: MPV 9.0 fL (7.4-10.4) 12/31/21 20: Neut % (Auto) 70.1 % 12/31/21: Lymph % (Auto) 19.9 % 12/31/21 20: [place] % (Auto) 8.4 % 12/31/21 20: Eos % (Auto) 0.3 % 12/31/21 20: Baso % (Auto) 0.2 % 12/31/21: Neut # (Auto) 6.72 10^3/uL (1.8-7.7) 12/31/21: Lymph # (Auto) 1.9 10^3/uL (0.8-4.8) 12/31/21: [place] # (Auto) 0.8 10^3/uL (0.2-0.9) 12/31/21: Eos # (Auto) 0.0 10^3/uL (0.0-0.8) 12/31/21 20: Baso # (Auto) 0.0 10^3/uL (0.0-0.1) 12/31/21: Nucleated RBC % (auto) 0 % 12/31/21: Nucleated RBCs # 0.0 /100WBC 12/31/21 20: Sodium 138 mmol/L (136-145) 12/31/21 20: Potassium 3.6 mmol/L (3.5-5.1) 12/31/21:23 Chloride 102 mmol/L (98-107) 12/31/21 20:23 Carbon Dioxide 24 mmol/L (22-29) 12/31/21 20:23 Anion Gap 15.6 (5-19) 12/31/21 20:23 BUN 13 mg/dL (6-20) 12/31/21 20:23 Creatinine 0.6 mg/dL (0.7-1.2) L 12/31/21 20:23 GFR Calculation 160.4 mL/min (90-130) H 12/31/21 20:23 Glucose 108 mg/dL (65-115) 12/31/21 20:23 Calculated Osmolality 287 mOsm/kg (285-295) 12/31/21 20:23 Calcium 9.2 mg/dL (8.5-10.5) 12/31/21 20:23 Total Bilirubin 0.2 mg/dL (0.15-1.2) 12/31/21 20:23 AST 22 U/L (0-40) 12/31/21 20:23 ALT 25 U/L (0-41) 12/31/21 20:23 Alkaline Phosphatase 107 IU/L (40-130) 12/31/21 20:23 Total Protein 7.0 g/dL (6.6-8.7) 12/31/21 20:23 Albumin 4.8 g/dL (3.5-5.2) 12/31/21 20:23 Globulin 2.2 g/dL (1.3-4.6) 12/31/21 20:23 Lipase 20 U/L (13-60) 12/31/21 20:23 Salicylates < 0.3 mg/dL (3-10) L 12/31/21 20:23 Acetaminophen < 5.0 ug/mL (10-30) L 12/31/21 20:23 Discharge Plan Discharge Patient Disposition: Admitted As Inpatient Clinical Impression: Depression with suicidal ideation, Drug overdose, intentional Condition: Stable Coding Level of Care Code ED 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
--- NOTE | 2021-12-31 20:52 | ECG_ITS ---
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 Measurements Intervals [place] Rate: 86 P: 47 HI: 154 QRS: 84 QRSD: 107 T: 44 QT: 353 QTc: 424 Interpretive Statements SINUS RHYTHM NONSPECIFIC ST ELEVATION [0.05+ mV ST ELEVATION] Compared to ECG 12/18/2021 01:48:48 ST (T wave) deviation now present Electronically Signed On 01-01-2022 23:36:21 CDT by Jaquan Abbasi M.D. [id number]
[2021-12-31 21:07] LABS: Amphetamines Screen Urine Negative (Negative); Barbiturates Screen Urine Negative (Negative); Benzodiazepines Screen Urine Negative (Negative); Cocaine Screen Urine Negative (Negative); Opiate Screen Urine Negative (Negative); PCP Screen Urine Negative (Negative); THC Screen Urine Negative (Negative)
[2021-12-31 21:40] VITALS: BP 150/87; PULSE 88; RESP 14; O2SAT 98
[2021-12-31] MEDS: nicotine 21 mg Patch 1 PATCH TRANSDERMA (21:40)
[2021-12-31 21:56] VITALS: PULSE 90; BMI 19.9
--- NOTE | 2021-12-31 22:06 | PM.HP ---
Providers/Chief Complaint Admitting Physician: Hardeep Lopez Primary Care Provider: Mike Sherman MD Chief Complaint: possible overdose/MHE History of Present Illness Pleasant 26-year-old homeless gentleman with history of multiple substance use disorder, hepatitis C in remission after partial treatment, psychiatric history including suicidal ideation, with recent admission discharged on 12/27, returns to the hospital after overdose of 15 tablets of 3 mg strength paliperidone in a suicide attempt, reports worsening depression recently. Reports he has not been following up with psychiatry on the outpatient side, but states he needs something to balance out his mind and body , with his mind running 100 times faster than his body . Currently he reports mild soreness in the right anterolateral side of his neck, otherwise denies any complaints. Poison control was contacted from ER. EKG does not show QTC prolongation. He is awake and alert, without difficulties with respiration. Observation in intensive care unit is requested following medication overdose, pending further psychiatric assessment and admission. Review of Systems Const: Denies: fever(s), chills, body aches or malaise Eyes: Denies: change in vision, eye discomfort or eye redness ENMT: Denies: throat pain, oral sores or ear or mastoid pain Card: Denies: chest pain, edema, pre-syncope or dyspnea on exertion Resp: Denies: dyspnea, productive cough, change in phlegm color or hemoptysis GI: Denies: abdominal pain, nausea, vomiting, diarrhea, constipation, hematochezia or melena : Denies: flank pain, difficulty urinating, urinary frequency or hematuria Musc: Denies: back pain, joint swelling or joint redness Skin/Breast: Denies: rash or new lesions Neuro: Denies: headache(s), numbness in extremities, weakness in extremities, dizziness, confusion or seizure-like activity Psych: Reports: depression and other (Suicie attempt) Endo: Denies: polyuria or polydipsia Abe/Lymph: Denies: easy bleeding or tender lymph nodes All/Imm: Denies: urticaria or tongue swelling Medications/Allergies Home Medications Medication Instructions Recorded Confirmed Last Taken Type methadone 40 mg soluble tablet 40 mg PO DAILY 10/07/21 12/28/21 6 Days Ago History ~10/01/21 celecoxib 100 mg capsule (Celebrex) 100 mg PO BID #20 cap 10/16/21 12/28/21 Unknown Rx hydroxyzine pamoate 50 mg capsule 50 mg PO Q8H PRN #10 cap 12/18/21 12/28/21 Unknown Rx (Vistaril) paliperidone 3 mg tablet,extended 3 mg PO DAILY 30 Days #30 tab 12/27/21 12/28/21 Unknown Rx release 24 hr Allergies Allergy/AdvReac Type Severity Reaction Status Date / Time No Known Allergies Allergy Verified 12/31/21 20:06 PFSH Acute PFSH: Medical History (Updated 12/31/21 @ 22:49 by Hardeep Lopez MD) Alcohol use disorder, severe, dependence Amphetamine use disorder, severe Depression GERD (gastroesophageal reflux disease) Hepatitis C History of hepatitis C Treated with only one month of Epclusa. Despite that, he seems to have SVR. Recheck in one year History of lower leg fracture Insomnia Kidney stone Positive hepatitis C antibody test PTSD (post-traumatic stress disorder) Severe dental caries Surgical History Hip fracture requiring operative repair Family History Grandmother Cancer Mother Diabetes Heart disease Social History Alcohol intake: current Alcohol intake frequency: few times a month Alcohol type: beer Marital status: Single Number of children: 1 Current occupational status: employed History of recent travel: No Vitals/I&O/Wt Last Vital Signs Temp 97.4 F L 12/31/21 20:03 Pulse 88 12/31/21 21:40 Resp 14 12/31/21 21:40 BP 150/87 12/31/21 21:40 Pulse Ox 98 12/31/21 21:40 Weight last 48 hrs Weight 60.781 kg Physical Exam Const: COMMON NORMALS: alert GENERAL APPEARANCE: cooperative ORIENTATION/CONSCIOUSNESS: Yes awake HENMT: COMMON NORMALS: normocephalic, EAC's normal, Normal external nose present and moist oral mucous membranes HEAD & SCALP: normocephalic NOSE: Normal external nose present EXTERNAL AUDITORY CANAL: EAC's normal Neck/C-Spine: COMMON NORMALS: no meningeal signs Chest: CHEST: Yes Symmetrical chest wall rise Resp: COMMON NORMALS: clear to auscultation bilaterally AUSCULTATION: clear to auscultation bilaterally Cardio: COMMON NORMALS: regular rate, regular rhythm and No murmurs present (Cardio) RATE: regular rate RHYTHM: regular rhythm GI: COMMON NORMALS: Normal to inspection, nondistended, normoactive bowel sounds present, Soft to palpation and non-tender PALPATION: Yes Soft to palpation Extremity: COMMON NORMALS: no pedal edema Neuro: COMMON NORMALS: moves all extremities SENSORIUM/ORIENTATION: Yes alert MENINGEAL SIGNS: Yes no meningeal signs Psych: COMMON NORMALS: mental status grossly normal Skin: COMMON NORMALS: no wounds RASHES: no rashes Data : 12/31/21 20:23 12/31/21 20:23 A&P Assessment and plan (1) Suicide attempt: Overdosing 15 tablets 3 mg strength paliperidone. Poison control was contacted from ER. Currently no evidence of QT prolongation. Vital signs so far been stable, he is alert, no respiratory difficulties. Currently transferred to ICU for additional monitoring prior to further psychiatric assessment and admission. Status: Acute (2) Medication overdose: Reports worsening depression recently. Medication overdose as above with suicidal attempt. Gastric assessment and admission after initial observation in ICU. Status: Acute (3) History of methadone use: Aspiration documentation has not been on methadone in the past 3-4 months. Unclear whether this was just recently resumed or not. Can be confirmed with [facility] once they are open again. Does not take it currently per patient. Status: Acute (4) Chronic pain of left lower extremity: Prior history of injury, repair with pins and of left leg, related to which she reports chronic pain. Resume his celecoxib. Add Tylenol. Lidocaine patch for now. Resume methadone, in case he has been resumed on it. Status: Acute Plan Homelessness: Case management consultation. Smoking addiction: Discussed with him smoking cessation for 4 minutes. He is agreeable to nicotine supplementation with nicotine patch, lozenges as needed. Continue to encourage cessation. History of polysubstance use disorder: Reports he currently smokes, reports he has not drank alcohol in close to 3 months. Denies recreational drug use currently. Depression: Pending additional psychiatric assessment and management. PTSD Attestations Medical Necessity Statement*: Admission of over 2 midnights is going to be needed for assessment and management of suicide attempt. With medication overdose, worsening depression. Coding Level of Care Code Acute Post Anesthesia Nurse for Chg Fwd Diagnoses Suicide attempt T14.91XA Medication overdose T50.901A History of methadone use Z87.898 Chronic pain of left lower extremity M79.605; G89.29
[2021-12-31] MEDS: CELEcoxib 100 mg Capsule PO (23:08)
[2022-01-01] VITALS (21 sets, daily range): BP systolic 102–131; BP diastolic 55–80; PULSE 74–101; RESP 13–23; TEMP 36.4–37; O2SAT 94–98
[2022-01-01] MEDS: trazodone 50 mg Tablet 25 MG PO ×2 (00:19→21:01)
[2022-01-01] MEDS: capsaicin 0.025% cream 60 gm 1 APPLIC TOPICAL (00:20)
[2022-01-01 05:17] LABS: Basophils % 0.5 %; Eosinophils # 0.1 10^3/uL (0.0-0.8); Hematocrit 35.7 % (42.0-52.0); Hemoglobin 11.9 g/dL (11.7-16.6); Lymphocytes # 2.3 10^3/uL (0.8-4.8); Lymphocytes % 26.4 %; Mean Corpuscular HGB Conc 33.3 g/dL (30.0-36.0); Mean Corpuscular Hemoglobin 29.5 pg (28.0-34.0); Mean Corpuscular Volume 88.6 fl (80-94); Monocytes # 0.8 10^3/uL (0.2-0.9); Monocytes % 9.5 %; Neutrophils # 5.46 10^3/uL (1.8-7.7); Neutrophils % 61.6 %; Nucleated Red Blood Cells % 0 %; Platelet Count 256 10^3/cmm (130-400); Red Blood Count 4.03 10^6/uL (4.1-5.3); Red Cell Distribution Width 13.5 % (12.1-15.1); White Blood Count 8.9 10^3/uL (4.0-10.0)
[2022-01-01 06:09] LABS: Alanine Aminotransferase 21 U/L (0-41); Albumin Level 4.4 g/dL (3.5-5.2); Alkaline Phosphatase 98 IU/L (40-130); Anion Gap 15.6 (5-19); Aspartate Amino Transferase 17 U/L (0-40); Blood Urea Nitrogen 12 mg/dL (6-20); Carbon Dioxide 23 mmol/L (22-29); Chloride 105 mmol/L (98-107); Globulin 2.1 g/dL (1.3-4.6); Glomerular Filtration Rate 134.3 mL/min (90-130); Glucose 117 mg/dL (65-115); Osmolality Calculated 291 mOsm/kg (285-295); Potassium 3.6 mmol/L (3.5-5.1); Sodium 140 mmol/L (136-145); Total Bilirubin 0.2 mg/dL (0.15-1.2); Total Protein 6.5 g/dL (6.6-8.7)
[2022-01-01] MEDS: lidocaine 5% Patch 1 PATCH TOPICAL (08:27)
[2022-01-01] MEDS: CELEcoxib 100 mg Capsule PO ×2 (08:27→17:29)
[2022-01-01] MEDS: LORazepam 2 mg/mL INJ 1 mL IVP ×2 (10:54→17:32)
[2022-01-01] MEDS: nicotine 4 mg lozenge MUCOUS MEM (10:54)
--- NOTE | 2022-01-01 12:00 | PC.NURSE ---
Graciela from poison control called for and update on patient. Update provided and anxiety is listed an side effect of over dose per poison control. Patient experiencing anxiety this shift. Dr. Hernandez notified and 2 mg [place] given.
--- NOTE | 2022-01-01 12:28 | PM.PN ---
Subjective Subjective: Patient was seen and examined this morning, has slight anxiety , no other acute events Medications: Medication Review Details: Generic Name Dose Route Start Last Admin Trade Name Freq PRN Reason Stop Dose Admin Capsaicin 1 applic 01/01/22 00:05 01/01/22 00:20 Capsaicin 0.025% Cream 60 Gm TOPICAL 1 applic QID PRN Administration PAIN Celecoxib 100 mg 12/31/21 22:15 01/01/22 08:27 Celecoxib 100 Mg Capsule PO 100 mg BID ZHEN Administration Lidocaine 1 patch 01/01/22 09:00 01/01/22 08:27 Lidocaine 5% Pat ch TOPICAL 01/02/22 08:59 1 patch [id number] ZHEN Administration Lorazepam 2 mg 01/01/22 10:32 01/01/22 10:54 Lorazepam 2 Mg/M l Inj 1 Ml IVP 2 mg Q4H PRN Administration ANXIETY Nicotine 1 patch 12/31/21 22:15 12/31/21 22:35 Nicotine 14 Mg P atch TRANSDERMA Not Given Q24H [facility] Nicotine Polacrile x 4 mg 12/31/21 22:12 01/01/22 10:54 Nicotine 4 Mg Lo zenge MUCOUS MEM 4 mg Q4H PRN Administration NICOTINE CRAVINGS Trazodone HCl 25 mg 01/01/22 00:05 01/01/22 00:19 Trazodone 50 Mg Tablet PO 25 mg BEDTIME PRN Administration INSOMNIA Vitals/I&O/Wt Last Vital Signs Temp 98.0 F 01/01/22 07:30 Pulse 81 01/01/22 12:00 Resp 23 H 01/01/22 12:00 BP 120/75 01/01/22 12:00 Pulse Ox 97 01/01/22 12:00 12/31/21 01/01/22 01/01/22 22:59 06:59 14:59 Intake Total 250 / 250 458 / 458 Output Total 400 / 400 2750 / 2750 Balance -150 / -150 -2292 / -2292 Weight last 48 hrs Weight 64.864 kg Weight 60.781 kg Physical Exam Const: COMMON NORMALS: patient oriented x3 HENMT: COMMON NORMALS: normocephalic and atraumatic HEAD & SCALP: normocephalic and atraumatic Chest: CHEST: Yes Symmetrical chest wall rise Resp: EFFORT & INSPECTION: Yes symmetric chest movement Cardio: COMMON NORMALS: regular rate, regular rhythm, S1 normal heart sound present, S2 normal heart sound present and No murmurs present (Cardio) RATE: regular rate RHYTHM: regular rhythm HEART SOUNDS: S1 normal heart sound present and S2 normal heart sound present GI: COMMON NORMALS: Normal to inspection, nondistended, normoactive bowel sounds present, Soft to palpation, non-tender, No hepatosplenomegaly present and no masses AUSCULTATION: Yes normoactive bowel sounds PALPATION: Yes Soft to palpation and Yes No hepatosplenomegaly present RECTAL EXAM: Yes deferred Extremity: COMMON NORMALS: no clubbing, cyanosis or edema and no pedal edema Neuro: COMMON NORMALS: patient oriented x3 Data : 01/01/22 04:30 01/01/22 04:30 A&P Assessment and plan (1) Suicide attempt: Overdosing 15 tablets 3 mg strength paliperidone. Poison control was contacted from ER. Currently no evidence of QT prolongation. Vital signs so far been stable, he is alert, no respiratory difficulties. Currently transferred to ICU for additional monitoring prior to further psychiatric assessment and admission. Status: Acute (2) Medication overdose: Reports worsening depression recently. Medication overdose as above with suicidal attempt. Gastric assessment and admission after initial observation in ICU. Status: Acute (3) History of methadone use: Aspiration documentation has not been on methadone in the past 3-4 months. Unclear whether this was just recently resumed or not. Can be confirmed with [facility] once they are open again. Does not take it currently per patient. Status: Acute (4) Chronic pain of left lower extremity: Prior history of injury, repair with pins and of left leg, related to which she reports chronic pain. Resume his celecoxib. Add Tylenol. Lidocaine patch for now. Resume methadone, in case he has been resumed on it. Status: Acute Plan 26-year-old homeless gentleman with PMH of substance use disorder, suicidal ideation, with recent admission discharged on 12/27, depression ,PTSD, hepatitis C in remission after partial treatment Admitted after overdose of 15 tablets of 3 mg strength paliperidone in a suicide attempt, reports worsening depression recently.? Assessment: Intentional suicidal attempt Polysubstance abuse History of hep C Plan: Poison control was contacted by ER, no QTC prolongation on EKG, conservative management for now. Psychiatry has been consulted by ER Continue telemetry monitoring Continue Ativan for anxiety CODE STATUS: Full code DVT prophylaxis: Will encourage ambulation, Attestations Medical Necessity Statement*: Patient is to be in hospital for management of intentional suicide attempt. Time Spent in Patient Care: Greater than 35 minutes (>than 50% of time spent in counselling and/or direct pt care on unit). Coding Level of Care Code Acute Virtual Classroom Manager for Sunita Fwd Exam Detailed Diagnoses Suicide attempt T14.91XA Medication overdose T50.901A History of methadone use Z87.898 Chronic pain of left lower extremity M79.605; G89.29
--- NOTE | 2022-01-01 13:54 | P.NPUHP_ITS ---
Providers/Chief Complaint Admitting Physician: Hardeep Lopez Primary Care Provider: Mike Sherman MD Chief Complaint: possible overdose/MHE HPI NPU History of Present Illness Tyree Alvarez is a 26 year old male recently discharged from NPU last week. Who presented to the emergency room having overdosed on reportedly 15 invega 3mg tablets stating that it was not helpful. He reports homelessness and reports that he has not used any illicit substances including the chronically consumed methamphetamine. He reports that he has signficant cravings for opiates and methamphetamine and reports that he needs some different medication to help with his hallucinations. He reports auditory hallucinations and reports that he wishes to get help with his suicidal thoughts. He endorsed some feelings of hopelessness. He denies any hx of manic symptoms. He reports that he was forced to go to retirement for bench warrants before he would be allowed to go to his homeless m[facility]. He had reported that he did not make it to his outpatient visit prior to his admission here. Pleasant 26-year-old homeless gentleman with history of multiple substance use disorder, hepatitis C in remission after partial treatment, psychiatric history including suicidal ideation, Past Psychiatrict Hx: He reports a past history of opiate abuse and has not been on methadone for 3 to 4 months. He reports numerous psychiatric inpatient hospitalizations but was unable to recall the dates or lengths of stay. He reports having received outpatient treatment for many years and recalls being on a variety of antipsychotics including Risperdal, Abilify and Seroquel. He reports an extensive substance abuse history including having been treated at [facility] for methadone treatment approximately 3 to 4 months ago. He reports having engaged in intranasal opiate use at the age of 14 and reports having used methamphetamine for years beginning in high school. He also reports frequent alcohol use with no history of withdrawal. Psychiatric History: As above. Substance Abuse History: As above Family History: He did not report on his family history for mental health, addiction or lethality issues. Developmental History: He did not report any issues with his or developmental delays and did not report receiving speech therapy, learning support, emotional support or special education classes. Psychosocial History: He reports he lives in [place] on some property that has no reasonable heat or electricity. He states he has been homeless effectively for 2 years. He reports he was abandoned by his family and states having a tumultuous childhood but did not report any emotional, physical or sexual abuse. He reports having 3 sisters but reports his parents have disowned him. He graduated high school and attended some college. He has never been and does not have any children. He did not report any voodoo belief system. Legal History: has had some retirement time over the last few years. He reports some legal issues. Allergies: nkda Medical History: Hepatitis C, Meds NPU Home Medications Medication Instructions Recorded Confirmed Last Taken Type methadone 40 mg soluble tablet 40 mg PO DAILY 10/07/21 01/01/22 6 Days Ago History ~10/01/21 celecoxib 100 mg capsule (Celebrex) 100 mg PO BID #20 cap 10/16/21 01/01/22 Unknown Rx hydroxyzine pamoate 50 mg capsule 50 mg PO Q8H PRN #10 cap 12/18/21 01/01/22 Unknown Rx (Vistaril) paliperidone 3 mg tablet,extended 3 mg PO DAILY 30 Days #30 tab 12/27/21 01/01/22 12/31/21 Rx release 24 hr Allergies Allergy/AdvReac Type Severity Reaction Status Date / Time No Known Allergies Allergy Verified 01/01/22 08:48 PFSH NPU PFSH: Medical History (Updated 01/01/22 @ 19:18 by Jerod Vaughn MD) Alcohol use disorder, severe, dependence Amphetamine use disorder, severe Depression GERD (gastroesophageal reflux disease) Hepatitis C History of hepatitis C Treated with only one month of Epclusa. Despite that, he seems to have SVR. Recheck in one year History of lower leg fracture Insomnia Kidney stone Positive hepatitis C antibody test PTSD (post-traumatic stress disorder) Severe dental caries Surgical History Hip fracture requiring operative repair Family History Grandmother Cancer Mother Diabetes Heart disease Social History Alcohol intake: current Alcohol intake frequency: few times a month Alcohol type: beer Marital status: Single Number of children: 1 Current occupational status: employed History of recent travel: No Mental Status Exam MSE Comments: This is a thin disheveled white male lying in hospital bed with good eye contact.? No abnormal involuntary movements appreciated other than for mild psychomotor retardation. He was pleasant and cooperative. Speech was normal in regards to rate, rhythm and prosody. ? Mood described as depressed but his affect appeared brighter than his previously 3 days prior.? ? Thought process was linear and logical and goal directed. ? Thought content: patient had expressed suicidal ideation. there was no evidence of delusional thinking and he did not appear to be responding to internal stimuli. His Attention and concentration appeared fair. He is alert and oriented three times. Insight and judgment remained poor. . Impulse control was also poor. ? Vitals/I&O/Wt Last Vital Signs Temp 97.6 F 01/01/22 16:40 Pulse 84 01/01/22 16:40 Resp 16 01/01/22 16:40 BP 110/68 01/01/22 16:40 Pulse Ox 98 01/01/22 16:40 01/01/22 01/01/22 01/01/22 06:59 14:59 22:59 Intake Total 250 / 250 458 / 458 480 / 938 Output Total 400 / 400 3500 / 3500 Balance -150 / -150 -3042 / -3042 480 / -2562 Weight last 48 hrs Weight 64.864 kg Weight 60.781 kg Data NPU : 01/01/22 04:30 01/01/22 04:30 A&P Assessment and plan (1) History of methadone use: Status: Acute (2) Suicide attempt: Status: Acute (3) Medication overdose: Status: Acute (4) Methamphetamine addiction: Status: Acute (5) Psychotic disorder: Status: Acute Plan 26-year-old homeless white male well known to NPU with PMH? of opioid dependence, methamphetamine abuse, admitted involuntarily to hospital after overdose on paliperidone with reports of worsening depression. 1. Discuss resumption of agonist therapy for opioid dependence, difficulty has been patient compliance with visits on daily basis there while homeless. 2. Consider alternative antipsychotic or possibly IM invega as he appears to be better regarding his psychotic symptoms. 3. Admit to NPU once bed available tommorow. Involuntary Hold Information 96 Hour Hold: 96 Hour Involuntary Admission: No 96 Hour Hold Ending Date: 10/07/21 96 Hour Hold Ending Time: 20:05 Attestations NPU Medical Necessity Statement*: He will require inpatient hospitalization at NPU expected to be at least two midnights, with expected length of stay to be 6-8 days. Coding Level of Care Code Acute Lecturer In Computer Science for Sunita Fwmaria teresa Diagnoses History of methadone use Z87.898 Suicide attempt T14.91XA Medication overdose T50.901A Methamphetamine addiction F15.20 Psychotic disorder F29
--- NOTE | 2022-01-01 16:08 | PC.NURSE ---
Transfer: Patient transferred to 2nd floor room 253-1. Patient resting in bed with sitter at bedside. Patient chart and medications left with staff at senior front end developer.
[2022-01-01] MEDS: nicotine 14 mg Patch 1 PATCH TRANSDERMA (18:38)
[2022-01-02 04:00] VITALS: BP 90/47; PULSE 77; RESP 14; TEMP 36.3; O2SAT 97
[2022-01-02] MEDS: LORazepam 2 mg/mL INJ 1 mL IVP ×3 (04:59→17:25)
[2022-01-02 05:43] LABS: Basophils % 0.2 %; Eosinophils # 0.1 10^3/uL (0.0-0.8); Eosinophils % 1.2 %; Hematocrit 36.4 % (42.0-52.0); Hemoglobin 12.3 g/dL (11.7-16.6); Lymphocytes # 1.8 10^3/uL (0.8-4.8); Lymphocytes % 21.3 %; Mean Corpuscular HGB Conc 33.8 g/dL (30.0-36.0); Mean Corpuscular Hemoglobin 28.9 pg (28.0-34.0); Mean Corpuscular Volume 85.6 fl (80-94); Mean Platelet Volume 9.1 fL (7.4-10.4); Monocytes # 0.9 10^3/uL (0.2-0.9); Monocytes % 10.9 %; Neutrophils # 5.56 10^3/uL (1.8-7.7); Neutrophils % 64.9 %; Nucleated Red Blood Cells % 0 %; Platelet Count 269 10^3/cmm (130-400); Red Blood Count 4.25 10^6/uL (4.1-5.3); Red Cell Distribution Width 13.4 % (12.1-15.1); White Blood Count 8.6 10^3/uL (4.0-10.0)
[2022-01-02 05:59] VITALS: PULSE 73
[2022-01-02 06:04] LABS: Alanine Aminotransferase 17 U/L (0-41); Albumin Level 4.6 g/dL (3.5-5.2); Alkaline Phosphatase 99 IU/L (40-130); Anion Gap 12.9 (5-19); Aspartate Amino Transferase 13 U/L (0-40); Blood Urea Nitrogen 14 mg/dL (6-20); Calcium 9.4 mg/dL (8.5-10.5); Carbon Dioxide 25 mmol/L (22-29); Chloride 105 mmol/L (98-107); Globulin 2.2 g/dL (1.3-4.6); Glomerular Filtration Rate 134.3 mL/min (90-130); Glucose 97 mg/dL (65-115); Osmolality Calculated 288 mOsm/kg (285-295); Potassium 3.9 mmol/L (3.5-5.1); Sodium 139 mmol/L (136-145); Total Bilirubin 0.2 mg/dL (0.15-1.2); Total Protein 6.8 g/dL (6.6-8.7)
[2022-01-02] MEDS: CELEcoxib 100 mg Capsule PO ×2 (09:05→17:25)
[2022-01-02] MEDS: nicotine 4 mg lozenge MUCOUS MEM ×2 (09:23→14:03)
--- NOTE | 2022-01-02 10:25 | ECG_ITS ---
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 Measurements Intervals [place] Rate: 84 P: 32 W[place]: 145 QRS: 80 QRSD: 104 T: 63 QT: 358 QTc: 424 Interpretive Statements SINUS RHYTHM POSSIBLE RIGHT VENTRICULAR CONDUCTION DELAY [RSR (QR) IN V1/V2] NONSPECIFIC ST ELEVATION [0.05+ mV ST ELEVATION] Compared to ECG 12/31/2021 21:37:36 No significant changes Electronically Signed On 01-03-2022 17:33:30 CDT by Jaquan Abbasi M.D. [email or web address]
[2022-01-02 11:25] VITALS: BP 125/82; PULSE 87; RESP 17; O2SAT 99
[2022-01-02 14:00] VITALS: PULSE 99
--- NOTE | 2022-01-02 15:43 | PM.PN ---
Subjective Subjective: Hospital course, labs appreciated. Laying comfortably in bed on examination today. Complaining of mild anxiousness. Has remained hemodynamically stable and afebrile. Vitals/I&O/Wt Last Vital Signs Temp 97.4 F L 01/02/22 04:00 Pulse 87 01/02/22 11:25 Resp 17 01/02/22 11:25 BP 125/82 01/02/22 11:25 Pulse Ox 99 01/02/22 11:25 01/02/22 01/02/22 01/02/22 06:59 14:59 22:59 Intake Total 740 / 740 Balance 740 / 740 Weight last 48 hrs Weight 64.864 kg Weight 60.781 kg Physical Exam Const: COMMON NORMALS: patient oriented x3 and alert GENERAL APPEARANCE: cooperative ORIENTATION/CONSCIOUSNESS: Yes awake HENMT: COMMON NORMALS: normocephalic, atraumatic, EAC's normal, Normal external nose present and moist oral mucous membranes HEAD & SCALP: normocephalic and atraumatic NOSE: Normal external nose present EXTERNAL AUDITORY CANAL: EAC's normal Neck/C-Spine: COMMON NORMALS: no meningeal signs Chest: CHEST: Yes Symmetrical chest wall rise Resp: COMMON NORMALS: clear to auscultation bilaterally EFFORT & INSPECTION: Yes symmetric chest movement AUSCULTATION: clear to auscultation bilaterally Cardio: COMMON NORMALS: regular rate, regular rhythm, S1 normal heart sound present, S2 normal heart sound present and No murmurs present (Cardio) RATE: regular rate RHYTHM: regular rhythm HEART SOUNDS: S1 normal heart sound present and S2 normal heart sound present GI: COMMON NORMALS: Normal to inspection, nondistended, normoactive bowel sounds present, Soft to palpation, non-tender, No hepatosplenomegaly present and no masses AUSCULTATION: Yes normoactive bowel sounds PALPATION: Yes Soft to palpation and Yes No hepatosplenomegaly present RECTAL EXAM: Yes deferred Extremity: COMMON NORMALS: no clubbing, cyanosis or edema and no pedal edema Neuro: COMMON NORMALS: patient oriented x3 and moves all extremities SENSORIUM/ORIENTATION: Yes alert MENINGEAL SIGNS: Yes no meningeal signs Psych: COMMON NORMALS: mental status grossly normal Skin: COMMON NORMALS: no wounds RASHES: no rashes Data : 01/02/22 04:45 01/02/22 04:45 A&P Assessment and plan (1) Suicide attempt: Overdosing 15 tablets 3 mg strength paliperidone. 96-hour hold. Medically stable to be transferred to neuropsych unit. Status: Acute (2) Medication overdose: Currently no signs of medication overdose. QT normal. Recheck EKG. Mentation appropriate. Saturating well on room air. Hemodynamically stable. Status: Acute (3) History of methadone use: As per documentation has not been on methadone in the past 3-4 months. Unclear whether this was just recently resumed or not. Can be confirmed with [facility] once they are open again. Does not take it currently per patient. Status: Acute (4) Chronic pain of left lower extremity: Status: Acute Plan Patient is hemodynamically stable and medically cleared to be transferred to Neuropsych Unit. Attestations Medical Necessity Statement*: As per psychiatric team. 96-hour hold for suicide attempt Time Spent in Patient Care: 16 - 35 minutes Coding Level of Care Code Acute Parks Recreation Director for Sunita Tejada Diagnoses Suicide attempt T14.91XA Medication overdose T50.901A History of methadone use Z87.898 Chronic pain of left lower extremity M79.605; G89.29
--- NOTE | 2022-01-02 15:53 | PC.NURSE ---
Patient wanted this nurse to ask the doctor for a higher dose of Ativan. This nurse called NPU and spoke with the RN and asked to speak with the Psychiatrist. Nurse reported Dr was with a patient and would call me back with an answer.
[2022-01-02] MEDS: nicotine 14 mg Patch 1 PATCH TRANSDERMA (17:24)
[2022-01-02 18:01] VITALS: BMI 19.9
--- NOTE | 2022-01-02 18:40 | PC.ADMIT ---
[address] Admission Note: The patient,Tyree Alvarez,26 y/o, was given written information regarding hospital policies, unit procedures and contact persons. Patient's smoking status: . Vital Signs - 8 hr 01/02/22 11:25 01/02/22 14:00 Pulse Rate 87 99 Respiratory Rate 17 Blood Pressure 125/82 Pulse Oximetry 99 PT ADMITTED FROM MED SURG AT 1755 VIA WHEELCHAIR AND SECURITY. PT IS ON A 96 HOUR HOLD THAT IS UP ON 01/06/22 AT M1755. PT STATES HE IS HERE DUE TO TAKING 15 TABS OF INVEGA TO INTENTIONALLY OVERDOSE. PT DENIES SI/HI AND AVH AT THIS TIME. SKIN ASSESSMENT UNREMARKABLE. PT HAS BEEN TO THE NPU SEVERAL TIMES THE PAST FEW MONTHS AND RECENTLY DISCHARGED THIS WEEK. PT IS ELATED AND ASKING HE GET MORE ATIVAN AND METHADONE. EDUCATED PT THAT HE JUST RECEIVED ATIVAN IN MED SURG IV AND I WAS UNABLE TO GIVE HIM MORE ATIVAN AT THIS TIME. PT PACING MAYBERRY REQUESTING TO SHAVE. ORIENTATED TO UNIT. ALL QUESTIONS ANSWERED AND SUPPORT VOICED.
[2022-01-02 20:00] VITALS: BP 188/104; PULSE 117; RESP 18; O2SAT 97
[2022-01-02] MEDS: trazodone 50 mg Tablet PO (20:54)
[2022-01-02] MEDS: nicotine 2 mg Gum BUCCAL (20:55)
[2022-01-02] MEDS: diphenhydrAMINE 50 mg Capsule PO (21:40)
[2022-01-02] MEDS: quetiapine 100 mg Tablet PO (21:40)
[2022-01-02 22:00] VITALS: BP 188/104; PULSE 117; RESP 18; O2SAT 97
[2022-01-03 06:00] VITALS: BP 91/57; PULSE 64; RESP 16; TEMP 36.6; O2SAT 97
[2022-01-03] MEDS: OLANZapine 5 mg ODT PO ×3 (08:09→21:26)
[2022-01-03] MEDS: lidocaine 5% Patch 1 PATCH TOPICAL (08:09)
[2022-01-03] MEDS: CELEcoxib 100 mg Capsule PO ×2 (08:09→18:04)
[2022-01-03] MEDS: nicotine 4 mg lozenge MUCOUS MEM (08:12)
[2022-01-03 08:24] LABS: Basophils % 0.2 %; Eosinophils # 0.1 10^3/uL (0.0-0.8); Eosinophils % 0.6 %; Hematocrit 36.1 % (42.0-52.0); Hemoglobin 12.5 g/dL (11.7-16.6); Lymphocytes # 2.1 10^3/uL (0.8-4.8); Mean Corpuscular HGB Conc 34.6 g/dL (30.0-36.0); Mean Corpuscular Hemoglobin 29.3 pg (28.0-34.0); Mean Corpuscular Volume 84.5 fl (80-94); Monocytes # 1.2 10^3/uL (0.2-0.9); Monocytes % 8.5 %; Neutrophils # 10.16 10^3/uL (1.8-7.7); Neutrophils % 74.5 %; Nucleated Red Blood Cells % 0 %; Platelet Count 263 10^3/cmm (130-400); Red Blood Count 4.27 10^6/uL (4.1-5.3); Red Cell Distribution Width 13.5 % (12.1-15.1); White Blood Count 13.7 10^3/uL (4.0-10.0)
[2022-01-03 08:50] LABS: Alanine Aminotransferase 18 U/L (0-41); Albumin Level 4.9 g/dL (3.5-5.2); Alkaline Phosphatase 110 IU/L (40-130); Anion Gap 17.1 (5-19); Aspartate Amino Transferase 15 U/L (0-40); Blood Urea Nitrogen 12 mg/dL (6-20); Calcium 9.2 mg/dL (8.5-10.5); Carbon Dioxide 22 mmol/L (22-29); Chloride 103 mmol/L (98-107); Globulin 2.5 g/dL (1.3-4.6); Glomerular Filtration Rate 134.3 mL/min (90-130); Glucose 130 mg/dL (65-115); Osmolality Calculated 288 mOsm/kg (285-295); Potassium 4.1 mmol/L (3.5-5.1); Sodium 138 mmol/L (136-145); Total Bilirubin 0.3 mg/dL (0.15-1.2); Total Protein 7.4 g/dL (6.6-8.7)
[2022-01-03] MEDS: haloperidol 5 mg Tablet PO (09:57)
[2022-01-03] MEDS: nicotine 21 mg Patch 1 PATCH TRANSDERMA (10:03)
[2022-01-03 14:00] VITALS: BP 109/65; PULSE 94; RESP 18; TEMP 36.9; O2SAT 98
--- NOTE | 2022-01-03 15:10 | W.PM.NPUPNS ---
Subjective NPU Subjective: 26y.o. white homeless male admitted with suicidal ideation, overdose on Invega oral currently endorsing suicidal thoughts without any active plan at this time. He reports no feelings of hopelessness. He reports some increase anxiety and wishes to be placed back on methadone or suboxone and ativan to manage his anxiety. He had not been using alcohol during this last hospitalization and is not on CIWA scale. He continues to wander the hallway aimlessly with reports of wanting to leave the hospital. Mental Status Exam MSE Comments: his is a thin disheveled white male lying in hospital bed with poor eye contact. ? No abnormal involuntary movements appreciated other than? for mild psychomotor retardation. His mood was described as upset. His affect was mood congruent and irritable. ? Speech was normal in regards to rate, rhythm and? prosody. ? ? Thought process was superficial with evidence of overvalued ideas. ? Thought content: patient had expressed suicidal ideation.? ? His Attention and concentration appeared poor. ? He is alert and oriented three times. Insight and judgment remained poor.? Impulse control was also poor.? ? Vitals/I&O/Wt Last Vital Signs Temp 98.5 F 01/03/22 14:00 Pulse 94 01/03/22 14:00 Resp 18 01/03/22 14:00 BP 109/65 01/03/22 14:00 Pulse Ox 98 01/03/22 14:00 Weight last 48 hrs Weight 64.864 kg Data NPU : 01/03/22 08:06 01/03/22 08:06 A&P Assessment and plan (1) Psychotic disorder: Status: Acute (2) Methamphetamine addiction: Status: Acute (3) Medication overdose: Status: Acute (4) Suicide attempt: Status: Acute (5) Suicidal ideation: Status: Acute Plan 1) remain on NPU involuntarily, given his high ED utilage and lack of success, will consider IM use of Invega. He will not be given option of oral invega given most recent overdose. Patient needs case management. 2) engage in milieu therapy and individual therapy. Involuntary Hold Information 96 Hour Hold: 96 Hour Involuntary Admission: Yes 96 Hour Hold Ending Date: 01/06/22 96 Hour Hold Ending Time: 17:55 Attestations NPU Medical Necessity Statement*: He will require inpatient hospitalization at NPU expected to be at least two midnights, with expected length of stay to be 6-8 days. Coding Level of Care Code Established Pt Acute Building Repair Maintenance Supervisor for Chg Fwd Patient Type Established History Problem Focused Exam Problem Focused Medical Decision Making Straight Forward Diagnoses Psychotic disorder F29 Methamphetamine addiction F15.20 Medication overdose T50.901A Suicide attempt T14.91XA Suicidal ideation R45.851
[2022-01-03] MEDS: hyDROXYzine 25 mg Capsule 50 MG PO (16:46)
[2022-01-03 19:54] VITALS: BP 110/64; PULSE 75; RESP 15; TEMP 36.6; O2SAT 97
[2022-01-03] MEDS: trazodone 50 mg Tablet PO (21:26)
--- NOTE | 2022-01-03 22:25 | PC.NURSE ---
PRN MEDS PT GIVEN 50MG TRAZADONE FOR INSOMNIA, AND 50MG VISTARIL FOR STATED ANXIETY, WILL CONTINUE TO MONITOR.
[2022-01-04 06:00] VITALS: BP 144/80; PULSE 82; RESP 17; TEMP 36.4; O2SAT 100
[2022-01-04] MEDS: OLANZapine 5 mg ODT PO ×2 (06:19→14:28)
--- NOTE | 2022-01-04 06:26 | PC.NURSE ---
PRN MED PT GIVEN 5MG ZYPREXA, FOR ANXIETY, IRRITABILITY, WILL CONTINUE TO MONITOR.
[2022-01-04] MEDS: hyDROXYzine 25 mg Capsule 50 MG PO ×2 (06:50→19:57)
--- NOTE | 2022-01-04 06:53 | PC.NURSE ---
PRN MED PT GIVEN 50MG VISTARIL FOR STATED ANXIETY, WILL CONTINUE TO MONITOR.
[2022-01-04] MEDS: nicotine 21 mg Patch 1 PATCH TRANSDERMA (07:06)
[2022-01-04] MEDS: acetaminophen 325 mg Tablet 650 MG PO (07:44)
[2022-01-04] MEDS: CELEcoxib 100 mg Capsule PO ×2 (07:44→18:02)
[2022-01-04] MEDS: lidocaine 5% Patch 1 PATCH TOPICAL ×2 (07:44→19:58)
[2022-01-04] MEDS: haloperidol 5 mg Tablet PO (08:04)
--- NOTE | 2022-01-04 09:42 | PC.NURSE ---
This morning during med pass Pt pulled the case off of the fire alarm! The fire alarm sounded and staff was able to fit the cover back on. Pt stated that he would not do that again.
--- NOTE | 2022-01-04 10:25 | W.PM.NPUPNS ---
Subjective NPU Subjective: 28-year-old male presents emergency room after suicidal ideation with overdose. He reports that he had been abusing opiates since the age of 12. He reports that he continues to feel anxious on the unit. Reports no thoughts of hurting himself currently. He reports that he has ambitions about getting another job but minimized any real plan to find a way to illicit drugs. Staff notes the patient has been perseverating about needing Ativan to manage his anxiety. Mental Status Exam MSE Comments: his is a thin disheveled white male lying in hospital bed with poor eye contact. ? No abnormal involuntary movements appreciated other than? for mild psychomotor retardation. His mood was described as allright. His affect was mood incongruent and irritable. ? ? Speech was normal in regards to rate, rhythm and? prosody. ? ? Thought process was superficial with evidence of overvalued ideas.? ? Thought content: patient had expressed suicidal ideation.? ? His Attention and concentration appeared poor.? ? He is alert and oriented three times. Insight and judgment remained poor.? Impulse control was also poor. Vitals/I&O/Wt Last Vital Signs Temp 97.4 F L 01/04/22 14:00 Pulse 92 01/04/22 14:00 Resp 20 H 01/04/22 14:00 BP 127/77 01/04/22 14:00 Pulse Ox 98 01/04/22 14:00 Data NPU : 01/03/22 08:06 01/03/22 08:06 A&P Assessment and plan (1) Psychotic disorder: Status: Acute (2) Methamphetamine addiction: Status: Acute (3) Chronic pain of left lower extremity: Status: Acute (4) History of methadone use: Status: Acute (5) Medication overdose: Status: Acute (6) Suicide attempt: Status: Acute (7) Suicidal ideation: Status: Acute Plan 1) remain on NPU involuntarily, given his high ED utilage and lack of success with sobriety and ongoing psychotic symptoms will consider IM use of Invega.? He was agreeable to trial of seroquel.? Patient needs case management. Will start suboxone trial 4/1mg SL daily target opioid dependence. ?2)? engage in milieu therapy and individual therapy. Involuntary Hold Information 96 Hour Hold: 96 Hour Involuntary Admission: Yes 96 Hour Hold Ending Date: 01/06/22 96 Hour Hold Ending Time: 17:55 Attestations NPU Medical Necessity Statement*: He will require inpatient hospitalization at NPU expected to be at least two midnights, with expected length of stay to be 6-8 days. Coding Level of Care Code Established Pt Acute Manager Business Information for Sunita Tejada Patient Type Established History Problem Focused Exam Problem Focused Medical Decision Making Straight Forward Diagnoses Psychotic disorder F29 Methamphetamine addiction F15.20 Chronic pain of left lower extremity M79.605; G89.29 History of methadone use Z87.898 Medication overdose T50.901A Suicide attempt T14.91XA Suicidal ideation R45.851
[2022-01-04 14:00] VITALS: BP 127/77; PULSE 92; RESP 20; TEMP 36.3; O2SAT 98
[2022-01-04 19:15] VITALS: BP 144/86; PULSE 98; RESP 20; TEMP 36.6; O2SAT 98
[2022-01-04] MEDS: trazodone 50 mg Tablet 25 MG PO (19:57)
[2022-01-04] MEDS: quetiapine XR (24HR) 50 mg Tablet PO (19:58)
--- NOTE | 2022-01-04 20:33 | PC.NURSE ---
IN BED AROUSES TO VOICE. PT DENIES PAIN. DENIES SI/HI AND AVH AT THIS TIME. STATES THE VOICES ARE COMPLETELY GONE NOW. PT MAKES STATEMENTS THAT HE IS STARTING HIS SUBOXONE TOMORROW AND IS VERY PLEASED WITH THE NEW ORDERS. HE IS STILL REQUESTING ATIVAN, STATES IF HE COULD HAVE THAT AND THE SUBOXONE ALL HE WOULD NEED IS A CADIALAK FOR CRUISING, I WOULD BE GOOD. EDUCATION COMPLETED ON SUBOXONE. VERBALIZED UNDERSTANDING. ALL QUESTIONS ANSWERED AND SUPPORT VOICED.
[2022-01-05 05:43] VITALS: BP 144/86; PULSE 98; RESP 20; TEMP 36.6; O2SAT 98
[2022-01-05 05:57] VITALS: BP 101/63; PULSE 64; RESP 16; TEMP 36.6; O2SAT 98
[2022-01-05] MEDS: lidocaine 5% Patch 1 PATCH TOPICAL ×2 (08:17→20:09)
[2022-01-05] MEDS: nicotine 2 mg Gum BUCCAL ×3 (08:18→18:47)
[2022-01-05] MEDS: buprenorphine-naloxone 4-1 mg Film 1 EACH SUBLINGUAL (08:18)
[2022-01-05] MEDS: CELEcoxib 100 mg Capsule PO ×2 (08:18→16:30)
[2022-01-05 13:45] VITALS: BP 119/77; PULSE 86; RESP 17; TEMP 36.6; O2SAT 100
[2022-01-05] MEDS: nicotine 4 mg lozenge MUCOUS MEM (16:29)
[2022-01-05] MEDS: OLANZapine 5 mg ODT PO (16:30)
--- NOTE | 2022-01-05 17:02 | W.PM.NPUPNS ---
Subjective NPU Subjective: Patient presents today reporting that he is starting get a clear picture of what the aftercare scenarios can be. He is contacted to [facility] programs and could attend either 1. At this point he seems of settled on [facility]:16, but with either 1 he is going to have to manage his legal exposure first. 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 Reports are surrounding his improvement and he looks better than this policy writer and see how during his multiple stays. We discussed working with the social work team about the possibilities would be to safely get him to treatment on 01/15/2022 sober. Mental Status Exam MSE Comments: This is a slender white male in hospital scrubs with adequate grooming and eye contact. No abnormal movements. Cooperative with exam in no acute distress. Speech was normal rate and volume. Mood described as getting better, affect appeared congruent.? Thought process, organized.? Thought content: patient denied suicidal or homicidal ideations, no delusions reported or noted, he denied auditory or visual hallucinations. Attention and concentration appeared intact and memory appeared more reliable but none were formally tested. He is alert and oriented three times. Insight and judgment are limited, but improving. Impulse control is limited. Vitals/I&O/Wt Last Vital Signs Temp 97.4 F L 01/05/22 20:03 Pulse 88 01/05/22 20:03 Resp 18 01/05/22 20:03 BP 119/77 01/05/22 13:45 Pulse Ox 96 01/05/22 20:03 Data NPU : 01/03/22 08:06 01/03/22 08:06 A&P Assessment and plan (1) Methamphetamine use disorder, severe: Status: Acute (2) Psychotic disorder: Status: Acute (3) Chronic pain of left lower extremity: Status: Acute (4) History of methadone use: Status: Acute (5) Suicide attempt: Status: Acute (6) Depression with suicidal ideation: Status: Acute (7) Drug overdose, intentional: Status: Acute Plan This is a 26 year old white male who presented with psychotic features and suicidal ideation with a past history of methamphetamine and opiate use who is currently homeless but reporting a focus on getting into a sober living treatment. 1.? Continue current medications. We will begin decreasing the Suboxone as he will not be able to take it at the rehabs. 2.? Encourage individual, group and milieu therapy 3.? Continue q-15 minute check for safety 4.? Recommend sober living treatment at the highest level of care to which the patient is willing to commit. Involuntary Hold Information 96 Hour Hold: 96 Hour Involuntary Admission: Yes 96 Hour Hold Ending Date: 01/06/22 96 Hour Hold Ending Time: 17:55 Attestations NPU Medical Necessity Statement*: Inpatient hospitalization is medically necessary and the clinically appropriate intervention at this time. We will monitor medications and make changes as indicated.? Likely length of stay is 2-4 days. Coding Level of Care Code Acute Senior Customer Service Representative for Sunita Ramirezd Diagnoses Methamphetamine use disorder, severe F15.20 Psychotic disorder F29 Chronic pain of left lower extremity M79.605; G89.29 History of methadone use Z87.898 Suicide attempt T14.91XA Depression with suicidal ideation F32.A; R45.851 Drug overdose, intentional T50.902A
[2022-01-05] MEDS: haloperidol 5 mg Tablet PO (17:55)
[2022-01-05 20:03] VITALS: PULSE 88; RESP 18; TEMP 36.3; O2SAT 96
[2022-01-05] MEDS: quetiapine XR (24HR) 50 mg Tablet PO (20:08)
[2022-01-05] MEDS: trazodone 50 mg Tablet 25 MG PO (20:08)
[2022-01-05] MEDS: trazodone 50 mg Tablet PO (20:56)
[2022-01-05] MEDS: hyDROXYzine 25 mg Capsule 50 MG PO (20:56)
[2022-01-06 06:00] VITALS: BP 96/60; PULSE 65; RESP 16; TEMP 36.7; O2SAT 96
[2022-01-06] MEDS: lidocaine 5% Patch 1 PATCH TOPICAL ×2 (09:14→20:12)
[2022-01-06] MEDS: buprenorphine-naloxone 4-1 mg Film 1 EACH SUBLINGUAL (09:15)
[2022-01-06] MEDS: CELEcoxib 100 mg Capsule PO ×2 (09:15→17:52)
[2022-01-06] MEDS: nicotine 2 mg Gum BUCCAL (09:15)
[2022-01-06] MEDS: nicotine 4 mg lozenge MUCOUS MEM ×4 (10:15→20:35)
[2022-01-06 12:36] LABS: Add Urine Microscopic? NO; Charge for UA Resulting for Rev
[2022-01-06 12:41] LABS: Bilirubin Urine Neg (Negative); Blood Urine Neg (Negative); Glucose Urine UA Norm (Normal); Ketones Urine Negative (Negative); Leukocyte Esterase Urine Negative (Negative); Nitrate Urine Negative (Negative); Protein Urine Neg (Negative); Urine Appearance Clear (CLEAR); Urine Color Straw (Yellow); Urobilinogen Urine Norm (Negative); pH Urine 6 (5-7)
[2022-01-06] MEDS: OLANZapine 5 mg ODT PO ×2 (13:30→17:31)
[2022-01-06 14:00] VITALS: BP 132/81; PULSE 77; RESP 16; TEMP 36.6; O2SAT 98
--- NOTE | 2022-01-06 17:05 | W.PM.NPUPNS ---
Subjective NPU Subjective: Patient presents today continuing to establish a new precedent for his behavior on the unit. Previous times he has been volatile and nasty with staff and not engaged in the recovery behavior that would seem necessary for his success. He has been in the leader in exploring discharge possibilities. He has been proactive in trying to eliminate his legal contreras and we discussed a plan will include him staying here until his court date followed by an agreement by his parents that he can stay there for the 3 days leading up to [facility]:16. He was open to this plan. Mental Status Exam MSE Comments: This is a slender white male in hospital scrubs with adequate grooming and eye contact. No abnormal movements. Cooperative with exam in no acute distress. Speech was normal rate and volume. Mood described as better but anxious about messing up this time, affect appeared congruent.? Thought process,? organized.? Thought content: patient denied suicidal or homicidal ideations, no delusions reported or noted, he denied auditory or visual hallucinations. Attention and concentration appeared intact and memory appeared more reliable but none were formally tested. He is alert and oriented three times. Insight and judgment are limited, but improving.? Impulse control is limited. Vitals/I&O/Wt Last Vital Signs Temp 97.8 F 01/06/22 14:00 Pulse 77 01/06/22 14:00 Resp 16 01/06/22 14:00 BP 132/81 01/06/22 14:00 Pulse Ox 98 01/06/22 14:00 Data NPU : 01/03/22 08:06 01/03/22 08:06 A&P Assessment and plan (1) Methamphetamine use disorder, severe: Status: Acute (2) Psychotic disorder: Status: Acute (3) Chronic pain of left lower extremity: Status: Acute (4) History of methadone use: Status: Acute (5) Medication overdose: Status: Acute (6) Suicide attempt: Status: Acute (7) Depression with suicidal ideation: Status: Acute (8) Drug overdose, intentional: Status: Acute Plan This is a 26 year old white male who presented with psychotic features and suicidal ideation with a past history of methamphetamine and opiate use who is currently homeless but reporting a focus on getting into a sober living treatment. 1.? Continue current medications.? We will begin decreasing the Suboxone as he will not be able to take it at the rehabs. 2.? Encourage individual, group and milieu therapy 3.? Continue q-15 minute check for safety 4.? Recommend sober living treatment at the highest level of care to which the patient is willing to commit. Plan for [facility] on 01/15/2022 once his 01/12/[address]22 court hearing is resolved. Involuntary Hold Information 96 Hour Hold: 96 Hour Involuntary Admission: Yes 96 Hour Hold Ending Date: 01/06/22 96 Hour Hold Ending Time: 17:55 Attestations NPU Medical Necessity Statement*: Inpatient hospitalization is medically necessary and the clinically appropriate intervention at this time. We will monitor medications and make changes as indicated.? Likely length of stay is 6 days. Coding Level of Care Code Acute Furnace Mechanic Helper for Sunita Fwd Diagnoses Methamphetamine use disorder, severe F15.20 Psychotic disorder F29 Chronic pain of left lower extremity M79.605; G89.29 History of methadone use Z87.898 Medication overdose T50.901A Suicide attempt T14.91XA Depression with suicidal ideation F32.A; R45.851 Drug overdose, intentional T50.902A
[2022-01-06] MEDS: acetaminophen 325 mg Tablet 650 MG PO ×2 (17:30→20:35)
--- NOTE | 2022-01-06 17:33 | PC.NURSE ---
Patient voices c/o left leg pain rated 4. Tylenol 650 mg po given for this. Patient also voices increased anxiety. Zyprexa 5 mg sl given for this.
[2022-01-06 20:02] VITALS: BP 128/87; PULSE 74; RESP 17; O2SAT 97
[2022-01-06] MEDS: hyDROXYzine 25 mg Capsule 50 MG PO (20:11)
[2022-01-06] MEDS: quetiapine XR (24HR) 50 mg Tablet PO (20:11)
[2022-01-06] MEDS: trazodone 50 mg Tablet PO (20:11)
[2022-01-07] MEDS: OLANZapine 5 mg ODT PO ×2 (04:46→11:12)
[2022-01-07 06:00] VITALS: BP 122/74; PULSE 91; RESP 16; O2SAT 96
[2022-01-07] MEDS: acetaminophen 325 mg Tablet 650 MG PO ×2 (06:43→18:06)
[2022-01-07] MEDS: nicotine 2 mg Gum BUCCAL ×2 (07:07→13:51)
[2022-01-07] MEDS: buprenorphine-naloxone 4-1 mg Film 1 EACH SUBLINGUAL (08:03)
[2022-01-07] MEDS: lidocaine 5% Patch 1 PATCH TOPICAL ×2 (08:04→20:30)
[2022-01-07] MEDS: CELEcoxib 100 mg Capsule PO ×2 (08:04→17:49)
[2022-01-07] MEDS: nicotine 4 mg lozenge MUCOUS MEM ×3 (09:01→17:49)
[2022-01-07] MEDS: ibuprofen 600 mg Tablet PO (10:05)
[2022-01-07] MEDS: calcium carbonate 500 mg Chew Tablet 1000 MG PO (10:29)
--- NOTE | 2022-01-07 10:48 | P.NPUPN_ITS ---
Subjective NPU Subjective: Patient presents today reporting some anxiety as there is some concern admits going on with his parents or being there. He did not or concerns arising about him not being able to manage his sobriety for those [address]. He agreed to take it a day at a time and focus first on getting him to a place of preparedness for going to [facility]:16 specifically in relation to his medications. We discussed the risk-benefit alternatives of starting to decrease his medication so that a week from now it will not feel problematic and he understood and agreed to proceed as documented in his note. Mental Status Exam MSE Comments: This is a slender white male in hospital scrubs with adequate grooming and eye contact. No abnormal movements. Cooperative with exam in no acute distress. Speech was normal rate and volume. Mood described as better but anxious , affect appeared congruent.? Thought process,? organized.? Thought content: patient denied suicidal or homicidal ideations, no delusions reported or noted, he denied auditory or visual hallucinations. Attention and concentration appeared intact and memory appeared more reliable but none were formally tested. He is alert and oriented three times. Insight and judgment are limited, but improving.? Impulse control is limited. Vitals/I&O/Wt Last Vital Signs Temp 97.8 F 01/06/22 14:00 Pulse 74 01/06/22 20:02 Resp 17 01/06/22 20:02 BP 128/87 01/06/22 20:02 Pulse Ox 97 01/06/22 20:02 Data NPU : 01/03/22 08:06 01/03/22 08:06 A&P Assessment and plan (1) Methamphetamine use disorder, severe: Status: Acute (2) Psychotic disorder: Status: Acute (3) Chronic pain of left lower extremity: Status: Acute (4) History of methadone use: Status: Acute (5) Medication overdose: Status: Acute (6) Suicide attempt: Status: Acute (7) Depression with suicidal ideation: Status: Acute (8) Drug overdose, intentional: Status: Acute (9) Anxiety and depression: Status: Acute Plan This is a 26 year old white male who presented with psychotic features and suici nanette ideation with a past history of methamphetamine and opiate use who is currently homeless but reporting a focus on getting into a sober living treatment. 1.? Continue current medications.? We will begin decreasing the Suboxone as he will not be able to take it at the rehabs. 2.? Encourage individual, group and milieu therapy 3.? Continue q-15 minute check for safety 4.? Recommend sober living treatment at the highest level of care to which the patient is willing to commit.? Plan for [facility] on 01/15/2022 once his 01/12/2022 court hearing is resolved. Involuntary Hold Information 96 Hour Hold: 96 Hour Involuntary Admission: Yes 96 Hour Hold Ending Date: 01/06/22 96 Hour Hold Ending Time: 17:55 Attestations NPU Medical Necessity Statement*: Inpatient hospitalization is medically necessary and the clinically appropriate intervention at this time. We will monitor medications and make changes as indicated.? Likely length of stay is 5 days. Coding Level of Care Code Acute Leasing Sales Consultant for Sunita Fwd Diagnoses Methamphetamine use disorder, severe F15.20 Psychotic disorder F29 Chronic pain of left lower extremity M79.605; G89.29 History of methadone use Z87.898 Medication overdose T50.901A Suicide attempt T14.91XA Depression with suicidal ideation F32.A; R45.851 Drug overdose, intentional T50.902A Anxiety and depression F41.9; F32.9
[2022-01-07] MEDS: haloperidol 5 mg Tablet PO ×2 (12:38→20:31)
[2022-01-07] MEDS: haloperidol 5 mg Tablet 10 MG PO (13:49)
[2022-01-07 14:00] VITALS: BP 145/83; PULSE 93; RESP 16; TEMP 36.3; O2SAT 95
--- NOTE | 2022-01-07 14:49 | PC.NURSE ---
1349 Pt experiencing Auditory Cassidy. ordered 10mg once PO Haldol at this time.
[2022-01-07] MEDS: quetiapine XR (24HR) 50 mg Tablet PO (20:31)
[2022-01-07] MEDS: trazodone 50 mg Tablet PO (20:31)
[2022-01-07 20:59] VITALS: BP 127/78; PULSE 96; RESP 20; TEMP 36.5; O2SAT 94
[2022-01-07] MEDS: hyDROXYzine 25 mg Capsule 50 MG PO (23:25)
[2022-01-08 06:00] VITALS: BP 117/71; PULSE 80; RESP 18; TEMP 36.6; O2SAT 96
[2022-01-08] MEDS: nicotine 4 mg lozenge MUCOUS MEM ×3 (06:59→17:47)
--- NOTE | 2022-01-08 07:01 | W.PM.NPUPNS ---
Subjective NPU Subjective: Patient presents today reporting that he is having anxiety but in part is due to him feeling like this is his real chance. He reports that he has been less resistant during the stay and really acknowledges that his recovery is the centerpiece to him doing better. He agreed to decrease his Suboxone in half in preparation for need to be on nothing when [facility] next Sunday. He denies any other changes. Mental Status Exam MSE Comments: This is a slender white male in hospital scrubs with adequate grooming and eye contact. No abnormal movements. Cooperative with exam in no acute distress. Speech was normal rate and volume. Mood described as better but anxious , affect appeared congruent.? Thought process,? organized.? Thought content: patient denied suicidal or homicidal ideations, no delusions reported or noted, he denied auditory or visual hallucinations. Attention and concentration appeared intact and memory appeared more reliable but none were formally tested. He is alert and oriented three times. Insight and judgment are limited, but improving.? Impulse control is limited. Vitals/I&O/Wt Last Vital Signs Temp 97.7 F 01/07/22 20:59 Pulse 96 01/07/22 20:59 Resp 20 H 01/07/22 20:59 BP 127/78 01/07/22 20:59 Pulse Ox 94 01/07/22 20:59 Weight last 48 hrs Weight 72.376 kg Data NPU : 01/03/22 08:06 01/03/22 08:06 A&P Assessment and plan (1) Methamphetamine use disorder, severe: Status: Acute (2) Psychotic disorder: Status: Acute (3) Chronic pain of left lower extremity: Status: Acute (4) History of methadone use: Status: Acute (5) Medication overdose: Status: Acute (6) Suicide attempt: Status: Acute (7) Depression with suicidal ideation: Status: Acute (8) Drug overdose, intentional: Status: Acute Plan This is a 26 year old white male who presented with psychotic features and suicidal ideation with a past history of methamphetamine and opiate use who is currently homeless but reporting a focus on getting into a sober living treatment. 1.? Continue current medications.? We will begin decreasing the Suboxone to 2-1 mg. 2.? Encourage individual, group and milieu therapy 3.? Continue q-15 minute check for safety 4.? Recommend sober living treatment at the highest level of care to which the patient is willing to commit.? Plan for [facility] on 01/15/2022 once his 01/12/2022 court hearing is resolved. Involuntary Hold Information 96 Hour Hold: 96 Hour Involuntary Admission: Yes 96 Hour Hold Ending Date: 01/06/22 96 Hour Hold Ending Time: 17:55 Attestations NPU Medical Necessity Statement*: Inpatient hospitalization is medically necessary and the clinically appropriate intervention at this time. We will monitor medications and make changes as indicated.? Likely length of stay is 4 days. Coding Level of Care Code Acute Practice Billing Associate for Floring Fwd Diagnoses Methamphetamine use disorder, severe F15.20 Psychotic disorder F29 Chronic pain of left lower extremity M79.605; G89.29 History of methadone use Z87.898 Medication overdose T50.901A Suicide attempt T14.91XA Depression with suicidal ideation F32.A; R45.851 Drug overdose, intentional T50.902A
[2022-01-08] MEDS: nicotine 2 mg Gum BUCCAL (08:14)
[2022-01-08] MEDS: calcium carbonate 500 mg Chew Tablet 1000 MG PO ×4 (08:14→20:12)
[2022-01-08] MEDS: CELEcoxib 100 mg Capsule PO ×2 (08:14→18:02)
--- NOTE | 2022-01-08 08:49 | PC.NURSE ---
PT UP IN HALLWAY AMBULATING BACK IN FORTH. PT REPORTS HE HAS COURT ON THE AND WAS SUPPOSE TO GO TO HIS PARENTS HOUSE AFTER THAT, THEN GO TO [place] [id number] ON THE . PT REPORTS HIS PARENTS HAVE COVID AND NOW HE CAN NOT GO THERE THE . PT WANTS TO KNOW IF HE CAN STAY HERE UNTIL THE THEN GO TO [place] [id number]. THIS NURSE INFORMED PT STAFF WOULD TALK TO DR AND CAKE MAKER ON SUNDAY AND FIGURE OUT HIS DISCHARGE PLAN. PT APPEARS VERY EXCITED TO BE GOING TO [place] [id number] AND STARTING TO WORK DAILY. DENIES SI/HI AND AVH AT THIS TIME. PT STATES HE HAS NOT HEARD VOICES IN 2-3 DAYS. NEW ORDER WAS RECEIVED TO DECREASE SUBOXONE TO 2/1MG, ORDERS PLACE AND PT EDUCATED. VERBALIZED UNDERSTANDING. SUPPOR VOICED
[2022-01-08] MEDS: buprenorphine-naloxone 4-1 mg Film 0.5 EACH SUBLINGUAL (09:04)
[2022-01-08] MEDS: nicotine 21 mg Patch 1 PATCH TRANSDERMA (09:31)
[2022-01-08] MEDS: lidocaine 5% Patch 1 PATCH TOPICAL (10:01)
[2022-01-08] MEDS: diphenhydrAMINE 50 mg Capsule PO ×2 (12:31→16:38)
--- NOTE | 2022-01-08 12:32 | PC.NURSE ---
PRN MEDICATION PT REQUESTING BENADRYL DUE TO SINUS CONGESTION AND MILD ANXIETY. BENADRYL 50 MG GIVEN ORDERED.
[2022-01-08 14:00] VITALS: BP 143/98; PULSE 90; RESP 17; TEMP 36.6; O2SAT 95
[2022-01-08] MEDS: OLANZapine 5 mg ODT PO (15:32)
[2022-01-08] MEDS: haloperidol 5 mg Tablet PO (17:10)
[2022-01-08 19:48] VITALS: BP 137/90; PULSE 94; RESP 18; TEMP 36.8; O2SAT 97
[2022-01-08] MEDS: hyDROXYzine 25 mg Capsule 50 MG PO (20:12)
[2022-01-08] MEDS: quetiapine XR (24HR) 50 mg Tablet PO (20:12)
[2022-01-08] MEDS: trazodone 50 mg Tablet PO ×2 (20:12→23:56)
[2022-01-09] MEDS: nicotine 4 mg lozenge MUCOUS MEM ×5 (00:03→16:59)
[2022-01-09 06:00] VITALS: BP 127/77; PULSE 93; RESP 18; TEMP 36.8; O2SAT 96
[2022-01-09] MEDS: CELEcoxib 100 mg Capsule PO ×2 (08:55→17:52)
[2022-01-09] MEDS: buprenorphine-naloxone 4-1 mg Film 0.5 EACH SUBLINGUAL (08:55)
[2022-01-09] MEDS: lidocaine 5% Patch 1 PATCH TOPICAL (08:55)
[2022-01-09] MEDS: nicotine 2 mg Gum BUCCAL ×3 (09:45→20:10)
[2022-01-09] MEDS: calcium carbonate 500 mg Chew Tablet 1000 MG PO (09:45)
[2022-01-09] MEDS: diphenhydrAMINE 50 mg Capsule PO ×2 (10:39→18:21)
[2022-01-09] MEDS: haloperidol 5 mg Tablet PO (11:26)
[2022-01-09 14:00] VITALS: BP 121/75; PULSE 83; RESP 16; TEMP 34.7; O2SAT 96
--- NOTE | 2022-01-09 15:04 | P.NPUPN_ITS ---
Subjective NPU Subjective: Patient presents today reporting that he is having anxiety and reports that he wishes to get counseling and work to get a job at the rehab when he is discharged. He has been compliant with rdirection. and reports to being agreeable to being off suboxone when he transfers to [facility] 3: 16. He reports motivation to remain off illicit drugs and alcohol Mental Status Exam MSE Comments: This is a slender white male in hospital scrubs with adequate grooming and eye contact. No abnormal movements though he was pacing the hallways. Cooperative with exam in no acute distress. Speech was normal rate and volume. Mood described as allright , affect appeared mood congruent.? Thought process: linear logical organized.? Thought content: patient denied suicidal or homicidal ideations, no delusions reported or noted, he denied auditory or visual hallucinations. Attention and concentration appeared intact and memory appeared more reliable but none were formally tested. He is alert and oriented three times. Insight and judgment are limited, but improving.? Impulse control is limited. Vitals/I&O/Wt Last Vital Signs Temp 94.5 F L 01/09/22 14:00 Pulse 83 01/09/22 14:00 Resp 16 01/09/22 14:00 BP 121/75 01/09/22 14:00 Pulse Ox 96 01/09/22 14:00 Weight last 48 hrs Weight 72.376 kg Data NPU : 01/03/22 08:06 01/03/22 08:06 A&P Assessment and plan (1) Psychotic disorder: Status: Acute (2) Methamphetamine use disorder, severe: Status: Acute (3) Methamphetamine addiction: Status: Acute (4) Suicide attempt: Status: Acute (5) Depression with suicidal ideation: Status: Acute Plan Increase Seroquel XR 100mg in am Continue individual/milieu therapy Involuntary Hold Information 96 Hour Hold: 96 Hour Involuntary Admission: Yes 96 Hour Hold Ending Date: 01/06/22 96 Hour Hold Ending Time: 17:55 Attestations NPU Medical Necessity Statement*: Inpatient hospitalization is medically necessary and the clinically appropriate intervention at this time. We will monitor medications and make changes as indicated.? Likely length of stay is 3-5 days. Coding Level of Care Code Established Pt Acute Rhic Systems Safety Engineer for Sunita Tejada Patient Type Established History Problem Focused Exam Problem Focused Medical Decision Making Straight Forward Diagnoses Psychotic disorder F29 Methamphetamine use disorder, severe F15.20 Methamphetamine addiction F15.20 Suicide attempt T14.91XA Depression with suicidal ideation F32.A; R45.851
[2022-01-09] MEDS: quetiapine XR (24HR) 50 mg Tablet 100 MG PO (20:09)
[2022-01-09] MEDS: hyDROXYzine 25 mg Capsule 50 MG PO (20:10)
[2022-01-09] MEDS: trazodone 50 mg Tablet PO (20:10)
[2022-01-09 20:17] VITALS: BP 123/84; PULSE 84; RESP 17; TEMP 36.7; O2SAT 93
[2022-01-10 06:00] VITALS: BP 143/89; PULSE 90; RESP 17; O2SAT 97
[2022-01-10] MEDS: buprenorphine-naloxone 4-1 mg Film 0.5 EACH SUBLINGUAL (08:12)
[2022-01-10] MEDS: nicotine 2 mg Gum BUCCAL ×3 (08:12→18:44)
[2022-01-10] MEDS: lidocaine 5% Patch 1 PATCH TOPICAL (08:13)
[2022-01-10] MEDS: CELEcoxib 100 mg Capsule PO ×2 (08:13→16:57)
[2022-01-10] MEDS: OLANZapine 5 mg ODT PO ×3 (09:31→20:01)
[2022-01-10] MEDS: diphenhydrAMINE 50 mg Capsule PO (11:57)
--- NOTE | 2022-01-10 12:22 | W.PM.NPUPNS ---
Subjective NPU Subjective: Patient presents today reporting that he is hopeful about entering [facility] 3:16 rehabilitation program. Staff reports patient has been compliant on the unit. No cravings for illicit drugs, tolerating medication without side effects other than increased anxiety with discontinuation of suboxone. Mental Status Exam MSE Comments: This is a slender white male in hospital scrubs with adequate grooming and eye contact. No abnormal movements? though he was pacing the hallways.? Cooperative with exam in no acute distress. Speech was normal rate and volume. Mood described as good. , affect appeared mood congruent.? Thought process: linear logical organized.? Thought content: patient denied suicidal or homicidal ideations, no delusions reported or noted, he denied auditory or visual hallucinations. Attention and concentration appeared intact and memory appeared more reliable but none were formally tested. He is alert and oriented three times. Insight and judgment are limited, but improving.? Impulse control is limited. Vitals/I&O/Wt Last Vital Signs Temp 97.9 F 01/10/22 13:08 Pulse 69 01/10/22 13:08 Resp 17 01/10/22 13:08 BP 133/84 01/10/22 13:08 Pulse Ox 96 01/10/22 13:08 Data NPU : 01/03/22 08:06 01/03/22 08:06 A&P Assessment and plan (1) Psychotic disorder: Status: Acute (2) Methamphetamine use disorder, severe: Status: Acute (3) Methamphetamine addiction: Status: Acute (4) Chronic pain of left lower extremity: Status: Acute Plan Continue Seroquel XR 100mg in am Continue individual/milieu therapy Patient hopefully can be placed in dual diagnosis program although the rehab stay. Involuntary Hold Information 96 Hour Hold: 96 Hour Involuntary Admission: Yes 96 Hour Hold Ending Date: 01/06/22 96 Hour Hold Ending Time: 17:55 Attestations NPU Medical Necessity Statement*: Inpatient hospitalization is medically necessary and the clinically appropriate intervention at this time. We will monitor medications and make changes as indicated.? Likely length of stay is 3-5 days. Coding Level of Care Code Established Pt Acute Metal Flow Coordinator for Sunita Tejada Patient Type Established History Problem Focused Exam Problem Focused Medical Decision Making Straight Forward Diagnoses Psychotic disorder F29 Methamphetamine use disorder, severe F15.20 Methamphetamine addiction F15.20 Chronic pain of left lower extremity M79.605; G89.29
[2022-01-10] MEDS: nicotine 4 mg lozenge MUCOUS MEM ×4 (13:00→21:59)
[2022-01-10] MEDS: calcium carbonate 500 mg Chew Tablet 1000 MG PO ×2 (13:00→16:57)
[2022-01-10 13:08] VITALS: BP 133/84; PULSE 69; RESP 17; TEMP 36.6; O2SAT 96
[2022-01-10] MEDS: acetaminophen 325 mg Tablet 650 MG PO (13:13)
[2022-01-10] MEDS: ibuprofen 600 mg Tablet PO (16:07)
[2022-01-10] MEDS: capsaicin 0.025% cream 60 gm 1 APPLIC TOPICAL ×2 (17:21→20:11)
[2022-01-10] MEDS: haloperidol 5 mg Tablet PO (18:54)
--- NOTE | 2022-01-10 18:56 | PC.NURSE ---
pt complains of hearing chatter in his head. no commands. haldol given PRN
[2022-01-10 19:56] VITALS: BP 156/83; PULSE 93; RESP 17; TEMP 36.5; O2SAT 94
[2022-01-10] MEDS: trazodone 50 mg Tablet PO (20:01)
[2022-01-10] MEDS: quetiapine XR (24HR) 50 mg Tablet 100 MG PO (20:02)
[2022-01-11] MEDS: nicotine 4 mg lozenge MUCOUS MEM ×6 (02:02→18:47)
[2022-01-11 06:00] VITALS: BP 122/73; PULSE 92; RESP 19; TEMP 36.8; O2SAT 95
[2022-01-11] MEDS: buprenorphine-naloxone 4-1 mg Film 0.5 EACH SUBLINGUAL (08:36)
[2022-01-11] MEDS: CELEcoxib 100 mg Capsule PO ×2 (08:36→18:36)
[2022-01-11] MEDS: ibuprofen 600 mg Tablet PO ×2 (08:36→19:03)
[2022-01-11] MEDS: lidocaine 5% Patch 1 PATCH TOPICAL (08:37)
[2022-01-11] MEDS: calcium carbonate 500 mg Chew Tablet 1000 MG PO ×2 (09:22→13:42)
[2022-01-11] MEDS: nicotine 2 mg Gum BUCCAL ×3 (09:58→12:35)
[2022-01-11] MEDS: haloperidol 5 mg Tablet PO (10:54)
--- NOTE | 2022-01-11 12:56 | P.NPUPN_ITS ---
Subjective NPU Subjective: Patient seen on rounds, he remains motivated to go to [facility] 3:16, patient's legal hearing for unspecified violations was rescheduled for 1 week, he reports that the auditory hallucinations have been better and reports of being less distracted. Mental Status Exam MSE Comments: This is a slender white male in hospital scrubs with adequate grooming and eye contact. No abnormal movements?while pacing the hallways.? Cooperative with exam in no acute distress. Speech was normal rate and volume. Mood described as ok.? , affect appeared mood congruent.? Thought process: linear logical organized.? Thought content: patient denied suicidal or homicidal ideations, no delusions reported or noted, he endorsed auditory but no visual hallucinations. Attention and concentration appeared intact and memory appeared more reliable but none were formally tested. He is alert and oriented three times. Insight and judgment are limited, but improving.? Impulse control is limited. Vitals/I&O/Wt Last Vital Signs Temp 98.0 F 01/11/22 14:00 Pulse 95 01/11/22 14:00 Resp 16 01/11/22 14:00 BP 122/73 01/11/22 14:00 Pulse Ox 99 01/11/22 14:00 Data NPU : 01/03/22 08:06 01/03/22 08:06 A&P Assessment and plan (1) Methamphetamine use disorder, severe: Status: Acute (2) Psychotic disorder: Status: Acute (3) Methamphetamine addiction: Status: Acute (4) Chronic pain of left lower extremity: Status: Acute (5) History of methadone use: Status: Acute (6) Medication overdose: Status: Acute Plan Continue Seroquel XR 100mg in am Continue individual/milieu therapy Patient hopefully can be placed in dual diagnosis program although the rehab stay otherwise patient will go to [facility] 3: 16 where there will be increased risk of mood and psychotic symptoms as they have banned medications for their patients. Involuntary Hold Information 96 Hour Hold: 96 Hour Involuntary Admission: Yes 96 Hour Hold Ending Date: 01/06/22 96 Hour Hold Ending Time: 17:55 Attestations NPU Medical Necessity Statement*: Inpatient hospitalization is medically necessary and the clinically appropriate intervention at this time. We will monitor medications and make changes as indicated.? Likely length of stay is 3-5 days. Coding Level of Care Code Established Pt Acute Rd Mechanical Engineer for Chg Fwd Patient Type Established History Problem Focused Exam Problem Focused Medical Decision Making Straight Forward Diagnoses Methamphetamine use disorder, severe F15.20 Psychotic disorder F29 Methamphetamine addiction F15.20 Chronic pain of left lower extremity M79.605; G89.29 History of methadone use Z87.898 Medication overdose T50.901A
[2022-01-11 14:00] VITALS: BP 122/73; PULSE 95; RESP 16; TEMP 36.7; O2SAT 99
[2022-01-11] MEDS: OLANZapine 5 mg ODT PO (16:10)
[2022-01-11] MEDS: hyDROXYzine 25 mg Capsule 50 MG PO (19:04)
[2022-01-11 19:55] VITALS: BP 131/73; PULSE 93; RESP 17; TEMP 36.8; O2SAT 97
[2022-01-11] MEDS: quetiapine XR (24HR) 50 mg Tablet 100 MG PO (20:22)
--- NOTE | 2022-01-11 20:59 | NUR.SHIFT ---
PT LYING IN BED AND SAT UP FOR SHIFT ASSESSMENT. CALM AND COOPERATIVE. LUNG SOUNDS WNL. DENIES SI/HI/AVH/ANXIETY AND DEPRESSION AT THIS TIME. PT ABLE TO MAKE NEEDS KNOWN. PT VERBALIZED UNDERSTANDING TO COME TO NURSING STATION FOR NEEDS AND WANTS.
[2022-01-11] MEDS: trazodone 50 mg Tablet PO (21:08)
--- NOTE | 2022-01-11 21:12 | PC.NURSE ---
Medicated with Trazadone 50 mg po for insomnia, will continue to monitor.
[2022-01-12 06:00] VITALS: BP 118/70; PULSE 85; RESP 17; TEMP 36.6; O2SAT 97
[2022-01-12] MEDS: CELEcoxib 100 mg Capsule PO (08:52)
[2022-01-12] MEDS: nicotine 4 mg lozenge MUCOUS MEM ×3 (08:52→14:46)
[2022-01-12] MEDS: buprenorphine-naloxone 4-1 mg Film 0.5 EACH SUBLINGUAL (08:56)
[2022-01-12] MEDS: ibuprofen 600 mg Tablet PO (09:01)
--- NOTE | 2022-01-12 09:06 | PC.NURSE ---
IN BED RESTING. ANXIOUJS ABOUT DISCHARGING STATES HE WANTS TO GO TO [facility], [facility]. INFORMED PT I WOULD LET LONG WINDER TENDER KNOW. PT DENIES PAIN. DENIES SI/HI AND AVH AT THIS TIME. SUPPORT VOICED.
--- NOTE | 2022-01-12 09:09 | PC.NURSE ---
IN BED RESTING. ANXIOUJS ABOUT DISCHARGING STATES HE WANTS TO GO TO [facility], [facility]. INFORMED PT I WOULD LET WINDOWS VMWARE ENGINEER KNOW. PT DENIES PAIN. DENIES SI/HI AND AVH AT THIS TIME. SUPPORT VOICED.
[2022-01-12] MEDS: lidocaine 5% Patch 1 PATCH TOPICAL (09:32)
[2022-01-12] MEDS: diphenhydrAMINE 50 mg Capsule PO (12:45)
[2022-01-12] MEDS: paliperidone palmitate 234 mg Syringe IM (14:29)
--- NOTE | 2022-01-12 15:15 | W.PM.NPUDCS ---
Diagnoses at Discharge Discharge Diagnosis (1) Methamphetamine use disorder, severe: Status: Acute (2) Psychotic disorder: Status: Acute (3) Methamphetamine addiction: Status: Acute (4) Chronic pain of left lower extremity: Status: Acute (5) History of methadone use: Status: Acute (6) Medication overdose: Status: Acute Reason for Visit Reason for Visit: possible overdose/MHE Brief History: Tyree Alvarez is a 26 year old male recently discharged from [facility] last week. Who presented to the emergency room having overdosed on reportedly 15? invega 3mg tablets stating that it was not helpful.? He reports homelessness and reports that he has not used any illicit substances including the chronically consumed methamphetamine.? He reports that he has signficant cravings for opiates and methamphetamine and reports that he needs some different medication to help with his hallucinations.? He reports auditory hallucinations and reports that he wishes to get help with his suicidal thoughts.? He endorsed some feelings of hopelessness.? He denies any hx of manic symptoms.? He reports that he was forced to go [facility] [place] [facility] before he would be allowed to go to his homeless long-term.? He had reported that he did not make it to his outpatient visit prior to his admission here.? Pleasant 26-year-old homeless gentleman with history of multiple substance use disorder, hepatitis C in remission after partial treatment, psychiatric history including suicidal ideation, Past Psychiatrict Hx: He reports a past history of opiate abuse and has not been on methadone for 3 to 4 months. He reports numerous psychiatric inpatient hospitalizations but was unable to recall the dates or lengths of stay. He reports having received outpatient treatment for many years and recalls being on a variety of antipsychotics including Risperdal, Abilify and Seroquel. He reports an extensive substance abuse history including having been treated at [facility] [place]adone treatment approximately 3 to 4 months ago. He reports having engaged in intranasal opiate use at the age of 14 and reports having used methamphetamine for years beginning in high school. He also reports frequent? alcohol use with no history of withdrawal.? Psychiatric History: As above. Substance Abuse History: As above Family History: He did not report on his family history for mental health, addiction or lethality issues. Developmental History: He did not report any issues with his or developmental delays and did not report receiving speech therapy, learning support, emotional support or special education classes. Psychosocial History: He reports he lives in [place] on some property that has no reasonable heat or electricity. He states he has been homeless effectively for 2 years. He reports he was abandoned by his family and states having a tumultuous childhood but did not report any emotional, physical or sexual abuse. He reports having 3 sisters but reports his parents have disowned him. He graduated high school and attended some college. He has never been and does not have any children. He did not report any taoism belief system. Legal History: has had some [place] [facility] time over the last few years.? He reports some legal issues. Allergies: nkda Medical History: Hepatitis C, Hospital Course Hospital Course During the hospitalization, patient had routine laboratory studies which were within normal limits except for few outliers. Additionally there was a general medical evaluation which was also within normal limits and revealed no new acute processes. Discharge Summary: At the time of discharge, lethality was denied and psychosis was resolving. Mood and anxiety were well managed. Patient endorsed a plan to avoid all drugs of abuse and follow-up with the aftercare recommendations of the treatment team. Patient was evaluated and deemed to be absent credible lethality, and had achieved the maximum benefit from an inpatient hospitalization, so was discharged. He was discharged with plan for patient to enter a [facility] rehabilitation living facility. Involuntary Hold Information 96 Hour Hold: 96 Hour Involuntary Admission: Yes 96 Hour Hold Ending Date: 01/06/22 96 Hour Hold Ending Time: 17:55 Mental Status Exam MSE Comments: This is a slender white male in hospital scrubs with adequate grooming and eye contact. No abnormal movements?while pacing the hallways.? Cooperative with exam in no acute distress. Speech was normal rate and volume. Mood described as good.? , affect appeared mood congruent and brighter. Thought process: linear logical organized.? Thought content: patient denied suicidal or homicidal ideations, no delusions reported or noted, he endorsed no auditory and no visual hallucinations. Attention and concentration appeared intact and memory appeared more reliable but none were formally tested. He is alert and oriented three times. Insight and judgment had improved.? Impulse control is improved. Discharge Data Studies Completed and Pending: Laboratory Results WBC 13.7 10^3/uL (4.0 -10.0) H 01/03/22 08:06 RBC 4.27 10^6/uL (4.1 -5.3) 01/03/22 08:06 Hgb 12.5 g/dL (11.7-1 6.6) 01/03/22 08:06 Hct 36.1 % (42.0-52.0 ) L 01/03/22 08:06 MCV 84.5 fl (80-94) 01/03/22 08:06 MCH 29.3 pg (28.0-34. 0) 01/03/22 08:06 MCHC 34.6 g/dL (30.0-3 6.0) 01/03/22 08:06 RDW 13.5 % (12.1-15.1 ) 01/03/22 08:06 Plt Count 263 10^3/cmm (130 -400) 01/03/22 08:06 MPV 9.0 fL (7.4-10.4) 01/03/22 08:06 Neut % (Auto) 74.5 % 01/03/22 08:06 Lymph % (Auto) 15.0 % 01/03/22 08:06 [place] % (Auto) 8.5 % 01/03/22 08:06 Eos % (Auto) 0.6 % 01/03/22 08:06 Baso % (Auto) 0.2 % 01/03/22 08:06 Neut # (Auto) 10.16 10^3/uL (1. 8-7.7) H 01/03/22 08:06 Lymph # (Auto) 2.1 10^3/uL (0.8- 4.8) 01/03/22 08:06 [place] # (Auto) 1.2 10^3/uL (0.2- 0.9) H 01/03/22 08:06 Eos # (Auto) 0.1 10^3/uL (0.0- 0.8) 01/03/22 08:06 Baso # (Auto) 0.0 10^3/uL (0.0- 0.1) 01/03/22 08:06 Nucleated RBC % (a uto) 0 % 01/03/22 08:06 Nucleated RBCs # 0.0 /100WBC 01/03/22 08:06 Sodium 138 mmol/L (136-1 45) 01/03/22 08:06 Potassium 4.1 mmol/L (3.5-5 .1) 01/03/22 08:06 Chloride 103 mmol/L (98-10 7) 01/03/22 08:06 Carbon Dioxide 22 mmol/L (22-29) 01/03/22 08:06 Anion Gap 17.1 (5-19) 01/03/22 08:06 BUN 12 mg/dL (6-20) 01/03/22 08:06 Creatinine 0.7 mg/dL (0.7-1. 2) 01/03/22 08:06 GFR Calculation 134.3 mL/min (90- 130) H 01/03/22 08:06 Glucose 130 mg/dL (65-115 ) H 01/03/22 08:06 Calculated Osmolal ity 288 mOsm/kg (285- 295) 01/03/22 08:06 Calcium 9.2 mg/dL (8.5-10 .5) 01/03/22 08:06 Total Bilirubin 0.3 mg/dL (0.15-1 .2) 01/03/22 08:06 AST 15 U/L (0-40) 01/03/22 08:06 ALT 18 U/L (0-41) 01/03/22 08:06 Alkaline Phosphata se 110 IU/L (40-130) 01/03/22 08:06 Total Protein 7.4 g/dL (6.6-8.7 ) 01/03/22 08:06 Albumin 4.9 g/dL (3.5-5.2 ) 01/03/22 08:06 Globulin 2.5 g/dL (1.3-4.6 ) 01/03/22 08:06 Lipase 20 U/L (13-60) 12/31/21 20:23 Urine Color Straw (Yellow) 01/06/22 11:55 Urine Appearance Clear (CLEAR) 01/06/22 11:55 Urine pH 6 (5-7) 01/06/22 11:55 Ur Specific Gravit y 1.010 (1.005-1.0 30) 01/06/22 11:55 Urine Protein Neg (Negative) 01/06/22 11:55 Urine Glucose (UA) Norm (Normal) 01/06/22 11:55 Urine Ketones Negative (Negati ve) 01/06/22 11:55 Urine Blood Neg (Negative) 01/06/22 11:55 Urine Nitrate Negative (Negati ve) 01/06/22 11:55 Urine Bilirubin Neg (Negative) 01/06/22 11:55 Urine Urobilinogen Norm mg/dL (Negat tess) 01/06/22 11:55 Ur Leukocyte Basia ase Negative (Negati ve) 01/06/22 11:55 Salicylates < 0.3 mg/dL (3-10 ) L 12/31/21 20:23 Urine Opiates Scre en Negative ng/mL (N egative) 12/31/21 20:50 Acetaminophen < 5.0 ug/mL (10-3 0) L 12/31/21 20:23 Ur Barbiturates Sc reen Negative ng/mL (N egative) 12/31/21 20:50 Ur Phencyclidine S crn Negative ng/mL (N egative) 12/31/21 20:50 Ur Amphetamines Sc reen Negative ng/mL (N egative) 12/31/21 20:50 U Benzodiazepines Scrn Negative ng/mL (N egative) 12/31/21 20:50 Urine Cocaine Scre en Negative ng/mL (N egative) 12/31/21 20:50 U Marijuana (THC) Screen Negative ng/mL (N egative) 12/31/21 20:50 Vitals: Last Vital Signs Temp 97.9 F 01/12/22 06:00 Pulse 85 01/12/22 06:00 Resp 17 01/12/22 06:00 BP 118/70 01/12/22 06:00 Pulse Ox 97 01/12/22 06:00 Discharge Plan Discharge Patient Disposition: Home Condition: Stable Prescriptions: Discontinued methadone 40 mg Tablet,Soluble 40 mg PO DAILY 0RF Label Comments: pt states he gets this medication from [facility] [phone] called hydroxyzine pamoate [Vistaril] 50 mg capsule 50 mg PO Q8H PRN (Reason: acute anxiety) Qty: 10 0RF celecoxib [Celebrex] 100 mg capsule 100 mg PO BID Qty: 20 0RF paliperidone 3 mg Tablet Extended Release 24hr 3 mg PO DAILY 30 Days Qty: 30 1RF Discharge Orders: Discharge Order (Routine); Ordered 01/12/22 Ordered By: Jerod Vaughn Referrals: [facility] [Other] [facility] [Outside] (Initial assessment) Mike Sherman MD [Primary Care Provider] - Discharge Diet: Advance as tolerated Discharge Activity: Resume usual activity Patient Instructions: Depression (DC), Methamphetamine Use Disorder (DC), Help Prevent Suicide (DC), Opioid Withdrawal (DC), Opioid Safety Discharge Attestations [facility] Time Spent in Discharge Care*: less than 30 min Status at Discharge: Cognitive status at discharge: cognitively intact, Behavioral status at discharge: cooperative, Coding Level of Care Code Established Pt Acute Chg FW DC note Patient Type Established Medical Decision Making Straight Forward Diagnoses Methamphetamine use disorder, severe F15.20 Psychotic disorder F29 Methamphetamine addiction F15.20 Chronic pain of left lower extremity M79.605; G89.29 History of methadone use Z87.898 Medication overdose T50.901A
[2022-01-12 15:29] VITALS: BP 118/70; PULSE 85; RESP 17; TEMP 36.6; O2SAT 97
== END 2022-01-12 15:37 | disposition home or self-care (01) | DRG 881 ==
LOC: ER 21:09 → ICU 21:20 → MEDSURG 01-01 16:06 → NP 01-02 17:48
PROVIDERS: Psychiatry & Neurology Psychiatry; Admitting Provider Internal Medicine; Emergency Provider Emergency Medicine; PCP Family Medicine Adult Medicine; Visit Provider Psychiatry & Neurology Psychiatry
DX: F32.A Depression, unspecified (principal); F15.20 Other stimulant dependence, uncomplicated; F11.20 Opioid dependence, uncomplicated; R45.851 Suicidal ideations; T43.592A Poisoning by other antipsychotics and neuroleptics, intentional self-harm, initial encounter; F29 Unspecified psychosis not due to a substance or known physiological condition; F43.10 Post-traumatic stress disorder, unspecified; F17.200 Nicotine dependence, unspecified, uncomplicated; G89.29 Other chronic pain; M79.605 Pain in left leg; Z91.51 Personal history of suicidal behavior; Z86.19 Personal history of other infectious and parasitic diseases; Z59.01 Sheltered homelessness; Z65.3 Problems related to other legal circumstances; Z87.898 Personal history of other specified conditions
CPT/HCPCS: 36415; 51798; 80053; 80306; 80307; 81003; 83690; 85025; 93005; 96372; 97150; 97165; 99285; J0573; J2060; J2405; Q0163

== ENCOUNTER 2022-02-28 22:40 | Emergency (ER) | payer MEDICAID, SELFPAY ==
[2022-02-28 22:52] VITALS: BP 125/76; PULSE 67; RESP 16; TEMP 36.7; O2SAT 99
--- NOTE | 2022-02-28 23:00 | W.ED.PSYCHS ---
HPI - Psych General: Chief Complaint: Psychiatric Symptoms Stated Complaint: SI Time Seen by Provider: 02/28/22 22:42 Source: patient and EMS Mode of arrival: EMS Limitations: no limitations History of Present Illness: 26-year-old male is well-known to ER has a history of alcoholism along with methamphetamine abuse. He states he been drinking heavily tonight and is depressed and states that he had suicidal thoughts denies any active thoughts currently denies any plan. Patient denies any worsening improving factors. Associated symptoms: Reports depression Review of Systems Const: Denies: fever(s), chills, body aches or change in appetite Eyes: Denies: blurry vision or eye discomfort ENMT: Denies: throat pain or dental pain Card: Denies: chest pain Resp: Denies: dyspnea GI: Denies: abdominal pain, nausea, vomiting or diarrhea : Denies: dysuria Musc: Denies: neck pain or back pain Skin/Breast: Denies: rash Neuro: Denies: headache(s) Psych: Reports: depression Abe/Lymph: Denies: easy bruising All/Imm: Denies: urticaria PFSH ED PFSH: Medical History Alcohol use disorder, severe, dependence Amphetamine use disorder, severe Depression GERD (gastroesophageal reflux disease) Hepatitis C History of hepatitis C Treated with only one month of Epclusa. Despite that, he seems to have SVR. Recheck in one year History of lower leg fracture Insomnia Kidney stone Positive hepatitis C antibody test PTSD (post-traumatic stress disorder) Severe dental caries Surgical History Hip fracture requiring operative repair Family History Grandmother Cancer Mother Diabetes Heart disease Social History Alcohol intake: current Alcohol intake frequency: few times a month Alcohol type: beer Marital status: Single Number of children: 1 Current occupational status: employed History of recent travel: No Physical Exam Const: COMMON NORMALS: patient oriented x3 GENERAL APPEARANCE: disheveled HENMT: COMMON NORMALS: normocephalic and atraumatic HEAD & SCALP: normocephalic and atraumatic Eye: COMMON NORMALS: Equal, round and reactive pupils present and EOMs intact bilaterally PUPIL: Yes Equal, round and reactive pupils present Neck/C-Spine: COMMON NORMALS: full ROM and supple Chest: COMMONS NORMALS: normal inspection of the chest and normal palpation of entire chest wall Resp: COMMON NORMALS: normal respiratory effort, No retractions, No use of accessory muscles and clear to auscultation bilaterally AUSCULTATION: clear to auscultation bilaterally Cardio: COMMON NORMALS: regular rate, regular rhythm and No murmurs present (Cardio) RATE: regular rate RHYTHM: regular rhythm GI: COMMON NORMALS: Normal to inspection, nondistended, normoactive bowel sounds present, Soft to palpation, non-tender and no masses PALPATION: Yes Soft to palpation Extremity: COMMON NORMALS: normal to inspection and full ROM Neuro: COMMON NORMALS: patient oriented x3, moves all extremities and no focal motor deficits Psych: COMMON NORMALS: Normal thought process present and cooperative THOUGHT PROCESS: Normal thought process present Skin: COMMON NORMALS: no rashes or lesions noted and no wounds GENERAL SKIN EXAM: no rashes or lesions noted Course Vital Signs: Vital signs: Vital Signs Temperature 98.0 F 02/28/22 22:52 Pulse Rate 77 02/28/22 23:58 Respiratory Rate 16 02/28/22 23:58 Blood Pressure 123/71 02/28/22 23:58 Pulse Oximetry 100 02/28/22 23:58 Oxygen Delivery Me thod 02/28/22 23:58 MDM - Psych Medical Decision Making Patient presents with alcohol intoxication along with depression patient is now awake and alert clinically sober he denies being suicidal patient was evaluated by Dr. Daniel feels he is stable for discharge I do not believe that he is actively suicidal I feel he is stable for discharge as well Discharge Plan Discharge Patient Disposition: Home Clinical Impression: Depression, Alcohol intoxication Condition: Stable Discharge Orders: Discharge ED (Routine); Ordered 02/28/22 Ordered By: Mimi Bailon Referrals: Mike Sherman MD [Primary Care Provider] - Discharge Diet: Advance as tolerated Discharge Activity: Resume usual activity Coding Level of Care Code ED Cashier Host/Hostess for Sunita Tejada
--- NOTE | 2022-02-28 23:32 | PC.NURSE ---
Pt spoke with Dr. Carpenter on arrival. No need for hospitalization or 1-1 sitter, however, pt moved in line of site of nurses and is being allowed to sleep for now. Will reassess.
[2022-02-28 23:58] VITALS: BP 123/71; PULSE 77; RESP 16; O2SAT 100
--- NOTE | 2022-03-01 01:16 | PC.NURSE ---
Pt resting quietly. Not yet ready to ambulate to DC.
--- NOTE | 2022-03-01 04:15 | PC.NURSE ---
Woke pt up. Pt still very drowsy. [place] bag provided. Pt sat up in bed and started eating. Will monitor and have pt ambulate after food.
--- NOTE | 2022-03-01 04:45 | PC.NURSE ---
Pt ambulated to bathroom and back to room without assistance.
--- NOTE | 2022-03-01 04:53 | PC.NURSE ---
Pt ambulated to front lobby without difficulty.
== END 2022-03-01 04:55 | disposition home or self-care (01) ==
PROVIDERS: Emergency Provider Emergency Medicine; PCP Family Medicine Adult Medicine
DX: F32.A Depression, unspecified (principal); F10.229 Alcohol dependence with intoxication, unspecified; F15.90 Other stimulant use, unspecified, uncomplicated; Y90.9 Presence of alcohol in blood, level not specified
CPT/HCPCS: 99283; Q3014

== ENCOUNTER 2022-03-03 02:55 | Emergency (ER) | payer MEDICAID, SELFPAY ==
[2022-03-03 03:01] VITALS: BMI 19.6
[2022-03-03 03:03] VITALS: BP 147/77; PULSE 58; RESP 16; TEMP 36.4; O2SAT 99
--- NOTE | 2022-03-03 03:04 | W.ED.PSYCHS ---
HPI - Psych General: Chief Complaint: Psychiatric Symptoms Stated Complaint: SI Time Seen by Provider: 03/03/22 03:03 Source: patient Mode of arrival: ambulatory Limitations: no limitations History of Present Illness: 26-year-old male is very well-known to the ER has a history of homelessness methamphetamine use alcoholism he is here tonight he states he has not been able to sleep he is having some depression denies any suicidality denies any worsening improving factors. Associated symptoms: Reports depression Review of Systems Const: Denies: fever(s), chills, body aches or change in appetite Eyes: Denies: blurry vision or eye discomfort ENMT: Denies: throat pain or dental pain Card: Denies: chest pain Resp: Denies: dyspnea GI: Denies: abdominal pain, nausea, vomiting or diarrhea : Denies: dysuria Musc: Denies: neck pain or back pain Skin/Breast: Denies: rash Neuro: Denies: headache(s) Psych: Reports: depression Abe/Lymph: Denies: easy bruising All/Imm: Denies: urticaria PFSH ED PFSH: Medical History Alcohol use disorder, severe, dependence Amphetamine use disorder, severe Depression GERD (gastroesophageal reflux disease) Hepatitis C History of hepatitis C Treated with only one month of Epclusa. Despite that, he seems to have SVR. Recheck in one year History of lower leg fracture Insomnia Kidney stone Positive hepatitis C antibody test PTSD (post-traumatic stress disorder) Severe dental caries Surgical History Hip fracture requiring operative repair Family History Grandmother Cancer Mother Diabetes Heart disease Social History Alcohol intake: current Alcohol intake frequency: few times a month Alcohol type: beer Marital status: Single Number of children: 1 Current occupational status: employed History of recent travel: No Physical Exam Const: COMMON NORMALS: no acute distress, patient oriented x3 and healthy appearing HENMT: COMMON NORMALS: normocephalic and atraumatic HEAD & SCALP: normocephalic and atraumatic Eye: COMMON NORMALS: Equal, round and reactive pupils present and EOMs intact bilaterally PUPIL: Yes Equal, round and reactive pupils present Neck/C-Spine: COMMON NORMALS: full ROM and supple Chest: COMMONS NORMALS: normal inspection of the chest and normal palpation of entire chest wall Resp: COMMON NORMALS: normal respiratory effort, No retractions, No use of accessory muscles and clear to auscultation bilaterally AUSCULTATION: clear to auscultation bilaterally Cardio: COMMON NORMALS: regular rate, regular rhythm and No murmurs present (Cardio) RATE: regular rate RHYTHM: regular rhythm GI: COMMON NORMALS: Normal to inspection, nondistended, normoactive bowel sounds present, Soft to palpation, non-tender and no masses PALPATION: Yes Soft to palpation Extremity: COMMON NORMALS: normal to inspection and full ROM Neuro: COMMON NORMALS: patient oriented x3, moves all extremities and no focal motor deficits Psych: COMMON NORMALS: mental status grossly normal, Normal thought process present and cooperative THOUGHT PROCESS: Normal thought process present Skin: COMMON NORMALS: no rashes or lesions noted and no wounds GENERAL SKIN EXAM: no rashes or lesions noted MDM - Psych Medical Decision Making Patient presents with insomnia along with some depression he is not suicidal patient is well-known I do not believe that he is actively suicidal and he denies any suicidality or plan he states that he just cannot sleep he does have a history of methamphetamine abuse patient given Ativan here he is stable for discharge at this time. Discharge Plan Discharge Patient Disposition: Home Clinical Impression: Insomnia, Depression Condition: Stable Discharge Orders: Discharge ED (Routine); Ordered 03/03/22 Ordered By: Mimi Bailon Referrals: Mike Sherman MD [Primary Care Provider] - Discharge Diet: Advance as tolerated Discharge Activity: Resume usual activity Patient Instructions: Depression (ED) Coding Level of Care Code ED Supervisor Pipeline Maintenance for Sunita Tejada
[2022-03-03] MEDS: LORazepam 2 mg Tablet PO (03:06)
[2022-03-03 03:11] VITALS: BP 147/77; PULSE 58; RESP 16; TEMP 36.4; O2SAT 99
== END 2022-03-03 03:12 | disposition home or self-care (01) ==
LOC: ER 03:07
PROVIDERS: Emergency Provider Emergency Medicine; PCP Family Medicine Adult Medicine
DX: G47.00 Insomnia, unspecified (principal); F32.A Depression, unspecified; Z86.19 Personal history of other infectious and parasitic diseases
CPT/HCPCS: 99283

== ENCOUNTER 2022-04-06 13:42 | Emergency (ER) | payer MEDICAID, SELFPAY ==
[2022-04-06 13:45] VITALS: BP 136/95; PULSE 75; RESP 16; TEMP 36.4; O2SAT 96; BMI 21.6
--- NOTE | 2022-04-06 13:45 | W.ED.GENADLT ---
HPI - General Adult General: Chief complaint: Psychiatric Symptoms Stated complaint: SUICIDAL IDEATIONS Time Seen by Provider: 04/06/22 13:44 History of Present Illness: HPI: [27]yo patient w/ hx of depression, PTSD BIBA for concerns of suicidal ideation. Patient tells me that he would like to hurt himself this but does not have any definitive plan. Patient also reports auditory hallucination on arrival, the patient is AAOx3 and cooperative with my evaluation. No focal complaints of chest pain, shortness of breath, palpitations, N/V, focal GI/ complaints. Currently denies HI. Onset: acute on chronic Duration: ongoing Location: home Severity: severe Associated symptoms: Deny chest pain, dyspnea, nausea, rash, palpitations or vomiting Review of Systems Const: Denies: fever(s) or chills Eyes: Denies: change in vision ENMT: Denies: mouth pain Card: Denies: chest pain or palpitations Resp: Denies: dyspnea or non-productive cough GI: Denies: abdominal pain, nausea, vomiting or diarrhea : Denies: dysuria Musc: Denies: extremity pain Skin/Breast: Denies: rash or new lesions Neuro: Denies: weakness in extremities Psych: Reports: depression, auditory hallucinations and suicidal ideation Abe/Lymph: Denies: easy bruising PFSH ED PFSH: Medical History Alcohol use disorder, severe, dependence Amphetamine use disorder, severe Depression GERD (gastroesophageal reflux disease) Hepatitis C History of hepatitis C Treated with only one month of Epclusa. Despite that, he seems to have SVR. Recheck in one year History of lower leg fracture Insomnia Kidney stone Positive hepatitis C antibody test PTSD (post-traumatic stress disorder) Severe dental caries Surgical History Hip fracture requiring operative repair Family History Grandmother Cancer Mother Diabetes Heart disease Social History Alcohol intake: current Alcohol intake frequency: few times a month Alcohol type: beer Marital status: Single Number of children: 1 Current occupational status: employed History of recent travel: No Physical Exam Const: COMMON NORMALS: alert HENMT: COMMON NORMALS: atraumatic HEAD & SCALP: atraumatic MOUTH: moist mucous membranes not abnormal Eye: COMMON NORMALS: EOMs intact bilaterally and conjunctivae normal CONJUNCTIVA: Yes conjunctivae normal Neck/C-Spine: COMMON NORMALS: full ROM and supple Resp: COMMON NORMALS: normal respiratory effort and clear to auscultation bilaterally AUSCULTATION: clear to auscultation bilaterally Cardio: COMMON NORMALS: regular rate RATE: regular rate GI: COMMON NORMALS: Soft to palpation and non-tender PALPATION: Yes Soft to palpation Extremity: COMMON NORMALS: full ROM Neuro: SENSORIUM/ORIENTATION: Yes alert MOTOR EXAM: No Abnormal motor strength present and Other motor observations present (no focal motor deficits) Psych: COMMON NORMALS: speech normal SPEECH: Yes normal speech MOOD & AFFECT: Yes depressed mood Course Vital Signs: Vital signs: Vital Signs Temperature 97.6 F 04/06/22 13:45 Pulse Rate 102 H 04/06/22 14:01 Respiratory Rate 18 04/06/22 14:01 Blood Pressure 145/96 04/06/22 14:01 Pulse Oximetry 98 04/06/22 14:01 Oxygen Delivery Me thod 04/06/22 14:01 MDM - General Adult Medical Decision Making [27]yo patient w/ hx of PTSD, depression, hepatitis C presenting for depression. HDS, exam within normal limit Thoughts are linear and organized, and the patient has no AH/VH, or HI. Clinically the patient displays no overt toxidrome; they are well appearing, with low suspicion for toxic ingestion given history and exam. Symptoms unlikely 2/2 anemia, hypothyroidism, infection, or ICH. [2:48pm] On reassessment, patient is hemodynamically stable with no acute medical complaints. Case discussed with psychiatric provider Dr. Carpenter at [facility] psych inpatient who evaluated patient via telepsych and recommended discharge with close follow-up. I have given patient follow up with our case fitter to be seen by our outpatient [facility] for depression. Patient aware of a call from our case fitter to schedule for appointment(s) and verbalizes understanding of the importance of following up. Disposition: Discharge Discharge Plan Discharge Patient Disposition: Home Clinical Impression: Depression Condition: Stable Prescriptions: No Action No Known Home Medications Discharge Orders: Discharge ED (Routine); Ordered 04/06/22 Ordered By: Jessee Salgado Referrals: Mike Sherman MD [Primary Care Provider] - Discharge Diet: Advance as tolerated Discharge Activity: Increase activity as tolerated Patient Instructions: Depression (ED) Activity Restrictions/Additional Instructions: Please come back to the emergency room if you need help, have any hallucinations, or you have any depression or have thoughts about hurting yourself or other people. Our case fitter will have you follow-up with [facility] in the next few days. You would be expected to have a phone call with our case fitter who will put you on the schedule. You can expect a call from us in the next 2-3 days. If you don't hear from us, call us back in the emergency room at [phone]. Coding Level of Care Code ED Marine Radio Installer And Servicer for Sunita Fwmaria teresa Exam Comprehensive
[2022-04-06 14:01] VITALS: BP 145/96; PULSE 102; RESP 18; O2SAT 98
[2022-04-06 14:53] VITALS: PULSE 81; RESP 18; O2SAT 98
--- NOTE | 2022-04-07 12:49 | DCPLANNER ---
Addendum entered by Alma Garcia 04/12/22 14:41: manager water received the following message from Wendy from [facility] regarding follow up appointment: I left a voicemail with call back number. I also put in a referral to ERE program Original Note: manager water had message to schedule a follow up appointment for patient with [facility]. manager water sent patients information to Wendy, watershed coordinator at [facility]. Patients information will be printed and reviewed. Clinic will call patient with appointment information.
== END 2022-04-06 14:55 | disposition home or self-care (01) ==
PROVIDERS: Emergency Provider Emergency Medicine; PCP Family Medicine Adult Medicine
DX: F32.A Depression, unspecified (principal); Z86.19 Personal history of other infectious and parasitic diseases
CPT/HCPCS: 99283

== ENCOUNTER 2022-07-01 01:45 | Emergency (ER) | payer MEDICAID, SELFPAY ==
[2022-07-01 01:58] VITALS: BP 132/81; PULSE 80; RESP 18; TEMP 37.1; O2SAT 98; BMI 21.6
--- NOTE | 2022-07-01 03:14 | ED_ITS ---
HPI - URI/Sore Throat General: Chief Complaint: General Medical Stated Complaint: congestion Time Seen by Provider: 07/01/22 02:23 Source: patient History of Present Illness: 27-year-old male well-known to the emergency department. He presents with cough and congestion. No fever. He states he has clear phlegm. No chest pain. He is resting comfortably in the room and has to be awakened in between questions MD elicited complaint: cough, rhinorrhea and nasal congestion Pertinent past history: other Onset (ago): day(s) (3) Consistency: constant Severity: moderate Description of mucous: clear Associated symptoms: Reports congestion, cough, nasal congestion and rhinorrhea; Deny chest pain, fever(s), nausea, short of breath, sinus pain, sore throat or vomiting Treatments prior to arrival: none Review of Systems Const: Denies: fever(s) ENMT: Reports: nasal congestion; Denies: sinus pain Card: Denies: chest pain Resp: Reports: productive cough; Denies: dyspnea GI: Denies: nausea or vomiting [facility] ED PFSH: Medical History Alcohol use disorder, severe, dependence Anxiety and depression GERD (gastroesophageal reflux disease) History of hepatitis C Treated with only one month of Epclusa. Despite that, he seems to have SVR. Recheck in one year History of lower leg fracture Kidney stone Penile benign neoplasm PTSD (post-traumatic stress disorder) Severe dental caries Surgical History Hip fracture requiring operative repair Family History Grandmother Cancer Mother Diabetes Heart disease Social History Alcohol intake: current Alcohol intake frequency: few times a month Alcohol type: beer Marital status: Single Number of children: 1 Current occupational status: employed History of recent travel: No Physical Exam Const: COMMON NORMALS: no acute distress GENERAL APPEARANCE: cooperative HENMT: COMMON NORMALS: normocephalic, Normal external nose present and Normal nasal mucous membranes and turbinates present HEAD & SCALP: normocephalic FACE & SINUS: normal facial exam and face symmetric NOSE: Normal external nose present and Normal nasal mucous membranes and turbinates present THROAT: posterior oropharynx abnormal erythema; no cobblstoning and no exudates Eye: COMMON NORMALS: Equal, round and reactive pupils present and EOMs intact bilaterally PUPIL: Yes Equal, round and reactive pupils present Neck/C-Spine: COMMON NORMALS: supple GENERAL: Yes trachea midline Chest: CHEST: Yes Symmetrical chest wall rise Resp: COMMON NORMALS: normal respiratory effort, No use of accessory muscles and clear to auscultation bilaterally AUSCULTATION: clear to auscultation bilaterally Cardio: COMMON NORMALS: regular rate and regular rhythm RATE: regular rate RHYTHM: regular rhythm Course Vital Signs: Vital signs: Vital Signs Temperature 98.8 F 07/01/22 01:58 Pulse Rate 80 07/01/22 01:58 Respiratory Rate 18 07/01/22 01:58 Blood Pressure 132/81 07/01/22 01:58 Pulse Oximetry 98 07/01/22 01:58 MDM - URI/Sore Throat Medical Decision Making Mild URI symptoms. Symptomatic treatment. Discharge Plan Discharge Patient Disposition: Home Clinical Impression: Upper respiratory infection, acute Condition: Stable Prescriptions: New guaifenesin 600 mg tablet extended release 12hr 600 mg PO BID Qty: 20 0RF No Action lidocaine (PF) 20 mg/mL (2 %) solution 20 mg SUBCUT ONCE Qty: 1 0RF Discharge Orders: Discharge ED (Routine); Ordered 07/01/22 Ordered By: Dc Lemus Referrals: Mike Sherman MD [Primary Care Provider] - 1-3 days Patient Instructions: Upper Respiratory Infection (ED) Coding Level of Care Code ED Physician Primary Care Sports Medicine for Sunita Tejada
== END 2022-07-01 03:13 | disposition home or self-care (01) ==
PROVIDERS: Emergency Provider Emergency Medicine; PCP Family Medicine Adult Medicine
DX: J06.9 Acute upper respiratory infection, unspecified (principal); Z86.19 Personal history of other infectious and parasitic diseases
CPT/HCPCS: 99283

== ENCOUNTER 2022-07-02 20:36 | Emergency (ER) | payer MEDICAID, SELFPAY ==
[2022-07-02 20:55] VITALS: PULSE 96; RESP 16; TEMP 36.1; O2SAT 99
--- NOTE | 2022-07-02 23:04 | PC.NURSE ---
Patient would not wake up when the provider tried speaking to him.
--- NOTE | 2022-07-03 20:54 | ED_ITS ---
HPI - General Adult General: Chief complaint: General Medical Stated complaint: left shoulder/back pain Time Seen by Provider: 07/02/22 22:24 Source: patient and RN notes reviewed History of Present Illness: 27 year old male well known to the [facility]. He presents with multiple complaints including bilateral feet, and low back pain as well as cough and congestion. He was seen two nights ago, and it is obvious that he has not filled his medication or followed through with treatment. In an attempt to interview him, he is sleeping in a chair, and will not stay awake to answer my questions. Onset (ago): day(s) Radiation: other Quality: other Pain Consistency: other Relieving factors: other Exacerbating factors: other Review of Systems Const: Denies: fever(s) ENMT: Reports: nasal congestion Resp: Reports: non-productive cough PFSH ED PFSH: Medical History Alcohol use disorder, severe, dependence Anxiety and depression GERD (gastroesophageal reflux disease) History of hepatitis C Treated with only one month of Epclusa. Despite that, he seems to have SVR. Recheck in one year History of lower leg fracture Kidney stone Penile benign neoplasm PTSD (post-traumatic stress disorder) Severe dental caries Surgical History Hip fracture requiring operative repair Family History Grandmother Cancer Mother Diabetes Heart disease Social History Alcohol intake: current Alcohol intake frequency: few times a month Alcohol type: beer Marital status: Single Number of children: 1 Current occupational status: employed History of recent travel: No Physical Exam Const: GENERAL APPEARANCE: not cooperative NUTRITIONAL APPEARANCE: thin HENMT: COMMON NORMALS: normocephalic, atraumatic and Normal external nose present HEAD & SCALP: normocephalic and atraumatic FACE & SINUS: normal facial exam NOSE: Normal external nose present Neck/C-Spine: GENERAL: Yes trachea midline Chest: CHEST: Yes Symmetrical chest wall rise Resp: COMMON NORMALS: normal respiratory effort, No retractions and No use of accessory muscles Cardio: COMMON NORMALS: regular rate and regular rhythm RATE: regular rate RHYTHM: regular rhythm Neuro: SENSORIUM/ORIENTATION: Yes somnolent Psych: COMMON NORMALS: negative for cooperative Course Vital Signs: Vital signs: Vital Signs Temperature 97.0 F L 07/02/22 20:55 Pulse Rate 96 07/02/22 20:55 Respiratory Rate 16 07/02/22 20:55 Pulse Oximetry 99 07/02/22 20:55 MDM - General Adult Medical Decision Making It is obvious that Tyree is in no distress. He is sleeping in a chair in the vertical floor room. He is afebrile, his vitals are normal. He has passed the screening medical exam, and has no emergent or urgent medical conditions. He is told to fill his prescription from two nights ago and take it for congestion. Follow up with PCP. Discharge Plan Discharge Patient Disposition: Home Clinical Impression: Worried well Condition: Stable Prescriptions: No Action guaifenesin 600 mg tablet extended release 12hr 600 mg PO BID Qty: 20 0RF Discharge Orders: Discharge ED (Routine); Ordered 07/02/22 Ordered By: Dc Lemus Referrals: Mike Sherman MD [Primary Care Provider] - 1-3 days Activity Restrictions/Additional Instructions: Take medication you were prescribed earlier as directed for congestion. See your doctor this week for your nonemergent medical problems. Coding Level of Care Code ED [address] [employer] for Sunita Tejada
== END 2022-07-02 23:06 | disposition home or self-care (01) ==
PROVIDERS: Emergency Provider Emergency Medicine; PCP Family Medicine Adult Medicine
DX: Z03.89 Encounter for observation for other suspected diseases and conditions ruled out (principal); Z86.19 Personal history of other infectious and parasitic diseases
CPT/HCPCS: 99282

== ENCOUNTER 2022-07-03 07:15 | Inpatient (IN) | payer MEDICAID, SELFPAY ==
[2022-07-03 07:32] VITALS: BP 147/77; PULSE 85; RESP 12; TEMP 36.4; O2SAT 99; BMI 21.6
--- NOTE | 2022-07-03 08:17 | W.ED.PSYCHS ---
HPI - Psych General: Chief Complaint: Psychiatric Symptoms Stated Complaint: MHE Time Seen by Provider: 07/03/22 07:41 Source: patient Mode of arrival: ambulatory History of Present Illness: 27-year-old male presents to the emergency room stating he is suicidal. He states he wants to be admitted to the psychiatry unit. Patient was seen last night for upper respiratory symptoms he remained in the waiting room all night and then rechecked and stating he is not suicidal. He states been homeless for the last 2 years he does not want to go to a homeless fpc because he is afraid he will mess up someone else's mental health by being around him. He has previously been admitted here on a couple of occasions he had an ER visit where he is wanted to get an Invega shot in the emergency room, however he left without being seen. He did not have a specific plan I asked him about a plan he states he thought he would just make some amount until they killed him. He does not appear to be under the influence at this time he does admit his last meth use was 3 days ago. His vital signs are otherwise stable labs reviewed from last evening. Patient does have a history of hepatitis C, as well as a history of alcohol and amphetamine abuse. MD complaint: suicidal ideation Duration: intermittent History of same: Yes Relieving factors: none Exacerbating factors: none Associated psychiatric symptoms: depression and suicidal ideation Associated symptoms: Reports depression and suicidal ideation; Deny auditory hallucinations, visual hallucinations, delusions or homicidal ideation Treatments prior to arrival: none If self harm: admits thoughts of self harm and has plan Review of Systems Const: Denies: fever(s), chills, body aches, change in appetite, fatigue or malaise ENMT: Denies: throat pain, ear or mastoid pain, nasal discharge or nasal congestion Card: Denies: chest pain, edema, dyspnea on exertion or orthopnea Resp: Denies: dyspnea, productive cough or non-productive cough GI: Denies: abdominal pain, nausea, vomiting, hematemesis, coffee ground emesis, diarrhea, constipation, bloating, hematochezia or melena : Denies: flank pain, dysuria, urinary frequency or urinary urgency Skin/Breast: Denies: rash or pruritus Psych: Reports: depression and suicidal ideation; Denies: visual hallucinations, auditory hallucinations or homicidal ideation PFS ED PFSH: Medical History Alcohol use disorder, severe, dependence Anxiety and depression GERD (gastroesophageal reflux disease) History of hepatitis C Treated with only one month of Epclusa. Despite that, he seems to have SVR. Recheck in one year History of lower leg fracture Kidney stone Penile benign neoplasm PTSD (post-traumatic stress disorder) Severe dental caries Surgical History Hip fracture requiring operative repair Family History Grandmother Cancer Mother Diabetes Heart disease Social History Alcohol intake: current Alcohol intake frequency: few times a month Alcohol type: beer Marital status: Single Number of children: 1 Current occupational status: employed History of recent travel: No Physical Exam Const: COMMON NORMALS: no acute distress GENERAL APPEARANCE: cooperative and comfortable ORIENTATION/CONSCIOUSNESS: Yes awake, Yes oriented to person, Yes oriented to place and Yes oriented to time HENMT: COMMON NORMALS: normocephalic, atraumatic and hearing grossly normal bilaterally HEAD & SCALP: normocephalic and atraumatic Resp: COMMON NORMALS: normal respiratory effort, No retractions, No use of accessory muscles and clear to auscultation bilaterally AUSCULTATION: clear to auscultation bilaterally Cardio: COMMON NORMALS: regular rate, regular rhythm and No murmurs present (Cardio) RATE: regular rate RHYTHM: regular rhythm GI: COMMON NORMALS: Soft to palpation and No hepatosplenomegaly present AUSCULTATION: Yes normoactive bowel sounds PALPATION: Yes Soft to palpation, No Tenderness to palpation present (GI), No Guarding due to palpation present (GI) and Yes No hepatosplenomegaly present Extremity: COMMON NORMALS: normal to inspection, capillary refill normal, no clubbing, cyanosis or edema, no calf tenderness and no pedal edema Neuro: SENSORIUM/ORIENTATION: Yes oriented to person, Yes oriented to place and Yes oriented to time Psych: THOUGHT CONTENT: No delusions Skin: COMMON NORMALS: no rashes or lesions noted GENERAL SKIN EXAM: no rashes or lesions noted Course Vital Signs: Vital signs: Vital Signs Temperature 97.6 F 07/03/22 07:32 Pulse Rate 85 07/03/22 07:32 Respiratory Rate 12 07/03/22 07:32 Blood Pressure 147/77 07/03/22 07:32 Pulse Oximetry 99 07/03/22 07:32 Oxygen Delivery Me thod 07/03/22 07:32 MDM - Psych Medical Decision Making Discussed Dr. Carlin will admit to [facility] for suicidal ideation Medical Records I reviewed the patient's medical records. Lab Data I reviewed the patient's lab results. 07/03/22 09:43 07/03/22 09:43 Laboratory Results WBC 8.9 10^3/uL (4.0-10.0) 07/03/22 09:43 RBC 4.24 10^6/uL (4.1-5.3) 07/03/22 09:43 Hgb 12.4 g/dL (11.7-16.6) 07/03/22 09:43 Hct 37.3 % (42.0-52.0) L 07/03/22 09:43 MCV 88.0 fl (80-94) 07/03/22 09:43 MCH 29.2 pg (28.0-34.0) 07/03/22 09:43 MCHC 33.2 g/dL (30.0-36.0) 07/03/22 09:43 RDW 13.2 % (12.1-15.1) 07/03/22 09:43 Plt Count 277 10^3/cmm (130-400) 07/03/22 09:43 MPV 9.3 fL (7.4-10.4) 07/03/22 09:43 Neut % (Auto) 72.6 % 07/03/22 09:43 Lymph % (Auto) 18.0 % 07/03/22 09:43 [place] % (Auto) 8.2 % 07/03/22 09:43 Eos % (Auto) 0.6 % 07/03/22 09:43 Baso % (Auto) 0.2 % 07/03/22 09:43 Neut # (Auto) 6.47 10^3/uL (1.8-7.7) 07/03/22 09:43 Lymph # (Auto) 1.6 10^3/uL (0.8-4.8) 07/03/22 09:43 [place] # (Auto) 0.7 10^3/uL (0.2-0.9) 07/03/22 09:43 Eos # (Auto) 0.1 10^3/uL (0.0-0.8) 07/03/22 09:43 Baso # (Auto) 0.0 10^3/uL (0.0-0.1) 07/03/22 09:43 Nucleated RBC % (auto) 0 % 07/03/22 09:43 Nucleated RBCs # 0.0 /100WBC 07/03/22 09:43 Sodium 134 mmol/L (136-145) L 07/03/22 09:43 Potassium 4.2 mmol/L (3.5-5.1) 07/03/22 09:43 Chloride 98 mmol/L (98-107) 07/03/22 09:43 Carbon Dioxide 24 mmol/L (22-29) 07/03/22 09:43 Anion Gap 16.2 (5-19) 07/03/22 09:43 BUN 12 mg/dL (6-20) 07/03/22 09:43 Creatinine 0.7 mg/dL (0.7-1.2) 07/03/22 09:43 GFR Calculation 133.3 mL/min (90-130) H 07/03/22 09:43 Glucose 79 mg/dL (65-115) 07/03/22 09:43 Calculated Osmolality 277 mOsm/kg (285-295) L 07/03/22 09:43 Calcium 9.7 mg/dL (8.5-10.5) 07/03/22 09:43 Total Bilirubin 0.8 mg/dL (0.15-1.2) 07/03/22 09:43 AST 17 U/L (0-40) 07/03/22 09:43 ALT 10 U/L (0-41) 07/03/22 09:43 Alkaline Phosphatase 119 U/L (40-130) 07/03/22 09:43 Total Protein 7.1 g/dL (6.6-8.7) 07/03/22 09:43 Albumin 4.8 g/dL (3.5-5.2) 07/03/22 09:43 Globulin 2.3 g/dL (1.3-4.6) 07/03/22 09:43 Salicylates < 0.3 mg/dL (3-10) L 07/03/22 09:43 Acetaminophen < 5.0 ug/mL (10-30) L 07/03/22 09:43 Ethyl Alcohol < 10 mg/dL (0-10) 07/03/22 09:43 Discharge Plan Discharge Condition: Stable Prescriptions: No Action lidocaine (PF) 20 mg/mL (2 %) solution 20 mg SUBCUT ONCE Qty: 1 0RF guaifenesin 600 mg tablet extended release 12hr 600 mg PO BID Qty: 20 0RF Referrals: Mike Sherman MD [Primary Care Provider] - Coding Level of Care Code ED Counter Control Operator for Chg 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
[2022-07-03 09:55] LABS: Basophils % 0.2 %; Eosinophils # 0.1 10^3/uL (0.0-0.8); Eosinophils % 0.6 %; Hematocrit 37.3 % (42.0-52.0); Hemoglobin 12.4 g/dL (11.7-16.6); Lymphocytes # 1.6 10^3/uL (0.8-4.8); Mean Corpuscular HGB Conc 33.2 g/dL (30.0-36.0); Mean Corpuscular Hemoglobin 29.2 pg (28.0-34.0); Mean Platelet Volume 9.3 fL (7.4-10.4); Monocytes # 0.7 10^3/uL (0.2-0.9); Monocytes % 8.2 %; Neutrophils # 6.47 10^3/uL (1.8-7.7); Neutrophils % 72.6 %; Nucleated Red Blood Cells % 0 %; Platelet Count 277 10^3/cmm (130-400); Red Blood Count 4.24 10^6/uL (4.1-5.3); Red Cell Distribution Width 13.2 % (12.1-15.1); White Blood Count 8.9 10^3/uL (4.0-10.0)
[2022-07-03 10:12] LABS: Alanine Aminotransferase 10 U/L (0-41); Albumin Level 4.8 g/dL (3.5-5.2); Alkaline Phosphatase 119 U/L (40-130); Anion Gap 16.2 (5-19); Aspartate Amino Transferase 17 U/L (0-40); Blood Urea Nitrogen 12 mg/dL (6-20); Calcium 9.7 mg/dL (8.5-10.5); Carbon Dioxide 24 mmol/L (22-29); Chloride 98 mmol/L (98-107); Globulin 2.3 g/dL (1.3-4.6); Glomerular Filtration Rate 133.3 mL/min (90-130); Glucose 79 mg/dL (65-115); Osmolality Calculated 277 mOsm/kg (285-295); Potassium 4.2 mmol/L (3.5-5.1); Sodium 134 mmol/L (136-145); Total Bilirubin 0.8 mg/dL (0.15-1.2); Total Protein 7.1 g/dL (6.6-8.7)
[2022-07-03 10:15] LABS: Acetaminophen < 5.0 ug/mL (10-30); Alcohol Level < 10 mg/dL (0-10); Salicylate < 0.3 mg/dL (3-10)
[2022-07-03 13:00] LABS: Amphetamines Screen Urine Positive (Negative); Barbiturates Screen Urine Negative (Negative); Benzodiazepines Screen Urine Negative (Negative); Cocaine Screen Urine Negative (Negative); Opiate Screen Urine Negative (Negative); PCP Screen Urine Negative (Negative); THC Screen Urine Positive (Negative)
[2022-07-03 13:28] LABS: Urine Appearance Hazy (CLEAR); Urine Color Yellow (Yellow)
[2022-07-03 13:29] LABS: Add Urine Culture? No; Add Urine Microscopic? YES; Bacteria Urine TRACE /hpf; Bilirubin Urine Neg (Negative); Blood Urine Neg (Negative); Glucose Urine UA Norm (Normal); Ketones Urine 3+ (Negative); Leukocyte Esterase Urine Negative (Negative); Mucus Urine 2+ /hpf; Nitrate Urine Negative (Negative); Protein Urine Trace (Negative); RBC Urine 0-4 /hpf (0-2); Specific Gravity, Urine 1.025 (1.005-1.030); Sperm Urine 1+ /hpf; Squamous Epithelial Cell Urine RARE /hpf (0-5); Urobilinogen Urine Norm (Negative); WBC Urine RARE /hpf (0-5); pH Urine 6 (5-7)
[2022-07-03 14:15] VITALS: BP 118/74; PULSE 88; RESP 14; TEMP 36.6; O2SAT 91
[2022-07-03 14:56] VITALS: BP 122/67; PULSE 82; RESP 18; TEMP 36.9; O2SAT 97
[2022-07-03] MEDS: nicotine 21 mg Patch 1 PATCH TRANSDERMA (15:33)
--- NOTE | 2022-07-03 16:31 | PC.NURSE ---
Patient states he was wanting to kill himself by shooting himself in the head because, I was just getting tired of them talking about me. When I asked who he was referring to he stated, dope dealers in [place]. They keep fucking me in the back. I then asked him to elaborate to which he replied, I don't know, they're just weirdos. Patient denied current SI/HI and AH/VH. He did say he experienced hallucinations, but was unable to articulate what he had been hearing and seeing saying I can't explain. Patient stated he has been homeless for 2 years, traveling between [place], [place], and [place]. He said he would be very interested in getting help enrolling in a program to help him and would also be open to going to a homeless detention, despite the note from the ER stating he didn't want to. Patient very delayed in answering and appeared to take a significant amount of time to process what I was asking him. Patient calm and cooperative. No needs at this time.
[2022-07-04 06:00] VITALS: RESP 16
[2022-07-04] MEDS: hyDROXYzine 25 mg Capsule 50 MG PO ×2 (08:39→16:40)
--- NOTE | 2022-07-04 08:39 | PC.NURSE ---
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 Rated anxiety at a 8/10. Administered hydroxyzine 50mg PO.
[2022-07-04] MEDS: nicotine 21 mg Patch 1 PATCH TRANSDERMA (12:19)
[2022-07-04 14:00] VITALS: BP 90/52; PULSE 85; RESP 17; TEMP 37.2; O2SAT 94
--- NOTE | 2022-07-04 14:58 | W.PM.NPUH&PS ---
Providers/Chief Complaint Admitting Physician: Darrian Carpenter MD Primary Care Provider: Mike Sherman MD Chief Complaint: MHE HPI NPU History of Present Illness Tyree Alvarez is a 27 year old male who presented to Emergency Department with the following report: Chief Complaint: Psychiatric Symptoms Stated Complaint: MHE Time Seen by Provider: 07/03/22 07:41 Source: patient Mode of arrival: ambulatory History of Present Illness: 27-year-old male presents to the emergency room stating he is suicidal. He states he wants to be admitted to the psychiatry unit. Patient was seen last night for upper respiratory symptoms he remained in the waiting room all night and then rechecked and stating he is not suicidal. He states been homeless for the last 2 years he does not want to go to a homeless half-way because he is afraid he will mess up someone else's mental health by being around him. He has previously been admitted here on a couple of occasions he had an ER visit where he is wanted to get an Invega shot in the emergency room, however he left without being seen. He did not have a specific plan I asked him about a plan he states he thought he would just make some amount until they killed him. He does not appear to be under the influence at this time he does admit his last meth use was 3 days ago. His vital signs are otherwise stable labs reviewed from last evening. Patient does have a history of hepatitis C, as well as a history of alcohol and amphetamine abuse. MD complaint: suicidal ideation Duration: intermittent History of same: Yes Relieving factors: none Exacerbating factors: none Associated psychiatric symptoms: depression and suicidal ideation Associated symptoms: Reports depression and suicidal ideation; Deny auditory hallucinations, visual hallucinations, delusions or homicidal ideation Treatments prior to arrival: none If self harm: admits thoughts of self harm and has plan. He was admitted to the neuropsychiatric unit for definitive treatment of those issues. He presents today reporting that after he was discharged last time he did well for a period. An excerpt of his discharge summary from December is included below for context. He reports that he was at that program but then left that secondary to wanting to work and be able to take care of himself. He reports that he worked at [employer] for a period of time and then he moved down to [facility] and got a job down there but then that did not work out and he became homeless again so he returned back to [place]. He reports it is when he returned to [place] that he began to struggle again with his sobriety and ended up relapsing. He reports he is not sure if he wants to restart his medication which he has stopped but he does feel that the best he has ever done was when he was on methadone and so he really wants to restart at the methadone program here in town called [facility]. Per his 01/12/2022 [facility] inpatient psychiatric discharge summary: Discharge Diagnosis (1) Methamphetamine use disorder, severe: Status: Acute (2) Psychotic disorder: Status: Acute (3) Methamphetamine addiction: Status: Acute (4) Chronic pain of left lower extremity: Status: Acute (5) History of methadone use: Status: Acute (6) Medication overdose: Status: Acute Reason for Visit Reason for Visit: possible overdose/MHE Brief History: Tyree Alvarez is a 26 year old male recently discharged from [facility] last week. Who presented to the emergency room having overdosed on reportedly 15 invega 3mg tablets stating that it was not helpful. He reports homelessness and reports that he has not used any illicit substances including the chronically consumed methamphetamine. He reports that he has signficant cravings for opiates and methamphetamine and reports that he needs some different medication to help with his hallucinations. He reports auditory hallucinations and reports that he wishes to get help with his suicidal thoughts. He endorsed some feelings of hopelessness. He denies any hx of manic symptoms. He reports that he was forced to go to detention for bench warrants before he would be allowed to go to his homeless half-way. He had reported that he did not make it to his outpatient visit prior to his admission here. Pleasant 26-year-old homeless gentleman with history of multiple substance use disorder, hepatitis C in remission after partial treatment, psychiatric history including suicidal ideation, Past Psychiatrict Hx: He reports a past history of opiate abuse and has not been on methadone for 3 to 4 months. He reports numerous psychiatric inpatient hospitalizations but was unable to recall the dates or lengths of stay. He reports having received outpatient treatment for many years and recalls being on a variety of antipsychotics including Risperdal, Abilify and Seroquel. He reports an extensive substance abuse history including having been treated [place] [facility] [place] methad[place] treatment approximately 3 to 4 months ago. He reports having engaged in intranasal opiate use at the age of 14 and reports having used methamphetamine for years beginning in high school. He also reports frequent alcohol use with no history of withdrawal. Psychiatric History: As above. Substance Abuse History: As above Family History: He did not report on his family history for mental health, addiction or lethality issues. Developmental History: He did not report any issues with his or developmental delays and did not report receiving speech therapy, learning support, emotional support or special education classes. Psychosocial History: He reports he lives in [place] on some property that has no reasonable heat or electricity. He states he has been homeless effectively for 2 years. He reports he was abandoned by his family and states having a tumultuous childhood but did not report any emotional, physical or sexual abuse. He reports having 3 sisters but reports his parents have disowned him. He graduated high school and attended some college. He has never been and does not have any children. He did not report any methodist belief system. Legal History: has had some detention time over the last few years. He reports some legal issues. Allergies: nkda Medical History: Hepatitis C, Hospital Course Hospital Course During the hospitalization, patient had routine laboratory studies which were within normal limits except for few outliers. Additionally there was a general medical evaluation which was also within normal limits and revealed no new acute processes. Discharge Summary: At the time of discharge, lethality was denied and psychosis was resolving. Mood and anxiety were well managed. Patient endorsed a plan to avoid all drugs of abuse and follow-up with the aftercare recommendations of the treatment team. Patient was evaluated and deemed to be absent credible lethality, and had achieved the maximum benefit from an inpatient hospitalization, so was discharged. He was discharged with plan for patient to enter a [facility] facility. Meds NPU Home Medications Medication Instructions Recorded Confirmed Last Taken Type guaifenesin 600 mg tablet, 600 mg PO BID #20 tabs 07/01/22 07/03/22 Unknown Rx extended release 12 hr Allergies Allergy/AdvReac Type Severity Reaction Status Date / Time No Known Allergies Allergy Verified 07/03/22 11:22 PFS NPU PFSH: Medical History Alcohol use disorder, severe, dependence Anxiety and depression GERD (gastroesophageal reflux disease) History of hepatitis C Treated with only one month of Epclusa. Despite that, he seems to have SVR. Recheck in one year History of lower leg fracture Kidney stone Penile benign neoplasm PTSD (post-traumatic stress disorder) Severe dental caries Surgical History Hip fracture requiring operative repair Family History Grandmother Cancer Mother Diabetes Heart disease Social History Alcohol intake: current Alcohol intake frequency: few times a month Alcohol type: beer Marital status: Single Number of children: 1 Current occupational status: employed History of recent travel: No Mental Status Exam MSE Comments: This is a slender white male in hospital scrubs with limited grooming and eye contact. No abnormal movements?except for psychomotor retardation.? Cooperative with exam in mild to moderate distress. Speech was decreased rate and volume. Mood described as depressed, affect appeared congruent. Thought process: linear logical organized.? Thought content: patient denied suicidal or homicidal ideations, no delusions reported but he appeared paranoid and guarded, he endorsed no auditory and no visual hallucinations. Attention and concentration appeared intact and memory appeared more reliable but none were formally tested. He is alert and oriented three times. Insight, judgment and impulse control is impaired. Vitals/I&O/Wt Last Vital Signs Temp 98.5 F 07/03/22 14:56 Pulse 82 07/03/22 14:56 Resp 16 07/04/22 06:00 BP 122/67 07/03/22 14:56 Pulse Ox 97 07/03/22 14:56 O2 Del Method 07/03/22 14:33 Weight last 48 hrs Weight 70.307 kg Data NPU 07/03/22 09:43 07/03/22 09:43 A&P Assessment and plan (1) Methamphetamine use disorder, severe: (2) Psychotic disorder: (3) Chronic pain of left lower extremity: (4) History of methadone use: (5) Suicide attempt: (6) Depression with suicidal ideation: (7) Drug overdose, intentional: Plan This is a 27 year old white male who presented to ED with psychotic features and suicidal ideation with a past history of methamphetamine and opiate use who presents again reporting relapse and being homeless. 1.? Continue current medications. He reported a plan to possibly get back on methadone. 2.? Encourage individual, group and milieu therapy 3.? Continue q-15 minute check for safety 4.? Recommend sober living treatment at the highest level of care to which the patient is willing to commit. Involuntary Hold Information 96 Hour Hold: 96 Hour Involuntary Admission: No 96 Hour Hold Ending Date: 01/06/22 96 Hour Hold Ending Time: 17:55 Attestations NPU Medical Necessity Statement*: Inpatient hospitalization is medically necessary and the clinically appropriate intervention at this time. We will monitor medications and make changes as indicated.? He will be in the hospital for over 2 midnights. Likely length of stay is 4-6 days. Coding Level of Care Code Acute Wardrobe Specialist for [facility] Fwd Diagnoses Methamphetamine use disorder, severe F15.20 Psychotic disorder F29 Chronic pain of left lower extremity M79.605; G89.29 History of methadone use Z87.898 Suicide attempt T14.91XA Depression with suicidal ideation F32.A; R45.851 Drug overdose, intentional T50.902A
[2022-07-04] MEDS: acetaminophen 325 mg Tablet 650 MG PO (16:39)
[2022-07-04] MEDS: trazodone 50 mg Tablet PO (21:31)
[2022-07-04 22:00] VITALS: RESP 16
[2022-07-05 06:00] VITALS: RESP 18
[2022-07-05] MEDS: nicotine 21 mg Patch 1 PATCH TRANSDERMA (08:50)
[2022-07-05] MEDS: OLANZapine 5 mg ODT PO ×2 (12:24→17:22)
[2022-07-05] MEDS: acetaminophen 325 mg Tablet 650 MG PO (12:42)
--- NOTE | 2022-07-05 12:45 | PC.NURSE ---
PT HAS 101.1 DEGREE TEMP, PT GIVEN PRN APAP. PT HAS NO C/O DISCOMFORT OR FEELING ILL. PT FOREHEAD HAS SMALL AMOUNT OF PERSPIRATION
[2022-07-05 13:20] VITALS: BP 120/86; PULSE 84; RESP 17; TEMP 37.9; O2SAT 96
--- NOTE | 2022-07-05 14:32 | W.PM.NPUPNS ---
Subjective NPU Subjective: Patient presented today reporting that he is feeling fine. He reports that he continues to be ambivalent about restarting any psychiatric medications and only feels certain about his desire to be reconnected with his outpatient methadone clinic. We talked about the fact that that comes with the stress of making sure he can pay for it but he does believe that Medicaid covers him at that clinic. We discussed him working with the treatment team for appropriate sober living options. He reports that he continues to be homeless without anyone to rely on and believes that he might still be able to go [place] [facility] but we also discussed salutes. Mental Status Exam MSE Comments: This is a slender white male in hospital scrubs with limited grooming and eye contact. No abnormal movements?except for psychomotor retardation.? Cooperative with exam in mild distress. Speech was decreased rate and volume. Mood described as a little better but still down, affect appeared congruent. Thought process: linear logical organized.? Thought content: patient denied suicidal or homicidal ideations, no delusions reported but he appeared paranoid and guarded, he endorsed no auditory and no visual hallucinations. Attention and concentration appeared intact and memory appeared more reliable but none were formally tested. He is alert and oriented three times. Insight, judgment and impulse control is impaired. Vitals/I&O/Wt Last Vital Signs Temp 100.2 F H 07/05/22 13:20 Pulse 84 07/05/22 13:20 Resp 17 07/05/22 13:20 BP 120/86 07/05/22 13:20 Pulse Ox 96 07/05/22 13:20 O2 Del Method 07/03/22 14:33 Data NPU 07/03/22 09:43 07/03/22 09:43 A&P Assessment and plan (1) Methamphetamine use disorder, severe: (2) Psychotic disorder: (3) Chronic pain of left lower extremity: (4) History of methadone use: (5) Suicide attempt: (6) Depression with suicidal ideation: (7) Drug overdose, intentional: Plan This is a 27 year old white male who presented to ED with psychotic features and suicidal ideation with a past history of methamphetamine and opiate use who presents again reporting relapse and being homeless. 1.? Continue current medications. He reported a plan to possibly get back on methadone. 2.? Encourage individual, group and milieu therapy 3.? Continue q-15 minute check for safety 4.? Recommend sober living treatment at the highest level of care to which the patient is willing to commit. Involuntary Hold Information 96 Hour Hold: 96 Hour Involuntary Admission: No 96 Hour Hold Ending Date: 01/06/22 96 Hour Hold Ending Time: 17:55 Attestations NPU Medical Necessity Statement*: Inpatient hospitalization is medically necessary and the clinically appropriate intervention at this time. We will monitor medications and make changes as indicated. Likely length of stay is 3-5 days. Coding Level of Care Code Acute Outsole Cementer Machine for [facility] Fwd Diagnoses Methamphetamine use disorder, severe F15.20 Psychotic disorder F29 Chronic pain of left lower extremity M79.605; G89.29 History of methadone use Z87.898 Suicide attempt T14.91XA Depression with suicidal ideation F32.A; R45.851 Drug overdose, intentional T50.902A
[2022-07-05 19:37] VITALS: RESP 18
[2022-07-06 06:00] VITALS: RESP 18
[2022-07-06] MEDS: nicotine 21 mg Patch 1 PATCH TRANSDERMA (10:33)
--- NOTE | 2022-07-06 13:14 | P.NPUDS_ITS ---
Diagnoses at Discharge Discharge Diagnosis (1) Methamphetamine use disorder, severe: Status: Acute (2) Psychotic disorder: Status: Resolved (3) Chronic pain of left lower extremity: Status: Resolved (4) History of methadone use: Status: Resolved (5) Suicide attempt: Status: Resolved (6) Depression with suicidal ideation: Status: Resolved (7) Drug overdose, intentional: Status: Resolved Reason for Visit Reason for Visit: MHE Involuntary Hold Information 96 Hour Hold: 96 Hour Involuntary Admission: No 96 Hour Hold Ending Date: 01/06/22 96 Hour Hold Ending Time: 17:55 Mental Status Exam MSE Comments: This is a slender white male in hospital scrubs with limited grooming and eye contact. No abnormal movements?except for psychomotor flakita rdation.? Cooperative with exam in mild distress. Speech was decreased rate and volume. Mood described as a little better affect appeared congruent. Thought process: linear logical organized.? Thought content: patient denied suicidal or homicidal ideations, no delusions reported but he appeared paranoid and guarded, he endorsed no auditory and no visual hallucinations. Attention and concentration appeared intact and memory appeared more reliable but none were formally tested. He is alert and oriented three times. Insight and judgment limited and impulse control is impaired. Discharge Data Studies Completed and Pending: Laboratory Results WBC 8.9 10^3/uL (4.0- 10.0) 07/03/22 09:43 RBC 4.24 10^6/uL (4.1 -5.3) 07/03/22 09:43 Hgb 12.4 g/dL (11.7-1 6.6) 07/03/22 09:43 Hct 37.3 % (42.0-52.0 ) L 07/03/22 09:43 MCV 88.0 fl (80-94) 07/03/22 09:43 MCH 29.2 pg (28.0-34. 0) 07/03/22 09:43 MCHC 33.2 g/dL (30.0-3 6.0) 07/03/22 09:43 RDW 13.2 % (12.1-15.1 ) 07/03/22 09:43 Plt Count 277 10^3/cmm (130 -400) 07/03/22 09:43 MPV 9.3 fL (7.4-10.4) 07/03/22 09:43 Neut % (Auto) 72.6 % 07/03/22 09:43 Lymph % (Auto) 18.0 % 07/03/22 09:43 Freestone % (Auto) 8.2 % 07/03/22 09:43 Eos % (Auto) 0.6 % 07/03/22 09:43 Baso % (Auto) 0.2 % 07/03/22 09:43 Neut # (Auto) 6.47 10^3/uL (1.8 -7.7) 07/03/22 09:43 Lymph # (Auto) 1.6 10^3/uL (0.8- 4.8) 07/03/22 09:43 Freestone # (Auto) 0.7 10^3/uL (0.2- 0.9) 07/03/22 09:43 Eos # (Auto) 0.1 10^3/uL (0.0- 0.8) 07/03/22 09:43 Baso # (Auto) 0.0 10^3/uL (0.0- 0.1) 07/03/22 09:43 Nucleated RBC % (a uto) 0 % 07/03/22 09:43 Nucleated RBCs # 0.0 /100WBC 07/03/22 09:43 Sodium 134 mmol/L (136-1 45) L 07/03/22 09:43 Potassium 4.2 mmol/L (3.5-5 .1) 07/03/22 09:43 Chloride 98 mmol/L (98-107 ) 07/03/22 09:43 Carbon Dioxide 24 mmol/L (22-29) 07/03/22 09:43 Anion Gap 16.2 (5-19) 07/03/22 09:43 BUN 12 mg/dL (6-20) 07/03/22 09:43 Creatinine 0.7 mg/dL (0.7-1. 2) 07/03/22 09:43 GFR Calculation 133.3 mL/min (90- 130) H 07/03/22 09:43 Glucose 79 mg/dL (65-115) 07/03/22 09:43 Calculated Osmolal ity 277 mOsm/kg (285- 295) L 07/03/22 09:43 Calcium 9.7 mg/dL (8.5-10 .5) 07/03/22 09:43 Total Bilirubin 0.8 mg/dL (0.15-1 .2) 07/03/22 09:43 AST 17 U/L (0-40) 07/03/22 09:43 ALT 10 U/L (0-41) 07/03/22 09:43 Alkaline Phosphata se 119 U/L (40-130) 07/03/22 09:43 Total Protein 7.1 g/dL (6.6-8.7 ) 07/03/22 09:43 Albumin 4.8 g/dL (3.5-5.2 ) 07/03/22 09:43 Globulin 2.3 g/dL (1.3-4.6 ) 07/03/22 09:43 Urine Color Yellow (Yellow) 07/03/22 10:43 Urine Appearance Hazy (CLEAR) A 07/03/22 10:43 Urine pH 6 (5-7) 07/03/22 10:43 Ur Specific Gravit y 1.025 (1.005-1.0 30) 07/03/22 10:43 Urine Protein Trace (Negative) 07/03/22 10:43 Urine Glucose (UA) Norm (Normal) 07/03/22 10:43 Urine Ketones 3+ (Negative) H 07/03/22 10:43 Urine Blood Neg (Negative) 07/03/22 10:43 Urine Nitrate Negative (Negati ve) 07/03/22 10:43 Urine Bilirubin Neg (Negative) 07/03/22 10:43 Urine Urobilinogen Norm mg/dL (Negat tess) 07/03/22 10:43 Ur Leukocyte Basia ase Negative (Negati ve) 07/03/22 10:43 Urine RBC 0-4 /hpf (0-2) H 07/03/22 10:43 Urine WBC Rare /hpf (0-5) 07/03/22 10:43 Ur Squamous Epith Cells Rare /hpf (0-5) 07/03/22 10:43 Amorphous Sediment Not Reportable 07/03/22 10:43 Urine Bacteria Trace /hpf (NONE) 07/03/22 10:43 Urine Mucus 2+ /hpf 07/03/22 10:43 Urine Sperm 1+ /hpf 07/03/22 10:43 Salicylates < 0.3 mg/dL (3-10 ) L 07/03/22 09:43 Urine Opiates Scre en Negative ng/mL (N egative) 07/03/22 10:43 Acetaminophen < 5.0 ug/mL (10-3 0) L 07/03/22 09:43 Ur Barbiturates Sc reen Negative ng/mL (N egative) 07/03/22 10:43 Ur Phencyclidine S crn Negative ng/mL (N egative) 07/03/22 10:43 Ur Amphetamines Sc reen Positive ng/mL (N egative) H 07/03/22 10:43 U Benzodiazepines Scrn Negative ng/mL (N egative) 07/03/22 10:43 Urine Cocaine Scre en Negative ng/mL (N egative) 07/03/22 10:43 U Marijuana (THC) Screen Positive ng/mL (N egative) H 07/03/22 10:43 Ethyl Alcohol < 10 mg/dL (0-10) 07/03/22 09:43 Vitals: Last Vital Signs Temp 100.2 F H 07/05/22 13:20 Pulse 84 07/05/22 13:20 Resp 18 07/06/22 06:00 BP 120/86 07/05/22 13:20 Pulse Ox 96 07/05/22 13:20 O2 Del Method 07/03/22 14:33 Discharge Plan Discharge Patient Disposition: Home Condition: Stable Prescriptions: Continued guaifenesin 600 mg tablet extended release 12hr 600 mg PO BID Qty: 20 0RF Discharge Orders: Discharge Order (Routine); Ordered 07/06/22 Ordered By: Darrian Carpenter Referrals: [facility] [Other] (Call [facility] for any insurance needs or questions at [phone]. [phone]) [facility] [place] [Other] - 07/11/22 8:00 am (Follow up) [facility] [Outside] - 07/17/22 8:30 am (Initial appointment scheduled for 07/17/22 with check in at 8:30 am.) Mike Sherman MD [Primary Care Provider] - 07/13/22 12:45 pm Discharge Diet: Regular Discharge Activity: Resume usual activity Patient Instructions: ADHD in Adults (DC), Opioid Safety Discharge Attestations NPU Time Spent in Discharge Care*: less than 30 min Specific Discharge Activities: Specific discharge activities: educating patient, discussing with case loader operator/social workers/dc planners, documenting/other paperwork and evaluating patient/reviewing data Status at Discharge: Cognitive status at discharge: cognitively intact , Behavioral status at discharge: cooperative , Coding Level of Care Code Acute Chg FW DC note Diagnoses Methamphetamine use disorder, severe F15.20 Psychotic disorder F29 Chronic pain of left lower extremity M79.605; G89.29 History of methadone use Z87.898 Suicide attempt T14.91XA Depression with suicidal ideation F32.A; R45.851 Drug overdose, intentional T50.902A
--- NOTE | 2022-07-06 13:23 | W.PM.NPUDCS ---
Diagnoses at Discharge Discharge Diagnosis (1) Methamphetamine use disorder, severe: Status: Acute (2) Psychotic disorder: Status: Resolved (3) Chronic pain of left lower extremity: Status: Resolved (4) History of methadone use: Status: Resolved (5) Suicide attempt: Status: Resolved (6) Depression with suicidal ideation: Status: Resolved (7) Drug overdose, intentional: Status: Resolved Reason for Visit Reason for Visit: MHE Brief History: History of Present Illness Tyree Alvarez is a 27 year old male who presented to Emergency Department with the following report: Chief Complaint: Psychiatric Symptoms Stated Complaint: MHE Time Seen by Provider: 07/03/22 07:41 Source: patient Mode of arrival: ambulatory History of Present Illness: 27-year-old male presents to the emergency room stating he is suicidal. He states he wants to be admitted to the psychiatry unit. Patient was seen last night for upper respiratory symptoms he remained in the waiting room all night and then rechecked and stating he is not suicidal. He states been homeless for the last 2 years he does not want to go to a homeless residential because he is afraid he will mess up someone else's mental health by being around him. He has previously been admitted here on a couple of occasions he had an ER visit where he is wanted to get an Invega shot in the emergency room, however he left without being seen. He did not have a specific plan I asked him about a plan he states he thought he would just make some amount until they killed him. He does not appear to be under the influence at this time he does admit his last meth use was 3 days ago. His vital signs are otherwise stable labs reviewed from last evening. Patient does have a history of hepatitis C, as well as a history of alcohol and amphetamine abuse. MD complaint: suicidal ideation Duration: intermittent History of same: Yes Relieving factors: none Exacerbating factors: none Associated psychiatric symptoms: depression and suicidal ideation Associated symptoms: Reports depression and suicidal ideation; Deny auditory hallucinations, visual hallucinations, delusions or homicidal ideation Treatments prior to arrival: none If self harm: admits thoughts of self harm and has plan. He was admitted to the neuropsychiatric unit for definitive treatment of those issues. He presents today reporting that after he was discharged last time he did well for a period. An excerpt of his discharge summary from December is included below for context. He reports that he was at that program but then left that secondary to wanting to work and be able to take care of himself. He reports that he worked at [employer] [facility] [employer] for a period of time and then he moved down to [facility] and got a job down there but then that did not work out and he became homeless again so he returned back to [place]. He reports it is when he returned to [place] that he began to struggle again with his sobriety and ended up relapsing. He reports he is not sure if he wants to restart his medication which he has stopped but he does feel that the best he has ever done was when he was on methadone and so he really wants to restart at the methadone program here in town called [facility]. Per his 01/12/2022 [facility] inpatient psychiatric discharge summary: Discharge Diagnosis (1) Methamphetamine use disorder, severe: Status: Acute (2) Psychotic disorder: Status: Acute (3) Methamphetamine addiction: Status: Acute (4) Chronic pain of left lower extremity: Status: Acute (5) History of methadone use: Status: Acute (6) Medication overdose: Status: Acute Reason for Visit Reason for Visit: possible overdose/MHE Brief History: Tyree Alvarez is a 26 year old male recently [facility] from [facility]. Who presented to the emergency room having overdosed on reportedly 15 invega 3mg tablets stating that it was not helpful. He reports homelessness and reports that he has not used any illicit substances including the chronically consumed methamphetamine. He reports that he has signficant cravings for opiates and methamphetamine and reports that he needs some different medication to help with his hallucinations. He reports auditory hallucinations and reports that he wishes to get help with his suicidal thoughts. He endorsed some feelings of hopelessness. He denies any hx of manic symptoms. He reports that he was forced to go to nursing home for bench warrants before he would be allowed to go to his homeless residential. He had reported that he did not make it to his outpatient visit prior to his admission here. Pleasant 26-year-old homeless gentleman with history of multiple substance use disorder, hepatitis C in remission after partial treatment, psychiatric history including suicidal ideation, Past Psychiatrict Hx: He reports a past history of opiate abuse and has not been on methadone for 3 to 4 months. He reports numerous psychiatric inpatient hospitalizations but was unable to recall the dates or lengths of stay. He reports having received outpatient treatment for many years and recalls being on a variety of antipsychotics including Risperdal, Abilify and Seroquel. He reports an extensive substance abuse history including having been treated at [facility] for methadone treatment approximately 3 to 4 months ago. He reports having engaged in intranasal opiate use at the age of 14 and reports having used methamphetamine for years beginning in high school. He also reports frequent alcohol use with no history of withdrawal. Psychiatric History: As above. Substance Abuse History: As above Family History: He did not report on his family history for mental health, addiction or lethality issues. Developmental History: He did not report any issues with his or developmental delays and did not report receiving speech therapy, learning support, emotional support or special education classes. Psychosocial History: He reports he lives in [place] on some property that has no reasonable heat or electricity. He states he has been homeless effectively for 2 years. He reports he was abandoned by his family and states having a tumultuous childhood but did not report any emotional, physical or sexual abuse. He reports having 3 sisters but reports his parents have disowned him. He graduated high school and attended some college. He has never been and does not have any children. He did not report any judaism belief system. Legal History: has had some nursing home time over the last few years. He reports some legal issues. Allergies: nkda Medical History: Hepatitis C, Hospital Course Hospital Course During the hospitalization, patient had routine laboratory studies which were within normal limits except for few outliers. Additionally there was a general medical evaluation which was also within normal limits and revealed no new acute processes. Discharge Summary: At the time of discharge, lethality was denied and psychosis was resolving. Mood and anxiety were well managed. Patient endorsed a plan to avoid all drugs of abuse and follow-up with the aftercare recommendations of the treatment team. Patient was evaluated and deemed to be absent credible lethality, and had achieved the maximum benefit from an inpatient hospitalization, so was discharged. He was discharged with plan for patient to enter a [facility] facility. Hospital Course Hospital Course Patient slowly acclimated to the individual, group and milieu therapy provided.? He was offered an opportunity to restart his medications but he consistently reported that he was only interested in getting restarted on methadone. We monitored him for safety and resolution of his suicidal thinking. Monitor him for improvement in any psychosis or odd thinking.? Multiple attempts were made to encourage him to reengage with [facility].? He showed mild improvement during the hospitalization and was able to contract for safety outside the hospital prior to discharge.? During the hospitalization, patient had routine laboratory studies which were within normal limits except for few outliers.? Additionally there was a general medical evaluation which was also within normal limits and revealed no new acute processes. Discharge Summary: At the time of discharge, lethality was denied and psychosis was resolving.? Mood and anxiety had continued impairment? Patient endorsed a plan to avoid all drugs of abuse and follow-up with the aftercare recommendations of the treatment team.? Patient was evaluated and deemed to be absent credible lethality, and had achieved maximal benefit from inpatient hospitalization, so he was discharged. Involuntary Hold Information 96 Hour Hold: 96 Hour Involuntary Admission: No 96 Hour Hold Ending Date: 01/06/22 96 Hour Hold Ending Time: 17:55 Mental Status Exam MSE Comments: This is a slender white male in hospital scrubs with limited grooming and eye contact. No abnormal movements?except for psychomotor retardation.? Cooperative with exam in mild distress. Speech was decreased rate and volume. Mood described as a little better affect appeared congruent. Thought process: linear logical organized.? Thought content: patient denied suicidal or homicidal ideations, no delusions reported but he appeared paranoid and guarded, he endorsed no auditory and no visual hallucinations. Attention and concentration appeared intact and memory appeared more reliable but none were formally tested. He is alert and oriented three times. Insight and judgment limited and impulse control is impaired. Discharge Data Studies Completed and Pending: Laboratory Results WBC 8.9 10^3/uL (4.0- 10.0) 07/03/22 09:43 RBC 4.24 10^6/uL (4.1 -5.3) 07/03/22 09:43 Hgb 12.4 g/dL (11.7-1 6.6) 07/03/22 09:43 Hct 37.3 % (42.0-52.0 ) L 07/03/22 09:43 MCV 88.0 fl (80-94) 07/03/22 09:43 MCH 29.2 pg (28.0-34. 0) 07/03/22 09:43 MCHC 33.2 g/dL (30.0-3 6.0) 07/03/22 09:43 RDW 13.2 % (12.1-15.1 ) 07/03/22 09:43 Plt Count 277 10^3/cmm (130 -400) 07/03/22 09:43 MPV 9.3 fL (7.4-10.4) 07/03/22 09:43 Neut % (Auto) 72.6 % 07/03/22 09:43 Lymph % (Auto) 18.0 % 07/03/22 09:43 Waldo % (Auto) 8.2 % 07/03/22 09:43 Eos % (Auto) 0.6 % 07/03/22 09:43 Baso % (Auto) 0.2 % 07/03/22 09:43 Neut # (Auto) 6.47 10^3/uL (1.8 -7.7) 07/03/22 09:43 Lymph # (Auto) 1.6 10^3/uL (0.8- 4.8) 07/03/22 09:43 Waldo # (Auto) 0.7 10^3/uL (0.2- 0.9) 07/03/22 09:43 Eos # (Auto) 0.1 10^3/uL (0.0- 0.8) 07/03/22 09:43 Baso # (Auto) 0.0 10^3/uL (0.0- 0.1) 07/03/22 09:43 Nucleated RBC % (a uto) 0 % 07/03/22 09:43 Nucleated RBCs # 0.0 /100WBC 07/03/22 09:43 Sodium 134 mmol/L (136-1 45) L 07/03/22 09:43 Potassium 4.2 mmol/L (3.5-5 .1) 07/03/22 09:43 Chloride 98 mmol/L (98-107 ) 07/03/22 09:43 Carbon Dioxide 24 mmol/L (22-29) 07/03/22 09:43 Anion Gap 16.2 (5-19) 07/03/22 09:43 BUN 12 mg/dL (6-20) 07/03/22 09:43 Creatinine 0.7 mg/dL (0.7-1. 2) 07/03/22 09:43 GFR Calculation 133.3 mL/min (90- 130) H 07/03/22 09:43 Glucose 79 mg/dL (65-115) 07/03/22 09:43 Calculated Osmolal ity 277 mOsm/kg (285- 295) L 07/03/22 09:43 Calcium 9.7 mg/dL (8.5-10 .5) 07/03/22 09:43 Total Bilirubin 0.8 mg/dL (0.15-1 .2) 07/03/22 09:43 AST 17 U/L (0-40) 07/03/22 09:43 ALT 10 U/L (0-41) 07/03/22 09:43 Alkaline Phosphata se 119 U/L (40-130) 07/03/22 09:43 Total Protein 7.1 g/dL (6.6-8.7 ) 07/03/22 09:43 Albumin 4.8 g/dL (3.5-5.2 ) 07/03/22 09:43 Globulin 2.3 g/dL (1.3-4.6 ) 07/03/22 09:43 Urine Color Yellow (Yellow) 07/03/22 10:43 Urine Appearance Hazy (CLEAR) A 07/03/22 10:43 Urine pH 6 (5-7) 07/03/22 10:43 Ur Specific Gravit y 1.025 (1.005-1.0 30) 07/03/22 10:43 Urine Protein Trace (Negative) 07/03/22 10:43 Urine Glucose (UA) Norm (Normal) 07/03/22 10:43 Urine Ketones 3+ (Negative) H 07/03/22 10:43 Urine Blood Neg (Negative) 07/03/22 10:43 Urine Nitrate Negative (Negati ve) 07/03/22 10:43 Urine Bilirubin Neg (Negative) 07/03/22 10:43 Urine Urobilinogen Norm mg/dL (Negat tess) 07/03/22 10:43 Ur Leukocyte Basia ase Negative (Negati ve) 07/03/22 10:43 Urine RBC 0-4 /hpf (0-2) H 07/03/22 10:43 Urine WBC Rare /hpf (0-5) 07/03/22 10:43 Ur Squamous Epith Cells Rare /hpf (0-5) 07/03/22 10:43 Amorphous Sediment Not Reportable 07/03/22 10:43 Urine Bacteria Trace /hpf (NONE) 07/03/22 10:43 Urine Mucus 2+ /hpf 07/03/22 10:43 Urine Sperm 1+ /hpf 07/03/22 10:43 Salicylates < 0.3 mg/dL (3-10 ) L 07/03/22 09:43 Urine Opiates Scre en Negative ng/mL (N egative) 07/03/22 10:43 Acetaminophen < 5.0 ug/mL (10-3 0) L 07/03/22 09:43 Ur Barbiturates Sc reen Negative ng/mL (N egative) 07/03/22 10:43 Ur Phencyclidine S crn Negative ng/mL (N egative) 07/03/22 10:43 Ur Amphetamines Sc reen Positive ng/mL (N egative) H 07/03/22 10:43 U Benzodiazepines Scrn Negative ng/mL (N egative) 07/03/22 10:43 Urine Cocaine Scre en Negative ng/mL (N egative) 07/03/22 10:43 U Marijuana (THC) Screen Positive ng/mL (N egative) H 07/03/22 10:43 Ethyl Alcohol < 10 mg/dL (0-10) 07/03/22 09:43 Vitals: Last Vital Signs Temp 100.2 F H 07/06/22 14:00 Pulse 84 07/06/22 14:00 Resp 18 07/06/22 14:00 BP 120/86 07/06/22 14:00 Pulse Ox 96 07/06/22 14:00 O2 Del Method 07/03/22 14:33 Discharge Plan Discharge Patient Disposition: Home Condition: Stable Prescriptions: Continued guaifenesin 600 mg tablet extended release 12hr 600 mg PO BID Qty: 20 0RF Discharge Orders: Discharge Order (Routine); Ordered 07/06/22 Ordered By: Darrain Carpenter Referrals: [facility] [Other] (Call [facility] for any insurance needs or questions at [phone]. [phone]) [facility] [place] [Other] - 07/11/22 8:00 am (Follow up) [facility] [place] - 07/17/22 8:30 am (Initial appointment scheduled for 07/17/22 with check in at 8:30 am.) Mike Sherman MD [Primary Care Provider] - 07/13/22 12:45 pm Discharge Diet: Regular Discharge Activity: Resume usual activity Patient Instructions: ADHD in Adults (DC), Opioid Safety Discharge Attestations NPU Time Spent in Discharge Care*: less than 30 min Specific Discharge Activities: Specific discharge activities: educating patient, discussing with corrections caseworker/social workers/dc planners, documenting/other paperwork and evaluating patient/reviewing data Status at Discharge: Cognitive status at discharge: cognitively intact, Behavioral status at discharge: cooperative, Coding Level [facility] [address] [facility] note Diagnoses Methamphetamine use disorder, severe F15.20 Psychotic disorder F29 Chronic pain of left lower extremity M79.605; G89.29 History of methadone use Z87.898 Suicide attempt T14.91XA Depression with suicidal ideation F32.A; R45.851 Drug overdose, intentional T50.902A
[2022-07-06] MEDS: OLANZapine 5 mg ODT PO (13:58)
[2022-07-06 14:00] VITALS: BP 120/86; PULSE 84; RESP 18; TEMP 37.9; O2SAT 96
[2022-07-06] MEDS: nicotine 2 mg Gum BUCCAL (15:14)
== END 2022-07-06 16:23 | disposition home or self-care (01) | DRG 885 ==
LOC: ER 10:39 → NP 21:58
PROVIDERS: Admitting Provider Psychiatry & Neurology Psychiatry; Emergency Provider Family Medicine; PCP Family Medicine Adult Medicine; Visit Provider Psychiatry & Neurology Psychiatry
DX: F29 Unspecified psychosis not due to a substance or known physiological condition (principal); R45.851 Suicidal ideations; F15.20 Other stimulant dependence, uncomplicated; F32.A Depression, unspecified; Z59.00 Homelessness unspecified; F10.20 Alcohol dependence, uncomplicated; Z86.19 Personal history of other infectious and parasitic diseases; F43.10 Post-traumatic stress disorder, unspecified; G89.29 Other chronic pain; M79.605 Pain in left leg; Z91.51 Personal history of suicidal behavior
CPT/HCPCS: 36415; 80053; 80306; 80307; 81001; 85025; 97165; 99285

== ENCOUNTER 2022-07-08 00:06 | Emergency (ER) | payer MEDICAID, SELFPAY ==
[2022-07-08 00:09] VITALS: BP 164/97; PULSE 98; RESP 98; TEMP 36.7; BMI 21.6
--- NOTE | 2022-07-08 00:17 | W.ED.PSYCHS ---
HPI - Psych General: Chief Complaint: Psychiatric Symptoms Stated Complaint: hearing things Time Seen by Provider: 07/08/22 00:16 Source: patient Mode of arrival: ambulatory Limitations: no limitations History of Present Illness: 27-year-old male who is very well-known to the ER has a history of methamphetamine abuse patient just got out of the [facility] here day ago he states he has not filled any of his meds he still having some hallucinations he went to check back in he denies being suicidal or homicidal he states he just wants 1 dose of medication at this time. He is not acutely psychotic is able answer all my questions appropriately denies any worsening improving factors. Associated symptoms: Reports auditory hallucinations Review of Systems Const: Denies: fever(s), chills, body aches or change in appetite Eyes: Denies: blurry vision or eye discomfort ENMT: Denies: throat pain or dental pain Card: Denies: chest pain Resp: Denies: dyspnea GI: Denies: abdominal pain, nausea, vomiting or diarrhea : Denies: dysuria Musc: Denies: neck pain or back pain Skin/Breast: Denies: rash Neuro: Denies: headache(s) Psych: Reports: auditory hallucinations Abe/Lymph: Denies: easy bruising All/Imm: Denies: urticaria PFSH ED PFSH: Medical History Alcohol use disorder, severe, dependence Anxiety and depression GERD (gastroesophageal reflux disease) History of hepatitis C Treated with only one month of Epclusa. Despite that, he seems to have SVR. Recheck in one year History of lower leg fracture Kidney stone Penile benign neoplasm PTSD (post-traumatic stress disorder) Severe dental caries Surgical History Hip fracture requiring operative repair Family History Grandmother Cancer Mother Diabetes Heart disease Social History Alcohol intake: current Alcohol intake frequency: few times a month Alcohol type: beer Marital status: Single Number of children: 1 Current occupational status: employed History of recent travel: No Physical Exam Const: COMMON NORMALS: no acute distress, patient oriented x3 and healthy appearing HENMT: COMMON NORMALS: normocephalic and atraumatic HEAD & SCALP: normocephalic and atraumatic Eye: COMMON NORMALS: Equal, round and reactive pupils present and EOMs intact bilaterally PUPIL: Yes Equal, round and reactive pupils present Neck/C-Spine: COMMON NORMALS: full ROM and supple Chest: COMMONS NORMALS: normal inspection of the chest and normal palpation of entire chest wall Resp: COMMON NORMALS: normal respiratory effort, No retractions, No use of accessory muscles and clear to auscultation bilaterally AUSCULTATION: clear to auscultation bilaterally Cardio: COMMON NORMALS: regular rate, regular rhythm and No murmurs present (Cardio) RATE: regular rate RHYTHM: regular rhythm GI: COMMON NORMALS: Normal to inspection, nondistended, normoactive bowel sounds present, Soft to palpation, non-tender and no masses PALPATION: Yes Soft to palpation Extremity: COMMON NORMALS: normal to inspection and full ROM Neuro: COMMON NORMALS: patient oriented x3, moves all extremities and no focal motor deficits Psych: COMMON NORMALS: mental status grossly normal, Normal thought process present and cooperative THOUGHT PROCESS: Normal thought process present Skin: COMMON NORMALS: no rashes or lesions noted and no wounds GENERAL SKIN EXAM: no rashes or lesions noted Course Vital Signs: Vital signs: Vital Signs Temperature 98.1 F 07/08/22 00:09 Pulse Rate 98 07/08/22 00:09 Respiratory Rate 98 H 07/08/22 00:09 Blood Pressure 164/97 07/08/22 00:09 Oxygen Delivery Me thod 07/08/22 00:09 [facility] - Psych Medical Decision Making Patient presents for hallucinations been chronic in nature he just got out of the psych [facility] yesterday he is not suicidal homicidal he is not acutely psychotic we will give him 1 dose of Haldol he stable for discharge follow-up as scheduled return if worsening Discharge Plan Discharge Patient Disposition: Home Clinical Impression: Auditory hallucination Condition: Stable Prescriptions: No Action guaifenesin 600 mg tablet extended release 12hr 600 mg PO BID Qty: 20 0RF Discharge Orders: Discharge ED (Routine); Ordered 07/08/22 Ordered By: Mimi Bailon Referrals: Mike Sherman MD [Primary Care Provider] - Discharge Diet: Advance as tolerated Discharge Activity: Resume usual activity Patient Instructions: Hallucinations (ED) Coding Level of Care Code ED Booster Pump Oiler for Chg 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
[2022-07-08] MEDS: haloperidol 5 mg Tablet PO (00:31)
== END 2022-07-08 00:33 | disposition home or self-care (01) ==
PROVIDERS: Emergency Provider Emergency Medicine; PCP Family Medicine Adult Medicine
DX: R44.0 Auditory hallucinations (principal); Z86.19 Personal history of other infectious and parasitic diseases
CPT/HCPCS: 99285

== ENCOUNTER 2022-07-08 03:30 | Emergency (ER) | payer MEDICAID, SELFPAY ==
[2022-07-08 03:38] VITALS: BP 138/89; PULSE 97; RESP 18; TEMP 36.6; O2SAT 98
--- NOTE | 2022-07-08 03:39 | W.ED.PSYCHS ---
HPI - Psych General: Stated Complaint: wants stress unit , needs meds adjusted Time Seen by Provider: 07/08/22 03:34 Source: patient Mode of arrival: ambulatory Limitations: no limitations History of Present Illness: 27-year-old male is very well-known to ER states he been having hallucinations he is discharged from a psych [facility] here 2 days ago he has been having depression he denies any suicidal homicidal ideations patient denies any worsening improving factors. Associated symptoms: Reports auditory hallucinations and depression Review of Systems Const: Denies: fever(s), chills, body aches or change in appetite Eyes: Denies: blurry vision or eye discomfort ENMT: Denies: throat pain or dental pain Card: Denies: chest pain Resp: Denies: dyspnea GI: Denies: abdominal pain, nausea, vomiting or diarrhea : Denies: dysuria Musc: Denies: neck pain or back pain Skin/Breast: Denies: rash Neuro: Denies: headache(s) Psych: Reports: depression and auditory hallucinations Abe/Lymph: Denies: easy bruising All/Imm: Denies: urticaria PFSH ED PFSH: Medical History Alcohol use disorder, severe, dependence Anxiety and depression GERD (gastroesophageal reflux disease) History of hepatitis C Treated with only one month of Epclusa. Despite that, he seems to have SVR. Recheck in one year History of lower leg fracture Kidney stone Penile benign neoplasm PTSD (post-traumatic stress disorder) Severe dental caries Surgical History Hip fracture requiring operative repair Family History Grandmother Cancer Mother Diabetes Heart disease Social History Alcohol intake: current Alcohol intake frequency: few times a month Alcohol type: beer Marital status: Single Number of children: 1 Current occupational status: employed History of recent travel: No Physical Exam Const: COMMON NORMALS: no acute distress, patient oriented x3 and healthy appearing HENMT: COMMON NORMALS: normocephalic and atraumatic HEAD & SCALP: normocephalic and atraumatic Eye: COMMON NORMALS: Equal, round and reactive pupils present and EOMs intact bilaterally PUPIL: Yes Equal, round and reactive pupils present Neck/C-Spine: COMMON NORMALS: full ROM and supple Chest: COMMONS NORMALS: normal inspection of the chest and normal palpation of entire chest wall Resp: COMMON NORMALS: normal respiratory effort, No retractions, No use of accessory muscles and clear to auscultation bilaterally AUSCULTATION: clear to auscultation bilaterally Cardio: COMMON NORMALS: regular rate, regular rhythm and No murmurs present (Cardio) RATE: regular rate RHYTHM: regular rhythm GI: COMMON NORMALS: Normal to inspection, nondistended, normoactive bowel sounds present, Soft to palpation, non-tender and no masses PALPATION: Yes Soft to palpation Extremity: COMMON NORMALS: normal to inspection and full ROM Neuro: COMMON NORMALS: patient oriented x3, moves all extremities and no focal motor deficits Psych: COMMON NORMALS: mental status grossly normal, Normal thought process present and cooperative THOUGHT PROCESS: Normal thought process present Skin: COMMON NORMALS: no rashes or lesions noted and no wounds GENERAL SKIN EXAM: no rashes or lesions noted MDM - Psych Medical Decision Making Patient presents with hallucination along with depression he does not have suicidality I spoke to Dr. Carpenter who knows patient well he has been here multiple times he just discharged from the [facility] 2 days ago he states he does not need to be readmitted at this time we will try to get him retirement he stable for discharge. Discharge Plan Discharge Patient Disposition: Home Clinical Impression: Auditory hallucination, Depressed Condition: Stable Prescriptions: No Action guaifenesin 600 mg tablet extended release 12hr 600 mg PO BID Qty: 20 0RF Discharge Orders: Discharge ED (Routine); Ordered 07/08/22 Ordered By: Mimi Bailon Referrals: Mike Sherman MD [Primary Care Provider] - Discharge Diet: Advance as tolerated Discharge Activity: Resume usual activity Patient Instructions: Hallucinations (ED) Coding Level of Care Code ED Harvest Supervisor for Sunita Tejada
[2022-07-08] MEDS: LORazepam 2 mg Tablet PO (04:08)
== END 2022-07-08 05:09 | disposition home or self-care (01) ==
PROVIDERS: Emergency Provider Emergency Medicine; PCP Family Medicine Adult Medicine
DX: R44.0 Auditory hallucinations (principal); F32.A Depression, unspecified; Z86.19 Personal history of other infectious and parasitic diseases
CPT/HCPCS: 99285

== ENCOUNTER 2022-07-12 21:14 | Emergency (ER) | payer MEDICAID, SELFPAY ==
[2022-07-12 21:16] VITALS: BP 122/73; PULSE 79; RESP 12; TEMP 36.3; O2SAT 100; BMI 21.6
--- NOTE | 2022-07-12 21:27 | ED.C_ITS ---
HPI - Psych General: Chief Complaint: Psychiatric Symptoms Stated Complaint: wants NPU admission, fever Time Seen by Provider: 07/12/22 21:21 Source: patient Mode of arrival: ambulatory Limitations: no limitations History of Present Illness: 27-year-old male is very well-known to ER history homelessness he states that he has been having some increased depression he was admitted last week to the [facility] where he refused any medications he states he feels like he needs to be on medications currently he is having increased depression and some suicidal thoughts with no specific plan. Associated symptoms: Reports depression Review of Systems Const: Denies: fever(s), chills, body aches or change in appetite Eyes: Denies: blurry vision or eye discomfort ENMT: Denies: throat pain or dental pain Card: Denies: chest pain Resp: Denies: dyspnea GI: Denies: abdominal pain, nausea, vomiting or diarrhea : Denies: dysuria Musc: Denies: neck pain or back pain Skin/Breast: Denies: rash Neuro: Denies: headache(s) Psych: Reports: depression Abe/Lymph: Denies: easy bruising All/Imm: Denies: urticaria PFSH ED PFSH: Medical History Alcohol use disorder, severe, dependence Anxiety and depression GERD (gastroesophageal reflux disease) History of hepatitis C Treated with only one month of Epclusa. Despite that, he seems to have SVR. Recheck in one year History of lower leg fracture Kidney stone Penile benign neoplasm PTSD (post-traumatic stress disorder) Severe dental caries Surgical History Hip fracture requiring operative repair Family History Grandmother Cancer Mother Diabetes Heart disease Social History Alcohol intake: current Alcohol intake frequency: few times a month Alcohol type: beer Marital status: Single Number of children: 1 Current occupational status: employed History of recent travel: No Physical Exam Const: COMMON NORMALS: no acute distress, patient oriented x3 and healthy appearing HENMT: COMMON NORMALS: normocephalic and atraumatic HEAD & SCALP: normocephalic and atraumatic Eye: COMMON NORMALS: Equal, round and reactive pupils present and EOMs intact bilaterally PUPIL: Yes Equal, round and reactive pupils present Neck/C-Spine: COMMON NORMALS: full ROM and supple Chest: COMMONS NORMALS: normal inspection of the chest and normal palpation of entire chest wall Resp: COMMON NORMALS: normal respiratory effort, No retractions, No use of accessory muscles and clear to auscultation bilaterally AUSCULTATION: clear to auscultation bilaterally Cardio: COMMON NORMALS: regular rate, regular rhythm and No murmurs present (Cardio) RATE: regular rate RHYTHM: regular rhythm GI: COMMON NORMALS: Normal to inspection, nondistended, normoactive bowel sounds present, Soft to palpation, non-tender and no masses PALPATION: Yes Soft to palpation Extremity: COMMON NORMALS: normal to inspection and full ROM Neuro: COMMON NORMALS: patient oriented x3, moves all extremities and no focal motor deficits Psych: COMMON NORMALS: mental status grossly normal, Normal thought process present and cooperative MOOD & AFFECT: Yes depressed mood THOUGHT PROCESS: Normal thought process present Skin: COMMON NORMALS: no rashes or lesions noted and no wounds GENERAL SKIN EXAM: no rashes or lesions noted Course Vital Signs: Vital signs: Vital Signs Temperature 97.4 F L 07/12/22 21:16 Pulse Rate 79 07/12/22 21:16 Respiratory Rate 12 07/12/22 21:16 Blood Pressure 122/73 07/12/22 21:16 Pulse Oximetry 100 07/12/22 21:16 Oxygen Delivery Me thod 07/12/22 21:16 MDM - Psych Medical Decision Making Patient presents here with depression he does not have any active suicidal plan patient was evaluated Dr. Carpenter who believes he has not suicidal threat to himself I agree as well he is to follow-up with [facility] return if worsening he understands agrees to plan. Discharge Plan Discharge Patient Disposition: Home Clinical Impression: Depression, Methamphetamine use disorder, severe Condition: Stable Prescriptions: No Action guaifenesin 600 mg tablet extended release 12hr 600 mg PO BID Qty: 20 0RF Discharge Orders: Discharge ED (Routine); Ordered 07/12/22 Ordered By: Mimi Bailon Referrals: Mike Sherman MD [Primary Care Provider] - Discharge Diet: Advance as tolerated Discharge Activity: Resume usual activity Patient Instructions: Depression (ED) Coding Level of Care Code ED It Architecture Analyst for Chg 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
== END 2022-07-12 22:26 | disposition home or self-care (01) ==
PROVIDERS: Emergency Provider Emergency Medicine; PCP Family Medicine Adult Medicine
DX: F32.A Depression, unspecified (principal); F15.20 Other stimulant dependence, uncomplicated; Z86.19 Personal history of other infectious and parasitic diseases
CPT/HCPCS: 99283

== ENCOUNTER 2022-07-13 18:32 | Emergency (ER) | payer MEDICAID, SELFPAY ==
[2022-07-13 18:37] VITALS: BP 120/73; PULSE 88; RESP 14; TEMP 36.6; O2SAT 97
--- NOTE | 2022-07-13 18:51 | W.ED.PSYCHS ---
HPI - Psych General: Chief Complaint: Psychiatric Symptoms Stated Complaint: SI Time Seen by Provider: 07/13/22 18:45 Source: patient Mode of arrival: ambulatory Limitations: no limitations History of Present Illness: 27-year-old male's been here multiple times admitted to the psych unit roughly 2 weeks ago he is homeless he states that he had got a ceramic piece and has a small scratch to his neck he states that he has been depressed he denies any worsening proving factors he has not followed [facility] like he was supposed to. He refused all meds last time he is admitted to the [facility] Associated symptoms: Reports depression Review of Systems Const: Denies: fever(s), chills, body aches or change in appetite Eyes: Denies: blurry vision or eye discomfort ENMT: Denies: throat pain or dental pain Card: Denies: chest pain Resp: Denies: dyspnea GI: Denies: abdominal pain, nausea, vomiting or diarrhea : Denies: dysuria Musc: Denies: neck pain or back pain Skin/Breast: Denies: rash Neuro: Denies: headache(s) Psych: Reports: depression Abe/Lymph: Denies: easy bruising All/Imm: Denies: urticaria PFSH ED PFSH: Medical History Alcohol use disorder, severe, dependence Anxiety and depression He does have episodes of suicide thoughts and ideation Depression with suicidal ideation GERD (gastroesophageal reflux disease) History of hepatitis C Treated with only one month of Epclusa. Despite that, he seems to have SVR. Recheck in one year History of lower leg fracture Kidney stone Penile benign neoplasm PTSD (post-traumatic stress disorder) Severe dental caries Surgical History Hip fracture requiring operative repair Family History Grandmother Cancer Mother Diabetes Heart disease Social History Alcohol intake: current Alcohol intake frequency: few times a month Alcohol type: beer Marital status: Single Number of children: 1 Current occupational status: employed History of recent travel: No Physical Exam Const: COMMON NORMALS: patient oriented x3 HENMT: COMMON NORMALS: normocephalic and atraumatic HEAD & SCALP: normocephalic and atraumatic Eye: COMMON NORMALS: conjunctivae normal CONJUNCTIVA: Yes conjunctivae normal Neck/C-Spine: COMMON NORMALS: supple Chest: COMMONS NORMALS: normal inspection of the chest Resp: COMMON NORMALS: normal respiratory effort Cardio: COMMON NORMALS: regular rate RATE: regular rate GI: INSPECTION: Yes normal to inspection Extremity: COMMON NORMALS: normal to inspection Neuro: COMMON NORMALS: patient oriented x3 Psych: MOOD & AFFECT: Yes depressed mood Skin: COMMON NORMALS: no rashes or lesions noted GENERAL SKIN EXAM: no rashes or lesions noted Course Vital Signs: Vital signs: Vital Signs Temperature 97.9 F 07/13/22 18:37 Pulse Rate 88 07/13/22 18:37 Respiratory Rate 14 07/13/22 18:37 Blood Pressure 120/73 07/13/22 18:37 Pulse Oximetry 97 07/13/22 18:37 Oxygen Delivery Me thod 07/13/22 18:37 MDM - Psych Medical Decision Making Patient presents here with depression he does have a small scratch to his neck he has been seen here multiple times he is admitted to [facility] last week and refused all meds he has been supposed to follow-up with [facility] and has not I spoke to Dr. Carpenter psychiatry who agrees me patient is not actively suicidal and feels he is stable for discharge. Discharge Plan Discharge Patient Disposition: Home Clinical Impression: Depression Condition: Stable Prescriptions: No Action guaifenesin 600 mg tablet extended release 12hr 600 mg PO BID Qty: 20 0RF Discharge Orders: Discharge ED (Routine); Ordered 07/13/22 Ordered By: Mimi Bailon Referrals: Mike Sherman MD [Primary Care Provider] - Discharge Diet: Advance as tolerated Discharge Activity: Resume usual activity Patient Instructions: Depression (ED) Coding Level of Care Code ED Home Office Claim Specialist for Sunita Tejada
== END 2022-07-13 19:17 | disposition home or self-care (01) ==
PROVIDERS: Emergency Provider Emergency Medicine; PCP Family Medicine Adult Medicine
DX: F32.A Depression, unspecified (principal); Z86.19 Personal history of other infectious and parasitic diseases
CPT/HCPCS: 99283

== ENCOUNTER 2022-11-01 17:16 | Emergency (ER) | payer MEDICAID, SELFPAY ==
[2022-11-01 17:23] VITALS: PULSE 91; RESP 16; TEMP 36.7; O2SAT 97; BMI 20.2
--- NOTE | 2022-11-01 18:04 | XRR_ITS ---
PROCEDURE INFORMATION: Exam: XR Abdomen Exam date and time: 11/01/2022 6:19 PM Age: 27 years old Clinical indication: Abdominal pain; Acute; Additional info: Abd pain TECHNIQUE: Imaging protocol: Radiologic exam of the abdomen. Views: Frontal supine view of the abdomen. 1 View. COMPARISON: CR XR KUB [id number] 05/24/2021 3:07 PM FINDINGS: Gastrointestinal tract: Nonobstructive bowel gas pattern. There is a moderate amount of stool throughout the colon, suggestive of constipation. Bones/joints: Unremarkable. XR/XR KUB portable [id number] IMPRESSION: 1. No acute findings. 2. Imaging findings suggestive of constipation.
--- NOTE | 2022-11-01 19:00 | ED_ITS ---
HPI - Abdominal Pain General: Chief Complaint: Abdominal Pain Stated Complaint: abd pain and bruising Time Seen by Provider: 11/01/22 19:00 History of Present Illness: Mr. Alvarez is a 27-year-old gentleman presenting due to abdominal pain. He reports straining with a bowel movement and feeling a popping sensation associated with discoloration of his abdomen 2 days ago. Since that time is at persistent discomfort. He also has not had a bowel movement. Intensity symptoms is moderate. Course has persisted. He has had similar episodes in the past. No other specific changes in health, exacerbating, or alleviating factors identified. Onset (ago): day(s) Severity: moderate Quality: aching and sharp Exacerbating factors: movement Associated Symptoms: Reports constipation Review of Systems General: Reports: 10 or more systems reviewed and unremarkable except in HPI and below GI: Reports: constipation PFSH ED PFSH: Medical History Alcohol use disorder, severe, dependence Anxiety and depression He does have episodes of suicide thoughts and ideation Depression with suicidal ideation GERD (gastroesophageal reflux disease) History of hepatitis C Treated with only one month of Epclusa. Despite that, he seems to have SVR. Recheck in one year History of lower leg fracture Kidney stone Penile benign neoplasm PTSD (post-traumatic stress disorder) Severe dental caries Surgical History Hip fracture requiring operative repair Family History Grandmother Cancer Mother Diabetes Heart disease Social History Alcohol intake: current Alcohol intake frequency: few times a month Alcohol type: beer Substance/Drug Use: former Marital status: Single Number of children: 1 Current occupational status: employed Physical Exam Const: COMMON NORMALS: alert GENERAL APPEARANCE: cooperative and well developed HENMT: COMMON NORMALS: normocephalic and atraumatic HEAD & SCALP: normo cephalic and atraumatic Eye: COMMON NORMALS: conjunctivae normal CONJUNCTIVA: Yes conjunctivae normal SCLERA: sclerae normal Neck/C-Spine: COMMON NORMALS: supple GENERAL: Yes trachea midline Resp: COMMON NORMALS: clear to auscultation bilaterally EFFORT & INSPECTION: Yes able to speak in complete sentences AUSCULTATION: clear to auscultation bilaterally Cardio: COMMON NORMALS: regular rate and regular rhythm RATE: regular rate RHYTHM: regular rhythm GI: COMMON NORMALS: Soft to palpation PALPATION: Yes Soft to palpation, Yes Tenderness to palpation present (GI), No Guarding due to palpation present (GI) and No Rigid due to palpation Extremity: GENERAL: Yes normal exam except as noted and No edema Neuro: COMMON NORMALS: moves all extremities SENSORIUM/ORIENTATION: Yes al ert and No Orientation impaired Psych: COMMON NORMALS: mental status grossly normal and Normal thought process present THOUGHT PROCESS: Normal thought process present Course Vital Signs: Vital signs: Vital Signs Temperature 98.1 F 11/01/22 17:23 Pulse Rate 70 11/01/22 21:26 Respiratory Rate 14 11/01/22 21:26 Blood Pressure 138/71 11/01/22 21:26 Pulse Oximetry 98 11/01/22 21:26 Oxygen Delivery Me thod Room Air 11/01/22 17:23 MDM - Abdominal Pain Medical Decision Making 27-year-old gentleman presenting with constipation and concern over cute onset abdominal pain and possible bruising. There may be superficial abdominal wall discoloration of the left periumbilical region however minimal if present. No evidence of acute surgical abdomen. Patient is nontoxic. Labs notable for no leukocytosis, normal hemoglobin and platelet count. No sig nificant metabolic derangement. Lipase is minimally elevated though patient is not tender in the epigastric region. CT abdomen pelvis without acute pathology to explain symptoms with the exception of constipation. Incidental findings discussed. Patient able to tolerate p.o. intake after antiemetic, pain controlled with analgesia. Patient is satisfactory for outpatient management of constipation. The results of ED evaluation were discussed with the patient including prescriptions and/or symptomatic cares (if applicable) including appropriate and responsible use, followup plan, and return precautions. The patient verbalized understanding and felt safe for discharge. Medical Records I reviewed the patient's medical records. Lab Data I reviewed the patient's lab results. 11/01/22 19:05 11/01/22 19:05 Labs/Radiology: Radiology Impressions KUB X-Ray 11/01/22 18:04 IMPRESSION: 1. No acute findings. 2. Imaging findings suggestive of constipation. Abdomen/Pelvis CT 11/01/22 19:54 IMPRESSION: 1. Negative for acute inflammatory process or traumatic injury to the abdomen or pelvis. 2. Emphysematous changes suspected. 3. 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 4. Constipation. Laboratory Results WBC 7.5 10^3/uL (4.0-10.0) 11/01/22 19:05 RBC 4.87 10^6/uL (4.1-5.3) 11/01/22 19:05 Hgb 14.4 g/dL (11.7-16.6) 11/01/22 19:05 Hct 42.5 % (42.0-52.0) 11/01/22 19:05 MCV 87.3 fl (80-94) 11/01/22 19:05 MCH 29.6 pg (28.0-34.0) 11/01/22 19:05 MCHC 33.9 g/dL (30.0-36.0) 11/01/22 19:05 RDW 13.3 % (12.1-15.1) 11/01/22 19:05 Plt Count 224 10^3/cmm (130-400) 11/01/22 19:05 MPV 9.7 fL (7.4-10.4) 11/01/22 19:05 Neut % (Auto) 68.3 % 11/01/22 19:05 Lymph % (Auto) 22.4 % 11/01/22 19:05 Dolores % (Auto) 8.1 % 11/01/22 19:05 Eos % (Auto) 0.4 % 11/01/22 19:05 Baso % (Auto) 0.3 % 11/01/22 19:05 Neut # (Auto) 5.14 10^3/uL (1.8-7.7) 11/01/22 19:05 Lymph # (Auto) 1.7 10^3/uL (0.8-4.8) 11/01/22 19:05 Dolores # (Auto) 0.6 10^3/uL (0.2-0.9) 11/01/22 19:05 Eos # (Auto) 0.0 10^3/uL (0.0-0.8) 11/01/22 19:05 Baso # (Auto) 0.0 10^3/uL (0.0-0.1) 11/01/22 19:05 Nucleated RBC % (auto) 0 % 11/01/22 19:05 Nucleated RBCs # 0.0 /100WBC 11/01/22 19:05 Sodium 143 mmol/L (136-145) 11/01/22 19:05 Potassium 4.5 mmol/L (3.5-5.1) 11/01/22 19:05 Chloride 104 mmol/L (98-107) 11/01/22 19:05 Carbon Dioxide 29 mmol/L (22-29) 11/01/22 19:05 Anion Gap 14.5 (5-19) 11/01/22 19:05 BUN 15 mg/dL (6-20) 11/01/22 19:05 Creatinine 0.7 mg/dL (0.7-1.2) 11/01/22 19:05 GFR Calculation 133.3 mL/min (90-130) H 11/01/22 19:05 Glucose 90 mg/dL (65-115) 11/01/22 19:05 Calculated Osmolality 296 mOsm/kg (285-295) H 11/01/22 19:05 Calcium 9.5 mg/dL (8.5-10.5) 11/01/22 19:05 Total Bilirubin 0.2 mg/dL (0.15-1.2) 11/01/22 19:05 AST 22 U/L (0-40) 11/01/22 19:05 ALT 19 U/L (0-41) 11/01/22 19:05 Alkaline Phosphatase 136 U/L (40-130) H 11/01/22 19:05 Total Protein 7.9 g/dL (6.6-8.7) 11/01/22 19:05 Albumin 5.3 g/dL (3.5-5.2) H 11/01/22 19:05 Globulin 2.6 g/dL (1.3-4.6) 11/01/22 19:05 Lipase 70 U/L (13-60) H 11/01/22 19:05 Discharge Plan Discharge Patient Disposition: Home Clinical Impression: Abdominal pain, Constipation, Hydroureteronephrosis Condition: Stable Prescriptions: New Miralax 17 gram/dose powder 17 g PO TID Qty: 238 0RF No Action guaifenesin 600 mg tablet extended release 12hr 600 mg PO BID Qty: 20 0RF dicyclomine 20 mg tablet 20 mg PO TID PRN (Reason: abdominal pain) Qty: 20 0RF ondansetron 4 mg tablet,disintegrating 4 mg PO Q6H PRN (Reason: nausea and vomiting) Qty: 14 0RF Discharge Orders: Discharge ED (Routine); Ordered 11/01/22 Ordered By: Michael Cordero Referrals: Mike Sherman MD [Primary Care Provider] - Discharge Diet: Advance as tolerated and Clear Liquid Discharge Activity: Increase activity as tolerated Patient Instructions: Constipation (ED), Abdominal Pain (ED), Opioid Safety Activity Restrictions/Additional Instructions: Thank you for visiting the emergency department. You were seen and evaluated for concern over abdominal pain. The exact cause of your symptoms is unclear though may be related to constipation. Given physical exam, history, laboratory studies as well as imaging I do not feel that this requires inpatient management at this time. I will prescribe MiraLAX. Take this 3 times daily for the next 3 days and then adjust between 1 and 3 times daily with goal of having applesauce consistency stools multiple times per day. Please ensure that you are staying hydrated. Please follow-up with a primary care provider. Return to the emergency department for anything that you are concerned about and feel needs emergency department evaluation. Coding Level of Care Code ED Carousel Operator for Sunita Tejada
[2022-11-01 19:08] VITALS: BP 143/83; PULSE 88; RESP 14; O2SAT 100
[2022-11-01 19:28] LABS: Basophils % 0.3 %; Eosinophils % 0.4 %; Hematocrit 42.5 % (42.0-52.0); Hemoglobin 14.4 g/dL (11.7-16.6); Lymphocytes # 1.7 10^3/uL (0.8-4.8); Lymphocytes % 22.4 %; Mean Corpuscular HGB Conc 33.9 g/dL (30.0-36.0); Mean Corpuscular Hemoglobin 29.6 pg (28.0-34.0); Mean Corpuscular Volume 87.3 fl (80-94); Mean Platelet Volume 9.7 fL (7.4-10.4); Monocytes # 0.6 10^3/uL (0.2-0.9); Monocytes % 8.1 %; Neutrophils # 5.14 10^3/uL (1.8-7.7); Neutrophils % 68.3 %; Nucleated Red Blood Cells % 0 %; Platelet Count 224 10^3/cmm (130-400); Red Blood Count 4.87 10^6/uL (4.1-5.3); Red Cell Distribution Width 13.3 % (12.1-15.1); White Blood Count 7.5 10^3/uL (4.0-10.0)
[2022-11-01 19:51] LABS: Alanine Aminotransferase 19 U/L (0-41); Albumin Level 5.3 g/dL (3.5-5.2); Alkaline Phosphatase 136 U/L (40-130); Anion Gap 14.5 (5-19); Aspartate Amino Transferase 22 U/L (0-40); Blood Urea Nitrogen 15 mg/dL (6-20); Calcium 9.5 mg/dL (8.5-10.5); Carbon Dioxide 29 mmol/L (22-29); Chloride 104 mmol/L (98-107); Globulin 2.6 g/dL (1.3-4.6); Glomerular Filtration Rate 133.3 mL/min (90-130); Glucose 90 mg/dL (65-115); Lipase 70 U/L (13-60); Osmolality Calculated 296 mOsm/kg (285-295); Potassium 4.5 mmol/L (3.5-5.1); Sodium 143 mmol/L (136-145); Total Bilirubin 0.2 mg/dL (0.15-1.2); Total Protein 7.9 g/dL (6.6-8.7)
--- NOTE | 2022-11-01 19:54 | CTR_ITS ---
PROCEDURE INFORMATION: Exam: CT Abdomen And Pelvis Without Contrast Exam date and time: 11/01/2022 8:31 PM Age: 27 years old Clinical indication: Abdominal pain; Generalized; Additional info: Abd pain, possible abdominal wall bruising TECHNIQUE: Imaging protocol: Computed tomography of the abdomen and pelvis without contrast. Radiation optimization: All CT scans at this facility use at least one of these dose optimization techniques: automated exposure control; mA and/or kV adjustment per patient size (includes targeted exams where dose is matched to clinical indication); or iterative reconstruction. REPORTING DATA: Count of CT and Cardiac NM exams in prior 12 months: This patient has received 0 known CTs and 0 known cardiac nuclear medicine studies in the 12 months prior to the current study. COMPARISON: CT kidney stone [id number] 05/19/2021 7:55 PM RADIATION DOSE METRICS: Total DLP (mGy-cm): 344 FINDINGS: Lungs: Emphysematous changes suspected. Liver: Normal. No mass. Gallbladder and bile ducts: Normal. No calcified stones. No ductal dilation. Pancreas: Normal. No ductal dilation. Spleen: Normal. No splenomegaly. Adrenal glands: Normal. No mass. 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 Stomach and bowel: Constipation. Appendix: No evidence of appendicitis. Intraperitoneal space: Unremarkable. No free air. No significant fluid collection. Vasculature: Unremarkable. No abdominal aortic aneurysm. Lymph nodes: Unremarkable. No enlarged lymph nodes. Urinary bladder: Unremarkable as visualized. Reproductive: Unremarkable as visualized. Bones/joints: Unremarkable. No acute fracture. Soft tissues: Unremarkable. CT/CT abdomen pelvis wo con [id number] IMPRESSION: 1. Negative for acute inflammatory process or traumatic injury to the abdomen or pelvis. 2. Emphysematous changes suspected. 3. 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 4. Constipation.
[2022-11-01 20:00] VITALS: BP 138/82; PULSE 73; RESP 14; O2SAT 100
[2022-11-01] MEDS: iohexol 350 mg/mL 500 mL Btl (per mL) IV (20:18)
[2022-11-01] MEDS: ondansetron 2 mg/ML SDV 2 mL 4 MG IVP (20:26)
[2022-11-01 21:26] VITALS: BP 138/71; PULSE 70; RESP 14; O2SAT 98
[2022-11-01] MEDS: acetaminophen 500 mg Tablet 1000 MG PO (21:32)
[2022-11-01] MEDS: ketorolac 30 mg/mL INJ IM (21:32)
== END 2022-11-01 21:35 | disposition home or self-care (01) ==
PROVIDERS: Emergency Medicine; Emergency Provider Emergency Medicine; PCP Family Medicine Adult Medicine
DX: K59.00 Constipation, unspecified (principal); N13.30 Unspecified hydronephrosis; Z86.19 Personal history of other infectious and parasitic diseases; Z87.442 Personal history of urinary calculi
CPT/HCPCS: 74018; 74176; 80053; 83690; 85025; 96372; 96374; 99285; J1885; J2405; Q9967

== ENCOUNTER 2022-11-02 15:22 | Emergency (ER) | payer MEDICAID, SELFPAY ==
[2022-11-02 15:27] VITALS: BP 147/82; PULSE 88; RESP 18; TEMP 36.6; O2SAT 100
--- NOTE | 2022-11-02 18:25 | W.ED.ABDPA2 ---
HPI - Abdominal Pain General: Chief Complaint: Abdominal Pain Stated Complaint: abd pain Time Seen by Provider: 11/02/22 18:02 Source: patient Mode of arrival: ambulatory Limitations: no limitations History of Present Illness: 27-year-old male who states he did have abdominal pain over the last 4 to 5 days with constipation he was seen here yesterday had blood work CT did show the constipation no other findings he states he has not had a bowel movement continue to have some pain he rates a 3 out of 10 he is in no distress here no vomiting no diarrhea no fevers. Associated Symptoms: Reports constipation; Denies chills, diarrhea, dysuria, fever(s), nausea and vomiting Review of Systems Const: Denies: fever(s) or chills Eyes: Denies: eye discomfort ENMT: Denies: throat pain or dental pain Card: Denies: chest pain Resp: Denies: dyspnea GI: Reports: abdominal pain and constipation; Denies: nausea, vomiting or diarrhea : Denies: dysuria Musc: Denies: neck pain or back pain Skin/Breast: Denies: rash Neuro: Denies: headache(s) Psych: Denies: depression Abe/Lymph: Denies: easy bruising All/Imm: Denies: urticaria PFSH ED PFSH: Medical History Alcohol use disorder, severe, dependence Anxiety and depression He does have episodes of suicide thoughts and ideation Depression with suicidal ideation GERD (gastroesophageal reflux disease) History of hepatitis C Treated with only one month of Epclusa. Despite that, he seems to have SVR. Recheck in one year History of lower leg fracture Kidney stone Penile benign neoplasm PTSD (post-traumatic stress disorder) Severe dental caries Surgical History Hip fracture requiring operative repair Family History Grandmother Cancer Mother Diabetes Heart disease Social History Alcohol intake: current Alcohol intake frequency: few times a month Alcohol type: beer Substance/Drug Use: former Marital status: Single Number of children: 1 Current occupational status: employed Physical Exam Const: COMMON NORMALS: no acute distress, patient oriented x3 and healthy appearing HENMT: COMMON NORMALS: normocephalic and atraumatic HEAD & SCALP: normocephalic and atraumatic Eye: COMMON NORMALS: Equal, round and reactive pupils present and EOMs intact bilaterally PUPIL: Yes Equal, round and reactive pupils present Neck/C-Spine: COMMON NORMALS: full ROM and supple Chest: COMMONS NORMALS: normal inspection of the chest and normal palpation of entire chest wall Resp: COMMON NORMALS: normal respiratory effort, No retractions, No use of accessory muscles and clear to auscultation bilaterally AUSCULTATION: clear to auscultation bilaterally Cardio: COMMON NORMALS: regular rate, regular rhythm and No murmurs present (Cardio) RATE: regular rate RHYTHM: regular rhythm GI: COMMON NORMALS: Normal to inspection, nondistended, normoactive bowel sounds present, Soft to palpation, non-tender and no masses PALPATION: Yes Soft to palpation Extremity: COMMON NORMALS: normal to inspection and full ROM Neuro: COMMON NORMALS: patient oriented x3, moves all extremities and no focal motor deficits Psych: COMMON NORMALS: mental status grossly normal, Normal thought process present and cooperative THOUGHT PROCESS: Normal thought process present Skin: COMMON NORMALS: no rashes or lesions noted and no wounds GENERAL SKIN EXAM: no rashes or lesions noted Course Vital Signs: Vital signs: Vital Signs Temperature 97.9 F 11/02/22 15:27 Pulse Rate 88 11/02/22 15:27 Respiratory Rate 18 11/02/22 15:27 Blood Pressure 147/82 11/02/22 15:27 Pulse Oximetry 100 11/02/22 15:27 Oxygen Delivery Me thod Room Air 11/02/22 15:27 MDM - Abdominal Pain Medical Decision Making Patient presents with constipation causing his abdominal pain. He had a large work-up yesterday with no acute findings he states he still has had a bowel movement we will give him lactulose here along with Bentyl his exam here is benign no signs of acute surgical abdomen he is stable for discharge. Discharge Plan Discharge Patient Disposition: Home Clinical Impression: Abdominal pain, Constipation Condition: Stable Prescriptions: New dicyclomine 20 mg tablet 20 mg PO TID PRN (Reason: abdominal pain) Qty: 20 0RF No Action guaifenesin 600 mg tablet extended release 12hr 600 mg PO BID Qty: 20 0RF Miralax 17 gram/dose powder 17 g PO TID Qty: 238 0RF Discharge Orders: Discharge ED (Routine); Ordered 11/02/22 Ordered By: Mimi Bailon Referrals: Mike Sherman MD [Primary Care Provider] - 1-3 days Discharge Diet: Advance as tolerated Discharge Activity: Resume usual activity Patient Instructions: Constipation (ED), Abdominal Pain (ED) Coding Level of Care Code ED Inside Technical Sales Representative for Sunita Tejada
[2022-11-02 18:29] VITALS: BP 147/83; PULSE 86; RESP 18; O2SAT 99
[2022-11-02] MEDS: dicyclomine 20 mg Tablet PO (18:40)
[2022-11-02] MEDS: lactulose oral liq 20 gm/30 mL UDC 30 GM PO (18:41)
== END 2022-11-02 18:48 | disposition home or self-care (01) ==
PROVIDERS: Emergency Provider Emergency Medicine; PCP Family Medicine Adult Medicine
DX: K59.00 Constipation, unspecified (principal); Z86.19 Personal history of other infectious and parasitic diseases
CPT/HCPCS: 99283

== ENCOUNTER 2022-11-02 20:30 | Emergency (ER) | payer MEDICAID, SELFPAY ==
--- NOTE | 2022-11-02 20:33 | XRR_ITS ---
PROCEDURE INFORMATION: Exam: XR Chest Exam date and time: 11/02/2022 8:46 PM Age: 27 years old Clinical indication: Pain; Chest pressure; Additional info: Cp TECHNIQUE: Imaging protocol: Radiologic exam of the chest. Views: 1 view. COMPARISON: CR XR chest 1V portable [id number] 12/18/2021 1:47 AM FINDINGS: Lungs: Lungs are clear bilaterally. Pleural spaces: No pleural effusion. No pneumothorax. Heart/Mediastinum: The cardiac silhouette and mediastinal contours are unremarkable. Bones/joints: Stable mild scoliosis in the visualized spine. XR/XR chest 1V portable [id number] IMPRESSION: 1. No acute cardiopulmonary process. 2. Incidental/nonacute findings are listed in the report.
[2022-11-02 20:34] VITALS: PULSE 78; RESP 16; TEMP 36.8; O2SAT 98
[2022-11-02 20:39] VITALS: BP 137/96; PULSE 88; RESP 16; O2SAT 100
--- NOTE | 2022-11-02 20:41 | ECG_ITS ---
[facility] Test Date: 2022-11-02 Pat Name: Tyree Alvarez Department: Room: Gender: Male People Manager: : 1995 Requested By: Mimi Bailon Order Number: [id number] Conor MD: Jaquan Abbasi M.D. Measurements Intervals [place] Rate: 97 P: 53 TN: 128 QRS: 74 QRSD: 82 T: 35 QT: 339 QTc: 432 Interpretive Statements SINUS RHYTHM WITH SINUS ARRHYTHMIA Compared to ECG 01/03/2022 10:54:13 ST (T wave) deviation no longer present Electronically Signed On 11-03-2022 11:58:53 CDT by Jaquan Abbasi M.D. [email or web address] [id number]
--- NOTE | 2022-11-02 20:44 | ED_ITS ---
HPI - Abdominal Pain General: Chief Complaint: Abdominal Pain Stated Complaint: Chest Pains\Vomiting Time Seen by Provider: 11/02/22 20:33 Source: patient Mode of arrival: ambulatory Limitations: no limitations History of Present Illness: 27-year-old male states he has had chronic left flank pain abdominal pain he was seen here earlier today for the same he was seen here yesterday he states that he wants to be transferred to [place] states he had some vomiting now he is comfortable in the room does not appear to be in any pain denies any fever denies any dysuria Associated Symptoms: Reports nausea and vomiting; Denies chills, diarrhea, dysuria and fever(s) Review of Systems Const: Denies: fever(s) or chills Eyes: Denies: eye discomfort ENMT: Denies: throat pain or dental pain Card: Reports: chest pain Resp: Denies: dyspnea GI: Reports: abdominal pain, nausea and vomiting; Denies: diarrhea : Denies: dysuria Musc: Denies: neck pain or back pain Skin/Breast: Denies: rash Neuro: Denies: headache(s) Psych: Denies: depression Abe/Lymph: Denies: easy bruising All/Imm: Denies: urticaria PFSH ED PFSH: Medical History Alcohol use disorder, severe, dependence Anxiety and depression He does have episodes of suicide thoughts and ideation Depression with suicidal ideation GERD (gastroesophageal reflux disease) History of hepatitis C Treated with only one month of Epclusa. Despite that, he seems to have SVR. Recheck in one year History of lower leg fracture Kidney stone Penile benign neoplasm PTSD (post-traumatic stress disorder) Severe dental caries Surgical History Hip fracture requiring operative repair Family History Grandmother Cancer Mother Diabetes Heart disease Social History Alcohol intake: current Alcohol intake frequency: few times a month Alcohol type: beer Substance/Drug Use: former Marital status: Single Number of children: 1 Current occupational status: employed Physical Exam Const: COMMON NORMALS: no acute distress, patient oriented x3 and healthy appearing HENMT: COMMON NORMALS: normocephalic and atraumatic HEAD & SCALP: normocephalic and atraumatic Eye: COMMON NORMALS: conjunctivae normal CONJUNCTIVA: Yes conjunctivae normal Neck/C-Spine: COMMON NORMALS: full ROM and supple Chest: COMMONS NORMALS: normal inspection of the chest and normal palpation of entire chest wall Resp: COMMON NORMALS: normal respiratory effort, No retractions, No use of accessory muscles and clear to auscultation bilaterally AUSCULTATION: clear to auscultation bilaterally Cardio: COMMON NORMALS: regular rate, regular rhythm and No murmurs present (Cardio) RATE: regular rate RHYTHM: regular rhythm GI: COMMON NORMALS: Normal to inspection, nondistended, normoactive bowel sounds present, Soft to palpation, non-tender and no masses PALPATION: Yes Soft to palpation Extremity: COMMON NORMALS: normal to inspection and full ROM Neuro: COMMON NORMALS: patient oriented x3, moves all extremities and no focal motor deficits Psych: COMMON NORMALS: mental status grossly normal, Normal thought process present and cooperative THOUGHT PROCESS: Normal thought process present Skin: COMMON NORMALS: no rashes or lesions noted and no wounds GENERAL SKIN EXAM: no rashes or lesions noted Course Vital Signs: Vital signs: Vital Signs Temperature 98.2 F 11/02/22 20:34 Pulse Rate 88 11/02/22 20:39 Respiratory Rate 16 11/02/22 20:39 Blood Pressure 137/96 11/02/22 20:39 Pulse Oximetry 100 11/02/22 20:39 Oxygen Delivery Me thod Room Air 11/02/22 20:39 MDM - Abdominal Pain Medical Decision Making Patient presents here with abdominal pain along with vomiting he is well- appearing here blood works normal his exam is benign he has had no vomiting here he had a CT scan done yesterday he is stable for discharge he is to follow-up with PCP and return if worsening. Medical Records I reviewed the patient's medical records. Lab Data I reviewed the patient's lab results. 11/02/22 20:46 11/02/22 20:46 Labs/Radiology: Radiology Impressions Chest X-Ray 11/02/22 20:33 IMPRESSION: 1. No acute cardiopulmonary process. 2. Incidental/nonacute findings are listed in the report. Laboratory Results WBC 13.6 10^3/uL (4.0-10.0) H 11/02/22 20:46 RBC 4.87 10^6/uL (4.1-5.3) 11/02/22 20:46 Hgb 14.1 g/dL (11.7-16.6) 11/02/22 20:46 Hct 42.2 % (42.0-52.0) 11/02/22 20:46 MCV 86.7 fl (80-94) 11/02/22 20:46 MCH 29.0 pg (28.0-34.0) 11/02/22 20:46 MCHC 33.4 g/dL (30.0-36.0) 11/02/22 20:46 RDW 13.4 % (12.1-15.1) 11/02/22 20:46 Plt Count 276 10^3/cmm (130-400) 11/02/22 20:46 MPV 9.6 fL (7.4-10.4) 11/02/22 20:46 Neut % (Auto) 71.9 % 11/02/22 20:46 Lymph % (Auto) 16.9 % 11/02/22 20:46 [place] % (Auto) 10.4 % 11/02/22 20:46 Eos % (Auto) 0.1 % 11/02/22 20:46 Baso % (Auto) 0.3 % 11/02/22 20:46 Neut # (Auto) 9.75 10^3/uL (1.8-7.7) H 11/02/22 20:46 Lymph # (Auto) 2.3 10^3/uL (0.8-4.8) 11/02/22 20:46 [place] # (Auto) 1.4 10^3/uL (0.2-0.9) H 11/02/22 20:46 Eos # (Auto) 0.0 10^3/uL (0.0-0.8) 11/02/22 20:46 Baso # (Auto) 0.0 10^3/uL (0.0-0.1) 11/02/22 20:46 Nucleated RBC % (auto) 0 % 11/02/22 20: Nucleated RBCs # 0.0 /100WBC 11/02/22 20:46 Sodium 143 mmol/L (136-145) 11/02/22 20:46 Potassium 4.3 mmol/L (3.5-5.1) 11/02/22 20:46 Chloride 104 mmol/L (98-107) 11/02/22 20:46 Carbon Dioxide 25 mmol/L (22-29) 11/02/22 20:46 Anion Gap 18.3 (5-19) 11/02/22 20:46 BUN 6 mg/dL (6-20) 11/02/22 20:46 Creatinine 0.8 mg/dL (0.7-1.2) 11/02/22 20:46 GFR Calculation 114.3 mL/min (90-130) 11/02/22 20:46 Glucose 101 mg/dL (65-115) 11/02/22 20:46 Calculated Osmolality 294 mOsm/kg (285-295) 11/02/22 20:46 Calcium 9.5 mg/dL (8.5-10.5) 11/02/22 20:46 Total Bilirubin 0.2 mg/dL (0.15-1.2) 11/02/22 20:46 AST 70 U/L (0-40) H 11/02/22 20:46 ALT 63 U/L (0-41) H 11/02/22 20:46 Alkaline Phosphatase 143 U/L (40-130) H 11/02/22 20:46 Total Protein 8.0 g/dL (6.6-8.7) 11/02/22 20:46 Albumin 5.4 g/dL (3.5-5.2) H 11/02/22 20:46 Globulin 2.6 g/dL (1.3-4.6) 11/02/22 20:46 Lipase 17 U/L (13-60) 11/02/22 20:46 Urine Color Colorless (Yellow) 11/02/22 21:38 Urine Appearance Clear (CLEAR) 11/02/22 21:38 Urine pH 6 (5-7) 11/02/22 21:38 Ur Specific [place] 1.015 (1.005-1.030) 11/02/22 21:38 Urine Protein Neg (Negative) 11/02/22 21:38 Urine Glucose (UA) Norm (Normal) 11/02/22 21:38 Urine Ketones Negative (Negative) 11/02/22 21:38 Urine Blood Neg (Negative) 11/02/22 21:38 Urine Nitrate Negative (Negative) 11/02/22 21:38 Urine Bilirubin Neg (Negative) 11/02/22 21:38 Urine Urobilinogen Neg mg/dL (Negative) 11/02/22 21:38 Ur Leukocyte Esterase Negative (Negative) 11/02/22 21:38 EKG Data EKG 1: I personally reviewed and interpreted this EKG as follows: EKG interpretation date: 11/02/22 EKG interpretation time: 20:41 Interpretation: nsr hr [address] or t wave abnormalities qrs 82 qtc 394 Discharge Plan Discharge Patient Disposition: Home Clinical Impression: Abdominal pain, Vomiting Condition: Stable Prescriptions: New ondansetron 4 mg tablet,disintegrating 4 mg PO Q6H PRN (Reason: nausea and vomiting) Qty: 14 0RF No Action guaifenesin 600 mg tablet extended release 12hr 600 mg PO BID Qty: 20 0RF Miralax 17 gram/dose powder 17 g PO TID Qty: 238 0RF dicyclomine 20 mg tablet 20 mg PO TID PRN (Reason: abdominal pain) Qty: 20 0RF Discharge Orders: Discharge ED (Routine); Ordered 11/02/22 Ordered By: Mimi Bailon Referrals: Mike Sherman MD [Primary Care Provider] - 1-3 days Discharge Diet: Advance as tolerated Discharge Activity: Resume usual activity Patient Instructions: Abdominal Pain (ED) Coding Level of Care Code ED Warehouse Administrator for Sunita Tejada
[2022-11-02] MEDS: ondansetron 2 mg/ML SDV 2 mL 4 MG IVP (20:45)
[2022-11-02 20:50] LABS: Basophils % 0.3 %; Eosinophils % 0.1 %; Hematocrit 42.2 % (42.0-52.0); Hemoglobin 14.1 g/dL (11.7-16.6); Lymphocytes # 2.3 10^3/uL (0.8-4.8); Lymphocytes % 16.9 %; Mean Corpuscular HGB Conc 33.4 g/dL (30.0-36.0); Mean Corpuscular Volume 86.7 fl (80-94); Mean Platelet Volume 9.6 fL (7.4-10.4); Monocytes # 1.4 10^3/uL (0.2-0.9); Monocytes % 10.4 %; Neutrophils # 9.75 10^3/uL (1.8-7.7); Neutrophils % 71.9 %; Nucleated Red Blood Cells % 0 %; Platelet Count 276 10^3/cmm (130-400); Red Blood Count 4.87 10^6/uL (4.1-5.3); Red Cell Distribution Width 13.4 % (12.1-15.1); White Blood Count 13.6 10^3/uL (4.0-10.0)
[2022-11-02 21:08] LABS: Alanine Aminotransferase 63 U/L (0-41); Albumin Level 5.4 g/dL (3.5-5.2); Alkaline Phosphatase 143 U/L (40-130); Anion Gap 18.3 (5-19); Aspartate Amino Transferase 70 U/L (0-40); Blood Urea Nitrogen 6 mg/dL (6-20); Calcium 9.5 mg/dL (8.5-10.5); Carbon Dioxide 25 mmol/L (22-29); Chloride 104 mmol/L (98-107); Globulin 2.6 g/dL (1.3-4.6); Glomerular Filtration Rate 114.3 mL/min (90-130); Glucose 101 mg/dL (65-115); Lipase 17 U/L (13-60); Osmolality Calculated 294 mOsm/kg (285-295); Potassium 4.3 mmol/L (3.5-5.1); Sodium 143 mmol/L (136-145); Total Bilirubin 0.2 mg/dL (0.15-1.2)
[2022-11-02 21:39] VITALS: BP 137/96; PULSE 98; RESP 16; O2SAT 94
[2022-11-02 21:46] LABS: Add Urine Microscopic? NO; Charge for UA Resulting for Rev
[2022-11-02 22:09] VITALS: BP 143/102; PULSE 86; RESP 12; O2SAT 100
[2022-11-02 22:14] LABS: Bilirubin Urine Neg (Negative); Blood Urine Neg (Negative); Glucose Urine UA Norm (Normal); Ketones Urine Negative (Negative); Leukocyte Esterase Urine Negative (Negative); Nitrate Urine Negative (Negative); Protein Urine Neg (Negative); Specific Gravity, Urine 1.015 (1.005-1.030); Urine Appearance Clear (CLEAR); Urine Color Colorless (Yellow); Urobilinogen Urine Neg (Negative); pH Urine 6 (5-7)
[2022-11-02 23:44] VITALS: BP 148/96; PULSE 96; RESP 14; O2SAT 95
== END 2022-11-02 22:40 | disposition home or self-care (01) ==
PROVIDERS: Emergency Provider Emergency Medicine; PCP Family Medicine Adult Medicine
DX: R10.9 Unspecified abdominal pain (principal); R11.11 Vomiting without nausea; Z86.19 Personal history of other infectious and parasitic diseases; Z87.442 Personal history of urinary calculi
CPT/HCPCS: 71045; 80053; 81003; 83690; 85025; 93005; 96374; 99285; J2405

== ENCOUNTER 2022-11-11 20:08 | Emergency (ER) | payer MEDICAID, SELFPAY ==
[2022-11-11] VITALS (8 sets, daily range): BP systolic 96–129; BP diastolic 52–83; PULSE 64–94; RESP 15–19; TEMP 36.2; O2SAT 92–100; BMI 21.3
--- NOTE | 2022-11-11 20:39 | CTR_ITS ---
PROCEDURE INFORMATION: Exam: CT Abdomen And Pelvis With Contrast Exam date and time: 11/11/2022 9:23 PM Age: 27 years old Clinical indication: Vomiting; Additional info: Upper gi bleed TECHNIQUE: Imaging protocol: Computed tomography of the abdomen and pelvis with contrast. Radiation optimization: All CT scans at this facility use at least one of these dose optimization techniques: automated exposure control; mA and/or kV adjustment per patient size (includes targeted exams where dose is matched to clinical indication); or iterative reconstruction. Contrast material: OMNI 350; Contrast volume: 100 ml; Contrast route: INTRAVENOUS (IV); REPORTING DATA: Count of CT and Cardiac NM exams in prior 12 months: This patient has received [address] and 0 known cardiac nuclear medicine studies in the 12 months prior to the current study. COMPARISON: CT abdomen pelvis wo con [id number] 11/01/2022 8:31 PM RADIATION DOSE METRICS: Total DLP (mGy-cm): 470.99 FINDINGS: Liver: No acute abnormality. No mass. Gallbladder and bile ducts: No acute abnormality. No calcified stones. No ductal dilation. Pancreas: No acute abnormality. No ductal dilation. Spleen: No acute abnormality. Adrenal glands: No significant or acute abnormality. Kidneys and ureters: Redemonstrated [id number] left hydronephrosis versus extrarenal pelvis. Tiny punctate non-obstructing right renal upper pole calculus. Stomach and bowel: Nondistended stomach. No significant large or small bowel distention. No evidence of diverticulitis. Appendix: Grossly normal nondilated visualized cecal appendix. Intraperitoneal space: No significant fluid collection. No free air. Vasculature: No acute abnormality. No abdominal aortic aneurysm. Lymph nodes: No enlarged lymph nodes. Urinary bladder: Nondistended decompressed urinary bladder. Reproductive: Unremarkable as visualized. Bones/joints: No acute osseous abnormality. No dislocation. Soft tissues: No significant soft tissue abnormalities. CT/CT abdomen pelvis w con* [id number] IMPRESSION: 1. Redemonstrated [id number] left hydronephrosis versus extrarenal pelvis. 2. Tiny punctate non-obstructing right renal upper pole calculus.
--- NOTE | 2022-11-11 20:39 | CTR_ITS ---
PROCEDURE INFORMATION: Exam: CT Head Without Contrast Exam date and time: 11/11/2022 9:19 PM Age: 27 years old Clinical indication: Altered mental status/memory loss; Additional info: AMS TECHNIQUE: Imaging protocol: Computed tomography of the head without contrast. Radiation optimization: All CT scans at this facility use at least one of these dose optimization techniques: automated exposure control; mA and/or kV adjustment per patient size (includes targeted exams where dose is matched to clinical indication); or iterative reconstruction. REPORTING DATA: Count of CT and Cardiac NM exams in prior 12 months: This patient has received [address] and 0 known cardiac nuclear medicine studies in the 12 months prior to the current study. COMPARISON: CT head wo con* [id number] 03/11/2021 11:55 PM RADIATION DOSE METRICS: Total DLP (mGy-cm): 1218.4 FINDINGS: Brain: Normal. No hemorrhage. Unremarkable white matter. No mass effect. Cerebral ventricles: No ventriculomegaly. Paranasal sinuses: Visualized sinuses are unremarkable. No fluid levels. Mastoid air cells: Visualized mastoid air cells are well aerated. Bones/joints: Unremarkable. No acute fracture. Soft tissues: Unremarkable. CT/CT head wo con* [id number] IMPRESSION: No acute intracranial abnormality.
[2022-11-11 20:47] LABS: Basophils % 0.2 %; Eosinophils % 0.3 %; Hematocrit 35.9 % (42.0-52.0); Hemoglobin 12.1 g/dL (11.7-16.6); Lymphocytes # 2.5 10^3/uL (0.8-4.8); Lymphocytes % 25.1 %; Mean Corpuscular HGB Conc 33.7 g/dL (30.0-36.0); Mean Corpuscular Hemoglobin 29.1 pg (28.0-34.0); Mean Corpuscular Volume 86.3 fl (80-94); Mean Platelet Volume 9.3 fL (7.4-10.4); Monocytes % 9.9 %; Neutrophils # 6.33 10^3/uL (1.8-7.7); Neutrophils % 63.9 %; Nucleated Red Blood Cells % 0 %; Platelet Count 277 10^3/cmm (130-400); Red Blood Count 4.16 10^6/uL (4.1-5.3); Red Cell Distribution Width 13.6 % (12.1-15.1); White Blood Count 9.9 10^3/uL (4.0-10.0)
[2022-11-11] MEDS: sodium chloride 0.9% 1,000 ML 999 ML IV ×2 (20:47→22:37)
[2022-11-11 20:56] LABS: ABG PCO2 45.7 mmHg (35-45); ABG PH Result 7.35 (7.35-7.45); Arterial Blood Gas Hematocrit 35.9 % (42-52); Base Excess ABG -0.9 mmol/L (-2.0-2.0); Blood Gas Allen Test Pos; Blood Gas Sample Site Radial, left; Blood Gas Sample Type Arterial; Oxygen Device ROOM AIR; PO2 ABG 91.1 mmHg (80.0-100.0)
[2022-11-11 21:03] LABS: Partial Thromboplastin Time 23.7 SECONDS (23.9-36.7)
[2022-11-11 21:11] LABS: Alanine Aminotransferase 14 U/L (0-41); Albumin Level 4.6 g/dL (3.5-5.2); Alcohol Level 139 mg/dL (0-10); Alkaline Phosphatase 117 U/L (40-130); Anion Gap 16.2 (5-19); Aspartate Amino Transferase 18 U/L (0-40); Blood Urea Nitrogen 7 mg/dL (6-20); Calcium 8.5 mg/dL (8.5-10.5); Carbon Dioxide 26 mmol/L (22-29); Chloride 104 mmol/L (98-107); Globulin 2.3 g/dL (1.3-4.6); Glomerular Filtration Rate 114.3 mL/min (90-130); Glucose 114 mg/dL (65-115); Osmolality Calculated 295 mOsm/kg (285-295); Potassium 3.2 mmol/L (3.5-5.1); Sodium 143 mmol/L (136-145); Total Bilirubin 0.4 mg/dL (0.15-1.2); Total Protein 6.9 g/dL (6.6-8.7)
[2022-11-11 21:12] LABS: Ammonia 50 umol/L (16-60)
[2022-11-11] MEDS: iohexol 350 mg/mL 500 mL Btl (per mL) IV (22:32)
[2022-11-11 23:10] LABS: Add Urine Microscopic? NO; Charge for UA Resulting for Rev
[2022-11-11 23:12] LABS: Bilirubin Urine Neg (Negative); Blood Urine Neg (Negative); Glucose Urine UA Norm (Normal); Ketones Urine Negative (Negative); Leukocyte Esterase Urine Negative (Negative); Nitrate Urine Negative (Negative); Protein Urine Neg (Negative); Urine Appearance Clear (CLEAR); Urine Color Colorless (Yellow); Urobilinogen Urine Norm (Negative); pH Urine 7 (5-7)
[2022-11-11 23:21] LABS: Amphetamines Screen Urine Positive (Negative); Barbiturates Screen Urine Negative (Negative); Benzodiazepines Screen Urine Negative (Negative); Cocaine Screen Urine Negative (Negative); Opiate Screen Urine Negative (Negative); PCP Screen Urine Negative (Negative); THC Screen Urine Positive (Negative)
--- NOTE | 2022-11-11 23:36 | ED_ITS ---
HPI - Altered Mental Status General: Chief Complaint: Altered Mental Status Stated Complaint: bloody emesis Time Seen by Provider: 11/11/22 20:15 Source: patient and EMS History of Present Illness: 27-year-old male well-known to the emergency department service. He presents with decreased responsiveness, and evidently bloody emesis. He had several episodes of bloody emesis prior to arrival per EMS. He appears quite lethargic on exam, and is not answering questions. He does loosely follow commands. Onset (ago): unknown Severity: moderate Consistency of symptoms: Unknown Context: alcohol abuse and drug abuse Associated symptoms: Reports other Review of Systems General: Reports: ROS unobtainable due to mental status PFSH ED PFSH: Medical History Alcohol use disorder, severe, dependence Anxiety and depression He does have episodes of suicide thoughts and ideation Depression with suicidal ideation GERD (gastroesophageal reflux disease) History of hepatitis C Treated with only one month of Epclusa. Despite that, he seems to have SVR. Recheck in one year History of lower leg fracture Kidney stone Penile benign neoplasm PTSD (post-traumatic stress disorder) Severe dental caries Surgical History Hip fracture requiring operative repair Family History Grandmother Cancer Mother Diabetes Heart disease Social History Alcohol intake: current Alcohol intake frequency: few times a month Alcohol typ e: beer Substance/Drug Use: former Marital status: Single Number of children: 1 Current occupational status: employed Physical Exam Const: GENERAL APPEARANCE: disheveled and lethargic NUTRITIONAL APPEARANCE: thin ORIENTATION/CONSCIOUSNESS: Yes lethargic HENMT: COMMON NORMALS: normocephalic, atraumatic and Normal external nose present HEAD & SCALP: normocephalic and atraumatic NOSE: Normal external nose present Eye: COMMON NORMALS: Equal, round and reactive pupils present and EOMs intact bilaterally PUPIL: Yes Equal, round and reactive pupils present and Yes Dilated pupils Neck/C-Spine: GENERAL: Yes trachea midline and No anterior neck swelling Chest: CHEST: Yes Symmetrical chest wall rise Resp: COMMON NORMALS: normal respiratory effort, No use of accessory muscles and clear to auscultation bilaterally AUSCULTATION: clear to auscultation bilaterally Cardio: COMMON NORMALS: regular rate and regular rhythm RATE: regular rate RHYTHM: regular rhythm Extremity: NARRATIVE EXTREMITY EXAM: Atraumatic Neuro: AMISHA COMA SCALE: document GCS findings [place] coma scale eye openin g: To sound [place] coma scale verbal response: Confused Amisha coma scale motor response: Obey commands [place] coma scale total score: 13 SENSORIUM/ORIENTATION: Yes lethargic Psych: APPEARANCE: Yes disheveled Course Vital Signs: Vital signs: Vital Signs Temperature 97.2 F L 11/12/22 06:02 Pulse Rate 65 11/12/22 06:02 Respiratory Rate 16 11/12/22 06:02 Blood Pressure 119/74 11/12/22 06:02 Pulse Oximetry 99 11/12/22 06:02 Oxygen Delivery Me thod Room Air 11/11/22 20:13 MDM - Altered Mental Status Medical Decision Making Tyree has not vomited since he has been here. His mentation has slowly improved over several hours. He was allowed to rest comfortably in the room. He has sat up, eaten a sandwich, drank a soda. All without vomiting. Head CT is negative. Abdominal CT is negative for any acute problem or change from previous. His talk screen is positive for multiple substances including marijuana, amphetamine. His alcohol level is elevated. His blood gas shows a pH of 7.35 PO 2 of 91, and PCO 2 of 46. Liver enzymes are normal period CRP is 3. With improvement in is symptoms he will be allowed home. Lab Data 11/11/22 20:15 11/11/22 20:15 Radiology Impressions Abdomen/Pelvis CT 11/11/22 20:39 IMPRESSION: 1. Redemonstrated [id number] left hydronephrosis versus extrarenal pelvis. 2. Tiny punctate non-obstructing right renal upper pole calculus. Head CT 11/11/22 20:39 IMPRESSION: No acute intracranial abnormality. Laboratory Results WBC 9.9 10^3/uL (4.0-10.0) 11/11/22 20:15 RBC 4.16 10^6/uL (4.1-5.3) 11/11/22 20:15 Hgb 12.1 g/dL (11.7-16.6) 11/11/22 20:15 Hct 35.9 % (42.0-52.0) L 11/11/22 20:15 MCV 86.3 fl (80-94) 11/11/22 20:15 MCH 29.1 pg (28.0-34.0) 11/11/22 20:15 MCHC 33.7 g/dL (30.0-36.0) 11/11/22 20:15 RDW 13.6 % (12.1-15.1) 11/11/22 20:15 Plt Count 277 10^3/cmm (130-400) 11/11/22 20:15 MPV 9.3 fL (7.4-10.4) 11/11/22 20:15 Neut % (Auto) 63.9 % 11/11/22 20:15 Lymph % (Auto) 25.1 % 11/11/22 20:15 [place] % (Auto) 9.9 % 11/11/22 20:15 Eos % (Auto) 0.3 % 11/11/22 20:15 Baso % (Auto) 0.2 % 11/11/22 20:15 Neut # (Auto) 6.33 10^3/uL (1.8-7.7) 11/11/22 20:15 Lymph # (Auto) 2.5 10^3/uL (0.8-4.8) 11/11/22 20:15 [place] # (Auto) 1.0 10^3/uL (0.2-0.9) H 11/11/22 20:15 Eos # (Auto) 0.0 10^3/uL (0.0-0.8) 11/11/22 20:15 Baso # (Auto) 0.0 10^3/uL (0.0-0.1) 11/11/22 20:15 Nucleated RBC % (auto) 0 % 11/11/22 20:15 Nucleated RBCs # 0.0 /100WBC 11/11/22 20:15 PT 14.50 SECONDS (12.1-14.9) 11/11/22 20:15 INR 1.10 (0.8-1.2) 11/11/22 20:15 APTT 23.7 SECONDS (23.9-36.7) L 11/11/22 20:15 Specimen Type Arterial 11/11/22 20:45 Sample Site Radial, left 11/11/22 20:45 ABG pH 7.35 (7.35-7.45) 11/11/22 20:45 ABG pCO2 45.7 mmHg (35-45) H 11/11/22 20:45 ABG pO2 91.1 mmHg (80.0-100.0) 11/11/22 20:45 ABG HCO3 25.0 mmol/L (22-26) 11/11/22 20:45 ABG Base Excess -0.9 mmol/L (-2.0-2.0) 11/11/22 20:45 Gene Test Pos 11/11/22 20:45 Hematocrit 35.9 % (42-52) L 11/11/22 20:45 O2 Delivery Device Room air 11/11/22 20:45 Actuary ID [email or web address] 11/11/22 20:45 Sodium 143 mmol/L (136-145) 11/11/22 20:15 Potassium 3.2 mmol/L (3.5-5.1) L 11/11/22 20:15 Chloride 104 mmol/L (98-107) 11/11/22 20:15 Carbon Dioxide 26 mmol/L (22-29) 11/11/22 20:15 Anion Gap 16.2 (5-19) 11/11/22 20:15 BUN 7 mg/dL (6-20) 11/11/22 20:15 Creatinine 0.8 mg/dL (0.7-1.2) 11/11/22 20:15 GFR Calculation 114.3 mL/min (90-130) 11/11/22 20:15 Glucose 114 mg/dL (65-115) 11/11/22 20:15 Calculated Osmolality 295 mOsm/kg (285-295) 11/11/22 20:15 Calcium 8.5 mg/dL (8.5-10.5) 11/11/22 20:15 Total Bilirubin 0.4 mg/dL (0.15-1.2) 11/11/22 20:15 AST 18 U/L (0-40) 11/11/22 20:15 ALT 14 U/L (0-41) 11/11/22 20:15 Alkaline Phosphatase 117 U/L (40-130) 11/11/22 20:15 Ammonia 50 umol/L (16-60) 11/11/22 20:15 C-Reactive Protein 3.0 mg/L (0.0-4.9) 11/11/22 20:15 Total Protein 6.9 g/dL (6.6-8.7) 11/11/22 20:15 Albumin 4.6 g/dL (3.5-5.2) 11/11/22 20:15 Globulin 2.3 g/dL (1.3-4.6) 11/11/22 20:15 Urine Color Colorless (Yellow) 11/11/22 22:45 Urine Appearance Clear (CLEAR) 11/11/22 22:45 Urine pH 7 (5-7) 11/11/22 22:45 Ur Specific [place] 1.000 (1.005-1.030) L 11/11/22 22:45 Urine Protein Neg (Negative) 11/11/22 22:45 Urine Glucose (UA) Norm (Normal) 11/11/22 22:45 Urine Ketones Negative (Negative) 11/11/22 22:45 Urine Blood Neg (Negative) 11/11/22 22:45 Urine Nitrate Negative (Negative) 11/11/22 22:45 Urine Bilirubin Neg (Negative) 11/11/22 22:45 Urine Urobilinogen Norm mg/dL (Negative) 11/11/22 22:45 Ur Leukocyte Esterase Negative (Negative) 11/11/22 22:45 Urine Opiates Screen Negative ng/mL (Negative) 11/11/22 22:45 Ur Barbiturates Screen Negative ng/mL (Negative) 11/11/22 22:45 Ur Phencyclidine Scrn Negative ng/mL (Negative) 11/11/22 22:45 Ur Amphetamines Screen Positive ng/mL (Negative) H 11/11/22 22:45 U Benzodiazepines Scrn Negative ng/mL (Negative) 11/11/22 22:45 Urine Cocaine Screen Negative ng/mL (Negative) 11/11/22 22:45 U Marijuana (THC) Screen Positive ng/mL (Negative) H 11/11/22 22:45 Ethyl Alcohol 139 mg/dL (0-10) H 11/11/22 20:15 Blood Type O Positive 11/11/22 21:39 Rho(D) Type Positive 11/11/22 21:39 Antibody Screen Negative 11/11/22 21:39 Discharge Plan Discharge Patient Disposition: Home Clinical Impression: Altered mental status, Alcoholic intoxication, Methamphetamine use disorder, severe Condition: Stable Prescriptions: No Action guaifenesin 600 mg tablet extended release 12hr 600 mg PO BID Qty: 20 0RF Miralax 17 gram/dose powder 17 g PO TID Qty: 238 0RF dicyclomine 20 mg tablet 20 mg PO TID PRN (Reason: abdominal pain) Qty: 20 0RF ondansetron 4 mg tablet,disintegrating 4 mg PO Q6H PRN (Reason: nausea and vomiting) Qty: 14 0RF Discharge Orders: Discharge ED (Routine); Ordered 11/12/22 Ordered By: Dc Lemus Referrals: Mike Sherman MD [Primary Care Provider] - Patient Instructions: Alcohol Intoxication (ED), Methamphetamine Use Disorder (ED), Altered Mental Status (ED), Vomiting - Adult Coding Level of Care Code ED 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
[2022-11-12 01:10] VITALS: BP 111/63; PULSE 75; RESP 16; O2SAT 98
--- NOTE | 2022-11-12 03:34 | PC.NURSE ---
to room to check on pt. pt arouses to voice. requesting something to eat and drink.
[2022-11-12 04:37] VITALS: BP 127/70; PULSE 77; RESP 16; O2SAT 98
[2022-11-12 06:01] VITALS: BP 119/74; PULSE 65; RESP 16; O2SAT 99
[2022-11-12 06:02] VITALS: BP 119/74; PULSE 65; RESP 16; TEMP 36.2; O2SAT 99
== END 2022-11-12 06:25 | disposition home or self-care (01) ==
PROVIDERS: Emergency Provider Emergency Medicine; PCP Family Medicine Adult Medicine
DX: R41.82 Altered mental status, unspecified (principal); F10.129 Alcohol abuse with intoxication, unspecified; Y90.6 Blood alcohol level of 120-199 mg/100 ml; F15.90 Other stimulant use, unspecified, uncomplicated; Z86.19 Personal history of other infectious and parasitic diseases
CPT/HCPCS: 36600; 70450; 74177; 80053; 80306; 80307; 81003; 82140; 82803; 85025; 85610; 85730; 86140; 86850; 86900; 96360; 96361; 99285; J7030; Q9967

== ENCOUNTER 2024-04-16 16:12 | Emergency (ER) | payer SELFPAY ==
[2024-04-16 16:15] VITALS: BP 138/90; PULSE 87; RESP 18; TEMP 36.7; O2SAT 95; BMI 20.9
--- NOTE | 2024-04-16 16:17 | ECG_ITS ---
[facility] Test Date: 2024-04-16 Pat Name: Tyree Alvarez Department: Room: Gender: Male Inspector Precision: : 1995 Requested By: Nino Castro Order Number: [id number] Conor MD: Jason Gregory M.D. Measurements Intervals [place] Rate: 93 P: 46 DC: 126 QRS: 82 QRSD: 93 T: 45 QT: 360 QTc: 449 Interpretive Statements SINUS RHYTHM POSSIBLE RIGHT VENTRICULAR CONDUCTION DELAY [RSR (QR) IN V1/V2] NONSPECIFIC ST ELEVATION [0.05+ mV ST ELEVATION] Compared to ECG 11/02/2022 20:41:47 ST (T wave) deviation now present Sinus arrhythmia no longer present Electronically Signed On 04-17-2024 23:07:30 CDT by Jason Gregory M.D. [email or web address]
--- NOTE | 2024-04-16 16:21 | ED_ITS ---
HPI - General Adult General: Chief complaint: General Medical Stated complaint: Sore in mouth- poss tape worm Time Seen by Provider: 04/16/24 16:19 History of Present Illness: 29-year-old male presents emergency room complaining of a sore throat patient is convinced that he has a tapeworm in the back of his throat. He has not had any fever sweats chills nausea or vomiting. He states tapeworm is causing pain in his chest abdomen as well. He has not had any diarrhea. No hematochezia melena hematemesis calf cramps no dysuria urgency or frequency. Associated symptoms: Deny chest pain, dyspnea or rash Related Data Previous Rx's Medication Instructions Recorded guaifenesin 600 mg tablet, 600 mg PO BID #20 tabs 07/01/22 extended release 12 hr polyethylene glycol 3350 17 17 g PO TID #238 grams 11/01/22 gram/dose oral powder (Miralax) dicyclomine 20 mg tablet 20 mg PO TID PRN abdominal pain 11/02/22 #20 tabs ondansetron 4 mg disintegrating 4 mg PO Q6H PRN nausea and 11/02/22 tablet vomiting #14 tabs Allergies Allergy/AdvReac Type Severity Reaction Status Date / Time No Known Allergies Allergy Verified 04/16/24 16:24 Review of Systems Const: Denies: fever(s) or chills ENMT: Reports: throat pain Card: Denies: chest pain Resp: Denies: dyspnea GI: Denies: abdominal pain : Denies: dysuria, urinary frequency or urinary urgency Musc: Denies: neck pain or back pain Skin/Breast: Denies: rash PFSH ED PFSH: Medical History 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 Despite that, he seems to have SVR. Recheck in one year History of lower leg fracture Alcohol use disorder, severe, dependence GERD (gastroesophageal reflux disease) Surgical History Hip fracture requiring operative repair Family History Grandmother Cancer Mother Diabetes Heart disease Social History Alcohol intake: current Alcohol intake frequency: few times a month Alcohol type: beer Substance/Drug Use: former Marital status: Single Number of children: 1 Current occupational status: employed Physical Exam Const: GENERAL APPEARANCE: cooperative ORIENTATION/CONSCIOUSNESS: Yes awake, Yes oriented to person, Yes oriented to place and Yes oriented to time HENMT: COMMON NORMALS: normocephalic, atraumatic and hearing grossly normal bilaterally HEAD & SCALP: normocephalic and atraumatic OTHER: Posterior pharyngeal wall no exudates Neck/C-Spine: OTHER: No submandibular lymphadenopathy normal Resp: COMMON NORMALS: normal respiratory effort, No retractions, No use of accessory muscles and clear to auscultation bilaterally AUSCULTATION: clear to auscultation bilaterally Cardio: COMMON NORMALS: regular rate, regular rhythm and No murmurs present (Cardio) RATE: regular rate RHYTHM: regular rhythm GI: COMMON NORMALS: Soft to palpation and No hepatosplenomegaly present AUSCULTATION: Yes normoactive bowel sounds PALPATION: Yes Soft to palpation, No Tenderness to palpation present (GI), No Guarding due to palpation present (GI) and Yes No hepatosplenomegaly present Extremity: COMMON NORMALS: normal to inspection, capillary refill normal, no clubbing, cyanosis or edema, no calf tenderness and no pedal edema Neuro: SENSORIUM/ORIENTATION: Yes oriented to person, Yes oriented to place and Yes oriented to time Skin: COMMON NORMALS: no rashes or lesions noted GENERAL SKIN EXAM: no rashes or lesions noted Course Vital Signs: Vital signs: Vital Signs Temperature 98.1 F 04/16/24 16:15 Pulse Rate 83 04/16/24 16:56 Respiratory Rate 16 04/16/24 16:33 Blood Pressure 138/90 04/16/24 16:56 Pulse Oximetry 98 04/16/24 16:56 Oxygen Delivery Me thod Room Air 04/16/24 16:33 MDM - General Adult Medical Decision Making No findings on exam discharge supportive cares follow-up as needed. Discussed with the patient to that tapeworms usually are not found in the throat and there is no exam findings at this time. Medical Records I reviewed the patient's medical records. No radiology studies performed this visit Discharge Plan Discharge Patient Disposition: Home Clinical Impression: Pharyngitis, No problem, feared complaint unfounded Condition: Stable Prescriptions: No Action guaifenesin 600 mg tablet extended release 12hr 600 mg PO BID Qty: 20 0RF Miralax 17 gram/dose powder 17 g PO TID Qty: 238 0RF dicyclomine 20 mg tablet 20 mg PO TID PRN (Reason: abdominal pain) Qty: 20 0RF ondansetron 4 mg tablet,disintegrating 4 mg PO Q6H PRN (Reason: nausea and vomiting) Qty: 14 0RF Discharge Orders: Discharge ED (Routine); Ordered 04/16/24 Ordered By: Nino Fontaine Referrals: Mike Sherman MD [Primary Care Provider] - Discharge Diet: Usual diet Discharge Activity: Resume usual activity Patient Instructions: Opioid Safety, Pain Management Activity Restrictions/Additional Instructions: Thank you for choosing [facility] for your healthcare needs today. It is very important that you follow up as instructed or that you return to the Emergency Department should you have concerns or if your condition changes or worsens in any way. 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
[2024-04-16 16:33] VITALS: BP 138/90; PULSE 88; RESP 16; O2SAT 94
[2024-04-16 16:56] VITALS: BP 138/90; PULSE 83; O2SAT 98
== END 2024-04-16 16:57 | disposition home or self-care (01) ==
PROVIDERS: Emergency Provider Family Medicine; PCP Family Medicine Adult Medicine
DX: J02.9 Acute pharyngitis, unspecified (principal)
CPT/HCPCS: 93005; 99283

== ENCOUNTER 2024-05-04 23:44 | Emergency (ER) | payer SELFPAY ==
[2024-05-04 23:44] VITALS: BP 141/95; PULSE 75; RESP 14; TEMP 36.8; O2SAT 98; BMI 20.9
--- NOTE | 2024-05-05 01:17 | W.ED.GENADLT ---
HPI - General Adult General: Chief complaint: General Medical Stated complaint: throat pain Time Seen by Provider: 05/05/24 00:39 History of Present Illness: 29-year-old male patient presenting with throat soreness, trouble swallowing, pain radiating into his epigastrium. He notes that is hard to eat because of the symptoms. He denies fever. He denies significant vomiting. No diarrhea. No evidence of bleeding. Related Data Previous Rx's Medication Instructions Recorded guaifenesin 600 mg tablet, 600 mg PO BID #20 tabs 07/01/22 extended release 12 hr polyethylene glycol 3350 17 17 g PO TID #238 grams 11/01/22 gram/dose oral powder (Miralax) dicyclomine 20 mg tablet 20 mg PO TID PRN abdominal pain 11/02/22 #20 tabs ondansetron 4 mg disintegrating 4 mg PO Q6H PRN nausea and 11/02/22 tablet vomiting #14 tabs lansoprazole 30 mg capsule,delayed 30 mg PO DAILY #30 caps 05/05/24 release (Prevacid) Allergies Allergy/AdvReac Type Severity Reaction Status Date / Time No Known Allergies Allergy Verified 04/16/24 16:24 [facility] ED PFSH: Medical History 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 Despite that, he seems to have SVR. Recheck in one year History of lower leg fracture Alcohol use disorder, severe, dependence GERD (gastroesophageal reflux disease) Surgical History Hip fracture requiring operative repair Family History Grandmother Cancer Mother Diabetes Heart disease Social History Alcohol intake: current Alcohol intake frequency: few times a month Alcohol type: beer Substance/Drug Use: former Marital status: Single Number of children: 1 Current occupational status: employed Physical Exam Const: COMMON NORMALS: no acute distress GENERAL APPEARANCE: cooperative; not ill appearing and not frail appearing HENMT: COMMON NORMALS: normocephalic, atraumatic and Normal external nose present HEAD & SCALP: normocephalic and atraumatic FACE & SINUS: normal facial exam and face symmetric NOSE: Normal external nose present Eye: COMMON NORMALS: Equal, round and reactive pupils present and EOMs intact bilaterally PUPIL: Yes Equal, round and reactive pupils present Neck/C-Spine: GENERAL: Yes trachea midline Chest: CHEST: Yes Symmetrical chest wall rise Resp: COMMON NORMALS: normal respiratory effort, No retractions, No use of accessory muscles and clear to auscultation bilaterally AUSCULTATION: clear to auscultation bilaterally Cardio: COMMON NORMALS: regular rate and regular rhythm RATE: regular rate RHYTHM: regular rhythm GI: COMMON NORMALS: Normal to inspection, nondistended, normoactive bowel sounds present Extremity: COMMON NORMALS: no pedal edema Neuro: AMISHA COMA SCALE: document GCS findings [place] coma scale eye opening: Spontaneous Amisha coma scale verbal response: Orientated Amisha coma scale motor response: Obey commands [place] coma scale total score: 15 SENSORY EXAM: Yes extremities (intact) Psych: COMMON NORMALS: speech normal SPEECH: Yes normal speech Skin: COMMON NORMALS: no rashes or lesions noted GENERAL SKIN EXAM: no rashes or lesions noted Course Vital Signs: Vital signs: Vital Signs Temperature 98.2 F 05/04/24 23:44 Pulse Rate 75 05/04/24 23:44 Respiratory Rate 14 05/04/24 23:44 Blood Pressure 141/95 05/04/24 23:44 Pulse Oximetry 98 05/04/24 23:44 Oxygen Delivery Me thod Room Air 05/04/24 23:44 [facility] - General Adult Medical Decision Making Exam is normal with exception of slight redness of the uvula and mild epigastric tenderness. He is given a GI cocktail with improvement in his symptoms. He is also given dexamethasone for the redness. He will be discharged. Has gastroesophageal reflux is in the differential as a cause, will treat with PPI. No radiology studies performed this visit Discharge Plan Discharge Patient Disposition: Home Clinical Impression: Uvulitis Condition: Stable Prescriptions: New lansoprazole [Prevacid] 30 mg capsule,delayed release(DR/EC) 30 mg PO DAILY Qty: 30 0RF No Action guaifenesin 600 mg tablet extended release 12hr 600 mg PO BID Qty: 20 0RF Miralax 17 gram/dose powder 17 g PO TID Qty: 238 0RF dicyclomine 20 mg tablet 20 mg PO TID PRN (Reason: abdominal pain) Qty: 20 0RF ondansetron 4 mg tablet,disintegrating 4 mg PO Q6H PRN (Reason: nausea and vomiting) Qty: 14 0RF Discharge Orders: Discharge ED (Routine); Ordered 05/05/24 Ordered By: Dc Lemus Referrals: Mike Sherman MD [Primary Care Provider] - Patient Instructions: Uvulitis (ED), Opioid Safety, Pain Management Coding Level of Care Code 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
[2024-05-05] MEDS: lidocaine 2% viscous 15 ML, aluminum-mag hydrox-simethicon 30 ML, sucralfate oral liq 1 GM PO (01:25)
[2024-05-05] MEDS: dexamethasone 4 mg Tablet 10 MG PO (01:25)
[2024-05-05 01:26] VITALS: BP 124/82; PULSE 67; RESP 18; O2SAT 100
== END 2024-05-05 01:31 | disposition home or self-care (01) ==
PROVIDERS: Emergency Provider Emergency Medicine; PCP Family Medicine Adult Medicine
DX: K12.2 Cellulitis and abscess of mouth (principal)
CPT/HCPCS: 99283; J8540